=== PATIENT | male | born 1960 | race Caucasian/White ===

== ENCOUNTER → 2018-05-26 11:47 | Outpatient (CLI) | payer OTHER, SELFPAY ==
[2018-05-26 13:05] LABS: Alanine Aminotransferase 58 IU/L (21-72); Albumin 4.2 g/dL (3.5-5.0); Albumin Globulin Ratio 1.6 (1.0-2.8); Alkaline Phosphatase 69 U/L (38-126); Aspartate Aminotransferase 31 IU/L (17-59); BUN Creatinine Ratio 22.5 (6-22); Bilirubin Total 1.1 mg/dL (0.2-1.3); Blood Urea Nitrogen 18 mg/dL (9-20); Calcium 9.1 mg/dL (8.4-10.2); Carbon Dioxide 34 mmol/L (22-32); Chloride 99 mmol/L (98-107); Cholesterol 203 mg/dL (140-199); Estimated Glomerular Filt Rate > 60.0 mL/min (>60); Globulin 2.6 g/dL (1.7-4.1); Glucose 111 mg/dL (70-100); HDL Cholesterol 36 mg/dL (40-60); HEMOLYSIS < 15 (0-50); LDL Cholesterol Calculated 117 mg/dL (<100); Potassium 4.2 mmol/L (3.4-5.1); Sodium 143 mmol/L (137-145); Total Protein 6.8 g/dL (6.3-8.2); Triglycerides 249 mg/dL (35-150)
[2018-05-26 13:32] LABS: Prostate Specific Antigen Scrn 1.04 ng/mL (0.1-4.0)
== END ==
PROVIDERS: Visit Provider Internal Medicine
DX: M15.0 Primary generalized (osteo)arthritis (principal); I10 Essential (primary) hypertension; G47.33 Obstructive sleep apnea (adult) (pediatric)
CPT/HCPCS: 36415; 80053; 80061; G0103

== ENCOUNTER → 2018-08-09 11:30 | Outpatient (CLI) | payer OTHER, SELFPAY ==
--- NOTE | 2018-08-09 11:36 | DI.RAD.S_ITS ---
PROCEDURE: XR CERVICAL SPINE 2V OR 3V INDICATIONS: R shoulder pain radiating into arm s/p fall down stairs TECHNIQUE: 4 views of the cervical spine were acquired. COMPARISON: None. FINDINGS: Bones: No fractures or dislocations to the C6-C7 level. There is straightening of the cervical lordosis. Minimal rightward curvature is noted at the cervicothoracic junction. The lateral masses of C1 appear intact on the odontoid view. There is multilevel disc space narrowing including mild/moderate narrowing at C5-C6 with endplate sclerosis and osteophytosis. No suspicious bony lesions. Soft tissues: No prevertebral soft tissue swelling. IMPRESSION: 1. No definite fracture or subluxation to the C6-C7 level. 2. Straightening of the cervical lordosis and minimal rightward curvature of the cervicothoracic spine. 3. Multilevel degenerative changes include [id number] degenerative disc disease at C5-C6. Dictated by: Emir Saez M.D. on 08/09/2018 at 13:45 Approved by: Emir Saez M.D. on 08/09/2018 at 13:46
--- NOTE | 2018-08-09 11:36 | DI.RAD.S_ITS ---
PROCEDURE: XR SHOULDER RT MIN 2V INDICATIONS: R shoulder pain radiating into arm s/p fall down stairs TECHNIQUE: 3 views of the shoulder were acquired. COMPARISON: [facility], , SHOULDER MINIMUM 2 VIEW LEFT, 10/03/2015, 20:01. FINDINGS: Bones: No fractures or dislocations. There is mild acromioclavicular joint degeneration. No suspicious bony lesions. Visualized ribs appear intact. Soft tissues: No suspicious soft tissue calcifications. IMPRESSION: 1. No fracture or dislocation. Dictated by: Emir Saez M.D. on 08/09/2018 at 13:46 Approved by: Emir Saez M.D. on 08/09/2018 at 13:47
== END ==
PROVIDERS: Visit Provider Physician Assistant
DX: M25.511 Pain in right shoulder (principal); M19.011 Primary osteoarthritis, right shoulder; M50.322 Other cervical disc degeneration at C5-C6 level; M47.812 Spondylosis without myelopathy or radiculopathy, cervical region; M48.02 Spinal stenosis, cervical region
CPT/HCPCS: 72040; 73030

== ENCOUNTER 2018-10-05 15:15 | Outpatient (RCR) | payer OTHER, SELFPAY ==
--- NOTE | 2018-09-15 17:25 | PT.OIE ---
Current Diagnoses Pain in right shoulder (09/17/18) Cervicalgia (09/17/18) Provider Visit Care Team Role Provider Type Mohsen Blanco MD Attending Provider Physician Primary Care Provider Specialty: Internal Medicine Address: [address] [place] [address], [id number] Email: Physical Therapy Initial Evaluation PT-OP-A Visit Information Start: 09/15/18 17:25 Freq: Status: Active Protocol: Document 09/16/18 17:17 EA (Rec: 09/16/18 17:41 EA [id number]) Out-Patient Physical Therapy Visit Information Visit Information Visit Type Initial Evaluation Visit Start Time 14:30 Visit Stop Time 15:15 Total Visit Minutes 40 Visit Number 1 Evaluation Information Evaluation Date 09/16/18 PT-OP-B Current Condition Start: 09/15/18 17:25 Freq: Status: Active Protocol: Document 09/16/18 17:17 EA (Rec: 09/16/18 17:41 EA [id number]) Current Condition History of Current Condition Onset Date July 2018 Current Complaints L lower base of neck radiating to shoulder and FRA History of Current Condition Present condition re- aggravated 1 1/2 month ago after a slipped on the stairs; reports did not hit the head but only the right shoulder and hip; denies major injury. History of both hands CTS with surgeries in 1994. Prior Treatments and Tests R shoulder and cervical X-rays 08/09/2018: No significant findings to right shoulder. Cervicothoracic rightward curvature, and cervical moderate DDD. Future Testing and Treatments Planned None identified Treatment Goals Patient/Caregiver Goals I just want to get back to my regular sleep. Pt states pain makes him difficult to sleep. 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 Functional Limitations- Mobility/Gait Limited due low back , knee and hip pain Functional Limitations- Work/School Unable to work at this time due to multiple joints pain. Functional Limitations- Recreation/ Low ebengry demanding Hobbies activities PT-OP-C Subjective Start: 09/15/18 17:25 Freq: Status: Active Protocol: Document 09/16/18 17:17 EA (Rec: 09/16/18 17:41 EA [id number]) OP-PT Subjective Patient Comments Patient Comments Pt reports recliner chair made him sleep; states unable to sleep on his back or in SL position. Patient Reported Progress Worse Patient Questionnaires Quick Dash- Upper Extremity Quick Dash UE Score 52 Quick Dash UE Impairment 40 to 59% Impaired (Score 40- 59) OP-PT Pain Assessment Pain Assessment Grid Paper Pain Assessment Grid Completed Yes Location Right Posterior Neck Pain Location Details Right low neck base, ant traps , over radial tuberosity Scale Used Numeric (1 - 10) Description Radiating Frequency Intermittent Pain Aggravating Factors Position Changing Position Other Pain Alleviating Factors Laying down to recliner chair Home Pain Medication Use Pain Medications Used Yes Pain Behaviors Pain Behaviors Wincing PT-OP-E Functional Tests Start: 09/15/18 17:25 Freq: Status: Active Protocol: Document 09/15/18 17:24 EA (Rec: 09/17/18 07:26 EA [id number]) Functional Tests Apley's Scratch Test Action 1: The subject is instructed to touch the opposite shoulder with his/her hand. This motion checks Glenohumeral adduction, internal rotation , horizontal adduction and scapular protraction Action 2: The subject is instructed to place his/her arm overhead and reach behind the neck to touch his/her upper back. This motion checks Glenohumeral abduction, external rotation and scapular upward rotation and elevation. Action 3: The subject puts his/her hand on the lower back and reaches upward as far as possible. This motion checks glenohumeral adduction, internal rotation and scapular retraction with downward rotation Action 1- Left able Action 1- Right able Action 2- Left C7 Action 2- Right C7 Action 3- Left T10 Action 3- Right T10 PT-OP-F Manual Assessment Start: 09/15/18 17:25 Freq: Status: Active Protocol: Document 09/15/18 17:24 EA (Rec: 09/17/18 07:26 EA [id number]) Manual Assessments Soft Tissue Assessment Soft Tissue Mobility Assessment Tight both Traps, Lev scap, Scalenes, neck flexors Other Manual Assessments Other Manual Assessments increased tension to both traps and psot neck muscles upon palpation PT-OP-H Neuro Start: 09/15/18 17:25 Freq: Status: Active Protocol: Document 09/16/18 17:17 EA (Rec: 09/16/18 17:41 EA [id number]) Sensation Evaluation Gross Sensation Gross Sensation Right UE Impaired Sensation Description Tingling Dermatome Impairments C6 C7 T1 Deep Tendon Reflex & Clonus Assessment Deep Tendon Reflex Tricep Deep Tendon Reflex 1+ Diminished PT-OP-J Posture/Palpation/Skin Start: 09/15/18 17:25 Freq: Status: Active Protocol: Document 09/16/18 17:17 EA (Rec: 09/16/18 17:41 EA [id number]) Posture Evaluation Position Standing Evaluation View post/lat Head/C-Spine Posture Side Bent Right Forward Head Shoulder Posture (L) Elevated Scapula Posture (L) Protracted (R) Protracted Arm Posture (L) Internally Rotated (R) Internally Rotated Pelvis Posture Anteriorly Tilted PT-OP-K Range of Motion Start: 09/15/18 17:25 Freq: Status: Active Protocol: Document 09/15/18 17:25 EA (Rec: 09/17/18 07:34 EA [id number]) Cervical Spine Range of Motion Cervical Spine Active Percentage Testing Position Sitting Flexion 95 Extension 50 Rotation Left 75 Rotation Right 75 Lateral Flexion Left 75 Lateral Flexion Right 75 ROM Limitations Soft Tissue Tightness Pain Shoulder Goniometric Range of Motion Shoulder Measured in Degrees Right Active Shoulder ROM WFL Yes Testing Position Standing Flexion 180 Extension 60 External Rotation at 90 degrees 90 Abduction Internal Rotation 50 Shoulder ROM Limitations Comments both shoulders are WFL PT-OP-L Special Tests Start: 09/15/18 17:25 Freq: Status: Active Protocol: Document 09/15/18 17:25 EA (Rec: 09/17/18 07:34 EA [id number]) Special Tests Cervical Spine Special Tests Other- 1 Test Results TOS to be determine Spurling's Test Test Results sensitive Vertebral Artery Test Results - Foraminal Compression Test Results + Comments C6 -C7 Shoulder Special Tests Lift-Off Rotator Cuff Test Results - Empty Can Test Results sensitive Speed's Biceps Test Results - Belly Press Test Results - Elevation Impingement Test Results - Mandel Nile Impingement Test Results - PT-OP-M Strength Start: 09/15/18 17:25 Freq: Status: Active Protocol: Document 09/15/18 17:25 EA (Rec: 09/17/18 07:34 EA [id number]) Cervical Spine Strength Cervical Spine Manual Muscle Testing Testing Position Sitting Flexion (C1-2) 4+ Good+ Extension 4+ Good+ Rotation Left 4+ Good+ Rotation Right 4+ Good+ Lateral Flexion Left (C3) 4- Good- Lateral Flexion Right (C3) 4- Good- PT-OP-Q Treatments Start: 09/15/18 17:25 Freq: Status: Active Protocol: Document 09/15/18 17:25 EA (Rec: 09/17/18 07:34 EA [id number]) Self-Care/Home Management Treatment Education Patient Education Home Exercise Program Joint Protection Pain Management Posture PT-OP-T Assessment and Plan Start: 09/15/18 17:25 Freq: Status: Active Protocol: Document 09/15/18 17:26 EA (Rec: 09/15/18 17:28 EA [id number]) Physical Therapy Assessment Rehab Potential Rehabilitation Potential Good Evaluation Complexity Number of Personal Factors/Comorbidities 3 or More Number of Body Systems Impaired 3 Clinical Presentation at Evaluation Evolving Impairments Impairments Activity Tolerance Functional Activities Pain Posture ROM Soft Tissue Mobility Goals Four Impairment Impaired posture Golf Cart Attendant Goal (LTG) Patient will exhibit near normal posture LTG Duration 4 wks Three Impairment QuickDash score of 54 Golf Cart Attendant Goal (LTG) Patient will have quickDash score of < 25 LTG Duration 4 wks Two Impairment Impaired positional tolerance Golf Cart Attendant Goal (LTG) Patient will sleep on his back or side without increase of symptoms > 6 hours LTG Duration 4 wks One Impairment Impaired neck ROM Golf Cart Attendant Goal (LTG) Patient will have normal neck ROM decrease muscular imbalance LTG Duration 4 wks Assessment Summary Assessment Pleasant 58 y/o M patient with referring diagnosis of shoulder and neck pain secondary to recent fall. Today patient presented with limited neck mobility and muscular tension to both neck and upper shoulder. Tests and assessments reveals positive with foraminal compression and distraction. R Shoulder RTC integrity tested and reveals negative to all tests except with R supraspinatus which slightly sensitive. MMT to both shoulders, elbows, and wrists shows WFL in all planes , however neck side flexors shows slight weakness but not significant to nerve injury. Posture assessments reveals slight left shoulder elev. Nerve tensions and TOS assessment is to be followed next visit. In my professional opinion further enhance diagnostic imaging is required to correlate with clinical signs. 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 Patient would greatly benefit with skilled PT to enhance function. Physical Therapy Plan Frequency and Duration Frequency of Treatment 2x/Week Duration of Treatment 8 Plan of Care Start Date 09/15/18 Plan of Care End Date 11/10/18 Therapeutic Interventions Therapeutic Interventions Home Exercise Program Joint Mobilizations Patient/Caregiver Education Self-Care/Home Management Soft Tissue Mobilization Taping Therapeutic Exercises Modalities Cold Pack/Ice Massage Electric Stimulation Hot Packs Ultrasound Next Visit Focus/Plan Next Note Type Treatment Note Next Visit Plan HEP images, neck flexibility, posture, modalities
--- NOTE | 2018-09-15 17:25 | PT.OPPOC ---
Current Diagnoses Pain in right shoulder (09/17/18) Cervicalgia (09/17/18) Provider Visit Care Team Role Provider Type Mohsen Blanco MD Attending Provider Physician Primary Care Provider Specialty: Internal Medicine Address: [address] [place] [address], [facility] Email: Plan Of Care PT-OP-T Assessment and Plan Start: 09/15/18 17:25 Freq: Status: Active Protocol: Document 09/15/18 17:26 ANDI (Rec: 09/15/18 17:28 EA [id number]) Physical Therapy Assessment Rehab Potential Rehabilitation Potential Good Evaluation Complexity Number of Personal Factors/Comorbidities 3 or More Number of Body Systems Impaired 3 Clinical Presentation at Evaluation Evolving Impairments Impairments Activity Tolerance Functional Activities Pain Posture ROM Soft Tissue Mobility Goals Four Impairment Impaired posture Alf Goal (LTG) Patient will exhibit near normal posture LTG Duration 4 wks Three Impairment QuickDash score of 54 Catering Service Manager Goal (LTG) Patient will have quickDash score of < 25 LTG Duration 4 wks Two Impairment Impaired positional tolerance Alf Goal (LTG) Patient will sleep on his back or side without increase of symptoms > 6 hours LTG Duration 4 wks One Impairment Impaired neck ROM Alf Goal (LTG) Patient will have normal neck ROM decrease muscular imbalance LTG Duration 4 wks Assessment Summary Assessment Pleasant 58 y/o M patient with referring diagnosis of shoulder and neck pain secondary to recent fall. Today patient presented with limited neck mobility and muscular tension to both neck and upper shoulder. Tests and assessments reveals positive with foraminal compression and distraction. R Shoulder RTC integrity tested and reveals negative to all tests except with R supraspinatus which slightly sensitive. MMT to both shoulders, elbows, and wrists shows WFL in all planes , however neck side flexors shows slight weakness but not significant to nerve injury. Posture assessments reveals slight left shoulder elev. Nerve tensions and TOS assessment is to be followed next visit. In my professional opinion further enhance diagnostic imaging is required to correlate with clinical signs. 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 Patient would greatly benefit with skilled PT to enhance function. Physical Therapy Plan Frequency and Duration Frequency of Treatment 2x/Week Duration of Treatment 8 Plan of Care Start Date 09/15/18 Plan of Care End Date 11/10/18 Therapeutic Interventions Therapeutic Interventions Home Exercise Program Joint Mobilizations Patient/Caregiver Education Self-Care/Home Management Soft Tissue Mobilization Taping Therapeutic Exercises Modalities Cold Pack/Ice Massage Electric Stimulation Hot Packs Ultrasound Next Visit Focus/Plan Next Note Type Treatment Note Next Visit Plan HEP images, neck flexibility, posture, modalities Plan of Care Dates Plan of Care Start Date 09/15/18 Plan of Care End Date 11/10/18 Please Sign and Return: I have reviewed this Plan of Care and certify that the skilled therapy services above are required to meet the patient?s needs. Physician Signature Date Printed Name and Credentials Clinical Instructor Signature Printed Name and Credentials
--- NOTE | 2018-09-17 12:24 | PT.OTN ---
Current Diagnoses Pain in right shoulder (09/17/18) Cervicalgia (09/17/18) Physical Therapy Treatment Note PT-OP-A Visit Information Start: 09/15/18 17:25 Freq: Status: Active Protocol: Document 09/17/18 12:16 EA (Rec: 09/17/18 12:22 EA [id number]) Out-Patient Physical Therapy Visit Information Visit Information Visit Type Treatment Note Visit Start Time 08:15 Visit Stop Time 09:03 Total Visit Minutes 48 Visit Number 2 PT-OP-B Current Condition Start: 09/15/18 17:25 Freq: Status: Active Protocol: Document 09/16/18 17:17 EA (Rec: 09/16/18 17:41 EA [id number]) Current Condition History of Current Condition Onset Date July 2018 Current Complaints L lower base of neck radiating to shoulder and FRA History of Current Condition Present condition re- aggravated 1 1/2 month ago after a slipped on the stairs; reports did not hit the head but only the right shoulder and hip; denies major injury. History of both hands CTS with surgeries in 1994. Left knee arthroscopic surgery last December 2017 with no formal PT due to complicated medical benefits and L& I claims. Prior Treatments and Tests R shoulder and cervical X-rays 08/09/2018: No significant findings to right shoulder. Cervicothoracic rightward curvature, and cervical moderate DDD. Future Testing and Treatments Planned None identified Treatment Goals Patient/Caregiver Goals I just want to get back to my regular sleep. Pt states pain makes him difficult to sleep. 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 Functional Limitations- Mobility/Gait Limited due low back , knee and hip pain Functional Limitations- Work/School Unable to work at this time due to multiple joints pain. Functional Limitations- Recreation/ Low ebengry demanding Hobbies activities PT-OP-C Subjective Start: 09/15/18 17:25 Freq: Status: Active Protocol: Document 09/17/18 12:22 EA (Rec: 09/17/18 12:23 EA [id number]) OP-PT Subjective Patient Comments Patient Comments Pt reports compliant with HEP and feels it is helping him. Patient Reported Progress Improving PT-OP-E Functional Tests Start: 09/15/18 17:25 Freq: Status: Active Protocol: Document 09/15/18 17:24 EA (Rec: 09/17/18 07:26 EA [id number]) Functional Tests Apley's Scratch Test Action 1: The subject is instructed to touch the opposite shoulder with his/her hand. This motion checks Glenohumeral adduction, internal rotation , horizontal adduction and scapular protraction Action 2: The subject is instructed to place his/her arm overhead and reach behind the neck to touch his/her upper back. This motion checks Glenohumeral abduction, external rotation and scapular upward rotation and elevation. Action 3: The subject puts his/her hand on the lower back and reaches upward as far as possible. This motion checks glenohumeral adduction, internal rotation and scapular retraction with downward rotation Action 1- Left able Action 1- Right able Action 2- Left C7 Action 2- Right C7 Action 3- Left T10 Action 3- Right T10 PT-OP-F Manual Assessment Start: 09/15/18 17:25 Freq: Status: Active Protocol: Document 09/15/18 17:24 EA (Rec: 09/17/18 07:26 EA [id number]) Manual Assessments Soft Tissue Assessment Soft Tissue Mobility Assessment Tight both Traps, Lev scap, Scalenes, neck flexors Other Manual Assessments Other Manual Assessments increased tension to both traps and psot neck muscles upon palpation PT-OP-H Neuro Start: 09/15/18 17:25 Freq: Status: Active Protocol: Document 09/16/18 17:17 EA (Rec: 09/16/18 17:41 EA [id number]) Sensation Evaluation Gross Sensation Gross Sensation Right UE Impaired Sensation Description Tingling Dermatome Impairments C6 C7 T1 Deep Tendon Reflex & Clonus Assessment Deep Tendon Reflex Tricep Deep Tendon Reflex 1+ Diminished PT-OP-J Posture/Palpation/Skin Start: 09/15/18 17:25 Freq: Status: Active Protocol: Document 09/16/18 17:17 EA (Rec: 09/16/18 17:41 EA [id number]) Posture Evaluation Position Standing Evaluation View post/lat Head/C-Spine Posture Side Bent Right Forward Head Shoulder Posture (L) Elevated Scapula Posture (L) Protracted (R) Protracted Arm Posture (L) Internally Rotated (R) Internally Rotated Pelvis Posture Anteriorly Tilted PT-OP-K Range of Motion Start: 09/15/18 17:25 Freq: Status: Active Protocol: Document 09/15/18 17:25 EA (Rec: 09/17/18 07:34 EA [id number]) Cervical Spine Range of Motion Cervical Spine Active Percentage Testing Position Sitting Flexion 95 Extension 50 Rotation Left 75 Rotation Right 75 Lateral Flexion Left 75 Lateral Flexion Right 75 ROM Limitations Soft Tissue Tightness Pain Shoulder Goniometric Range of Motion Shoulder Measured in Degrees Right Active Shoulder ROM WFL Yes Testing Position Standing Flexion 180 Extension 60 External Rotation at 90 degrees 90 Abduction Internal Rotation 50 Shoulder ROM Limitations Comments both shoulders are WFL PT-OP-L Special Tests Start: 09/15/18 17:25 Freq: Status: Active Protocol: Document 09/15/18 17:25 EA (Rec: 09/17/18 07:34 EA [id number]) Special Tests Cervical Spine Special Tests Other- 1 Test Results TOS to be determine Spurling's Test Test Results sensitive Vertebral Artery Test Results - Foraminal Compression Test Results + Comments C6 -C7 Shoulder Special Tests Lift-Off Rotator Cuff Test Results - Empty Can Test Results sensitive Speed's Biceps Test Results - Belly Press Test Results - Elevation Impingement Test Results - Mandel Nile Impingement Test Results - PT-OP-M Strength Start: 09/15/18 17:25 Freq: Status: Active Protocol: Document 09/15/18 17:25 EA (Rec: 09/17/18 07:34 EA [id number]) Cervical Spine Strength Cervical Spine Manual Muscle Testing Testing Position Sitting Flexion (C1-2) 4+ Good+ Extension 4+ Good+ Rotation Left 4+ Good+ Rotation Right 4+ Good+ Lateral Flexion Left (C3) 4- Good- Lateral Flexion Right (C3) 4- Good- PT-OP-Q Treatments Start: 09/15/18 17:25 Freq: Status: Active Protocol: Document 09/17/18 12:16 EA (Rec: 09/17/18 12:22 EA [id number]) Therapeutic Exercises Supine Exercises 3 Supine Exercise Name Passive stretch: Traps, scalenes, SCM, pectorals Reps/Minutes x15SH x 2 reps each 2 Supine Exercise Name Gentle isometrics all planes Side bilateral Reps/Minutes x 5SH x 5 reps each 1 Supine Exercise Name Flxion/SF/rotation AROM Side bilateral Reps/Minutes x15 reps Standing Exercises 1 Standing Exercise Name wall posture Reps/Minutes x 5 mins Manual Therapy Treatment Soft Tissue Mobilization 1 Mobilization Type Myofascial Release Rolling Sustained Pressure Trigger Point Release Body Position Hooklying Manual Traction Cervical Body Position Supine Reps/Duration x5SH x 10reps PT-OP-R Modalities Start: 09/15/18 17:25 Freq: Status: Active Protocol: Document 09/17/18 12:16 EA (Rec: 09/17/18 12:22 EA [id number]) Hot Pack/Cold Pack Treatment Hot Pack Location cervical Patient Position Supine Treatment Duration (minutes) 10 Patient Tolerance Good PT-OP-T Assessment and Plan Start: 09/15/18 17:25 Freq: Status: Active Protocol: Document 09/17/18 12:16 EA (Rec: 09/17/18 12:22 EA [id number]) Physical Therapy Assessment Assessment Summary Assessment Pt tolerated treatment well. Noted decreased muscle tension after manual. Physical Therapy Plan Next Visit Focus/Plan Next Note Type Treatment Note
--- NOTE | 2018-09-22 16:35 | PT.OTN ---
Current Diagnoses Pain in right shoulder (09/22/18) Cervicalgia (09/22/18) Physical Therapy Treatment Note PT-OP-A Visit Information Start: 09/15/18 17:25 Freq: Status: Active Protocol: Document 09/22/18 15:45 EA (Rec: 09/22/18 15:53 EA [id number]) Out-Patient Physical Therapy Visit Information Visit Information Visit Type Treatment Note Visit Start Time 15:15 Visit Stop Time 16:00 Visit Number 3 PT-OP-B Current Condition Start: 09/15/18 17:25 Freq: Status: Active Protocol: Document 09/16/18 17:17 EA (Rec: 09/16/18 17:41 EA [id number]) Current Condition History of Current Condition Onset Date July 2018 Current Complaints L lower base of neck radiating to shoulder and FRA History of Current Condition Present condition re- aggravated 1 1/2 month ago after a slipped on the stairs; reports did not hit the head but only the right shoulder and hip; denies major injury. History of both hands CTS with surgeries in 1994. Left knee arthroscopic surgery last December 2017 with no formal PT due to complicated medical benefits and L& I claims. Prior Treatments and Tests R shoulder and cervical X-rays 08/09/2018: No significant findings to right shoulder. Cervicothoracic rightward curvature, and cervical moderate DDD. Future Testing and Treatments Planned None identified Treatment Goals Patient/Caregiver Goals I just want to get back to my regular sleep. Pt states pain makes him difficult to sleep. 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 Functional Limitations- Mobility/Gait Limited due low back , knee and hip pain Functional Limitations- Work/School Unable to work at this time due to multiple joints pain. Functional Limitations- Recreation/ Low ebengry demanding Hobbies activities PT-OP-C Subjective Start: 09/15/18 17:25 Freq: Status: Active Protocol: Document 09/22/18 15:45 EA (Rec: 09/22/18 15:53 EA [id number]) OP-PT Subjective Patient Comments Patient Comments Pt reports last session helps. Patient Reported Progress Improving PT-OP-E Functional Tests Start: 09/15/18 17:25 Freq: Status: Active Protocol: Document 09/15/18 17:24 EA (Rec: 09/17/18 07:26 EA [id number]) Functional Tests Apley's Scratch Test Action 1: The subject is instructed to touch the opposite shoulder with his/her hand. This motion checks Glenohumeral adduction, internal rotation , horizontal adduction and scapular protraction Action 2: The subject is instructed to place his/her arm overhead and reach behind the neck to touch his/her upper back. This motion checks Glenohumeral abduction, external rotation and scapular upward rotation and elevation. Action 3: The subject puts his/her hand on the lower back and reaches upward as far as possible. This motion checks glenohumeral adduction, internal rotation and scapular retraction with downward rotation Action 1- Left able Action 1- Right able Action 2- Left C7 Action 2- Right C7 Action 3- Left T10 Action 3- Right T10 PT-OP-F Manual Assessment Start: 09/15/18 17:25 Freq: Status: Active Protocol: Document 09/15/18 17:24 EA (Rec: 09/17/18 07:26 EA [id number]) Manual Assessments Soft Tissue Assessment Soft Tissue Mobility Assessment Tight both Traps, Lev scap, Scalenes, neck flexors Other Manual Assessments Other Manual Assessments increased tension to both traps and psot neck muscles upon palpation PT-OP-H Neuro Start: 09/15/18 17:25 Freq: Status: Active Protocol: Document 09/16/18 17:17 EA (Rec: 09/16/18 17:41 EA [id number]) Sensation Evaluation Gross Sensation Gross Sensation Right UE Impaired Sensation Description Tingling Dermatome Impairments C6 C7 T1 Deep Tendon Reflex & Clonus Assessment Deep Tendon Reflex Tricep Deep Tendon Reflex 1+ Diminished PT-OP-J Posture/Palpation/Skin Start: 09/15/18 17:25 Freq: Status: Active Protocol: Document 09/16/18 17:17 EA (Rec: 09/16/18 17:41 EA [id number]) Posture Evaluation Position Standing Evaluation View post/lat Head/C-Spine Posture Side Bent Right Forward Head Shoulder Posture (L) Elevated Scapula Posture (L) Protracted (R) Protracted Arm Posture (L) Internally Rotated (R) Internally Rotated Pelvis Posture Anteriorly Tilted PT-OP-K Range of Motion Start: 09/15/18 17:25 Freq: Status: Active Protocol: Document 09/15/18 17:25 EA (Rec: 09/17/18 07:34 EA [id number]) Cervical Spine Range of Motion Cervical Spine Active Percentage Testing Position Sitting Flexion 95 Extension 50 Rotation Left 75 Rotation Right 75 Lateral Flexion Left 75 Lateral Flexion Right 75 ROM Limitations Soft Tissue Tightness Pain Shoulder Goniometric Range of Motion Shoulder Measured in Degrees Right Active Shoulder ROM WFL Yes Testing Position Standing Flexion 180 Extension 60 External Rotation at 90 degrees 90 Abduction Internal Rotation 50 Shoulder ROM Limitations Comments both shoulders are WFL PT-OP-L Special Tests Start: 09/15/18 17:25 Freq: Status: Active Protocol: Document 09/15/18 17:25 EA (Rec: 09/17/18 07:34 EA [id number]) Special Tests Cervical Spine Special Tests Other- 1 Test Results TOS to be determine Spurling's Test Test Results sensitive Vertebral Artery Test Results - Foraminal Compression Test Results + Comments C6 -C7 Shoulder Special Tests Lift-Off Rotator Cuff Test Results - Empty Can Test Results sensitive Speed's Biceps Test Results - Belly Press Test Results - Elevation Impingement Test Results - Mandel Nile Impingement Test Results - PT-OP-M Strength Start: 09/15/18 17:25 Freq: Status: Active Protocol: Document 09/15/18 17:25 EA (Rec: 09/17/18 07:34 EA [id number]) Cervical Spine Strength Cervical Spine Manual Muscle Testing Testing Position Sitting Flexion (C1-2) 4+ Good+ Extension 4+ Good+ Rotation Left 4+ Good+ Rotation Right 4+ Good+ Lateral Flexion Left (C3) 4- Good- Lateral Flexion Right (C3) 4- Good- PT-OP-Q Treatments Start: 09/15/18 17:25 Freq: Status: Active Protocol: Document 09/22/18 15:45 EA (Rec: 09/22/18 15:53 EA [id number]) Therapeutic Exercises Supine Exercises 3 Supine Exercise Name Passive stretch: Traps, scalenes, SCM, pectorals Reps/Minutes x15SH x 2 reps each 2 Supine Exercise Name Gentle isometrics all planes Side bilateral Reps/Minutes x 5SH x 5 reps each 1 Supine Exercise Name Flxion/SF/rotation AROM Side bilateral Reps/Minutes x15 reps Standing Exercises 1 Standing Exercise Name wall posture Reps/Minutes x 5 mins Manual Therapy Treatment Soft Tissue Mobilization 1 Mobilization Type Myofascial Release Rolling Sustained Pressure Trigger Point Release Body Position Hooklying PT-OP-R Modalities Start: 09/15/18 17:25 Freq: Status: Active Protocol: Document 09/22/18 15:45 EA (Rec: 09/22/18 15:53 EA [id number]) Hot Pack/Cold Pack Treatment Hot Pack Location cervical Patient Position Supine Treatment Duration (minutes) 10 Patient Tolerance Good PT-OP-T Assessment and Plan Start: 09/15/18 17:25 Freq: Status: Active Protocol: Document 09/22/18 15:45 EA (Rec: 09/22/18 15:53 EA [id number]) Physical Therapy Assessment Assessment Summary Assessment Improved neck mobility with no discomfort noted. Patient continued to progress. Physical Therapy Plan Next Visit Focus/Plan Next Note Type Treatment Note
--- NOTE | 2018-09-24 16:48 | PT.OTN ---
Current Diagnoses Pain in right shoulder (09/24/18) Cervicalgia (09/24/18) Physical Therapy Treatment Note PT-OP-A Visit Information Start: 09/15/18 17:25 Freq: Status: Active Protocol: Document 09/24/18 15:54 EA (Rec: 09/24/18 16:47 EA [id number]) Out-Patient Physical Therapy Visit Information Visit Information Visit Type Treatment Note Visit Start Time 15:15 Visit Stop Time 16:00 Visit Number 4 PT-OP-B Current Condition Start: 09/15/18 17:25 Freq: Status: Active Protocol: Document 09/16/18 17:17 EA (Rec: 09/16/18 17:41 EA [id number]) Current Condition History of Current Condition Onset Date July 2018 Current Complaints L lower base of neck radiating to shoulder and FRA History of Current Condition Present condition re- aggravated 1 1/2 month ago after a slipped on the stairs; reports did not hit the head but only the right shoulder and hip; denies major injury. History of both hands CTS with surgeries in 1994. Left knee arthroscopic surgery last December 2017 with no formal PT due to complicated medical benefits and L& I claims. Prior Treatments and Tests R shoulder and cervical X-rays 08/09/2018: No significant findings to right shoulder. Cervicothoracic rightward curvature, and cervical moderate DDD. Future Testing and Treatments Planned None identified Treatment Goals Patient/Caregiver Goals I just want to get back to my regular sleep. Pt states pain makes him difficult to sleep. 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 Functional Limitations- Mobility/Gait Limited due low back , knee and hip pain Functional Limitations- Work/School Unable to work at this time due to multiple joints pain. Functional Limitations- Recreation/ Low ebengry demanding Hobbies activities PT-OP-C Subjective Start: 09/15/18 17:25 Freq: Status: Active Protocol: Document 09/24/18 15:54 EA (Rec: 09/24/18 16:47 EA [id number]) OP-PT Subjective Patient Comments Patient Comments Pt reports he is improving well and would like to stick with same technique. Patient Reported Progress Improving PT-OP-E Functional Tests Start: 09/15/18 17:25 Freq: Status: Active Protocol: Document 09/15/18 17:24 EA (Rec: 09/17/18 07:26 EA [id number]) Functional Tests Apley's Scratch Test Action 1: The subject is instructed to touch the opposite shoulder with his/her hand. This motion checks Glenohumeral adduction, internal rotation , horizontal adduction and scapular protraction Action 2: The subject is instructed to place his/her arm overhead and reach behind the neck to touch his/her upper back. This motion checks Glenohumeral abduction, external rotation and scapular upward rotation and elevation. Action 3: The subject puts his/her hand on the lower back and reaches upward as far as possible. This motion checks glenohumeral adduction, internal rotation and scapular retraction with downward rotation Action 1- Left able Action 1- Right able Action 2- Left C7 Action 2- Right C7 Action 3- Left T10 Action 3- Right T10 PT-OP-F Manual Assessment Start: 09/15/18 17:25 Freq: Status: Active Protocol: Document 09/15/18 17:24 EA (Rec: 09/17/18 07:26 EA [id number]) Manual Assessments Soft Tissue Assessment Soft Tissue Mobility Assessment Tight both Traps, Lev scap, Scalenes, neck flexors Other Manual Assessments Other Manual Assessments increased tension to both traps and psot neck muscles upon palpation PT-OP-H Neuro Start: 09/15/18 17:25 Freq: Status: Active Protocol: Document 09/16/18 17:17 EA (Rec: 09/16/18 17:41 EA [id number]) Sensation Evaluation Gross Sensation Gross Sensation Right UE Impaired Sensation Description Tingling Dermatome Impairments C6 C7 T1 Deep Tendon Reflex & Clonus Assessment Deep Tendon Reflex Tricep Deep Tendon Reflex 1+ Diminished PT-OP-J Posture/Palpation/Skin Start: 09/15/18 17:25 Freq: Status: Active Protocol: Document 09/16/18 17:17 EA (Rec: 09/16/18 17:41 EA [id number]) Posture Evaluation Position Standing Evaluation View post/lat Head/C-Spine Posture Side Bent Right Forward Head Shoulder Posture (L) Elevated Scapula Posture (L) Protracted (R) Protracted Arm Posture (L) Internally Rotated (R) Internally Rotated Pelvis Posture Anteriorly Tilted PT-OP-K Range of Motion Start: 09/15/18 17:25 Freq: Status: Active Protocol: Document 09/15/18 17:25 EA (Rec: 09/17/18 07:34 EA [id number]) Cervical Spine Range of Motion Cervical Spine Active Percentage Testing Position Sitting Flexion 95 Extension 50 Rotation Left 75 Rotation Right 75 Lateral Flexion Left 75 Lateral Flexion Right 75 ROM Limitations Soft Tissue Tightness Pain Shoulder Goniometric Range of Motion Shoulder Measured in Degrees Right Active Shoulder ROM WFL Yes Testing Position Standing Flexion 180 Extension 60 External Rotation at 90 degrees 90 Abduction Internal Rotation 50 Shoulder ROM Limitations Comments both shoulders are WFL PT-OP-L Special Tests Start: 09/15/18 17:25 Freq: Status: Active Protocol: Document 09/15/18 17:25 EA (Rec: 09/17/18 07:34 EA [id number]) Special Tests Cervical Spine Special Tests Other- 1 Test Results TOS to be determine Spurling's Test Test Results sensitive Vertebral Artery Test Results - Foraminal Compression Test Results + Comments C6 -C7 Shoulder Special Tests Lift-Off Rotator Cuff Test Results - Empty Can Test Results sensitive Speed's Biceps Test Results - Belly Press Test Results - Elevation Impingement Test Results - Mandel Nile Impingement Test Results - PT-OP-M Strength Start: 09/15/18 17:25 Freq: Status: Active Protocol: Document 09/15/18 17:25 EA (Rec: 09/17/18 07:34 EA [id number]) Cervical Spine Strength Cervical Spine Manual Muscle Testing Testing Position Sitting Flexion (C1-2) 4+ Good+ Extension 4+ Good+ Rotation Left 4+ Good+ Rotation Right 4+ Good+ Lateral Flexion Left (C3) 4- Good- Lateral Flexion Right (C3) 4- Good- PT-OP-Q Treatments Start: 09/15/18 17:25 Freq: Status: Active Protocol: Document 09/24/18 15:54 EA (Rec: 09/24/18 16:47 EA [id number]) Therapeutic Exercises Supine Exercises 3 Supine Exercise Name Passive stretch: Traps, scalenes, SCM, pectorals Reps/Minutes x15SH x 2 reps each 2 Supine Exercise Name Gentle isometrics all planes Side bilateral Reps/Minutes x 5SH x 5 reps each 1 Supine Exercise Name Flxion/SF/rotation AROM Side bilateral Reps/Minutes x15 reps Standing Exercises 1 Standing Exercise Name wall posture Reps/Minutes x 5 mins Manual Therapy Treatment Soft Tissue Mobilization 1 Mobilization Type Myofascial Release Rolling Sustained Pressure Trigger Point Release Body Position Hooklying Manual Traction Cervical Body Position Supine Reps/Duration x5SH x 10reps PT-OP-R Modalities Start: 09/15/18 17:25 Freq: Status: Active Protocol: Document 09/24/18 15:54 EA (Rec: 09/24/18 16:47 EA [id number]) Hot Pack/Cold Pack Treatment Hot Pack Location cervical Patient Position Supine Treatment Duration (minutes) 10 Patient Tolerance Good PT-OP-T Assessment and Plan Start: 09/15/18 17:25 Freq: Status: Active Protocol: Document 09/24/18 15:54 EA (Rec: 09/24/18 16:47 EA [id number]) Physical Therapy Assessment Assessment Summary Assessment Pt cont to show neck improvement ROM with no discomfort. Physical Therapy Plan Next Visit Focus/Plan Next Note Type Treatment Note Next Visit Plan Advance as tolerated
--- NOTE | 2018-09-29 15:54 | PT.OTN ---
Current Diagnoses Pain in right shoulder (09/29/18) Cervicalgia (09/29/18) Physical Therapy Treatment Note PT-OP-A Visit Information Start: 09/15/18 17:25 Freq: Status: Active Protocol: Document 09/29/18 15:43 EA (Rec: 09/29/18 15:52 EA [id number]) Out-Patient Physical Therapy Visit Information Visit Information Visit Type Treatment Note Visit Start Time 15:15 Visit Stop Time 16:00 Visit Number 5 PT-OP-B Current Condition Start: 09/15/18 17:25 Freq: Status: Active Protocol: Document 09/16/18 17:17 EA (Rec: 09/16/18 17:41 EA [id number]) Current Condition History of Current Condition Onset Date July 2018 Current Complaints L lower base of neck radiating to shoulder and FRA History of Current Condition Present condition re- aggravated 1 1/2 month ago after a slipped on the stairs; reports did not hit the head but only the right shoulder and hip; denies major injury. History of both hands CTS with surgeries in 1994. Left knee arthroscopic surgery last December 2017 with no formal PT due to complicated medical benefits and L& I claims. Prior Treatments and Tests R shoulder and cervical X-rays 08/09/2018: No significant findings to right shoulder. Cervicothoracic rightward curvature, and cervical moderate DDD. Future Testing and Treatments Planned None identified Treatment Goals Patient/Caregiver Goals I just want to get back to my regular sleep. Pt states pain makes him difficult to sleep. 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 Functional Limitations- Mobility/Gait Limited due low back , knee and hip pain Functional Limitations- Work/School Unable to work at this time due to multiple joints pain. Functional Limitations- Recreation/ Low ebengry demanding Hobbies activities PT-OP-C Subjective Start: 09/15/18 17:25 Freq: Status: Active Protocol: Document 09/29/18 15:43 EA (Rec: 09/29/18 15:52 EA [id number]) OP-PT Subjective Patient Comments Patient Comments Pt reports neck is feeling much better; states only with tunring to left side. Patient Reported Progress Improving PT-OP-E Functional Tests Start: 09/15/18 17:25 Freq: Status: Active Protocol: Document 09/15/18 17:24 EA (Rec: 09/17/18 07:26 EA [id number]) Functional Tests Apley's Scratch Test Action 1: The subject is instructed to touch the opposite shoulder with his/her hand. This motion checks Glenohumeral adduction, internal rotation , horizontal adduction and scapular protraction Action 2: The subject is instructed to place his/her arm overhead and reach behind the neck to touch his/her upper back. This motion checks Glenohumeral abduction, external rotation and scapular upward rotation and elevation. Action 3: The subject puts his/her hand on the lower back and reaches upward as far as possible. This motion checks glenohumeral adduction, internal rotation and scapular retraction with downward rotation Action 1- Left able Action 1- Right able Action 2- Left C7 Action 2- Right C7 Action 3- Left T10 Action 3- Right T10 PT-OP-F Manual Assessment Start: 09/15/18 17:25 Freq: Status: Active Protocol: Document 09/15/18 17:24 EA (Rec: 09/17/18 07:26 EA [id number]) Manual Assessments Soft Tissue Assessment Soft Tissue Mobility Assessment Tight both Traps, Lev scap, Scalenes, neck flexors Other Manual Assessments Other Manual Assessments increased tension to both traps and psot neck muscles upon palpation PT-OP-H Neuro Start: 09/15/18 17:25 Freq: Status: Active Protocol: Document 09/16/18 17:17 EA (Rec: 09/16/18 17:41 EA [id number]) Sensation Evaluation Gross Sensation Gross Sensation Right UE Impaired Sensation Description Tingling Dermatome Impairments C6 C7 T1 Deep Tendon Reflex & Clonus Assessment Deep Tendon Reflex Tricep Deep Tendon Reflex 1+ Diminished PT-OP-J Posture/Palpation/Skin Start: 09/15/18 17:25 Freq: Status: Active Protocol: Document 09/16/18 17:17 EA (Rec: 09/16/18 17:41 EA [id number]) Posture Evaluation Position Standing Evaluation View post/lat Head/C-Spine Posture Side Bent Right Forward Head Shoulder Posture (L) Elevated Scapula Posture (L) Protracted (R) Protracted Arm Posture (L) Internally Rotated (R) Internally Rotated Pelvis Posture Anteriorly Tilted PT-OP-K Range of Motion Start: 09/15/18 17:25 Freq: Status: Active Protocol: Document 09/15/18 17:25 EA (Rec: 09/17/18 07:34 EA [id number]) Cervical Spine Range of Motion Cervical Spine Active Percentage Testing Position Sitting Flexion 95 Extension 50 Rotation Left 75 Rotation Right 75 Lateral Flexion Left 75 Lateral Flexion Right 75 ROM Limitations Soft Tissue Tightness Pain Shoulder Goniometric Range of Motion Shoulder Measured in Degrees Right Active Shoulder ROM WFL Yes Testing Position Standing Flexion 180 Extension 60 External Rotation at 90 degrees 90 Abduction Internal Rotation 50 Shoulder ROM Limitations Comments both shoulders are WFL PT-OP-L Special Tests Start: 09/15/18 17:25 Freq: Status: Active Protocol: Document 09/15/18 17:25 EA (Rec: 09/17/18 07:34 EA [id number]) Special Tests Cervical Spine Special Tests Other- 1 Test Results TOS to be determine Spurling's Test Test Results sensitive Vertebral Artery Test Results - Foraminal Compression Test Results + Comments C6 -C7 Shoulder Special Tests Lift-Off Rotator Cuff Test Results - Empty Can Test Results sensitive Speed's Biceps Test Results - Belly Press Test Results - Elevation Impingement Test Results - Mandel Nile Impingement Test Results - PT-OP-M Strength Start: 09/15/18 17:25 Freq: Status: Active Protocol: Document 09/15/18 17:25 EA (Rec: 09/17/18 07:34 EA [id number]) Cervical Spine Strength Cervical Spine Manual Muscle Testing Testing Position Sitting Flexion (C1-2) 4+ Good+ Extension 4+ Good+ Rotation Left 4+ Good+ Rotation Right 4+ Good+ Lateral Flexion Left (C3) 4- Good- Lateral Flexion Right (C3) 4- Good- PT-OP-Q Treatments Start: 09/15/18 17:25 Freq: Status: Active Protocol: Document 09/29/18 15:43 EA (Rec: 09/29/18 15:52 EA [id number]) Therapeutic Exercises Supine Exercises 3 Supine Exercise Name Passive stretch: Traps, scalenes, SCM, pectorals Reps/Minutes x15SH x 2 reps each 2 Supine Exercise Name Gentle isometrics all planes Side bilateral Reps/Minutes x 5SH x 5 reps each 1 Supine Exercise Name Flxion/SF/rotation AROM Side bilateral Reps/Minutes x15 reps Sidelying Exercises 1 Sidelying Exercise Name SF and rotation Side bilateral Comments x 15 reps x 2 sets Sitting Exercises 1 Sitting Exercise Name Cervical AP AROM Reps/Minutes [id number] Standing Exercises 1 Standing Exercise Name wall posture Reps/Minutes x 5 mins Comments HEP comp PT-OP-R Modalities Start: 09/15/18 17:25 Freq: Status: Active Protocol: Document 09/24/18 15:54 EA (Rec: 09/24/18 16:47 EA [id number]) Hot Pack/Cold Pack Treatment Hot Pack Location cervical Patient Position Supine Treatment Duration (minutes) 10 Patient Tolerance Good PT-OP-T Assessment and Plan Start: 09/15/18 17:25 Freq: Status: Active Protocol: Document 09/29/18 15:43 EA (Rec: 09/29/18 15:52 EA [id number]) Physical Therapy Assessment Assessment Summary Assessment Patient has improved neck mobility with no discomfort. Pt is good to see once a week. Physical Therapy Plan Next Visit Focus/Plan Next Note Type Treatment Note Next Visit Plan Advance as tolerated
--- NOTE | 2018-10-05 15:51 | PT.OTN ---
Current Diagnoses Pain in right shoulder (10/05/18) Cervicalgia (10/05/18) Physical Therapy Treatment Note PT-OP-A Visit Information Start: 09/15/18 17:25 Freq: Status: Active Protocol: Document 10/05/18 15:44 EA (Rec: 10/05/18 15:51 EA [id number]) Out-Patient Physical Therapy Visit Information Visit Information Visit Type Treatment Note Visit Start Time 15:15 Visit Stop Time 15:40 Visit Number 6 PT-OP-B Current Condition Start: 09/15/18 17:25 Freq: Status: Active Protocol: Document 09/16/18 17:17 EA (Rec: 09/16/18 17:41 EA [id number]) Current Condition History of Current Condition Onset Date July 2018 Current Complaints L lower base of neck radiating to shoulder and FRA History of Current Condition Present condition re- aggravated 1 1/2 month ago after a slipped on the stairs; reports did not hit the head but only the right shoulder and hip; denies major injury. History of both hands CTS with surgeries in 1994. Left knee arthroscopic surgery last December 2017 with no formal PT due to complicated medical benefits and L& I claims. Prior Treatments and Tests R shoulder and cervical X-rays 08/09/2018: No significant findings to right shoulder. Cervicothoracic rightward curvature, and cervical moderate DDD. Future Testing and Treatments Planned None identified Treatment Goals Patient/Caregiver Goals I just want to get back to my regular sleep. Pt states pain makes him difficult to sleep. Prior Functional Status Baseline Function- ADL's Independent Baseline Function- Mobility Independent Baseline Function- Gait < 1 a mile due to hip and low back issue; Baseline Function- Work/School Work as [employer] and out of work > 1 year now Baseline Function- Recreation/Hobbies Low energy demanding recreational actitivites Current Functional Impairments (Reported) Functional Limitations- ADL's Independent but with difficulty in all activities that requires walking, standing, and bending. Functional Limitations- Mobility/Gait Limited due low back , knee and hip pain Functional Limitations- Work/School Unable to work at this time due to multiple joints pain. Functional Limitations- Recreation/ Low ebengry demanding Hobbies activities PT-OP-C Subjective Start: 09/15/18 17:25 Freq: Status: Active Protocol: Document 10/05/18 15:44 EA (Rec: 10/05/18 15:51 EA [id number]) OP-PT Subjective Patient Comments Patient Comments Pt reports neck hurts 2 days ago due to wrong sleeping position; states it much improved and no pain at this time after doing HEP. PT-OP-E Functional Tests Start: 09/15/18 17:25 Freq: Status: Active Protocol: Document 09/15/18 17:24 EA (Rec: 09/17/18 07:26 EA [id number]) Functional Tests Apley's Scratch Test Action 1: The subject is instructed to touch the opposite shoulder with his/her hand. This motion checks Glenohumeral adduction, internal rotation , horizontal adduction and scapular protraction Action 2: The subject is instructed to place his/her arm overhead and reach behind the neck to touch his/her upper back. This motion checks Glenohumeral abduction, external rotation and scapular upward rotation and elevation. Action 3: The subject puts his/her hand on the lower back and reaches upward as far as possible. This motion checks glenohumeral adduction, internal rotation and scapular retraction with downward rotation Action 1- Left able Action 1- Right able Action 2- Left C7 Action 2- Right C7 Action 3- Left T10 Action 3- Right T10 PT-OP-F Manual Assessment Start: 09/15/18 17:25 Freq: Status: Active Protocol: Document 09/15/18 17:24 EA (Rec: 09/17/18 07:26 EA [id number]) Manual Assessments Soft Tissue Assessment Soft Tissue Mobility Assessment Tight both Traps, Lev scap, Scalenes, neck flexors Other Manual Assessments Other Manual Assessments increased tension to both traps and psot neck muscles upon palpation PT-OP-H Neuro Start: 09/15/18 17:25 Freq: Status: Active Protocol: Document 09/16/18 17:17 EA (Rec: 09/16/18 17:41 EA [id number]) Sensation Evaluation Gross Sensation Gross Sensation Right UE Impaired Sensation Description Tingling Dermatome Impairments C6 C7 T1 Deep Tendon Reflex & Clonus Assessment Deep Tendon Reflex Tricep Deep Tendon Reflex 1+ Diminished PT-OP-J Posture/Palpation/Skin Start: 09/15/18 17:25 Freq: Status: Active Protocol: Document 09/16/18 17:17 EA (Rec: 09/16/18 17:41 EA [id number]) Posture Evaluation Position Standing Evaluation View post/lat Head/C-Spine Posture Side Bent Right Forward Head Shoulder Posture (L) Elevated Scapula Posture (L) Protracted (R) Protracted Arm Posture (L) Internally Rotated (R) Internally Rotated Pelvis Posture Anteriorly Tilted PT-OP-K Range of Motion Start: 09/15/18 17:25 Freq: Status: Active Protocol: Document 09/15/18 17:25 EA (Rec: 09/17/18 07:34 EA [id number]) Cervical Spine Range of Motion Cervical Spine Active Percentage Testing Position Sitting Flexion 95 Extension 50 Rotation Left 75 Rotation Right 75 Lateral Flexion Left 75 Lateral Flexion Right 75 ROM Limitations Soft Tissue Tightness Pain Shoulder Goniometric Range of Motion Shoulder Measured in Degrees Right Active Shoulder ROM WFL Yes Testing Position Standing Flexion 180 Extension 60 External Rotation at 90 degrees 90 Abduction Internal Rotation 50 Shoulder ROM Limitations Comments both shoulders are WFL PT-OP-L Special Tests Start: 09/15/18 17:25 Freq: Status: Active Protocol: Document 09/15/18 17:25 EA (Rec: 09/17/18 07:34 EA [id number]) Special Tests Cervical Spine Special Tests Other- 1 Test Results TOS to be determine Spurling's Test Test Results sensitive Vertebral Artery Test Results - Foraminal Compression Test Results + Comments C6 -C7 Shoulder Special Tests Lift-Off Rotator Cuff Test Results - Empty Can Test Results sensitive Speed's Biceps Test Results - Belly Press Test Results - Elevation Impingement Test Results - Mandel Nile Impingement Test Results - PT-OP-M Strength Start: 09/15/18 17:25 Freq: Status: Active Protocol: Document 09/15/18 17:25 EA (Rec: 09/17/18 07:34 EA [id number]) Cervical Spine Strength Cervical Spine Manual Muscle Testing Testing Position Sitting Flexion (C1-2) 4+ Good+ Extension 4+ Good+ Rotation Left 4+ Good+ Rotation Right 4+ Good+ Lateral Flexion Left (C3) 4- Good- Lateral Flexion Right (C3) 4- Good- PT-OP-Q Treatments Start: 09/15/18 17:25 Freq: Status: Active Protocol: Document 10/05/18 15:44 EA (Rec: 10/05/18 15:51 EA [id number]) Therapeutic Exercises Supine Exercises 3 Supine Exercise Name Passive stretch: Traps, scalenes, SCM, pectorals Reps/Minutes x15SH x 2 reps each 2 Supine Exercise Name Gentle isometrics all planes Side bilateral Reps/Minutes x 5SH x 5 reps each 1 Supine Exercise Name Flexion AROM Side bilateral Reps/Minutes x15 reps Comments HEP comp Prone Exercises 1 Prone Exercise Name cervical retraction Reps/Minutes x 10 reps Comments AROM Sidelying Exercises 1 Sidelying Exercise Name SF and rotation Side bilateral Reps/Minutes x15 reps x 2 Comments HEP comp Sitting Exercises 1 Sitting Exercise Name Cervical AP AROM Reps/Minutes [id number] Comments HEP comp Standing Exercises 1 Standing Exercise Name wall posture Reps/Minutes x 5 mins Comments HEP comp PT-OP-R Modalities Start: 09/15/18 17:25 Freq: Status: Active Protocol: Document 09/24/18 15:54 EA (Rec: 09/24/18 16:47 EA [id number]) Hot Pack/Cold Pack Treatment Hot Pack Location cervical Patient Position Supine Treatment Duration (minutes) 10 Patient Tolerance Good PT-OP-T Assessment and Plan Start: 09/15/18 17:25 Freq: Status: Active Protocol: Document 10/05/18 15:44 EA (Rec: 10/05/18 15:51 EA [id number]) Physical Therapy Assessment Assessment Summary Assessment Pt is discharge to [facility] and agreeable to comply with it. Explained that require new referral if wishes to come back. Physical Therapy Plan Discharge Physical Therapy Discharge Reasons Patient Request Discharge Comments No more complaint
== END 2018-10-19 11:08 | disposition home or self-care (01) ==
LOC: PHYS 15:15
PROVIDERS: PCP Internal Medicine; Visit Provider Internal Medicine
DX: M25.511 Pain in right shoulder (principal); M54.2 Cervicalgia
CPT/HCPCS: 97110; 97140; 97162; 97535

== ENCOUNTER → 2019-02-15 12:59 | Outpatient (CLI) | payer OTHER, SELFPAY ==
[2019-02-15 13:48] LABS: Hemoglobin A1C% w Est Avg Glu 5.5 % (4.0-6.0)
[2019-02-15 13:54] LABS: BUN Creatinine Ratio 22.9 (6-22); Blood Urea Nitrogen 16 mg/dL (9-20); Calcium 8.7 mg/dL (8.4-10.2); Carbon Dioxide 32 mmol/L (22-32); Chloride 98 mmol/L (98-107); Estimated Glomerular Filt Rate > 60.0 mL/min (>60); Glucose 99 mg/dL (70-100); HEMOLYSIS < 15 (0-50); Potassium 3.7 mmol/L (3.4-5.1); Sodium 139 mmol/L (137-145)
[2019-02-15 14:42] LABS: Vitamin B12 657 pg/mL (239-931)
[2019-02-15 15:29] LABS: TSH w/ Reflex to FT4 3.04 uIU/mL (0.47-4.68)
== END ==
PROVIDERS: Visit Provider Internal Medicine
DX: R73.01 Impaired fasting glucose (principal); G62.9 Polyneuropathy, unspecified
CPT/HCPCS: 36415; 80048; 82607; 83036; 84443

== ENCOUNTER → 2019-04-01 16:03 | Outpatient (CLI) | payer OTHER, SELFPAY ==
[2019-04-01 16:44] LABS: Add Manual Diff / Slide Review NO; Basophils Absolute Auto 0 /uL (0-100); Basophils Percent Auto 0.5 % (0-2); Eosinophils Absolute Auto 300 /uL (0-450); Eosinophils Percent Auto 3.4 % (2-4); Hematocrit 49.7 % (41-53); Hemoglobin 16.7 g/dL (13.5-17.5); Lymphocytes Absolute Auto 2300 /uL (1100-4500); Mean Corpuscular HGB Conc 33.6 % (30-36); Mean Corpuscular Hemoglobin 30.5 PG (26-34); Mean Corpuscular Volume 90.7 fL (80-100); Monocytes Absolute Auto 1000 /uL (0-900); Monocytes Percent Auto 11.7 % (3-14); Neutrophils Absolute Auto 5000 /uL (1500-7000); Neutrophils Percent Auto 57.4 % (50-75); Platelet Count 239 X10^3/uL (150-400); Red Blood Cell Count 5.48 X10^6/uL (4.5-5.9); White Blood Cell Count 8.6 X10^3/uL (4.5-11.0)
[2019-04-01 17:06] LABS: BUN Creatinine Ratio 23.8 (6-22); Blood Urea Nitrogen 19 mg/dL (9-20); Calcium 9.5 mg/dL (8.4-10.2); Carbon Dioxide 36 mmol/L (22-32); Chloride 99 mmol/L (98-107); Estimated Glomerular Filt Rate > 60.0 mL/min (>60); Glucose 96 mg/dL (70-100); HEMOLYSIS 16 (0-50); Sodium 140 mmol/L (137-145)
== END ==
PROVIDERS: PCP Internal Medicine; Visit Provider Internal Medicine
DX: M54.12 Radiculopathy, cervical region (principal); M15.0 Primary generalized (osteo)arthritis; M75.101 Unspecified rotator cuff tear or rupture of right shoulder, not specified as traumatic; I10 Essential (primary) hypertension; M77.12 Lateral epicondylitis, left elbow; G47.33 Obstructive sleep apnea (adult) (pediatric); M75.110 Incomplete rotator cuff tear or rupture of unspecified shoulder, not specified as traumatic; G89.4 Chronic pain syndrome
CPT/HCPCS: 36415; 80048; 85025

== ENCOUNTER → 2019-04-07 20:36 | Outpatient (CLI) | payer OTHER, SELFPAY ==
--- NOTE | 2019-04-07 | DI.MRI.S_ITS ---
PROCEDURE: MR LOWER LEG RT WO CON INDICATIONS: PAIN IN RIGHT CALF TECHNIQUE: Noncontrast coronal and sagittal T1 spin echo and STIR; axial T1 spin echo and T2 fast spin echo with fat saturation through the right tibia/fibula. COMPARISON: None. FINDINGS: Image quality: Excellent. Bones: The visualized bone marrow demonstrates normal signal on all sequences. The overlying cortex appears intact. No fractures lines or intra-osseous lesions. Soft tissues: Diffuse fatty infiltration and mild atrophy of the visualized muscles. Circumferential subcutaneous edema is present. There is also mild superficial fascial fluid along the posterior aspect of the lateral gastrocnemius muscle on image 9 series 9. Edema and T2 hyperintensity involving the soleus muscle with amorphous appearance seen image 23 series 8 at the proximal tibial diaphysis level. This suggests low-grade strain. There are similar changes seen in the medial gastrocnemius muscle image 23 series 8. IMPRESSION: Mild muscle edema/T2 hyperintensity involving the soleus and medial gastrocnemius in keeping with low-grade strain. Circumferential subcutaneous edema, and mild posterior superficial fascial fluid. Dictated by: Jluis Gong M.D. on 04/08/2019 at 9:59 Approved by: Jluis Gong M.D. on 04/08/2019 at 10:07
== END ==
PROVIDERS: Family Provider Internal Medicine; PCP Internal Medicine; Visit Provider Physician Assistant
DX: M79.661 Pain in right lower leg (principal); R60.0 Localized edema
CPT/HCPCS: 73718

== ENCOUNTER 2019-05-14 07:46 | Inpatient (IN) | payer OTHER, SELFPAY ==
[2019-05-06 08:32] VITALS: BMI 36.1
[2019-05-14] VITALS (19 sets, daily range): BP systolic 83–147; BP diastolic 47–79; PULSE 63–671; RESP 10–95; TEMP 36.3–37.5; O2SAT 88–98; BMI 33.6
--- NOTE | 2019-05-14 06:00 | DI.RAD.S_ITS ---
PROCEDURE: XR KNEE LT 1TO2V INDICATIONS: post op TECHNIQUE: 2 view(s) of the knee acquired. COMPARISON: [facility], , KNEE 3V LEFT, 08/01/2014, 8:50. FINDINGS: Bones: Patient is status post knee joint arthroplasty. Hardware components are in expected positions. Visualized bony structures are intact. Soft tissues: Overlying postoperative changes are noted. IMPRESSION: Expected postoperative appearance Dictated by: Jluis Gong M.D. on 05/14/2019 at 12:45 Approved by: Jluis Gong M.D. on 05/14/2019 at 12:46
[2019-05-14] MEDS: PREGABALIN 75 MG CAPSULE PO (08:49)
[2019-05-14] MEDS: CELECOXIB 200 MG CAPSULE PO (08:49)
[2019-05-14] MEDS: ACETAMINOPHEN 325 MG TABLET 975 MG PO ×3 (08:49→20:38)
[2019-05-14] MEDS: LACTATED RINGERS 1,000 ML 42 ML IV ×2 (08:50→11:28)
--- NOTE | 2019-05-14 09:53 | PM.PREOP ---
Pre-operative Note Interval Note History & Physical reviewed/Exam performed by Physician: Yes Changes to H&P: No
--- NOTE | 2019-05-14 09:53 | PM.OP.1 ---
Operative Date/Time/Diagnoses Date of procedure: 05/14/19 Time of procedure: 11:56 Pre-op diagnosis: Left knee osteoarthritis Post-op diagnosis: same Procedure & Clinicians Procedure: Left total knee arthroplasty Same procedure as scheduled: Yes Indications: The patient presents today for total knee arthroplasty after failure of conservative treatment. The nature of the procedure including the risks and benefits, alternatives, postoperative course and expected outcome were discussed and all questions answered. Consent was obtained. Operative site confirmed and marked. Surgeon: Emir Ventura Clay Plant Treater: Kevan Dowd Anesthesia Type: General, Spinal and Local Operative Notes Closure Type: primary Specimen(s): none sent Prosthetic devices, grafts, tissues, transplants, or devices: Trevizo and Neph[employer]ero[employer]yn[employer] Phoebe BCS: 7 femoral component, 6 tibial component, 9 mm BCS polyethylene tray and 32 x 9 mm round patella Applied: implant(s) Estimated Blood Loss (mL): 10 Blood products transfused: none Tourniquet time (min): 53 Procedure in detail: The patient was taken to the operative suite and placed under general and spinal anesthesia. The patient was given prophylactic antibiotics prior to surgery. The patient was also given tranexamic acid, 1 g, just prior to surgery for postoperative hemostasis. The lateral knee was prepped and the joint injected with 20 mL of 1% Lidocaine with epinephrine. The knee was then prepped and draped in usual sterile fashion. The leg was exsanguinated with an Esmarch dressing and the tourniquet raised to 250 torr. A 15 cm anterior incision was made. Next a medial trivector arthrotomy was made. The extensor mechanism was marked to ensure accurate repair. Initial exposing dissection was carried out medially and laterally. The knee was then extended and the patellar thickness was measured and a cut made removing approximately 9 mm of bone with a goal of restoring normal patellar thickness. The knee was then flexed and the Trevizo [employer] femoral guide was placed. The anterior pins were placed and the distal rotation holes drilled. The distal cutting guide was placed and the templated distal femoral cut was made. The templating cutting block was then placed and the anterior, posterior and chamfer cuts made. The Trevizo [employer] tibial guide was placed and the alignment checked along the axis of the proximal tibial with a stacy. The proximal tibial cut was then made with an oscillating saw. All meniscus and bony debris was then removed. Flexion extension gaps were checked. No specific balancing was required other than routine exposure and removal of osteophytes. The soft tissues were then injected with a combination of 20 mL of half percent Marcaine with epinephrine and 20 mL of Exparel. The trial components were then placed. The patella was then sized and drilled. Some excess lateral bone was excised and the patellofemoral ligament released. The knee went into full extension and flexion beyond 120?. There was excellent medial- lateral balance throughout motion. Patellar tracking was excellent. The trial components were removed and size is confirmed for the final implants. The knee was then exsanguinated with an Esmarch dressing and the tourniquet reapplied for cementing. The knee was cleansed with Pulsavac irrigation and dried. The final components were cemented in with high viscosity vacuum mixed bone cement with antibiotics. The knee was held in extension and the patellar clamp until the cement had adequately cured. The knee was then irrigated with dilute Betadine solution. The extensor mechanism was closed with 5 interrupted #1 Vicryl sutures in 90 degrees of flexion. The joint was then injected with a combination of 1 g of tranexamic acid and 20 mL of quarter percent Marcaine with epinephrine. The subcutaneous tissue was closed with 2-0 Vicryl. The skin was closed with gaurav and surgical adhesive. An Aquacel dressing and Fidencio wrap were then applied. Complications: none Post-operative Condition: stable Disposition: PACU Plan for aftercare: Counts include 234 beds at the [facility] protocol for total knee arthroplasty.
[2019-05-14] MEDS: CLINDAMYCIN 600 MG/50 ML PIGGYBACK 50 MG IV (10:05)
[2019-05-14] MEDS: LIDOCAINE 1% W/EPI 20 ML INJ (10:15)
[2019-05-14] MEDS: TRANEXAMIC ACID 1,000 MG VIAL 1000 MG IV (10:23)
--- NOTE | 2019-05-14 10:37 | SUR.OPER ---
Supine on padded OR bed. Pillow under head, arms secured on padded armboards <90 degree abduction. Safety belt across torso. Non-operative leg secured with tape over blanket over lower leg. Operative leg secured in DeMayo/Imtiaz positioner. Foam padded brace at thigh of operative leg.
[2019-05-14] MEDS: CLINDAMYCIN 300 MG in DEXTROSE 5 % IN WATER 50 ML 104 ML IV (10:42)
[2019-05-14] MEDS: BUPIVACAINE 0.25% W/ EPI (PF) 40 ML, BUPIVACAINE LIPOSOME 266 MG, SODIUM CHLORIDE 0.9% ... INJ (10:45)
[2019-05-14] MEDS: BUPIVACAINE 0.25% W/ EPI (PF) 20 ML, TRANEXAMIC ACID 1,000 MG, SODIUM CHLORIDE 0.9% 10 ML INJ (10:46)
--- NOTE | 2019-05-14 12:10 | SUR.PHASEI ---
[id number] Dr. Werner here, saw pt on simple mask, requested RT to eval and treat pt; RT notified. Resp even and regular, skin warm and dry
--- NOTE | 2019-05-14 12:24 | SUR.PHASEI ---
RT here, eval pt, shallow resp. adjusted pillow. she suggested weaning O2 to maintain sat of 94% when he is able to maintain around 96%. Report called to Verona Dalal RN, Pt responsive to voice - opens eyes, does not acknowledge staff. Resp even and regular, skin warm and dry.
--- NOTE | 2019-05-14 12:30 | SUR.PHASEI ---
Maintaining sat at 94% on 15Lsimple mask
--- NOTE | 2019-05-14 12:44 | SUR.PHASEI ---
Sat 98% on 10 L simple mask, changed to 5LNP. Resp even and regular, no audible stridor, no apnea; skin warm and dry. Aroused occasionally, but no recognition of orientation/staff.
--- NOTE | 2019-05-14 12:53 | SUR.PHASEI ---
Awake, still has a small amount of the 'dazed' look, but it able to answer questions appropriately, knows date, location; denies pain
--- NOTE | 2019-05-14 13:00 | SUR.PHASEI ---
Titrated O2/MECHANICAL SERVICE REPRESENTATIVE, maintained 89-90% up to 5LNP, returned to simple mask at 8LNP, 93-95% sat
--- NOTE | 2019-05-14 13:28 | SUR.PHASEI ---
Report called to floor, pt responsive to voice, denies discomfort, denies need to void. Very drowsy, mostly sleeping. no apnea noted.
--- NOTE | 2019-05-14 13:49 | SUR.PHASEI ---
1334 to room 224, bed down and locked, call light within reach, VSS, O2 at 8LNP (Transported on O2 as well). SCDs on, family in the room, arouses to voice - startles and then returns to sleep. Resp even and regular, skin warm and dry. Pulse strong LLE/warm. Stable.
[2019-05-14] MEDS: LACTATED RINGERS 1,000 ML 125 ML IV (14:46)
--- NOTE | 2019-05-14 14:52 | PC.NURSE ---
Patient currently sitting up in bed, O2 titrated to 6 L on simple mask, patient at 94%, changed to 4L on nasal cannula. Left knee dsg is CDI, with ice pack. IV in left forearm, LR infusing at 125ml/hr, site is CDI. Patient is A/O x3, and daughter are at bedside. Patient denies pain at this time. Able to wiggle toes and pump ankles. Instructed on SCD's patient is responsive. Pedal pulses equal, patient confirms sensation in feet bilaterally, patient describes numbness and tingling in bilateral extremities as normal. Patient denies shortness of breath, chest pain or nausea at this time. Call light in reach, ice chips provided. Bed alarm on.
--- NOTE | 2019-05-14 14:56 | RT ---
Called to Recovery Room to evaluate patient. SPO2 running 94-96% on 15 l simple mask. RN stating patient has a hx of MALLY but does not use his CPAP due to it being broken. She stated she had not observed any apnea at this time. Patient had been given ketamine. Non responsive to verbal stimulation, no apnea noted respiratory rate running 12-14. No obstruction noted on auscultation,just a slight upper airway expiratory wheeze, not audible. Continue to monitor patient till more alert. Follow patient with MALLY protocol.
[2019-05-14] MEDS: IBUPROFEN 400 MG TABLET PO ×3 (15:07→20:39)
[2019-05-14] MEDS: OXYCODONE IR 10 MG TABLET PO ×2 (17:47→20:37)
[2019-05-14] MEDS: CLINDAMYCIN 900 MG/50 ML PIGGYBACK 50 MG IV (17:47)
--- NOTE | 2019-05-14 17:53 | PT.IIE ---
Current Diagnoses Unilateral primary osteoarthritis, left knee (05/14/19) Other tear of medial meniscus, current injury, left knee, initial encounter (05/14/19) Sprain of unspecified site of left knee, initial encounter (05/14/19) Surgery Performed Operation Date: 05/14/19 09:45 Actual Procedures p Total Knee Arthroplasty(Left) - Emir Ventura MD Surgical History (Last Updated 05/06/19 @ 09:21 by Tatum Castillo RN) History of ankle surgery (Acute ~1978) History of arthroscopy of both knees (Acute) History of total right hip arthroplasty (Acute ~2008) Hx of elbow surgery (Acute) Hx of hand surgery (Acute) Medical History (Last Updated 05/06/19 @ 09:21 by Tatum Castillo RN) HTN (hypertension) (Acute) Neuropathy (Acute) Osteoarthritis (Acute) Pneumonia (Acute) RLS (restless legs syndrome) (Acute) Sleep apnea (Acute) Tinnitus (Acute) Physical Therapy Inpatient Evaluation/Re-Eval M1 PT/OT-IP Prior Functional Status Start: 05/14/19 16:48 Freq: NEEDED Status: Active Protocol: Document 05/14/19 17:00 (Rec: 05/14/19 17:53 [email or web address]) Medical Review Prior Functional Status Medical History Reviewed Yes Diet/Fluid Consistency Regular Communication no deficits noted. able to make needs known Mobility and Gait Pt was independent for home and community mobility without AD. He states he needed time for long walks, and transfer from low chair. Activities of Daily Living and IADL's independent for ADLs and IADLs . He was able to drive prior to sx. Social History Household Members spouse,children Living Arrangements RV Number of Floors (Floors) One Floor Number of Stairs To Enter/Railing? 6 GABE with L rail Home Environment Standard Height Toilet,Walk in Shower Home Equipment Straight Cane,Raised Toilet Seat w/Armrests,Shower Seat with Backrest Employment Status Unemployed Additional Social History Comment Pt lives with his in a RV at [facility] [address]. His works time checker but she will take days off to assist as needed. Pt has a dtr lives closeby and will visit pt and assist as well. Pt states she has multiple ortho surgeries at ankle, R knee, hip and shd. M2 PT-IP Current Condition Start: 05/14/19 16:48 Freq: NEEDED Status: Active Protocol: Document 05/14/19 17:00 HH (Rec: 05/14/19 17:53 [email or web address]) Physical Therapy Current Condition Current Condition Evaluation Date 05/14/19 Treatment Diagnosis L TKA, difficulty in walking, decreased activity tolerance Onset Date 05/14/19 Weight Bearing Status Weight Bearing Status Weight Bear as Tolerated M3 PT-IP Subjective Start: 05/14/19 16:48 Freq: NEEDED Status: Active Protocol: Document 05/14/19 17:00 HH (Rec: 05/14/19 17:53 [email or web address]) Subjective Physical Therapy Visit Type Type Initial Evaluation Visit Start Time 17:00 Visit Stop Time 17:30 Total Visit Minutes 30 Notes Per RN, pt's SpO2 has ranged from 88-94% with 3L O2 NC. Pt is still groggy but recovering . Number of DOPER Visits 0 Physical Therapy Visit Comments Patient Comments My O2 tends to go low every time i had a surgery, but it will come back up. Patient Goals To return home with . Therapy Pain Assessment Pain When Pain Assessed During Mobility Pain Present Pain Present Pain Reported Location right knee Intensity 4 Scale Used Numeric (1 - 10) Description Acute Pain Management Techniques Apply Cold,Distraction, Modification of Treatment, Timing of Activity with Medications M4 PT-IP Mobility and Gait Start: 05/14/19 16:48 Freq: NEEDED Status: Active Protocol: Document 05/14/19 17:00 HH (Rec: 05/14/19 17:53 [email or web address]) PT-Bed Mobility Assessment Supine to Sit Supine to Sit Standby Assistance Scooting Scooting to Edge of Bed Standby Assistance PT-Transfer Assessment Sit to and From Stand Sit to and from Stand Contact Guard Assistance,Use of Upper Extremities Equipment Transfer Assistive Device Gait Belt,Front Wheeled Walker Orthotic/Prosthetic Devices or Brace: No Transfers Transfer Destination Bed,Chair Transfer Technique amb with FWW Transfer Ability Level of Assist Contact Guard Assistance,Use of Upper Extremities Comments Mobility Comments Pt was in bed upon assessment. BP at 107/62 SpO2 at 92% with 3L NC. Pt completed supine to long sit with SBA. He was able to pivot his L LE and sat EOB. Pt c/o slight dizziness and SpO2 remains at 92%. Proceeded to remove NC and stood up at bedside. Pt then did multiple weight shift with FWW. He amb from bedside to hallway with step to gait pattern. He primarily Wb through B UEs and R LE. He denies increased pain and appeared to be steady and safe . He returned to bedside chair after with safe stand step pivot transfer and proper hand placements. SpO2 went down to 89% but able to recover to 92 % in 20 seconds. Proceeded to use 3L NC and went back to 94 %. Placed call light within reach and educated pt with seated heel slide. Gait Assessment Gait Gait Assistance Required: Contact Guard Assist Distance (Feet) 50 Able to Maintain Weight Bearing Status Yes During Gait Assistive Devices Assistive Device Gait Belt,Front Wheeled Walker Orthotic/Prosthetic Devices or Brace: No Gait Deviations General Gait Pattern Antalgic,Decreased Stride Length,Decreased Feet Clearance,Step-to Gait Factors Limiting Gait Function Factors Limiting Gait Function Decreased Activity Tolerance, Decreased Strength,Limited Range of Motion,Pain Comments Gait Comments Pt used step to gait pattern with FWW. Appeared very steady and safe at this point w/o c/ o increase in knee pain. PT-Balance Assessment Sitting Balance and Reactions Static Sitting Balance Ability Normal Dynamic Sitting Balance Ability Normal Standing Balance and Reactions Static Standing Balance Ability Good Dynamic Standing Balance Ability Good Device Used FWW M5 PT-IP Objective Assessments Start: 05/14/19 16:48 Freq: NEEDED Status: Active Protocol: Document 05/14/19 17:00 (Rec: 05/14/19 17:53 [email or web address]) Orientation Orientation/Cognition Level of Alertness Alert Orientation Name,Age,Birthday,Month,Date, Year,Day of Week,Place, Situation Language Function Ability No Deficits Noted Safety Awareness Understands Safety Issues Memory Description No Deficits Noted Gross Range of Motion Upper Extremity ROM Assessment Within Functional Limits Lower Extremity ROM Assessment Left Impaired Impairments L knee AROM = ~5 -75 degrees Strength Upper Extremity Strength Assessment Within Functional Limits Lower Extremity Strength Assessment Left Impaired Hip 4+/5 Knee 3+/5 Coordination Assessment Gross Coordination Gross Coordination WNL Sensation Assessment Sensation Gross Sensation WNL Muscle Tone Muscle Tone WNL Yes M6 PT-IP Treatment Start: 05/14/19 16:48 Freq: NEEDED Status: Active Protocol: Document 05/14/19 17:00 (Rec: 05/14/19 17:53 [email or web address]) Physical Therapy Treatment Exercises Exercises Ankle Pumps,Quad Sets,Heel Slides Education Education Provided Precautions,Weight Bearing Status,Post-Op Packet,Safety M7 PT-IP Assessment and Plan Start: 05/14/19 16:48 Freq: NEEDED Status: Active Protocol: Document 05/14/19 17:00 (Rec: 05/14/19 17:53 HH [email or web address]) PT Summary Assessment and Plan Potential Rehabilitation Potential Excellent Status of Condition at Evaluation Stable Summary Impairments Pain,ROM,Strength,Balance,Bed Mobility,Transfers,Gait, Activity Tolerance Assessment Summary Pt is a low complexity s/p POD0 L TKA. Upon assessment, pt performed fairly with mobility. CGA for transfers and ambulation with FWW. Pt did feel lightheaded and SpO2 maintained at 88%-92% without NC during mobility. His BP was normalized after ambulation and he felt less groggy at the end of session. Anticipate pt to be d/c home with family assistance but he has to clear 6 steps with L rail prior to discharge. Goals Bed Mobility Goal Independent Transfer Goal Independent,Front Wheeled Walker Gait Goal Independent,Front Wheel Walker Gait Distance 100 Other Goals 6 steps with L rail with SBA Days to Meet Goals 5 Frequency of Treatment Frequency Of Treatment Twice a Day Treatment Plan Physical Therapy Treatment Plan Bed Mobility Training,Transfer Training,Gait Training, Therapeutic Exercise,Balance Retraining,Post Op Education, Discharge Planning,Hot or Cold Pack,Neuromuscular Re-ed Other Recommendations and Next Treatment mobility as jamel Focus stair climbing (6STE) with L rail Recommendations To Nursing Amount of Assist Needed 1 Person Assist Discharge Recommendations PT Discharge Recommendations Home with Assistance, Outpatient PT Equipment Needed for Home Before Pt stated his will Discharge acquire a FWW for him.
[2019-05-14] MEDS: NICOTINE 14 PATCH 14 MG TOP (18:39)
[2019-05-14] MEDS: ASPIRIN EC 81 MG TABLET PO (20:39)
--- NOTE | 2019-05-14 23:28 | PC.NURSE ---
Evening Shift Note Patient unable to void in bathroom and in urinal, bladder scanned with volume of 566. Explained patient indication of straight catheter per protocal and possible complications if delayed. Patient refusing straight catheter, expressing that he feels fine and would like to keep trying. He is open to the idea if unable to further void and if uncomfortable. Patient up to bathroom for second attempt and unable to void. ground crewman mission support RN aware and will follow-up.
[2019-05-15] VITALS (8 sets, daily range): BP systolic 104–151; BP diastolic 53–82; PULSE 64–78; RESP 14–20; TEMP 36.3–37.6; O2SAT 89–96
[2019-05-15] MEDS: IBUPROFEN 400 MG TABLET PO ×6 (01:00→21:39)
[2019-05-15] MEDS: CLINDAMYCIN 900 MG/50 ML PIGGYBACK 50 MG IV (02:34)
[2019-05-15] MEDS: LACTATED RINGERS 1,000 ML 125 ML IV (02:35)
[2019-05-15] MEDS: OXYCODONE IR 10 MG TABLET PO ×3 (02:37→10:22)
[2019-05-15 05:56] LABS: Hematocrit 41.1 % (41-53); Hemoglobin 13.6 g/dL (13.5-17.5)
[2019-05-15] MEDS: ASPIRIN EC 81 MG TABLET PO ×2 (09:02→21:39)
[2019-05-15] MEDS: ACETAMINOPHEN 325 MG TABLET 975 MG PO ×3 (09:02→21:40)
[2019-05-15] MEDS: hydrOXYzine pamoate 25 MG CAPSULE PO ×3 (09:03→21:39)
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
--- NOTE | 2019-05-15 12:16 | PT.IPTN ---
Current Diagnoses Unilateral primary osteoarthritis, left knee (05/14/19) Other tear of medial meniscus, current injury, left knee, initial encounter (05/14/19) Sprain of unspecified site of left knee, initial encounter (05/14/19) Surgery Performed Operation Date: 05/14/19 09:45 Actual Procedures p Total Knee Arthroplasty(Left) - Emir Ventura MD Physical Therapy Treatment Note M2 PT-IP Current Condition Start: 05/14/19 16:48 Freq: NEEDED Status: Active Protocol: Document 05/14/19 17:00 HH (Rec: 05/14/19 17:53 HH [email or web address]) Physical Therapy Current Condition Current Condition Evaluation Date 05/14/19 Treatment Diagnosis L TKA, difficulty in walking, decreased activity tolerance Onset Date 05/14/19 Weight Bearing Status Weight Bearing Status Weight Bear as Tolerated M3 PT-IP Subjective Start: 05/14/19 16:48 Freq: NEEDED Status: Active Protocol: Document 05/15/19 12:10 [facility] (Rec: 05/15/19 12:16 [facility] [id number]) Subjective Physical Therapy Visit Type Type Treatment Note Visit Start Time 11:45 Visit Stop Time 12:08 Total Visit Minutes 23 Number of ROPE MAKER Visits 0 Physical Therapy Visit Comments Patient Comments Pt reports he is hoping to go home tomorrow AM. Notes he is more sore today. Therapy Pain Assessment Pain When Pain Assessed During Mobility Pain Present Pain Present Pain Reported Location right knee Pain Management Techniques Apply Cold M4 PT-IP Mobility and Gait Start: 05/14/19 16:48 Freq: NEEDED Status: Active Protocol: Document 05/15/19 12:10 [facility] (Rec: 05/15/19 12:16 [facility] [id number]) PT-Bed Mobility Assessment Supine to Sit Supine to Sit Independent Scooting Scooting to Edge of Bed Independent PT-Transfer Assessment Sit to and From Stand Sit to and from Stand Standby Assistance,Use of Upper Extremities Equipment Transfer Assistive Device Front Wheeled Walker Orthotic/Prosthetic Devices or Brace: No Comments Mobility Comments Pt stood from bed SBA and was able to amb prior to sitting down in chair SBA with min cueing. Pt was able to stand at toilet and void SBA. Gait Assessment Gait Gait Assistance Required: Contact Guard Assist Distance (Feet) 100 Able to Maintain Weight Bearing Status Yes During Gait Assistive Devices Assistive Device Gait Belt,Front Wheeled Walker Orthotic/Prosthetic Devices or Brace: No Gait Deviations General Gait Pattern Antalgic,Decreased Stride Length,Flexed Trunk,Step-to Gait Factors Limiting Gait Function Factors Limiting Gait Function Decreased Strength,Limited Range of Motion,Pain Comments Gait Comments Pt amb down hallway and back to room and was able to stand at toilet and void w/SBA then stood at sink to wash hands SBA. Pt had pain with WB onto LLE but was able to offload with walker for gait. M5 PT-IP Objective Assessments Start: 05/14/19 16:48 Freq: NEEDED Status: Active Protocol: Document 05/14/19 17:00 (Rec: 05/14/19 17:53 [email or web address]) Orientation Orientation/Cognition Level of Alertness Alert Orientation Name,Age,Birthday,Month,Date, Year,Day of Week,Place, Situation Language Function Ability No Deficits Noted Safety Awareness Understands Safety Issues Memory Description No Deficits Noted Gross Range of Motion Upper Extremity ROM Assessment Within Functional Limits Lower Extremity ROM Assessment Left Impaired Impairments L knee AROM = ~5 -75 degrees Strength Upper Extremity Strength Assessment Within Functional Limits Lower Extremity Strength Assessment Left Impaired Hip 4+/5 Knee 3+/5 Coordination Assessment Gross Coordination Gross Coordination WNL Sensation Assessment Sensation Gross Sensation WNL Muscle Tone Muscle Tone WNL Yes M6 PT-IP Treatment Start: 05/14/19 16:48 Freq: NEEDED Status: Active Protocol: Document 05/15/19 12:10 [facility] (Rec: 05/15/19 12:16 [facility] [id number]) Physical Therapy Treatment Exercises Exercises Ankle Pumps,Quad Sets,Heel Slides,Straight Leg Raises, Short Arc Quads,Passive Knee Extension Hang M7 PT-IP Assessment and Plan Start: 05/14/19 16:48 Freq: NEEDED Status: Active Protocol: Document 05/15/19 12:10 [facility] (Rec: 05/15/19 12:16 [facility] [id number]) PT Summary Assessment and Plan Summary Impairments Pain,ROM,Strength,Balance,Bed Mobility,Transfers,Gait, Activity Tolerance Progress Towards Goals Progressing Toward Goals Assessment Summary Pt is progressing well with therapy and was able to amb a more functional distance today and did well with all bed mobility and sit<>stand. He is motivated to get home in AM and did well with min cueing with exercises. Goals Bed Mobility Goal Independent Transfer Goal Independent,Front Wheeled Walker Gait Goal Independent,Front Wheel Walker Gait Distance 100 Other Goals 6 steps with L rail with SBA Days to Meet Goals 5 Frequency of Treatment Frequency Of Treatment Twice a Day Treatment Plan Physical Therapy Treatment Plan Bed Mobility Training,Transfer Training,Gait Training, Therapeutic Exercise,Balance Retraining,Post Op Education, Discharge Planning,Hot or Cold Pack,Neuromuscular Re-ed Other Recommendations and Next Treatment mobility as jamel Focus stair climbing (6STE) with L rail Recommendations To Nursing Amount of Assist Needed 1 Person Assist Discharge Recommendations PT Discharge Recommendations Home with Assistance, Outpatient PT Equipment Needed for Home Before FWW Discharge
--- NOTE | 2019-05-15 12:28 | PC.NURSE ---
Influenza vaccine rescheduled for tomorrow morning prior to anticipated discharge. Held this morning due to slightly elevated temperature. Continue to monitor.
[2019-05-15] MEDS: POLYETHYLENE GLYCOL 3350 17 GM POWD.PACK PO (12:44)
[2019-05-15] MEDS: NICOTINE 14 PATCH 14 MG TOP (12:44)
--- NOTE | 2019-05-15 13:39 | CM.DANOTE ---
DCP Assessment: EMR reviewed: Patient is a 59 yr old male who was admitted for Lt TKA preformed by Dr. Ventura. patient is a [facility]. PCP is Dr. Blanco. CM/RN met with patient and his at the bedside and explained CM role. Patient lives with his in a single level trailer with 6 steps into the front door. Patient was alert and oriented during CM visit and states he is I with all ADL's and drives I at baseline. Patient was struggling with pain in his upper thigh during CM visit. Patient had PT evaluation that state d/c suggestion of home with assistance. I: [employer] 2nd: self pay. Plan: D/C home with family when medically stable. No identified d/c planning needs noted at this time. CM department will follow to determine if any D/c planning needs arise. Zahra Trevizo RN. Discharge Planning/Care Management CM Discharge Assessment Start: 05/15/19 13:36 Freq: Status: Active Protocol: Document 05/15/19 13:37 HS (Rec: 05/15/19 13:39 HS [id number]) Discharge Planning Assessment Assigned Cam Milling Machine Operator Zahra Trevizo RN DPOA/Assigned Designee Name Anali Camara () Contact Information [phone] Advance Directives? No History Provided By Patient,Family Member Has Patient been admitted in last 30 No days? Prior Living Arrangements RV Household Members spouse,children Type of transporation used prior to Drives own vehicle admit Independent with ADL's Yes Is patient alert and oriented? Yes Caregiver for Another No DME Already Rented / Owned Bath Bench,Cane Patient/Family Preference OP PT Therapy Discharge Plan Home Whiteboard Updated in Patient Room with Yes name and ext. # of Cam Milling Machine Operator Review Status In Process Next Review Type Continued Stay Review Pre-Anesthesia Assessment Start: 05/06/19 08:32 Freq: Status: Complete Protocol: Document 05/06/19 08:32 CAB (Rec: 05/06/19 09:34 CAB [id number]) Pre-Anesthesia Assessment Patient Information Reviewed Via Phone Assessment Assessment Completed With Patient Diagnostic Results BMP/CMP,CBC Comment Labs @ [facility] 04/01/19, EKG w/PCP Primary Care Provider Mohsen Blanco Seen Specialist in Last 12 Months Yes Specialist Seen Orthopedist Primary Language Croatian Coater Carbon Paper Required No Height 182.88 cm Weight 120.656 kg Body Mass Index (BMI) 36.1 Hearing Ability Normal Visual Impairment No Limitations Visual Assist Magnifying Glass Dentition Type Teeth, Natural Present,Teeth, Missing Barriers to Learning None Other Aids No Hx Anesthesia Reactions Yes: Hard time waking me up s/p RT SYLVIE 2009 Hx Family Anesthesia Reaction No Hx Malignant Hyperthermia No Hx Blood Transfusions No Anesthesia Review Requested No alcohol intake current Alcohol Intake Frequency Other: Occasional Smoking Status Current every day smoker Tobacco type cigarettes Smoking packs per day 1 Substance Use Type does not use Pain Present Pain Reported Musculoskeletal Symptoms Abnormal Gait,Difficulty Walking,Joint Pain,Joint Stiffness History of Falling (Recent or History of No ) Patient is completely paralyzed or No completely immobile Mental Status Oriented to own ability Is patient on oxygen? No Does patient have BERNAL/SOB No Hx Sleep Apnea Yes: It made me sick CPAP/BIPAP use prescribed not used Currently Taking a Beta Davina No Can You Climb a Flight of Stairs Without Yes SOB Hx Chest Pain No Hx SOB No Hx Syncope or Dizziness No Anti-Coagulant Therapy No Has a Short Filler Bunch Machine Operator No Cardiac Testing No Hx Pacemaker/ICD No Pacemaker Rep Required? No Cardiac Clearance Received Not Applicable Diet Type At Home Regular dysphagia No Bladder Pattern Nocturia Urinary Catheter Present No Hx Urinary Self Catheterization No Diabetes No Hx Drug Resistant Organism No Presence of External or Internal Medical Yes: Right hip prosthesis Devices Have you traveled outside the [facility] in the last 30 days? Marital Status Lives With spouse,children Prior Living Arrangements RV Support System Child/Children,Spouse Does the Patient Have Assistance After Yes Surgery Patient Discharge Plan Description Return Home Comment Pt not advised on length of stay per surgeon Feels Safe in Current Environment Yes Been Physically Hurt or Threatened By a No Person in Current Environment Do you have thoughts of harming yourself None or others? Are you currently considering suicide? No Do you have a plan to hurt yourself or No Plan others? Do You Have Any Spiritual Beliefs That No May Affect Your HC Choices? Do You Have Any Cultural Practices That No May Affect Your HC Choices? Comment Catholic Who Can We Speak to About Patient's Care Family, friends Identifying Code for Release of Patient Declines to issue Information Health Care Proxy/Next of Kin Anali () Health Care Proxy Emergency Contact Name Anali () Emergency Contact Advance Directives? No Power of Mortgage Loan Computation Clerk No PAC Instructions Durable medical equipment, Medications to take/avoid, Nasal antibiotic,No ETOH/ petroleum product on skin DOS, NPO,Post-op transportation,Pre -surgical wash,Sturdy shoes/ comfortable clothes,Do not bring valuables and remove jewelry
[2019-05-15] MEDS: HYDROMORPHONE 0.5 MG INJ IV ×3 (13:41→18:32)
--- NOTE | 2019-05-15 13:48 | PC.NURSE ---
Addendum entered by Karan Vidal R.N. 05/15/19 14:36: Patient states he is not receiving any relief from the IV dilaudid. Medicated with oral dilaudid 2mg as ordered for severe pain along with the visatril as ordered. patient assisted to reposition knee and ice packs applied. Patient's at bedside. Call light within reach. Original Note: Patient states pain has been increasing since P.T. exercises, and now at a severe pain level. Medicated with dilaudid IV as ordered for severe pain, will continue to monitor. Encouraged deep breathing and IS use, patient 90% initially on RA and then upto 96% with deep breathing. Patient and state understanding and have no further questions at this time. Call light within reach.
[2019-05-15] MEDS: HYDROMORPHONE 2 MG TABLET PO ×3 (14:28→21:39)
--- NOTE | 2019-05-15 15:44 | PC.NURSE ---
Addendum entered by Elisabet Swain R.N. 05/15/19 22:23: Pt's blood pressure elevated after return to bed following toileting. States pain 9/10 with ambulation. Medicated as per emar. As this patient has history this hospital stay of marginally low bp's and pt is receiving many medications to treat pain will monitor and hold evening dose of amlodipine. Addendum entered by Elisabet Swain R.N. 05/15/19 19:16: Using I.S. independently with excellent effort. Up to bathroom with assistance and reports pain to left knee beginning to escalate once again. Pt becomes diaphoretic. Rates pain 9/10. Administered iv dilaudid and ice applied to left knee. Will continue to monitor. Addendum entered by Elisabet Swain R.N. 05/15/19 16:05: Pt reports improvement in pain to left knee now 7/10. Plan to continue with oral regimen this evening as ordered and will use iv dilaudid for breakthrough not controlled by oral analgesia. Pt remains awake, alert, conversant. Original Note: Pt reports left knee pain 10/10 @ beginning of shift. Is diaphoretic. States pain has increased since therapy and reports burning top of kneecap. Aquacel dressing is dry and intact. Repositioned LLE removing from pillow and placing flat on bed. Ice replaced to site. Pt was given iv dilaudid after discussion. Pt does admit to narcotic use prior to this surgery. Explained challenge to control pain when this is the case. Pt and pt's spouse verbalize understanding. Pt encouraged to breath in through nose and out through mouth to enhance relaxation as pt does do this independently. 02 sats on room air 88%. Placed on 02 to manage oxygen saturation level in light of use of narcotic pain medications. BL LE's are equally warm to touch and pink in color. Palpable pedal pulses BL. Slight edema LLE. Continuous pulse oximeter placed and staff to monitor LOC and respiratory rate. Family remains present @ bedside.
--- NOTE | 2019-05-15 15:57 | PT.IPTN ---
Current Diagnoses Unilateral primary osteoarthritis, left knee (05/14/19) Other tear of medial meniscus, current injury, left knee, initial encounter (05/14/19) Sprain of unspecified site of left knee, initial encounter (05/14/19) Surgery Performed Operation Date: 05/14/19 09:45 Actual Procedures p Total Knee Arthroplasty(Left) - Emir Ventura MD Physical Therapy Treatment Note M2 PT-IP Current Condition Start: 05/14/19 16:48 Freq: NEEDED Status: Active Protocol: Document 05/14/19 17:00 HH (Rec: 05/14/19 17:53 HH [email or web address]) Physical Therapy Current Condition Current Condition Evaluation Date 05/14/19 Treatment Diagnosis L TKA, difficulty in walking, decreased activity tolerance Onset Date 05/14/19 Weight Bearing Status Weight Bearing Status Weight Bear as Tolerated M3 PT-IP Subjective Start: 05/14/19 16:48 Freq: NEEDED Status: Active Protocol: Document 05/15/19 15:56 LJ (Rec: 05/15/19 15:57 LJ [id number]) Subjective Physical Therapy Visit Type Type Patient Refusal Notes checked with pt x3 in afternoon after pain meds given and he stated pain is still too high to do any therapy. M4 PT-IP Mobility and Gait Start: 05/14/19 16:48 Freq: NEEDED Status: Active Protocol: Document 05/15/19 12:10 LR (Rec: 05/15/19 12:16 [facility] [id number]) PT-Bed Mobility Assessment Supine to Sit Supine to Sit Independent Scooting Scooting to Edge of Bed Independent PT-Transfer Assessment Sit to and From Stand Sit to and from Stand Standby Assistance,Use of Upper Extremities Equipment Transfer Assistive Device Front Wheeled Walker Orthotic/Prosthetic Devices or Brace: No Comments Mobility Comments Pt stood from bed SBA and was able to amb prior to sitting down in chair SBA with min cueing. Pt was able to stand at toilet and void SBA. Gait Assessment Gait Gait Assistance Required: Contact Guard Assist Distance (Feet) 100 Able to Maintain Weight Bearing Status Yes During Gait Assistive Devices Assistive Device Gait Belt,Front Wheeled Walker Orthotic/Prosthetic Devices or Brace: No Gait Deviations General Gait Pattern Antalgic,Decreased Stride Length,Flexed Trunk,Step-to Gait Factors Limiting Gait Function Factors Limiting Gait Function Decreased Strength,Limited Range of Motion,Pain Comments Gait Comments Pt amb down hallway and back to room and was able to stand at toilet and void w/SBA then stood at sink to wash hands SBA. Pt had pain with WB onto LLE but was able to offload with walker for gait. M5 PT-IP Objective Assessments Start: 05/14/19 16:48 Freq: NEEDED Status: Active Protocol: Document 05/14/19 17:00 (Rec: 05/14/19 17:53 [email or web address]) Orientation Orientation/Cognition Level of Alertness Alert Orientation Name,Age,Birthday,Month,Date, Year,Day of Week,Place, Situation Language Function Ability No Deficits Noted Safety Awareness Understands Safety Issues Memory Description No Deficits Noted Gross Range of Motion Upper Extremity ROM Assessment Within Functional Limits Lower Extremity ROM Assessment Left Impaired Impairments L knee AROM = ~5 -75 degrees Strength Upper Extremity Strength Assessment Within Functional Limits Lower Extremity Strength Assessment Left Impaired Hip 4+/5 Knee 3+/5 Coordination Assessment Gross Coordination Gross Coordination WNL Sensation Assessment Sensation Gross Sensation WNL Muscle Tone Muscle Tone WNL Yes M6 PT-IP Treatment Start: 05/14/19 16:48 Freq: NEEDED Status: Active Protocol: Document 05/15/19 12:10 [facility] (Rec: 05/15/19 12:16 [facility] [id number]) Physical Therapy Treatment Exercises Exercises Ankle Pumps,Quad Sets,Heel Slides,Straight Leg Raises, Short Arc Quads,Passive Knee Extension Hang M7 PT-IP Assessment and Plan Start: 05/14/19 16:48 Freq: NEEDED Status: Active Protocol: Document 05/15/19 12:10 [facility] (Rec: 05/15/19 12:16 [facility] [id number]) PT Summary Assessment and Plan Summary Impairments Pain,ROM,Strength,Balance,Bed Mobility,Transfers,Gait, Activity Tolerance Progress Towards Goals Progressing Toward Goals Assessment Summary Pt is progressing well with therapy and was able to amb a more functional distance today and did well with all bed mobility and sit<>stand. He is motivated to get home in AM and did well with min cueing with exercises. Goals Bed Mobility Goal Independent Transfer Goal Independent,Front Wheeled Walker Gait Goal Independent,Front Wheel Walker Gait Distance 100 Other Goals 6 steps with L rail with SBA Days to Meet Goals 5 Frequency of Treatment Frequency Of Treatment Twice a Day Treatment Plan Physical Therapy Treatment Plan Bed Mobility Training,Transfer Training,Gait Training, Therapeutic Exercise,Balance Retraining,Post Op Education, Discharge Planning,Hot or Cold Pack,Neuromuscular Re-ed Other Recommendations and Next Treatment mobility as jamel Focus stair climbing (6STE) with L rail Recommendations To Nursing Amount of Assist Needed 1 Person Assist Discharge Recommendations PT Discharge Recommendations Home with Assistance, Outpatient PT Equipment Needed for Home Before FWW Discharge
[2019-05-15] MEDS: SODIUM CHLORIDE 0.9% FLUSH 10 ML IV ×2 (18:33→21:40)
[2019-05-16] VITALS (7 sets, daily range): BP systolic 134–159; BP diastolic 66–93; PULSE 66–72; RESP 16–18; TEMP 36.2–37.3; O2SAT 92–97
[2019-05-16] MEDS: IBUPROFEN 400 MG TABLET PO ×3 (00:36→08:54)
[2019-05-16] MEDS: HYDROMORPHONE 2 MG TABLET PO ×7 (00:37→21:44)
[2019-05-16] MEDS: hydrOXYzine pamoate 25 MG CAPSULE PO ×3 (06:05→17:54)
--- NOTE | 2019-05-16 06:11 | PC.NURSE ---
Addendum entered by Suellen Shaffer R.N. 05/16/19 06:55: At this time, pt reports no improvement in pain after recent prn meds, PRN IVP dilaudid given at this time. Original Note: NOC Note: Pt has had routine Ibuprofen, PRN dilaudid x2 and PRN vistaril X1 this shift, Pt reports pain in still 7-10/10. Pt has agreed to have ice packs in place and kitty wrap reapplied.
[2019-05-16] MEDS: HYDROMORPHONE 0.5 MG INJ IV ×4 (06:50→19:26)
[2019-05-16] MEDS: NICOTINE 14 PATCH 14 MG TOP (08:54)
[2019-05-16] MEDS: POLYETHYLENE GLYCOL 3350 17 GM POWD.PACK PO (08:54)
[2019-05-16] MEDS: ACETAMINOPHEN 325 MG TABLET 975 MG PO ×3 (08:58→21:45)
[2019-05-16] MEDS: ASPIRIN EC 81 MG TABLET PO ×2 (08:58→21:44)
[2019-05-16] MEDS: hydroCHLOROthiazide 25 MG TABLET PO (08:58)
[2019-05-16] MEDS: LOSARTAN 50 MG TABLET 100 MG PO (08:58)
--- NOTE | 2019-05-16 09:15 | PM.PNPO.1 ---
Subjective Subjective Date Patient Seen: 05/16/19 Time Patient Seen: 09:16 Interval history: Postop day 2 left total knee arthroplasty with Dr. Ventura. Still feeling very sore today. More pain after physical therapy. Was rated home with assist for physical therapy. States pain not controlled. Has been getting oral oxycodone and p.o. Dilaudid, did have IV breakthrough this morning. Also has Tylenol and ibuprofen. Was put on some oxygen overnight for untreated sleep apnea. O2 saturation final while awake. Denies fevers or chills Exam Vital Signs (past 8 hours): - 05/16/19 03:50 05/16/19 08:46 Temperature 97.2 F L 98.6 F Pulse Rate 66 66 Respiratory Rate 18 18 Blood Pressure 156/93 H 159/84 H Pulse Oximetry 97 94 Oxygen Delivery Method Nasal Cannula Oxygen Flow Rate 3 Narrative Exam Narrative: General: Alert and oriented lying in bed no acute distress HEENT exam: Normocephalic atraumatic Respiratory exam: 97% on 2 L nasal cannula, no shortness of breath no accessory muscle use CV: Regular rate and rhythm MS K: No tenderness to palpation swelling normal range of motion right lower extremity, SCD and. Left lower extremity has SCD offer comfort. Calf is soft, thigh is soft. Fidencio wrap an Aquacel in place. Moderate tenderness to palpation and guards with attempted movement of the leg. Demonstrates active dorsiflexion plantar flexion of the ankle. Sensation grossly intact to light touch. Ice packs around knee. Brisk capillary refill Objective Labs Result Diagrams: 05/15/19 05:40 Assessment & Plan Post-op Postoperative Procedures: Procedures Operation Date: 05/14/19 09:45 Actual Procedures Side Surgeon p Total Knee Arthroplasty Left Emir Ventura MD postop day 2 left TKA Weightbear as tolerated Work with physical therapy again Focus on pain control with oral medications. Will stop ibuprofen oral and add scheduled IV Toradol. Preop creatinine normal, will recheck a BMP tomorrow. Discharge home tomorrow if pain controlled Patient is [facility] and has his medications already SCDs and ASA 81 b.i.d. for DVT prophylaxis Quality VTE Deep Vein Thrombosis/Pulmonary Embolism Present on Admission: No
--- NOTE | 2019-05-16 10:20 | PT.IPTN ---
Current Diagnoses Unilateral primary osteoarthritis, left knee (05/14/19) Other tear of medial meniscus, current injury, left knee, initial encounter (05/14/19) Sprain of unspecified site of left knee, initial encounter (05/14/19) Surgery Performed Operation Date: 05/14/19 09:45 Actual Procedures p Total Knee Arthroplasty(Left) - Emir Ventura MD Physical Therapy Treatment Note M2 PT-IP Current Condition Start: 05/14/19 16:48 Freq: NEEDED Status: Active Protocol: Document 05/14/19 17:00 HH (Rec: 05/14/19 17:53 HH [email or web address]) Physical Therapy Current Condition Current Condition Evaluation Date 05/14/19 Treatment Diagnosis L TKA, difficulty in walking, decreased activity tolerance Onset Date 05/14/19 Weight Bearing Status Weight Bearing Status Weight Bear as Tolerated M3 PT-IP Subjective Start: 05/14/19 16:48 Freq: NEEDED Status: Active Protocol: Document 05/16/19 10:20 DLM (Rec: 05/16/19 14:31 DLM [id number]) Subjective Physical Therapy Visit Type Type Treatment Note Visit Start Time 09:50 Visit Stop Time 10:20 Total Visit Minutes 30 Number of GLOBAL MANAGER Visits 0 Physical Therapy Visit Comments Patient Comments He feels his pain is not well controlled today, pain was better yesturday Therapy Pain Assessment Pain When Pain Assessed At Rest Pain Present Pain Present Pain Reported Location Left Knee Intensity 9 Scale Used Numeric (1 - 10) Description Aching,Cramping Pain Behaviors Facial Grimacing,Holding Area, Wincing Pain Management Techniques Apply Cold,Re-positioning, Timing of Activity with Medications M4 PT-IP Mobility and Gait Start: 05/14/19 16:48 Freq: NEEDED Status: Active Protocol: Document 05/16/19 10:20 DLM (Rec: 05/16/19 14:31 DLM [id number]) PT-Bed Mobility Assessment Supine to Sit Supine to Sit Minimal Assistance,Moderate Assistance,Head of Bed Elevated Scooting Scooting to Edge of Bed Standby Assistance PT-Transfer Assessment Sit to and From Stand Sit to and from Stand Contact Guard Assistance, Minimal Assistance,Use of Upper Extremities Equipment Transfer Assistive Device Gait Belt,Front Wheeled Walker Transfers Transfer Destination Chair Transfer Technique Stand Step Pivot Transfer Ability Level of Assist Contact Guard Assistance, Minimal Assistance Comments Mobility Comments pt up to chair with feet elevated and call light close. His is present and does not feel she can manage him at home in his current condition . She is very worried about him being able to do stairs Gait Assessment Gait Gait Assistance Required: Contact Guard Assist Distance (Feet) 6 Assistive Devices Assistive Device Gait Belt,Front Wheeled Walker Gait Deviations General Gait Pattern Antalgic,Decreased Stride Length,Step-to Gait Factors Limiting Gait Function Factors Limiting Gait Function Decreased Activity Tolerance, Decreased Strength,Limited Range of Motion,Pain Comments Gait Comments he reports difficulty with putting weight on his left LE due to pain PT-Balance Assessment Sitting Balance and Reactions Static Sitting Balance Ability Good Dynamic Sitting Balance Ability Good Standing Balance and Reactions Static Standing Balance Ability Fair Dynamic Standing Balance Ability Fair Device Used FWW M5 PT-IP Objective Assessments Start: 05/14/19 16:48 Freq: NEEDED Status: Active Protocol: Document 05/14/19 17:00 HH (Rec: 05/14/19 17:53 HH [email or web address]) Orientation Orientation/Cognition Level of Alertness Alert Orientation Name,Age,Birthday,Month,Date, Year,Day of Week,Place, Situation Language Function Ability No Deficits Noted Safety Awareness Understands Safety Issues Memory Description No Deficits Noted Gross Range of Motion Upper Extremity ROM Assessment Within Functional Limits Lower Extremity ROM Assessment Left Impaired Impairments L knee AROM = ~5 -75 degrees Strength Upper Extremity Strength Assessment Within Functional Limits Lower Extremity Strength Assessment Left Impaired Hip 4+/5 Knee 3+/5 Coordination Assessment Gross Coordination Gross Coordination WNL Sensation Assessment Sensation Gross Sensation WNL Muscle Tone Muscle Tone WNL Yes M6 PT-IP Treatment Start: 05/14/19 16:48 Freq: NEEDED Status: Active Protocol: Document 05/16/19 10:20 DLM (Rec: 05/16/19 14:31 [facility] [id number]) Physical Therapy Treatment Exercises Exercises Ankle Pumps,Quad Sets,Straight Leg Raises Knee ROM Measurement poor tolerance for any movement of left knee Education Education Provided Weight Bearing Status,Safety M7 PT-IP Assessment and Plan Start: 05/14/19 16:48 Freq: NEEDED Status: Active Protocol: Document 05/16/19 10:20 DLM (Rec: 05/16/19 14:31 [facility] [id number]) PT Summary Assessment and Plan Summary Impairments Pain,ROM,Strength,Balance,Bed Mobility,Transfers,Gait, Activity Tolerance Progress Towards Goals Slow Progress due to Pain Assessment Summary Mohsen is alert and reports high level of knee pain today with the worse pain in lower thigh area. He was able to ambulate a short distance to recliner but could not progress further due to pain with attempts to weight bear on his left LE. He is not safe to discharge home at his current level. He may need SNF rehab before returning home if he continues to have slow progress and difficulty managing his pain. His is present this visit. Goals Bed Mobility Goal Independent Transfer Goal Independent,Front Wheeled Walker Gait Goal Independent,Front Wheel Walker Gait Distance 100 Other Goals 6 steps with L rail with SBA Days to Meet Goals 5 Frequency of Treatment Frequency Of Treatment Twice a Day Treatment Plan Physical Therapy Treatment Plan Bed Mobility Training,Transfer Training,Gait Training, Therapeutic Exercise,Balance Retraining,Post Op Education, Discharge Planning,Hot or Cold Pack,Neuromuscular Re-ed Recommendations To Nursing Amount of Assist Needed 1 Person Assist Discharge Recommendations PT Discharge Recommendations Home with Assistance,SNF Rehab ,Outpatient PT Other Discharge Recommendations needs to progress to discharge home Equipment Needed for Home Before FWW Discharge
[2019-05-16] MEDS: KETOROLAC 30 MG/ML VIAL IV ×3 (10:24→21:45)
[2019-05-16] MEDS: SODIUM CHLORIDE 0.9% FLUSH 10 ML IV ×4 (10:25→21:45)
--- NOTE | 2019-05-16 13:00 | PT.IPTN ---
Current Diagnoses Unilateral primary osteoarthritis, left knee (05/14/19) Other tear of medial meniscus, current injury, left knee, initial encounter (05/14/19) Sprain of unspecified site of left knee, initial encounter (05/14/19) Surgery Performed Operation Date: 05/14/19 09:45 Actual Procedures p Total Knee Arthroplasty(Left) - Emir Ventura MD Physical Therapy Treatment Note M2 PT-IP Current Condition Start: 05/14/19 16:48 Freq: NEEDED Status: Active Protocol: Document 05/14/19 17:00 HH (Rec: 05/14/19 17:53 HH [email or web address]) Physical Therapy Current Condition Current Condition Evaluation Date 05/14/19 Treatment Diagnosis L TKA, difficulty in walking, decreased activity tolerance Onset Date 05/14/19 Weight Bearing Status Weight Bearing Status Weight Bear as Tolerated M3 PT-IP Subjective Start: 05/14/19 16:48 Freq: NEEDED Status: Active Protocol: Document 05/16/19 13:00 DLM (Rec: 05/16/19 17:23 DLM [id number]) Subjective Physical Therapy Visit Type Type Treatment Note Visit Start Time 12:45 Visit Stop Time 13:00 Total Visit Minutes 15 Number of LEASE PICKER Visits 0 Physical Therapy Visit Comments Patient Comments He is having a lot of pain and wants to go back to bed Therapy Pain Assessment Pain When Pain Assessed At Rest Pain Present Pain Present Pain Reported Location Left Knee Intensity 9 Scale Used Numeric (1 - 10) Description Aching,Cramping Pain Behaviors Facial Grimacing,Guarding, Wincing Pain Management Techniques Apply Cold,Re-positioning M4 PT-IP Mobility and Gait Start: 05/14/19 16:48 Freq: NEEDED Status: Active Protocol: Document 05/16/19 13:00 DLM (Rec: 05/16/19 17:23 DLM [id number]) PT-Bed Mobility Assessment Sit to Supine Sit to Supine Minimal Assistance Scooting Scooting to Edge of Bed Independent PT-Transfer Assessment Sit to and From Stand Sit to and from Stand Contact Guard Assistance, Minimal Assistance,Use of Upper Extremities Equipment Transfer Assistive Device Gait Belt,Front Wheeled Walker Transfers Transfer Destination Bed Transfer Technique Stand Step Pivot Transfer Ability Level of Assist Contact Guard Assistance,Use of Upper Extremities Comments Mobility Comments pt has been sitting up in recliner since AM visit Gait Assessment Gait Gait Assistance Required: Contact Guard Assist Distance (Feet) 3 Assistive Devices Assistive Device Gait Belt,Front Wheeled Walker Gait Deviations General Gait Pattern Antalgic,Decreased Stride Length Factors Limiting Gait Function Factors Limiting Gait Function Decreased Activity Tolerance, Decreased Strength,Limited Range of Motion,Pain Comments Gait Comments he has difficulty putting weight on left LE due to knee pain Stair Climbing Assessment Comments Stair Climbing Comments unable this visit M5 PT-IP Objective Assessments Start: 05/14/19 16:48 Freq: NEEDED Status: Active Protocol: Document 05/14/19 17:00 HH (Rec: 05/14/19 17:53 [email or web address]) Orientation Orientation/Cognition Level of Alertness Alert Orientation Name,Age,Birthday,Month,Date, Year,Day of Week,Place, Situation Language Function Ability No Deficits Noted Safety Awareness Understands Safety Issues Memory Description No Deficits Noted Gross Range of Motion Upper Extremity ROM Assessment Within Functional Limits Lower Extremity ROM Assessment Left Impaired Impairments L knee AROM = ~5 -75 degrees Strength Upper Extremity Strength Assessment Within Functional Limits Lower Extremity Strength Assessment Left Impaired Hip 4+/5 Knee 3+/5 Coordination Assessment Gross Coordination Gross Coordination WNL Sensation Assessment Sensation Gross Sensation WNL Muscle Tone Muscle Tone WNL Yes M6 PT-IP Treatment Start: 05/14/19 16:48 Freq: NEEDED Status: Active Protocol: Document 05/16/19 13:00 DLM (Rec: 05/16/19 17:23 [facility] [id number]) Physical Therapy Treatment Exercises Exercises Ankle Pumps Knee ROM Measurement poor tolerance for all knee ROM Education Education Provided Safety Other Treatments Other Treatment Performed pt unable to tolerate his TKA exercises due to his high level of pain M7 PT-IP Assessment and Plan Start: 05/14/19 16:48 Freq: NEEDED Status: Active Protocol: Document 05/16/19 13:00 DLM (Rec: 05/16/19 17:23 [facility] [id number]) PT Summary Assessment and Plan Summary Impairments Pain,ROM,Strength,Balance,Bed Mobility,Transfers,Gait, Activity Tolerance Progress Towards Goals Slow Progress due to Pain Assessment Summary Mohsen has been up in recliner and requesting back to bed. His pain level continues to be very high which limits his gait and ability to perform his ROM exercises. Pt returned to bed and positioned for comfort. He is not safe to discharge home if he is unable to ambulate. He needs to be able to get up 6 steps to get into his RV. Pt may need SNF rehab if his progress continues to be slow and pain management continues to be challening. Goals Bed Mobility Goal Independent Transfer Goal Independent,Front Wheeled Walker Gait Goal Independent,Front Wheel Walker Gait Distance 100 Other Goals 6 steps with L rail with SBA Days to Meet Goals 5 Frequency of Treatment Frequency Of Treatment Twice a Day Treatment Plan Physical Therapy Treatment Plan Bed Mobility Training,Transfer Training,Gait Training, Therapeutic Exercise,Balance Retraining,Post Op Education, Discharge Planning,Hot or Cold Pack,Neuromuscular Re-ed Recommendations To Nursing Amount of Assist Needed 1 Person Assist Discharge Recommendations PT Discharge Recommendations Home with Assistance,SNF Rehab ,Outpatient PT Other Discharge Recommendations needs to progress to discharge home Equipment Needed for Home Before FWW Discharge
--- NOTE | 2019-05-16 16:13 | PC.NURSE ---
Addendum entered by Elisabet Swain R.N. 05/16/19 22:42: 02 2L nc for sleep as pt has sleep apnea without cpap. Continuous pulse oximeter in place 93%. Pt reports pain is well managed with iv dilaudid every 3-4 hours with po dilaudid every 3 hours and other meds as scheduled. States can manage pain 7/10, but beyond that level is unmanagable. Ice to left knee with BL calf scd's in place. Pt uses call light appropriately. Spouse and pt plan to consult P.T., provider, and CM 05/16 to discuss pain management at home prior to discharge. Addendum entered by Elisabet Swain R.N. 05/16/19 17:02: Pt up in recliner for evening meal. Has attempted bowel movement in bathroom without success. States pain is tolerable. BL LE's elevated while up in recliner. Original Note: Pt's spouse summons this technical proposal writer to room at beginning of shift. Explains to this technical proposal writer pt is in terrible pain and spouse states feels unprepared to take pt home and manage his pain once discharged. Pt is in bed crying. States pain left knee is unbearable 9-10/10. Palpable pedal pulses BL with equally warm and pink extremities. Administered 0.5 mg iv dilaudid and iv toradol as ordered. Lengthy discussion with pt and pt's spouse re use of iv pain meds in hospital and goal is to move patients to all oral meds prior to discharge. Spouse and pt both explain pt has been on oral narcotics for chronic arthritis pain for 2 years and pt has high tolerance. Encouraged pt and pt's spouse to discuss this in detail with provider during rounds in a.m. in preparation for discharge. Agreement with pt and and pt's spouse to continue with oral agents as ordered on schedule and iv meds only as needed for breakthrough pain with goal this evening of getting up to recliner for dinner and utilizing bathroom versus in bed urinal to promote mobility and activity. All are in agreement with this plan. Ice to pt's left knee and BL calf scd's in place. Fidencio wrap intact to left knee is dry. Pt reports improvement in pain now 7/10 which pt states is managable. Pt no longer tearful. Verbalizes desire to participate in plan of care.
[2019-05-16] MEDS: AMLODIPINE 5 MG TABLET PO (21:45)
[2019-05-17] MEDS: HYDROMORPHONE 2 MG TABLET PO ×4 (00:46→14:01)
[2019-05-17] MEDS: hydrOXYzine pamoate 25 MG CAPSULE PO ×2 (00:46→07:32)
[2019-05-17] MEDS: HYDROMORPHONE 0.5 MG INJ IV ×2 (01:36→08:30)
[2019-05-17] MEDS: KETOROLAC 30 MG/ML VIAL IV ×2 (03:47→11:00)
[2019-05-17 05:37] LABS: BUN Creatinine Ratio 21.3 (6-22); Blood Urea Nitrogen 17 mg/dL (9-20); Calcium 8.5 mg/dL (8.4-10.2); Carbon Dioxide 37 mmol/L (22-32); Chloride 99 mmol/L (98-107); Estimated Glomerular Filt Rate > 60.0 mL/min (>60); Glucose 106 mg/dL (70-100); HEMOLYSIS < 15 (0-50); Potassium 3.9 mmol/L (3.4-5.1); Sodium 138 mmol/L (137-145)
[2019-05-17 05:44] VITALS: BP 142/86; PULSE 74; RESP 18; TEMP 37.1; O2SAT 92
--- NOTE | 2019-05-17 06:00 | PC.NURSE ---
Patients pain was well managed overnight. He did request IV dilaudid once during the night several minutes after returning from walking to the bathroom. B/L SCDs on throughout night. 2L NC HS for MALLY.
[2019-05-17 07:15] VITALS: BP 162/77; PULSE 71; RESP 18; TEMP 36.7; O2SAT 95
[2019-05-17] MEDS: ACETAMINOPHEN 325 MG TABLET 975 MG PO ×2 (08:37→14:00)
[2019-05-17] MEDS: LOSARTAN 50 MG TABLET 100 MG PO (08:38)
[2019-05-17] MEDS: hydroCHLOROthiazide 25 MG TABLET PO (08:38)
[2019-05-17] MEDS: ASPIRIN EC 81 MG TABLET PO (08:38)
[2019-05-17] MEDS: POLYETHYLENE GLYCOL 3350 17 GM POWD.PACK PO (08:38)
[2019-05-17] MEDS: NICOTINE 14 PATCH 14 MG TOP (08:39)
[2019-05-17] MEDS: SODIUM CHLORIDE 0.9% FLUSH 10 ML IV (09:22)
[2019-05-17 11:38] VITALS: BP 149/87; PULSE 75; RESP 16; TEMP 36.8; O2SAT 90
--- NOTE | 2019-05-17 11:42 | PC.NURSE ---
Addendum entered by Cristina Chanel R.N. 05/17/19 14:13: pt reporting improvement with pain and currently a 6/10. Administered PO dilaudid in PT anticipation. pt considering discharge later today. MACKENZIE Kennedy entered in the DC order pending afternoon PT and pain regimen. Addendum entered by Cristina Chanel R.N. 05/17/19 12:07: pt reporting 6/10 pain post-PT session. Back in bed, with ice packs to left knee. PT unwrapped JOHN wrap, mild shadowing to Aquacel dressing, and PT re-wrapped JOHN. Original Note: AM Shift pt A&O. Receptive to most care, but expressing frustrations regarding pain management. pt takes 1tab [place] at home and is complaining that the pain medication here is not enough compared to what he is used to. Pain administered 2mg PO Dilaudid with Vistaril at 0730 for 7/10 pain. Pain increased over the hour to a 9/10 so I administered 0.5IV Dilaudid. Pain decreased to a 7/10 and pt communicated that 7 is a tolerable level for him. He states that he is accepting of PT and ready to work with them. Significant other, Anali, is also communicating frustrations (with many curse words) around pain management. She feels like she is not ready nor able to care for him in their RV due to the stairs to get in and out. Patient found sleeping after IV Dilaudid. Care management saw patient and at which time the patient and Anali communicated that the nursing staff wasn't caring for the patient's pain enough. At which time, I went in and asked the patient about his pain. Patient said that he was tolerating a 7/10, but if PT was coming to work with him that he would need more pain medication. I administered Toradol IV. Patient currently working with PT and OT is ordered.
--- NOTE | 2019-05-17 12:05 | PT.IPTN ---
Current Diagnoses Unilateral primary osteoarthritis, left knee (05/14/19) Other tear of medial meniscus, current injury, left knee, initial encounter (05/14/19) Sprain of unspecified site of left knee, initial encounter (05/14/19) Surgery Performed Operation Date: 05/14/19 09:45 Actual Procedures p Total Knee Arthroplasty(Left) - Emir Ventura MD Physical Therapy Treatment Note M2 PT-IP Current Condition Start: 05/14/19 16:48 Freq: NEEDED Status: Active Protocol: Document 05/14/19 17:00 HH (Rec: 05/14/19 17:53 HH [email or web address]) Physical Therapy Current Condition Current Condition Evaluation Date 05/14/19 Treatment Diagnosis L TKA, difficulty in walking, decreased activity tolerance Onset Date 05/14/19 Weight Bearing Status Weight Bearing Status Weight Bear as Tolerated M3 PT-IP Subjective Start: 05/14/19 16:48 Freq: NEEDED Status: Active Protocol: Document 05/17/19 12:05 DLM (Rec: 05/17/19 12:46 DLM [id number]) Subjective Physical Therapy Visit Type Type Treatment Note Visit Start Time 11:30 Visit Stop Time 12:05 Total Visit Minutes 35 Number of PROGRAMS MANAGER Visits 0 Physical Therapy Visit Comments Patient Comments He does not think his knee will bend enough to get in the car but he can just get in the back seat. His is working on getting him a fWW now. He reports his pain and swelling are better today. Therapy Pain Assessment Pain When Pain Assessed After Treatment Pain Present Pain Present Pain Reported Location Left Knee Intensity 6 Scale Used Numeric (1 - 10) Description Aching,Cramping Pain Behaviors Facial Grimacing Pain Management Techniques Apply Cold,Modification of Treatment,Timing of Activity with Medications M4 PT-IP Mobility and Gait Start: 05/14/19 16:48 Freq: NEEDED Status: Active Protocol: Document 05/17/19 12:05 DLM (Rec: 05/17/19 12:46 DLM [id number]) PT-Bed Mobility Assessment Supine to Sit Supine to Sit Standby Assistance Sit to Supine Sit to Supine Standby Assistance Scooting Scooting to Edge of Bed Independent Scooting Up and Down in Bed Independent PT-Transfer Assessment Sit to and From Stand Sit to and from Stand Standby Assistance,Use of Upper Extremities Equipment Transfer Assistive Device Gait Belt,Front Wheeled Walker Transfers Transfer Destination Bed Transfer Technique Stand Step Pivot Transfer Ability Level of Assist Standby Assistance Gait Assessment Gait Gait Assistance Required: Standby Assistance Distance (Feet) 150 Able to Maintain Weight Bearing Status Yes During Gait Assistive Devices Assistive Device Gait Belt,Front Wheeled Walker Gait Deviations General Gait Pattern Antalgic Factors Limiting Gait Function Factors Limiting Gait Function Decreased Activity Tolerance, Decreased Strength,Limited Range of Motion,Pain Comments Gait Comments Improved ability to weight bear on left LE during gait with assist from UE's on FWW Stair Climbing Assessment Comments Stair Climbing Comments verbally reviewed stairs, pt reports he was going up step- to before surgery and coming down backwards using one rail M5 PT-IP Objective Assessments Start: 05/14/19 16:48 Freq: NEEDED Status: Active Protocol: Document 05/14/19 17:00 HH (Rec: 05/14/19 17:53 HH [email or web address]) Orientation Orientation/Cognition Level of Alertness Alert Orientation Name,Age,Birthday,Month,Date, Year,Day of Week,Place, Situation Language Function Ability No Deficits Noted Safety Awareness Understands Safety Issues Memory Description No Deficits Noted Gross Range of Motion Upper Extremity ROM Assessment Within Functional Limits Lower Extremity ROM Assessment Left Impaired Impairments L knee AROM = ~5 -75 degrees Strength Upper Extremity Strength Assessment Within Functional Limits Lower Extremity Strength Assessment Left Impaired Hip 4+/5 Knee 3+/5 Coordination Assessment Gross Coordination Gross Coordination WNL Sensation Assessment Sensation Gross Sensation WNL Muscle Tone Muscle Tone WNL Yes M6 PT-IP Treatment Start: 05/14/19 16:48 Freq: NEEDED Status: Active Protocol: Document 05/17/19 12:05 DLM (Rec: 05/17/19 12:46 [facility] [id number][facility] Physical Therapy Treatment Exercises Exercises Ankle Pumps,Quad Sets,Heel Slides,Straight Leg Raises, Seated Knee Flexion/Extension Knee ROM Measurement tolerates about 30 degrees of motion during exercises Education Education Provided Safety M7 PT-IP Assessment and Plan Start: 05/14/19 16:48 Freq: NEEDED Status: Active Protocol: Document 05/17/19 12:05 DLM (Rec: 05/17/19 12:46 [facility] [id number]) PT Summary Assessment and Plan Summary Impairments Pain,ROM,Strength,Balance,Bed Mobility,Transfers,Gait, Activity Tolerance Progress Towards Goals Progressing Toward Goals Assessment Summary Patient shows good progress today with his mobility and gait. He reports improved pain control over-all today. He tolerated gait in the oneil and knee ROM exercises. Will plan for discharge home if he continues to progress well. Pt reports his is working on getting him a fWW for home use. Goals Bed Mobility Goal Independent Transfer Goal Independent,Front Wheeled Walker Gait Goal Independent,Front Wheel Walker Gait Distance 100 Other Goals 6 steps with L rail with SBA Days to Meet Goals 5 Frequency of Treatment Frequency Of Treatment Twice a Day Treatment Plan Physical Therapy Treatment Plan Bed Mobility Training,Transfer Training,Gait Training, Therapeutic Exercise,Balance Retraining,Post Op Education, Discharge Planning,Hot or Cold Pack,Neuromuscular Re-ed Other Recommendations and Next Treatment stair training in preparation Focus for discharge home Recommendations To Nursing Amount of Assist Needed 1 Person Assist Discharge Recommendations PT Discharge Recommendations Home with Assistance, Outpatient PT Equipment Needed for Home Before FWW Discharge
--- NOTE | 2019-05-17 13:09 | OT.IP.EVAL ---
Current Diagnoses Unilateral primary osteoarthritis, left knee (05/14/19) Other tear of medial meniscus, current injury, left knee, initial encounter (05/14/19) Sprain of unspecified site of left knee, initial encounter (05/14/19) Surgery Performed Operation Date: 05/14/19 09:45 Actual Procedures p Total Knee Arthroplasty(Left) - Emir Ventura MD Past Medical History (Last Updated 05/06/19 @ 09:21 by Tatum Castillo RN) HTN (hypertension) (Acute) Neuropathy (Acute) Osteoarthritis (Acute) Pneumonia (Acute) RLS (restless legs syndrome) (Acute) Sleep apnea (Acute) Tinnitus (Acute) Surgical History (Last Updated 05/06/19 @ 09:21 by Tatum Castillo RN) History of ankle surgery (Acute ~1978) History of arthroscopy of both knees (Acute) History of total right hip arthroplasty (Acute ~2008) Hx of elbow surgery (Acute) Hx of hand surgery (Acute) Occupational Therapy Inpatient Evaluation/Re-Eval M1 PT/OT-IP Prior Functional Status Start: 05/14/19 16:48 Freq: NEEDED Status: Active Protocol: Document 05/17/19 13:09 PJM (Rec: 05/17/19 16:04 PJ [id number]) Medical Review Prior Functional Status Medical History Reviewed Yes Diet/Fluid Consistency Regular Communication WNL Mobility and Gait Pt was independent for home and community mobility without AD. He states he needed extra time for long walks, and transfer from low chair. Pt has cane but was not using. Activities of Daily Living and IADL's independent for ADLs and IADLs . He was able to drive prior to sx. Prior Functional Level (Other details) Pt has L&I claim for L knee injury. Social History Household Members spouse,children Living Arrangements RV Number of Floors (Floors) One Floor Number of Stairs To Enter/Railing? 6 stairs with railing and then grab bar by door, no stairs inside Home Environment Standard Height Toilet,Walk in Shower Home Equipment Straight Cane,Raised Toilet Seat Without Armrests,Hand Held Shower Employment Status Unemployed M2 OT-IP Current Condition Start: 05/17/19 15:48 Freq: Status: Active Protocol: Document 05/17/19 13:09 PJM (Rec: 05/17/19 16:04 PJM [email or web address]) Occupational Therapy Current Condition Current Condition Evaluation Date 05/17/19 Treatment Diagnosis decr'd self care, mobility s/p L TKA Diagnosis Onset Date 05/14/19 Weight Bearing Status Weight Bearing Status Weight Bear as Tolerated M3 OT- IP Subjective and Pain Start: 05/17/19 15:48 Freq: Status: Active Protocol: Document 05/17/19 13:09 PJM (Rec: 05/17/19 16:04 PJM [id number]) OT- Subjective Occupational Therapy Visit Type Type Initial Evaluation Visit Start Time 12:20 Visit Stop Time 13:09 Total Visit Minutes 49 Notes Pt's here for education this session. She wears C collar. Pt's works so pt will be home alone during day. Occupational Therapy Visit Comments Patient Comments I am feeling a lot better today. The pain is finally better. Patient/Caregiver Goals to be able to walk without pain OT Pain Assessment Pain When Pain Assessed After Treatment Pain Present Pain Present Pain Reported Location Left Knee Intensity 6 Scale Used Numeric (1 - 10) Description Aching,Acute Pain Behaviors Facial Grimacing,Guarding M4 OT- IP ADL's Start: 05/17/19 15:48 Freq: Status: Active Protocol: Document 05/17/19 13:09 PJM (Rec: 05/17/19 16:04 PJM [email or web address]) OT IDI-Mkjg-Tiizygt General Evaluation Self-Feeding Ability Independent OT ADL-Grooming General Evaluation Grooming Ability Independent Comments OT Grooming Comments standing at sink to wash hands after using bathroom OT ADL-Oral Care General Eval Oral Care Ability Independent Comments Oral Care Comments independent at sink OT ADL-Dressing General Eval Upper Body Dressing Ability Independent Lower Body Dressing Ability Standby Assistance Areas Needing Assistance Underpants/Brief,Socks Assistive Devices Dressing Assistive Devices Elevator Worker Comments OT Dressing Comments Provided power tool repairer and sock aid and educated pt re: their use. Pt then SBA to independent donning brief and socks. Pt's L foot too swollen to fit in slipper, provided long shoe horn. Elevator Worker, sock aid and long shoe horn provided. OT ADL-Toileting General Evaluation Toileting Ability Independent Areas Needing Assistance Manage Clothing,Perform Perineal Hygiene Devices Toileting Assistive Devices Raised Toilet Seat OT ADL-Bathing Comments OT Bathing Comments Pt's shower stall is very small with no room for shower seat. Provided education re: fall reduction and adapted techniques. Long bath sponge provided. can provide SBA PRN. M5 OT- IP IADL's Start: 05/17/19 15:48 Freq: Status: Active Protocol: Document 05/17/19 13:09 PJM (Rec: 05/17/19 16:04 PJ [email or web address]) OT-Instrumental Activities of Daily Living Deficits IADL Deficits Identified Deficits Home Safety Awareness Awareness of Need for Assistance at Home Good Awareness Ability to Problem Solve Emergency Able to Problem Solve Situations Home Safety Comments can assist before and after work PRN Medication Management Medication Management No Deficits Identified Money Management Money Management No Deficits Identified Meal Preparation Meal Preparation Caregiver Provides Assist Stenotype Operator Stenotype Operator Caregiver Provides Assist Driving Driving Caregiver Provides Assist Driving Comments until pt able M6 OT- IP Functional Cognition Start: 05/17/19 15:48 Freq: Status: Active Protocol: Document 05/17/19 13:09 PJM (Rec: 05/17/19 16:04 PJ [id number]) Cognitive Factors Limiting Selfcare Function Cognitive Ability Level of Alertness Alert Patient Orientation Name,Age,Birthday,Month,Date, Year,Day of Week,Place, Situation Attention Span Ability Capable of Focused Attention, Capable of Sustained Attention Ability to Follow Commands Able to Follow One Step Commands,Able to Follow Multi- Step Commands Memory Description No Deficits Noted Safety Awareness No Deficits Noted Problem Solving Ability No deficits Noted Cognitive Comments Cognitive Assessment Comments Pt verbalizes and demonstrates good safety awareness. OT- Vision and Hearing OT- Hearing Assessment OT- Hearing Assessment WFL M7 OT- IP Mobility and Balance Start: 05/17/19 15:48 Freq: Status: Active Protocol: Document 05/17/19 13:09 PJM (Rec: 05/17/19 16:04 [facility] [id number]) OT-Transfer Assessment Sit to and From Stand Sit to and from Stand Standby Assistance Transfers Transfer Ability Independent Technique Transfer Destination Chair,Toilet Transfer Technique Stand Step Pivot Devices Transfer Assistive Devices Front Wheeled Walker Comments Mobility Comments Pt SBA to independent with functional mobility and toielt transfers in room. Pt has not yet cleared P.T. OT- Gait Assessment Gait Gait Assistance Required: Standby Assistance Distance (Feet) 20 Assistive Devices Assistive Device Front Wheeled Walker Comments Gait Ability Comments no LOB noted OT- Balance Assessment Sitting Balance and Reactions Static Sitting Balance Ability Good Dynamic Sitting Balance Ability Good Standing Balance and Reactions Static Standing Balance Ability Good Dynamic Standing Balance Ability Good Comments Other Balance Tests/Deviations/Treatment during lower body dressing : M8 OT- IP Objective Assessments Start: 05/17/19 15:48 Freq: Status: Active Protocol: Document 05/17/19 13:09 PJM (Rec: 05/17/19 16:04 PJ [id number]) OT Gross Range of Motion Upper Extremity Range of Motion Assessment Within Functional Limits OT Strength Upper Extremity Strength Assessment Within Functional Limits Hand Kiln Burner Helper Strength Hand Dominance Right OT- Coordination Assessment Comments Coordination Comments BUE WNL OT-Muscle Tone Assessment Muscle Tone WNL Yes OT Sensation Assessment Comments Summary Comments BUE WNL per pt Edema Edema Present Edema Comments mod edema LLE and foot; kitty wrap in palce on L knee M9 OT- IP Assessment and Plan Start: 05/17/19 15:48 Freq: Status: Active Protocol: Document 05/17/19 13:09 PJM (Rec: 05/17/19 16:04 PJ [id number]) OT Summary Assessment and Plan Potential Rehabilitation Potential Good Analytic Complexity at Evaluation Low Summary OT Impairments Pain Progress Towards Goals Safe For Discharge Assessment Summary Low complexity OT assessment on this 59 yr old male admitted for elective L TKA in 05/14/19. All OT education completed in one visit re: adapted techniques for lower body dressing with adaptive equipment, standing shower. Pt already independent with toileting. Also provided education re: home safety, meal prep and carrying items with FWW, and car transfers. Pt/ verbalize and demonstrate understanding of all education. Pt hopes to d/c home later today if he clears P.T. No further OT services needed. Frequency of Treatment Frequency Of Treatment Discharge Discharge Recommendations OT Discharge Recommendations Home with Assistance Home Equipment Needs power tool repairer, sock aid, long shoe horn and long bath sponge provided
--- NOTE | 2019-05-17 13:38 | CM.DPC ---
DCP/continued: Received chart. Patient underwent left TKA on 05-14-[address] Ventura. Per notes, patient has been having a lot of pain management issues. Met with patient and spouse/Anali at bedside explained role. Spouse reports that patient has had some difficulty over the w/e with pain management and therapy. Initially, patient planned to d/c home. However, today because of the lack of mobility and pain issues over the w/e he is considering SNF. Current recommendation from 05-16 is SNF. First SNF choice is [facility]. Patient aware that SNF authorization would need to obtained by L&I to go? Patient hopes to have better day today and maybe will not need SNF? Encouraged patient to work with RN, therapy, and Orthopedic team to improve both pain management and mobility. OT evaluation ordered. Patient seen by therapy this AM and per Lisa did much better than yesterday. Patient now considering home. [facility] provided with referral if SNF needed. Order for FWW for home use obtained and therapy notified. Ortho team reports that patient can d/c home today if comfortable with plan. P: Pending. Anticipate home today/tomorrow vs. SNF if approved by insurance. PARAMJIT Hardwick
[2019-05-17] MEDS: DOCUSATE 100 MG CAPSULE PO (14:00)
--- NOTE | 2019-05-17 14:50 | PT.IPTN ---
Current Diagnoses Unilateral primary osteoarthritis, left knee (05/14/19) Other tear of medial meniscus, current injury, left knee, initial encounter (05/14/19) Sprain of unspecified site of left knee, initial encounter (05/14/19) Surgery Performed Operation Date: 05/14/19 09:45 Actual Procedures p Total Knee Arthroplasty(Left) - Emir Ventura MD Physical Therapy Treatment Note M2 PT-IP Current Condition Start: 05/14/19 16:48 Freq: NEEDED Status: Active Protocol: Document 05/14/19 17:00 HH (Rec: 05/14/19 17:53 HH [email or web address]) Physical Therapy Current Condition Current Condition Evaluation Date 05/14/19 Treatment Diagnosis L TKA, difficulty in walking, decreased activity tolerance Onset Date 05/14/19 Weight Bearing Status Weight Bearing Status Weight Bear as Tolerated M3 PT-IP Subjective Start: 05/14/19 16:48 Freq: NEEDED Status: Active Protocol: Document 05/17/19 14:50 DLM (Rec: 05/17/19 17:04 DLM [id number]) Subjective Physical Therapy Visit Type Type Treatment Note Visit Start Time 14:10 Visit Stop Time 14:50 Total Visit Minutes 40 Number of GRATED CHEESE MAKER Visits 0 Physical Therapy Visit Comments Patient Comments He reports his pain is better managed today, he feels he will be ok going home Therapy Pain Assessment Pain When Pain Assessed During Mobility Pain Present Pain Present Pain Reported Location Left Knee Intensity 5 Scale Used Numeric (1 - 10) Description Aching,Cramping Pain Management Techniques Apply Cold,Re-positioning, Timing of Activity with Medications M4 PT-IP Mobility and Gait Start: 05/14/19 16:48 Freq: NEEDED Status: Active Protocol: Document 05/17/19 14:50 DLM (Rec: 05/17/19 17:04 DLM [id number]) PT-Bed Mobility Assessment Rolling Type of Rolling Roll to Right Level of Assist Independent Supine to Sit Supine to Sit Independent Sit to Supine Sit to Supine Independent Scooting Scooting to Edge of Bed Independent Scooting Up and Down in Bed Independent PT-Transfer Assessment Sit to and From Stand Sit to and from Stand Independent,Use of Upper Extremities Equipment Transfer Assistive Device Gait Belt,Front Wheeled Walker Transfers Transfer Destination Chair Transfer Technique Stand Step Pivot Transfer Ability Level of Assist Independent,Use of Upper Extremities Comments Mobility Comments pt has a tall bed at home so simulated his bed height, pt able to use a step stool to get up onto the bed safely with fWW Gait Assessment Gait Gait Assistance Required: Standby Assistance Distance (Feet) 60 Able to Maintain Weight Bearing Status Yes During Gait Assistive Devices Assistive Device Gait Belt,Front Wheeled Walker Gait Deviations General Gait Pattern Antalgic Factors Limiting Gait Function Factors Limiting Gait Function Decreased Activity Tolerance, Decreased Strength,Limited Range of Motion,Pain Stair Climbing Assessment Evaluation Level of Assist On Stairs Contact Guard Assistance Devices Stair Climbing Assistive Devices Straight Cane,Left Railing Technique/Endurance Stair Climbing Direction Ascend and Descend Stair Climbing Technique Step to Step Number of Steps Climbed 3 Stair Climbing Set # Repetitions (reps) 2 Comments Stair Climbing Comments he prefers to come down the steps backwards, forwards and backwards were both trialed today M5 PT-IP Objective Assessments Start: 05/14/19 16:48 Freq: NEEDED Status: Active Protocol: Document 05/14/19 17:00 (Rec: 05/14/19 17:53 HH [email or web address]) Orientation Orientation/Cognition Level of Alertness Alert Orientation Name,Age,Birthday,Month,Date, Year,Day of Week,Place, Situation Language Function Ability No Deficits Noted Safety Awareness Understands Safety Issues Memory Description No Deficits Noted Gross Range of Motion Upper Extremity ROM Assessment Within Functional Limits Lower Extremity ROM Assessment Left Impaired Impairments L knee AROM = ~5 -75 degrees Strength Upper Extremity Strength Assessment Within Functional Limits Lower Extremity Strength Assessment Left Impaired Hip 4+/5 Knee 3+/5 Coordination Assessment Gross Coordination Gross Coordination WNL Sensation Assessment Sensation Gross Sensation WNL Muscle Tone Muscle Tone WNL Yes M6 PT-IP Treatment Start: 05/14/19 16:48 Freq: NEEDED Status: Active Protocol: Document 05/17/19 14:50 DLM (Rec: 05/17/19 17:04 DLM [id number]) Physical Therapy Treatment Exercises Exercises Ankle Pumps,Quad Sets,Heel Slides,Straight Leg Raises, Short Arc Quads,Passive Knee Extension Hang,Seated Knee Flexion/Extension Knee ROM Measurement 5-60 Education Education Provided Post-Op Packet,Safety Equipment Issued Equipment Type and Company issued a fWW for home use from [employer], applied the plastic glide caps and adjusted the height, educated pt in how to lock/fold the fWW , his was present during this training Other Treatments Other Treatment Performed reviewed written HEP in post- op packet M7 PT-IP Assessment and Plan Start: 05/14/19 16:48 Freq: NEEDED Status: Active Protocol: Document 05/17/19 14:50 DLM (Rec: 05/17/19 17:04 DLM [id number]) PT Summary Assessment and Plan Summary Impairments Pain,ROM,Strength,Balance,Bed Mobility,Transfers,Gait, Activity Tolerance Progress Towards Goals Safe For Discharge Assessment Summary Mohsen showed good progress this afternoon. He demonstrates a safe gait pattern with his fWW. He is able to go up/down 6 steps as needed to get into his home. His was present for this visit and all questions were answered. He appears safe to discharge home with his when medically cleared. Goals Bed Mobility Goal Independent Transfer Goal Independent,Front Wheeled Walker Gait Goal Independent,Front Wheel Walker Gait Distance 100 Other Goals 6 steps with L rail with SBA Days to Meet Goals 5 Frequency of Treatment Frequency Of Treatment Twice a Day Treatment Plan Physical Therapy Treatment Plan Bed Mobility Training,Transfer Training,Gait Training, Therapeutic Exercise,Balance Retraining,Post Op Education, Discharge Planning,Hot or Cold Pack,Neuromuscular Re-ed Recommendations To Nursing Amount of Assist Needed 1 Person Assist Discharge Recommendations PT Discharge Recommendations Home with Assistance, Outpatient PT Equipment Needed for Home Before FWW Discharge
[2019-05-17 15:40] VITALS: BP 156/91; PULSE 70; RESP 18; TEMP 36.7; O2SAT 91
[2019-05-17] MEDS: OXYCODONE IR 10 MG TABLET PO (16:27)
--- NOTE | 2019-05-17 17:31 | PC.NURSE ---
Pt states he understands his post op instructions and medications. He has left with all of his belongings and in the company of his via wheelchair. He is rating his pain 5/10.
--- NOTE | 2019-05-17 17:33 | DS_ITS ---
History of Present Illness History of Present Illness Date Patient Seen: 05/17/19 Chief complaint: Unilateral primary osteoarthritis, L knee M17.12 Narrative: see progress note Discharge Providers Provider Discharge Date: 05/17/19 Primary care physician: Mohsen Blanco MD Discharge provider: Davie Carmen PA-C Summary Hospital Course Discharge Diagnosis: Pre-op diagnosis: Left knee osteoarthritis Post-op diagnosis: same Hospital Course: Procedure: Left total knee arthroplasty Same procedure as scheduled: Yes Indications: The patient presents today for total knee arthroplasty after failure of conservative treatment. The nature of the procedure including the risks and benefits, alternatives, postoperative course and expected outcome were discussed and all questions answered. Consent was obtained. Operative site confirmed and marked. Surgeon: Emir Ventura Billboard Poster Helper: Kevan Dowd Anesthesia Type: General, Spinal and Local Operative Notes Closure Type: primary Specimen(s): none sent Prosthetic devices, grafts, tissues, transplants, or devices: Trevizo and NephIntenseDebate Phoebe BCS: 7 femoral component, 6 tibial component, 9 mm BCS polyethylene tray and 32 x 9 mm round patella Applied: implant(s) Estimated Blood Loss (mL): 10 Blood products transfused: none Tourniquet time (min): 53 Exam Narrative Exam Narrative: see progress note Discharge Plan Discharge Med Rec/Prescriptions Prescriptions: No Action amlodipine 5 mg Tablet 5 mg PO BEDTIME RF: 0 diclofenac sodium 75 mg Tablet,Delayed Release (Dr/Ec) 75 mg PO BID RF: 0 losartan-hydrochlorothiazide 100-25 mg Tablet 1 tab PO DAILY RF: 0 acetaminophen 325 mg Tablet 975 mg PO TID Qty: 40 RF: 0 aspirin 81 mg Tablet,Delayed Release (Dr/Ec) 81 mg PO BID Qty: 40 RF: 0 hydromorphone 2 mg Tablet 2 mg PO Q4H PRN (Reason: Pain, Severe (7-10)) Qty: 60 RF: 0 docusate sodium [DOK] 100 mg Capsule 100 mg PO BID Qty: 40 RF: 0 hydroxyzine pamoate 25 mg Capsule 25 mg PO Q6HR PRN (Reason: Nausea) Qty: 40 RF: 0 Discharge Data Primary Care Provider: Mohsen Blanco Attending Provider: Emir Ventura Signed By:<Electronically signed by Davie Carmen>05/24/19 [id number]
== END 2019-05-17 17:33 | disposition home or self-care (01) | DRG 302 ==
PROVIDERS: Orthopaedic Surgery Foot and Ankle Surgery; Admitting Provider Orthopaedic Surgery; PCP Internal Medicine; Visit Provider Orthopaedic Surgery
PROC: 0SRD0JZ Replacement of Left Knee Joint with Synthetic Substitute, Open Approach (ICD-10-PCS; CPT 27447; principal; 2019-05-14 09:45)
DX: M17.12 Unilateral primary osteoarthritis, left knee (principal); I10 Essential (primary) hypertension; G47.33 Obstructive sleep apnea (adult) (pediatric); J44.9 Chronic obstructive pulmonary disease, unspecified; F17.210 Nicotine dependence, cigarettes, uncomplicated; S83.242D Other tear of medial meniscus, current injury, left knee, subsequent encounter; Y99.0 Civilian activity done for income or pay; W20.8XXD Other cause of strike by thrown, projected or falling object, subsequent encounter
CPT/HCPCS: 36415; 73560; 80048; 85014; 85018; 94762; 97110; 97116; 97161; 97165; 97530; 97535; C1776; C9290; J1100; J1170; J1885; J2250; J2274; J2405; J2704; J3010; S0077

== ENCOUNTER → 2019-06-28 10:08 | Outpatient (CLI) | payer OTHER, SELFPAY ==
[2019-05-14 13:52] VITALS: BMI 33.6
--- NOTE | 2019-06-28 | DI.US.S_ITS ---
PROCEDURE: US PERIPH VENOUS LOW EXTREM LT INDICATIONS: LEFT LEG SWELLING PAIN, R/O DVT TECHNIQUE: Real-time imaging, as well as color and pulse Doppler interrogation, were performed of the lower extremity deep veins from the inguinal ligament to the popliteal fossa. COMPARISON: None. FINDINGS: The common femoral, femoral and popliteal veins are normally compressible, and free of intraluminal thrombus. Color and pulse Doppler demonstrate normal phasic intraluminal flow. There is normal augmentation response to distal compression maneuver. IMPRESSION: No DVT found left leg. Dictated by: Jose Felipe M.D. on 06/28/2019 at 12:45 Approved by: Jose Felipe M.D. on 06/28/2019 at 12:45
== END ==
PROVIDERS: PCP Internal Medicine; Visit Provider Orthopaedic Surgery
DX: M79.89 Other specified soft tissue disorders (principal); M79.605 Pain in left leg
CPT/HCPCS: 93971

== ENCOUNTER 2019-08-24 07:30 | Outpatient (RCR) | payer OTHER, SELFPAY ==
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
--- NOTE | 2019-05-11 15:15 | PT.OPPOC ---
Current Diagnoses Unilateral primary osteoarthritis, left knee (05/11/19) Other tear of medial meniscus, current injury, left knee, initial encounter (05/11/19) Visit Care Team Role Provider Type Mohsen Blanco MD Primary Care Provider Physician Specialty: Internal Medicine Address: [address] [place] [address], [id number] Email: [email or web address] Emir Ventura MD Attending Provider Physician Specialty: Orthopedic Surgery Address: [address] [place] [address], [id number] Email: [email or web address] Plan Of Care PT-OP-T Assessment and Plan Start: 05/11/19 09:33 Freq: Status: Active Protocol: Document 05/11/19 12:16 MB (Rec: 05/11/19 15:15 MB [id number]) Physical Therapy Assessment Rehab Potential Rehabilitation Potential Good Evaluation Complexity Number of Personal Factors/Comorbidities 1-2 Number of Body Systems Impaired 1-2 Goals 5 Ice Bag Assembler Goal (LTG) Pt will perform reciprocal gait on stairs for 6 steps with 1 rail by 07/11/19. LTG Duration 8 weeks Four Correction Goal (LTG) Pt will present with an improved LE functional index score to reflect no more than 20% impairment by 07/11/19. LTG Duration 8 weeks Three Ice Bag Assembler Goal (LTG) Pt will present with improved left knee AROM to 0-120 deg by 07/11/19. LTG Duration 8 weeks Two Ice Bag Assembler Goal (LTG) Pt will present with improved B hip flexion and abduction and left knee flexion and extension strength to 5/5 by . LTG Duration 8 weeks One Correction Goal (LTG) Pt will perform HEP with I including LE flexibility, strengthening, and balance exercises by 07/11/19. LTG Duration 8 weeks Assessment Summary Assessment Pt is a 59 y/o male presenting with 2 year old left knee injury that is now being treated with TKR on 05/14/19. He presents with left knee pain, decreased ROM, weakness, poor gait. He will benefit from PT for strengthening, gait and stair training, flexibility and balance training. He and live in a camper and he has 6 steps to enter with 1 rail and their bed is very high (greater than 3 feet) and these will be barriers to mobility at home. His thinks that his bedroom is too small for walker. Con't OPPT post-op. Stair training deferred to acute PT post-op d/t triaging pt needs today. This date, ed pt on height and use of walker , bed mobility supporting left leg, car transfers, pre-op TKR exercises, benefits of LLE elevation, APs and icing. Physical Therapy Plan Frequency and Duration Frequency of Treatment 2x/Week Duration of Treatment 8 weeks Plan of Care Start Date 05/11/19 Plan of Care End Date 07/12/19 Therapeutic Interventions Therapeutic Interventions Aquatic Therapy,Balance Training,Gait Training,Home Exercise Program,Manual Therapy,Neuromuscular Re- education,Patient/Caregiver Education,Self-Care/Home Management,Soft Tissue Mobilization,Taping, Therapeutic Activities, Therapeutic Exercises Modalities Cold Pack/Ice Massage,Electric Stimulation,Hot Packs, Ultrasound Next Visit Focus/Plan Next Note Type Re-Evaluation Plan of Care Dates Plan of Care Start Date 05/11/19 Plan of Care End Date 07/12/19
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
--- NOTE | 2019-05-24 10:05 | P.DS_ITS ---
History of Present Illness History of Present Illness Date Patient Seen: 05/17/19 Chief complaint: Unilateral primary osteoarthritis, L knee M17.12 Narrative: see progress note Discharge Providers Provider Discharge Date: 05/17/19 Primary care physician: Mohsen Blanco MD Discharge provider: Davie Carmen PA-C Summary Hospital Course Discharge Diagnosis: Pre-op diagnosis: Left knee osteoarthritis Post-op diagnosis: same Hospital Course: Procedure: Left total knee arthroplasty Same procedure as scheduled: Yes Indications: The patient presents today for total knee arthroplasty after failure of conservative treatment. The nature of the procedure including the risks and benefits, alternatives, postoperative course and expected outcome were discussed and all questions answered. Consent was obtained. Operative site confirmed and marked. Surgeon: Emir Ventura [employer] Offbearer: Kevan Dowd Anesthesia Type: General, Spinal and Local Operative Notes Closure Type: primary Specimen(s): none sent Prosthetic devices, grafts, tissues, transplants, or devices: Trevizo and [employer] BCS: 7 femoral component, 6 tibial component, 9 mm BCS polyethylene tray and 32 x 9 mm round patella Applied: implant(s) Estimated Blood Loss (mL): 10 Blood products transfused: none Tourniquet time (min): 53 Exam Narrative Exam Narrative: see progress note Discharge Plan Discharge Med Rec/Prescriptions Prescriptions: No Action amlodipine 5 mg Tablet 5 mg PO BEDTIME RF: 0 diclofenac sodium 75 mg Tablet,Delayed Release (Dr/Ec) 75 mg PO BID RF: 0 losartan-hydrochlorothiazide 100-25 mg Tablet 1 tab PO DAILY RF: 0 acetaminophen 325 mg Tablet 975 mg PO TID Qty: 40 RF: 0 aspirin 81 mg Tablet,Delayed Release (Dr/Ec) 81 mg PO BID Qty: 40 RF: 0 hydromorphone 2 mg Tablet 2 mg PO Q4H PRN (Reason: Pain, Severe (7-10)) Qty: 60 RF: 0 docusate sodium [DOK] 100 mg Capsule 100 mg PO BID Qty: 40 RF: 0 hydroxyzine pamoate 25 mg Capsule 25 mg PO Q6HR PRN (Reason: Nausea) Qty: 40 RF: 0 Discharge Data Primary Care Provider: Mohsen Blanco Attending Provider: Emir Ventura
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
--- NOTE | 2019-05-31 15:09 | P.DS_ITS ---
History of Present Illness History of Present Illness Date Patient Seen: 05/17/19 Chief complaint: Unilateral primary osteoarthritis, L knee M17.12 Narrative: Please see HPI previously recorded in chart. Discharge Providers Provider Discharge Date: 05/17/19 Primary care physician: Mohsen Blanco MD Discharge provider: Marcia Warren PA-C Summary Hospital Course Discharge Diagnosis: s/p Left total knee arthroplasty Hospital Course: The patient presented for total knee arthroplasty after failure of conservative treatment. The nature of the procedure including the risks and benefits, alternatives, postoperative course and expected outcome were discussed and all questions answered. Consent was obtained. Operative site was confirmed and marked. He was taken to the operating room where he underwent a left total knee arthroplasty with Dr. Ventura which he tolerated well, without complications. His post operative course was uneventful except for initial pr oblems with pain control POD#1 and 2. POD#3 an acceptable regimen of Dilaudid, Vistaril, Ibuprofe, and Tylenol was achieved and he was able to successfully mobilize with PT and complete stair training. He was voiding appropriately and tolerating a diet. He had no chest pain, shortness of breath, fevers or chills. will be primary caregiver. He was medically stable for discharge on POD#3. Status at Discharge Cognitive/behavioral status at discharge: oriented Functional status at discharge: uses cane/walker Overall status at discharge: patient is progressing back to baseline Exam Narrative Exam Narrative: 59 year old male resting comfortably in bed. Alert and oriented in no acute distress. Aquacel dressing in place over left knee is CDI. Patient able to fire knee and ankle flexors and extensors. Calves are soft and compressible bilaterally. Palpable pedal pulse. Discharge Plan Discharge Med Rec/Prescriptions Prescriptions: No Action amlodipine 5 mg Tablet 5 mg PO BEDTIME RF: 0 diclofenac sodium 75 mg Tablet,Delayed Release (Dr/Ec) 75 mg PO BID RF: 0 losartan-hydrochlorothiazide 100-25 mg Tablet 1 tab PO DAILY RF: 0 acetaminophen 325 mg Tablet 975 mg PO TID Qty: 40 RF: 0 aspirin 81 mg Tablet,Delayed Release (Dr/Ec) 81 mg PO BID Qty: 40 RF: 0 hydromorphone 2 mg Tablet 2 mg PO Q4H PRN (Reason: Pain, Severe (7-10)) Qty: 60 RF: 0 docusate sodium [DOK] 100 mg Capsule 100 mg PO BID Qty: 40 RF: 0 hydroxyzine pamoate 25 mg Capsule 25 mg PO Q6HR PRN (Reason: Nausea) Qty: 40 RF: 0 Discharge Data Primary Care Provider: Mohsen Blanco Attending Provider: Emir Ventura
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
--- NOTE | 2019-06-29 07:42 | PT-OP ANOTE ---
PT spoke with Dr. Ventura office. Per tax clerk reading doctor note yesterday, pt to have doppler to r/o DVT. Will cancel his appointment today and await doppler findings.
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
--- NOTE | 2019-07-07 10:24 | PT-OP ANOTE ---
Appointment cancelled in setting of inclement weather
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
--- NOTE | 2019-07-13 13:55 | PT-OP ANOTE ---
PT calls Dr. Ventura's office regarding pt's ongoing complaints that he thinks the component is loose in his left TKR, reports of ongoing lateral knee pain, swelling and pain that is awakening him at night. PT is also concerned that he is not progressing further. PT speaks with Yohana, Supervisor [employer], and communicates concerns. PT communicates popping when knee is in loose packed position. Yohana makes appointment for pt with Dr. Ventura on , 07/15/2019 at 0850.
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
--- NOTE | 2019-07-23 07:27 | PT.OPPOC ---
Physical, Occupational & Speech Therapy At [facility] Current Diagnoses Unilateral primary osteoarthritis, left knee (07/21/19) Other tear of medial meniscus, current injury, left knee, initial encounter (07/21/19) Visit Care Team Role Provider Type Mohsen Blanco MD Primary Care Provider Physician Specialty: Internal Medicine Address: [address] [place] [address], [id number] Email: [email or web address] Emir Ventura MD Attending Provider Physician Specialty: Orthopedic Surgery Address: [address] [place] [address], [id number] Email: [email or web address] Plan Of Care PT-OP-T Assessment and Plan Start: 05/11/19 09:33 Freq: Status: Active Protocol: Document 07/21/19 15:18 MB (Rec: 07/21/19 16:01 MB [id number]) Physical Therapy Assessment Goals Six Snf Goal (LTG) Pt will gait train 1200 feet in 6 minutes without AD to increase community ambulation by 09/14/2019. 5 Snf Goal (LTG) Pt will perform reciprocal gait on stairs for 6 steps with 1 rail by 09/14/2019. 07/16/2019: Pt gait trains with step-to pattern and 2 rails. Antalgic gait. LTG Duration 8 weeks Four Sheet Metal Pattern Cutter Goal (LTG) Pt will present with an improved LE functional index score to reflect no more than 30% impairment by 09/14/2019. 07/16/2019: LE functional index score reflex 50% impairment LTG Duration 8 weeks Three Sheet Metal Pattern Cutter Goal (LTG) Pt will present with improved left knee AROM to 0-120 deg by 09/14/2019. 07/16/2019: Pt presents with AROM left knee 6-107 deg. LTG Duration 8 weeks Two Snf Goal (LTG) Pt will present with improved B hip flexion and abduction and left knee flexion and extension strength to 5/5 by . 07/16/2019: Pt's strength is 5/ 5 in above muscles in limited ROM. LTG Duration 8 weeks One Sheet Metal Pattern Cutter Goal (LTG) Pt will perform HEP with I including LE flexibility, strengthening, and balance exercises by 09/14/2019. 07/16/2019: Pt is performing progressive HEP as tolerated d /t pain LTG Duration 8 weeks Assessment Summary Assessment Pt presents with ongoing similar pain and PT is able to localize closer to medial fibular head left leg. PT con' t to be concerned about mechanical and/or anatomical problem and encourages pt to follow-up with provider about this. He will start aquatic therapy next week and this is something different to see how he responds to improve range and gait. Ongoing education to pt to make sure he practices good walking with walker. Physical Therapy Plan Frequency and Duration Frequency of Treatment 2x/Week Duration of Treatment 8 weeks Plan of Care Start Date 07/16/19 Plan of Care End Date 09/14/19 Therapeutic Interventions Therapeutic Interventions Aquatic Therapy,Balance Training,Gait Training,Home Exercise Program,Manual Therapy,Neuromuscular Re- education,Patient/Caregiver Education,Self-Care/Home Management,Soft Tissue Mobilization,Taping, Therapeutic Activities, Therapeutic Exercises Modalities Cold Pack/Ice Massage,Electric Stimulation,Hot Packs, Ultrasound Next Visit Focus/Plan Next Note Type Treatment Note Next Visit Plan Progress exercises as appropriate--consider progressing hip strengthening to help decrease knee discomfort and improve weight acceptance with walking Plan of Care Dates Plan of Care Start Date 07/16/19 Plan of Care End Date 09/14/19 Electronically Signed by: Diana Diallo PT 07/23/19 [id number] Please Sign and Return: I have reviewed this Plan of Care and certify that the skilled therapy services above are required to meet the patient?s needs. Physician Signature Date Printed Name and Credentials Clinical Instructor Signature Printed Name and Credentials
--- NOTE | 2019-07-26 09:38 | PT-OP ANOTE ---
Pt no showed last appointment and PT left message. This date, pt called in and has the flu. He will miss today's pool appointment.
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
--- NOTE | 2019-08-03 12:36 | PT-IP ANOTE ---
Addendum entered and electronically signed by Diana Diallo, PT 08/05/19 12:20: Dr. Lawrence's name was misspelled below Original Note: Pt arrives to treatment. He reports that he returned to Dr. 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 The plan is for him to follow-up with another orthopedic surgeon, Dr. Zambrano, at [facility] on 08/13/2019 with plans for likely surgical intervention. Pt states that Dr. Ventura is aware that PT has not been helping pt and PT and pt agree that holding PT until further orthopedic work-up is most appropriate given his worsening pain. Will hold PT.
--- NOTE | 2019-08-20 12:42 | PT-OP ANOTE ---
Pt states that he saw Dr. Lawrence and that there is soft tissue pinching and that he should con't with PT. There is a concern that he is at increased risk of infection if he another surgery at this time. He was told they would only consider surgery as early as 9 months from now. He is agreeable to try aquatic therapy as schedule has appointments open.
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
--- NOTE | 2019-08-24 08:16 | PT.OPPOC ---
Physical, Occupational & Speech Therapy At [facility] Current Diagnoses Unilateral primary osteoarthritis, left knee (08/24/19) Other tear of medial meniscus, current injury, left knee, initial encounter (08/24/19) Visit Care Team Role Provider Type Mohsen Blanco MD Primary Care Provider Physician Specialty: Internal Medicine Address: [address] [place] [address], [id number] Email: [email or web address] Emir Ventura MD Attending Provider Physician Specialty: Orthopedic Surgery Address: [address] [place] [address], [id number] Email: [email or web address] Of [email or web address] PT-OP-T Assessment and Plan Start: 05/11/19 09:33 Freq: Status: Active Protocol: Document 08/24/19 07:28 MB (Rec: 08/24/19 08:16 MB [id number]) Physical Therapy Assessment Goals Six Penitentiary Goal (LTG) Pt will deny falls in 2 months by 10/26/2019. LTG Duration 8 weeks 5 Hardwood Floor Installation Helper Goal (LTG) Pt will perform reciprocal gait on stairs for 6 steps with 1 rail by 10/26/2019. 08/24/2019: Ascend and descend steps with left rail ascend and cane right hand and step- to gait and left knee stays straight. 4 steps today LTG Duration 8 weeks Four Hardwood Floor Installation Helper Goal (LTG) Pt will present with an improved LE functional index score to reflect no more than 40% impairment by 10/26/2019. 08/24/2019: LE functional index score reflex 61% impairment LTG Duration 8 weeks Three Hardwood Floor Installation Helper Goal (LTG) Pt will present with improved left knee AROM to 0-120 deg by 10/26/2019. 08/24/2019: Pt presents with AROM left knee 7-110 deg. LTG Duration 8 weeks Two Penitentiary Goal (LTG) Pt will present with improved B hip flexion and abduction and left knee flexion and extension strength to 5/5 by . 08/24/2019: Pt's strength is 5/5 in above muscles in limited ROM except for left knee flexion 4/5 LTG Duration 8 weeks One Penitentiary Goal (LTG) Pt will perform HEP with I including LE flexibility, strengthening, and balance exercises by 10/26/2019. 08/24/2019: Pt is performing progressive HEP as tolerated d /t pain LTG Duration 8 weeks Assessment Summary Assessment Progress note today. Not much changes and pain is still bad in setting of no anatomical improvement with pinching in posterior left knee. D/c 6MWT d/t pt with increased pain with gait, antalgic pattern with cane in right hand--step- to gait and decreased foot clearance and step-length, decreased knee extension with weight acceptance. Encouraged pt to use walker at home. Will initiate aquatic therapy and see if pt improves in pain and range and gait. Functional prognosis is guarded to poor in setting of mechanical problem. Other than above exercises, reviewed other exercises he is doing at home today. Physical Therapy Plan Frequency and Duration Frequency of Treatment 2x/Week Duration of Treatment 8 weeks Plan of Care Start Date 08/24/19 Plan of Care End Date 10/26/19 Therapeutic Interventions Therapeutic Interventions Aquatic Therapy,Balance Training,Gait Training,Home Exercise Program,Manual Therapy,Neuromuscular Re- education,Patient/Caregiver Education,Self-Care/Home Management,Soft Tissue Mobilization,Taping, Therapeutic Activities, Therapeutic Exercises Modalities Cold Pack/Ice Massage,Electric Stimulation,Hot Packs, Ultrasound Next Visit Focus/Plan Next Note Type Treatment Note Next Visit Plan Initiate aquatic treatment Plan of Care Dates Plan of Care Start Date 08/24/19 Plan of Care End Date 10/26/19 Electronically Signed by: Diana Diallo PT 08/24/19 [id number] Please Sign and Return: I have reviewed this Plan of Care and certify that the skilled therapy services above are required to meet the patient?s needs. Physician Signature Date Printed Name and Credentials Clinical Instructor Signature Printed Name and Credentials
--- NOTE | 2019-09-08 12:56 | PT-OP ANOTE ---
PT calls pt. Aquatic PT appointments cancelled in August d/t pool closed d/t COVID-19. Pt not available. PT leaves message for pt.
--- NOTE | 2019-10-02 14:09 | PT-OP ANOTE ---
PT calls pt. He is unavailable and PT leaves message with PT's work email address for pt to write if he has any questions or concerns.
--- NOTE | 2019-10-16 15:12 | PT-OP ANOTE ---
PT calls pt. He is unavailable and PT leaves message. PT communicates that we do not know yet when clinic will reopen, that clinic hours will be limited to begin with, that therapists and patients will wear masks and that the gym situation will allow for 6 feet between patients. PT communicates that pt can decide if he wants to con't with PT when the clinic opens pending his current functional status and I with HEP. 

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
== END 2020-01-06 12:27 ==
LOC: PHYS 07:30
PROVIDERS: PCP Internal Medicine; Visit Provider Orthopaedic Surgery
DX: M17.12 Unilateral primary osteoarthritis, left knee (principal); S83.242A Other tear of medial meniscus, current injury, left knee, initial encounter
CPT/HCPCS: 97110; 97116; 97140; 97161; 97164; 97535

== ENCOUNTER → 2020-05-04 15:06 | Outpatient (ROUT) | payer OTHER, SELFPAY ==
[2019-05-14 13:52] VITALS: BMI 33.6
[2020-05-04 15:37] LABS: Add Manual Diff / Slide Review NO; Basophils Absolute Auto 100 /uL (0-100); Basophils Percent Auto 0.9 % (0-2); Eosinophils Absolute Auto 200 /uL (0-450); Eosinophils Percent Auto 2.9 % (2-4); Hematocrit 52.5 % (41-53); Hemoglobin 17.6 g/dL (13.5-17.5); Lymphocytes Absolute Auto 2200 /uL (1100-4500); Lymphocytes Percent Auto 25.1 % (25-40); Mean Corpuscular HGB Conc 33.5 % (30-36); Mean Corpuscular Hemoglobin 30.5 PG (26-34); Monocytes Absolute Auto 800 /uL (0-900); Neutrophils Absolute Auto 5400 /uL (1500-7000); Neutrophils Percent Auto 62.1 % (50-75); Platelet Count 208 X10^3/uL (150-400); Red Blood Cell Count 5.77 X10^6/uL (4.5-5.9); Red Cell Distribution Width 13.4 % (11.6-14.8); White Blood Cell Count 8.7 X10^3/uL (4.5-11.0)
[2020-05-04 16:06] LABS: Alanine Aminotransferase 30 IU/L (<50); Albumin 4.2 g/dL (3.5-5.0); Albumin Globulin Ratio 1.6 (1.0-2.8); Alkaline Phosphatase 73 U/L (38-126); Aspartate Aminotransferase 28 IU/L (17-59); BUN Creatinine Ratio 18.2 (6-22); Bilirubin Total 0.9 mg/dL (0.2-1.3); Blood Urea Nitrogen 14 mg/dL (9-20); Calcium 9.1 mg/dL (8.4-10.2); Carbon Dioxide 36 mmol/L (22-32); Chloride 100 mmol/L (98-107); Estimated Glomerular Filt Rate > 60.0 mL/min (>60); Globulin 2.7 g/dL (1.7-4.1); Glucose 97 mg/dL (70-100); HEMOLYSIS 25 (0-50); Potassium 4.3 mmol/L (3.4-5.1); Sodium 137 mmol/L (137-145); Total Protein 6.9 g/dL (6.3-8.2)
== END ==
PROVIDERS: PCP Internal Medicine; Visit Provider Internal Medicine
DX: M15.0 Primary generalized (osteo)arthritis (principal); I10 Essential (primary) hypertension; G47.33 Obstructive sleep apnea (adult) (pediatric); G89.4 Chronic pain syndrome
CPT/HCPCS: 80053; 85025

== ENCOUNTER → 2020-06-10 09:31 | Outpatient (CLI) | payer OTHER, SELFPAY ==
[2019-05-14 13:52] VITALS: BMI 33.6
[2020-06-10 11:50] LABS: COVID19 -Nasal RAPID Negative (Negative)
== END ==
PROVIDERS: Family Provider Internal Medicine; PCP Internal Medicine; Referring Provider Physician Assistant; Visit Provider Physician Assistant
DX: Z20.828 Contact with and (suspected) exposure to other viral communicable diseases (principal)
CPT/HCPCS: 87635

== ENCOUNTER → 2020-07-03 11:19 | Outpatient (CLI) | payer OTHER, SELFPAY ==
[2019-05-14 13:52] VITALS: BMI 33.6
[2020-07-03 13:08] LABS: COVID19 -Nasal RAPID Negative (Negative)
[2020-07-03 13:13] LABS: Add Manual Diff / Slide Review NO; Basophils Absolute Auto 100 /uL (0-100); Eosinophils Absolute Auto 200 /uL (0-450); Eosinophils Percent Auto 2.5 % (2-4); Hematocrit 50.6 % (41-53); Hemoglobin 16.6 g/dL (13.5-17.5); Lymphocytes Absolute Auto 2400 /uL (1100-4500); Lymphocytes Percent Auto 28.3 % (25-40); Mean Corpuscular HGB Conc 32.8 % (30-36); Mean Corpuscular Volume 91.5 fL (80-100); Monocytes Absolute Auto 800 /uL (0-900); Monocytes Percent Auto 9.8 % (3-14); Neutrophils Absolute Auto 4900 /uL (1500-7000); Neutrophils Percent Auto 58.4 % (50-75); Platelet Count 239 X10^3/uL (150-400); Red Blood Cell Count 5.53 X10^6/uL (4.5-5.9); Red Cell Distribution Width 13.9 % (11.6-14.8); White Blood Cell Count 8.4 X10^3/uL (4.5-11.0)
== END ==
PROVIDERS: Physician Assistant; Family Provider Internal Medicine; PCP Internal Medicine; Referring Provider Orthopaedic Surgery Adult Reconstructive Orthopaedic Surgery; Visit Provider Orthopaedic Surgery Adult Reconstructive Orthopaedic Surgery
DX: Z01.812 Encounter for preprocedural laboratory examination (principal); R73.9 Hyperglycemia, unspecified; Z20.822 Contact with and (suspected) exposure to COVID-19
CPT/HCPCS: 36415; 83036; 85025; 87635

== ENCOUNTER 2020-07-05 06:23 | Inpatient (IN) | payer OTHER, SELFPAY ==
[2019-05-14 13:52] VITALS: BMI 33.6
[2020-07-05] VITALS (18 sets, daily range): BP systolic 94–185; BP diastolic 53–90; PULSE 66–96; RESP 10–20; TEMP 36.3–37.1; O2SAT 89–94; BMI 36.4
--- NOTE | 2020-07-05 06:00 | DI.RAD.S_ITS ---
PROCEDURE: XR KNEE LT 1TO2V INDICATIONS: post op revision TKA, LEFT KNEE TECHNIQUE: 2 views of the knee were acquired. COMPARISON: [facility], [facility], XR KNEE LT 1TO2V, 05/14/2019, 11:53. FINDINGS: Bones: Expected alignment of left total knee arthroplasty. Soft tissues: Skin gaurav and associated postsurgical soft tissue changes. IMPRESSION: Expected postoperative appearance. Dictated by: Jluis Gong M.D. on 07/05/2020 at 11:10 Approved by: Jluis Gong M.D. on 07/05/2020 at 11:11
[2020-07-05] MEDS: ACETAMINOPHEN 325 MG TABLET 975 MG PO (07:02)
[2020-07-05] MEDS: CELECOXIB 200 MG CAPSULE PO (07:03)
[2020-07-05] MEDS: PREGABALIN 75 MG CAPSULE PO (07:03)
[2020-07-05] MEDS: LACTATED RINGERS 1,000 ML 42 ML IV ×2 (07:04→08:50)
--- NOTE | 2020-07-05 07:24 | PM.PREOP ---
Pre-operative Note COVID-19 COVID-19 status: Negative Result date/Date tested (Pos, Neg/Pending): 07/03/20 Interval Note History & Physical reviewed/Exam performed by Physician: Yes Changes to H&P: No H&P completed within 30 days and has changed as indicated here:: Plan for polyethylene exchange left TKA vs femoral component revision
--- NOTE | 2020-07-05 07:29 | PM.HP.1 ---
History of Present Illness History of Present Illness Date Patient Seen: 07/05/20 Time Patient Seen: 07:29 Chief complaint: IP Narrative: Patient is a 60-year-old male who is now over 1 year out from a left total knee arthroplasty. He has never been satisfied with this knee. He has a sense of instability and pain. He has failed conservative measures including prolonged physical therapy as well as waiting 1 year until after the date of surgery. He continues to have symptoms is interested in pursuing revision of the left total knee arthroplasty Patient History Medical History HTN (hypertension) Neuropathy Osteoarthritis Pneumonia RLS (restless legs syndrome) Sleep apnea Tinnitus Surgical History History of ankle surgery (~1978) History of arthroplasty of left knee (05/14/19) History of arthroscopy of both knees History of total right hip arthroplasty (~2008) Hx of elbow surgery Hx of hand surgery Family & Social History Social History: household members spouse,children Tobacco & Substance use: Tobacco type cigarettes Smoking Status Current every day smoker Smoking packs per day 1 alcohol intake current alcohol intake frequency a few times a month Substance Use Type does not use Meds Home Medications and Allergies Home Medications Medication Instructions Recorded Confirmed Type amlodipine 10 mg PO BEDTIME 05/06/19 07/05/20 History diclofenac sodium 75 mg PO BID 05/06/19 07/05/20 History hydrocodone-acetaminophen 1 tab PO TID 06/05/20 07/05/20 History losartan 100 mg PO DAILY 06/05/20 07/05/20 History pramipexole 0.125 mg PO BEDTIME 06/05/20 07/05/20 History Allergies Allergy/AdvReac Type Severity Reaction Status Date / Time Penicillins [PENICILLINS] Allergy Severe Childhood-reaction Verified 07/05/20 06:51 unknown varenicline [From Chantix] Allergy Severe Hives Verified 07/05/20 06:51 metal Allergy Severe Rash Uncoded 06/12/20 06:43 Review of Systems Review of Systems ROS: Yes All systems reviewed with the patient and are negative except as otherwise documented Exam Vital Signs (past 8 hours): - 07/05/20 06:53 Temperature 98.2 F Pulse Rate 69 Respiratory Rate 18 Blood Pressure 185/90 H Pulse Oximetry 93 Oxygen Delivery Method Room Air Oxygen Flow Rate 0 Narrative Exam Narrative: Neurovascular intact in left lower extremity. Well-healed midline incision. Knee open varus valgus stress at full extension. Range of motion from 5? of hyperextension to 120? of flexion. Mid flexion and flexion instability noted as well. Tenderness to palpation along the medial lateral joint lines. Extensor mechanism intact Resp Effort & Inspection: normal respiratory effort and able to speak in complete sentences Cardio Rate: regular rate Rhythm: regular rhythm Assessment & Plan Assessment & Plan narrative: Patient is a 60-year-old male who is now just over a year out from a left total knee arthroplasty. He continues to have pain in the sense of instability in the knee. When I saw him in clinic I aspirated his knee was not suggestive of infection based off lab results. We had multiple discussions regarding possible treatment options versus surgical intervention. At this point patient wished to proceed with surgical intervention of the left knee. I discussed the risks and benefits of surgery with him including the risk of infection, incomplete relief of symptoms, need for future surgeries, fracture, extensor mechanism disruption, DVT, PE, etc.. Patient demonstrates understanding of the risks and benefits proceeding with a revision left total knee arthroplasty versus polyethylene exchange and wishes to proceed. COVID-19 COVID-19 status: Negative Result date/Date tested (Pos, Neg/Pending): 07/03/20
[2020-07-05] MEDS: CLINDAMYCIN 900 MG/50 ML PIGGYBACK 50 MG IV (08:10)
[2020-07-05] MEDS: TRANEXAMIC ACID 1,000 MG VIAL 2000 MG INJ ×2 (08:16→09:12)
--- NOTE | 2020-07-05 08:34 | SUR.OPER ---
Supine on padded OR bed. Pillow under head, arms secured on padded armboards <90 degree abduction. Safety belt across torso. Non-operative leg secured with tape over blanket over lower leg. Operative leg with Melinda's foam padded knee positioner, under control of surgeon. Foam padded brace at thigh of operative leg.
[2020-07-05] MEDS: MORPHINE 4 MG/ML INJ INJ (08:54)
[2020-07-05] MEDS: ROPIVACAINE 0.5% PF 5 MG/ML 20ML VIAL 60 ML INJ (08:54)
[2020-07-05] MEDS: KETOROLAC 30 MG/ML VIAL IV (08:54)
[2020-07-05] MEDS: VANCOMYCIN 1,000 MG VIAL 1000 MG TOP (09:00)
[2020-07-05] MEDS: SODIUM CHLORIDE IRRIG SOLUTION 250 ML, POVIDONE-IODINE SPONGE STICKS 1 APPLIC IRR (09:01)
--- NOTE | 2020-07-05 09:38 | PM.OP.1 ---
Operative Date/Time/Diagnoses Date of procedure: 07/05/20 Time of procedure: 09:39 Pre-op diagnosis: failed left TKA Post-op diagnosis: same Procedure & Clinicians Procedure: Polyethylene exchange left total knee arthroplasty Same procedure as scheduled: Yes Indications: Patient is a 60-year-old male who is now 1 year status post left total knee arthroplasty. He has continued to have pain and a sense of instability in the knee and on exam has laxity in extension through mid flexion and flexion instability. Surgeon: Asif Lawrence Conductor And Engineer: Dvaie Carmen Anesthesia Type: General and Spinal Operative Notes Findings: Hyperextension of the knee to approximately 5? under general anesthesia. Varus and valgus laxity throughout range of motion. Equal laxity to varus and valgus stress Closure Type: primary Specimen(s): none sent Prosthetic devices, grafts, tissues, transplants, or devices: Trevizo and Nephew left size 5-6 13 mm BCS polyethylene Estimated Blood Loss (mL): 100 Tourniquet time (min): 45 Procedure in detail: Patient was met in the preoperative holding area where the site and side of surgery were marked by . He had previously been delayed for approximately 2 weeks prior due to recent tooth extraction. His tooth extraction site is well-healed no signs of continued infection. Informed consent had been signed in clinic was also reviewed the preoperative holding area. All last minute questions were answered. Patient was then brought back in the operating room where he received a spinal anesthetic and was induced under general anesthesia. A nonsterile tourniquet was then +on the left thigh and the left lower extremity then prepped and draped normal sterile fashion. A surgical time-out was performed verifying the site and side of surgery as well as the name of the patient. His old surgical incision was opened using 10. Blade and a new 10. Blade was used to elevate medial lateral flaps. A medial parapatellar arthrotomy was then performed and clearing of scar tissue from the medial and lateral gutters then commenced. A medial peel of the MCL was also performed and adhesions holding down the quad tendon and patella from being inverted were also removed. This point as able slight patella laterally I was not able to phillip the patella. Was able to remove the polyethylene I focused on removing continue scar tissue at the level of the joint line both medial and laterally. I then thoroughly irrigated the wound with copious normal saline followed by Betadine solution which was allowed to sit for several minutes followed by copious normal saline again. We then began trialing polyethylene inserts he had a size 9 in originally and we started with trialed with a size 11 followed by size 12 and ultimately size 13. A size 12 in 13 insert have good stability in full extension however I do think it size 13 he is still early to full extension without hyperextension. A size 13 mm thick left size 5-6 BCS polyethylene was selected. This was then snapped into place and taken through final range of motion. Excellent stability in varus valgus stress at full extension through mid flexion flexion range of motion. The medial parapatellar arthrotomy was then closed using 1. Vicryl in interrupted fashion 1 g of vancomycin was placed into the wound both superficial and deep to the medial parapatellar arthrotomy. The arthrotomy repair was then completed using a Quill suture followed by a running 1. Vicryl in the fat layer followed by interrupted 2 Vicryl in the subcutaneous layer followed by gaurav on skin a elliott dressing. Complications: none Post-operative Condition: stable Disposition: PACU Plan for aftercare: 24 hours post-op abx, WBAT LLE, ASA 81mg BID for 6 weeks for DVT prophylaxis
[2020-07-05] MEDS: LACTATED RINGERS 1,000 ML 100 ML IV ×2 (11:13→21:56)
[2020-07-05] MEDS: ONDANSETRON 4 MG/2 ML INJ IV (12:19)
[2020-07-05 12:43] LABS: Add Manual Diff / Slide Review NO; Basophils Absolute Auto 100 /uL (0-100); Basophils Percent Auto 0.7 % (0-2); Eosinophils Absolute Auto 100 /uL (0-450); Eosinophils Percent Auto 1.3 % (2-4); Hemoglobin 15.2 g/dL (13.5-17.5); Lymphocytes Absolute Auto 1900 /uL (1100-4500); Lymphocytes Percent Auto 20.9 % (25-40); Mean Corpuscular Volume 90.9 fL (80-100); Monocytes Absolute Auto 800 /uL (0-900); Monocytes Percent Auto 8.4 % (3-14); Neutrophils Absolute Auto 6200 /uL (1500-7000); Neutrophils Percent Auto 68.7 % (50-75); Platelet Count 231 X10^3/uL (150-400); Red Blood Cell Count 5.06 X10^6/uL (4.5-5.9); Red Cell Distribution Width 13.7 % (11.6-14.8)
--- NOTE | 2020-07-05 14:08 | PT-IP ANOTE ---
Attempted to see pt at 1350. Pt was very groggy BP at 150/81 SpO2 at 88-92 with 5L O2/min via NC. RT was performing tx and recommended defer tx until pt is stabilized. Left post op booklet.
--- NOTE | 2020-07-05 14:31 | PC.NURSE ---
Patient feeling very nauseous and groggy. Given 4 mg IV zofran at 12:15 but his nausea continues. Faxed Dr. Lawrence at 14:30 to see if another antiemetic could be prescribed. Consult with RT given patients O2 was falling to the mid 80's on 5 L of O2. Currently on 10 L facemask, RT continues to assess.
[2020-07-05] MEDS: ACETAMINOPHEN 325 MG TABLET 650 MG PO ×2 (15:04→21:58)
[2020-07-05] MEDS: CEFAZOLIN 2 GM/100 ML FROZ.PIGGY IV (16:03)
[2020-07-05] MEDS: hydrOXYzine pamoate 25 MG CAPSULE PO ×2 (16:03→21:58)
[2020-07-05] MEDS: METOCLOPRAMIDE 10 MG/2 ML INJ IV (17:10)
[2020-07-05] MEDS: ASPIRIN EC 81 MG TABLET PO (21:58)
[2020-07-05] MEDS: DOCUSATE 100 MG CAPSULE PO (21:58)
[2020-07-05] MEDS: AMLODIPINE 5 MG TABLET 10 MG PO (21:58)
[2020-07-05] MEDS: OXYCODONE IR 5 MG TABLET PO (21:59)
[2020-07-05] MEDS: PRAMIPEXOLE 0.125 MG TABLET PO (22:00)
--- NOTE | 2020-07-05 22:54 | PC.NURSE ---
A&Ox3. assumed care. pt had some nausea earlier, administered reglan. pt is was on cpap 10L sating 92%. pt is now on 6L 94%. cont pulse ox. pt unable to void since this morning. pt got up on the side of the bed and attempted to void. bladder scan was 48cc at 1500, then 409cc at 2100. In and out cath at 2230 and got 700cc of urine out.
[2020-07-06] VITALS (13 sets, daily range): BP systolic 133–172; BP diastolic 72–91; PULSE 64–78; RESP 12–20; TEMP 36.4–37; O2SAT 91–95
[2020-07-06] MEDS: CEFAZOLIN 2 GM/100 ML FROZ.PIGGY IV (00:27)
[2020-07-06] MEDS: hydrOXYzine pamoate 25 MG CAPSULE PO ×2 (00:27→07:22)
[2020-07-06] MEDS: HYDROMORPHONE 0.5 MG INJ 0.2 MG IV ×3 (00:40→14:51)
--- NOTE | 2020-07-06 00:55 | PC.NURSE ---
Addendum entered by Aneta Diaz R.N. 07/06/20 05:04: Patient now awake with CPAP off so oxygen decreased and currently on 5L/min with sat of 92%. Able to urinate 50cc with subsequent bladder scan of 423cc but then able to void an additional 275cc. States left knee pain is increasing and now at 6/10 so medicated with Oxycodone but declined the scheduled Vistaril. Addendum entered by Aneta Diaz R.N. 07/06/20 03:10: Found to be dropping sats down to 87% so O2 increased to get > 90% as per order so is now on 10L oxygen bled into CPAP. Original Note: Patient is alert and oriented. Breath sounds with late expiratory wheezing throughout. Currently on oxygen per NC at 6L/min with sat of 94%; RT called to assist patient in putting CPAP on and bleeding in oxygen. HRR. Denies nausea. BT hypoactive and has not yet passed flatus. In/out cath performed just prior to shift change as patient had not been able to urinate; will continue to monitor. Moving self in bed. Gait not assessed at this time. Chronic bilateral LE neuropathy to knees unchanged; other CMS is intact. SITA dressing to left knee intact and functioning; SITA is covered with kitty wrap. Wearing bilateral calf SCD's. Reports having fallen in past 3 months so fall risk score is high and bed alarm is activated. States pain is currently 7/10 so medicated with IV Dilaudid and scheduled Vistaril and ice pack applied.
[2020-07-06] MEDS: OXYCODONE IR 5 MG TABLET PO ×2 (05:01→07:22)
[2020-07-06 06:19] LABS: Hematocrit 42.4 % (41-53)
[2020-07-06] MEDS: LOSARTAN 50 MG TABLET 100 MG PO (08:04)
[2020-07-06] MEDS: DOCUSATE 100 MG CAPSULE PO ×2 (08:04→21:23)
[2020-07-06] MEDS: ASPIRIN EC 81 MG TABLET PO ×2 (08:04→21:23)
[2020-07-06] MEDS: ACETAMINOPHEN 325 MG TABLET 650 MG PO ×3 (08:04→21:23)
--- NOTE | 2020-07-06 08:47 | PM.PN.1 ---
Subjective Subjective Date Patient Seen: 07/06/20 Time Patient Seen: 08:48 Interval history: Patient is POD #1 s/p polyethylene exchange left total knee arthroplasty with Dr. Lawrence. Pain has been moderate to severe on Oxycodone 5mg. Has not mobilize out of bed. Voiding appropriately. Some nausea and vomiting overnight but has tolerated breakfast and coffee this AM. No chest pain or shortness of breath. No complaints other than pain. Exam Vital Signs (past 8 hours): - 07/06/20 00:52 07/06/20 04:45 07/06/20 07:26 Temperature 98.0 F 98.6 F Pulse Rate 78 72 Respiratory Rate 18 18 Blood Pressure 137/76 133/72 Pulse Oximetry 93 92 91 07/06/20 08:45 Temperature Pulse Rate 77 Respiratory Rate 18 Blood Pressure Pulse Oximetry 91 Oxygen Delivery Method Nasal Cannula Oxygen Flow Rate 5 Narrative Exam Narrative: 60 year old male resting in bed, alert and oriented in no acute distress. SITA dressing in place over left knee is CDI and functioning. Small area of strikethrough at distal end of incision. Patient able to dorsiflex and plantar flex the ankle. Calves are soft, nontender. Palpable pedal pulse. Objective Labs Result Diagrams: 07/06/20 06:07 Labs: Laboratory Results - last 24 hr 07/05/20 07/06/20 11:30 06:07 WBC 9.0 RBC 5.06 Hgb 15.2 14.0 Hct 46.0 42.4 MCV 90.9 MCH 30.0 MCHC 33.0 RDW 13.7 Plt Count 231 Neut % (Auto) 68.7 Lymph % (Auto) 20.9 L [place] % (Auto) 8.4 Eos % (Auto) 1.3 L Baso % (Auto) 0.7 Neut # (Auto) 6200 Lymph # (Auto) 1900 [place] # (Auto) 800 Eos # (Auto) 100 Baso # (Auto) 100 PFSH Medical History HTN (hypertension) Neuropathy Osteoarthritis Pneumonia RLS (restless legs syndrome) Sleep apnea Tinnitus Surgical History History of ankle surgery (~1978) History of arthroplasty of left knee (05/14/19) History of arthroscopy of both knees History of total right hip arthroplasty (~2008) Hx of elbow surgery Hx of hand surgery Social History household members: spouse and children Smoking Status: Current every day smoker alcohol intake: current Assessment & Plan Assessment & Plan narrative: -Patient is POD #1 s/p Polyethylene exchange left total knee arthroplasty. -Pain poorly controlled overnight. Reviewed previous admission for TKA and patient required Dilaudid/Vistaril combination for adequate relief. Oxycodone discontinued and Dilaudid 2mg for moderate and 4mg for severe pain added. -Will work with PT today. He may WBAT. -Currently on 2L oxygen. Encouraged IS and will continue to monitor this. No chest pain or shortness of breath. -Patient is obese and had difficulty with pain control and mobilization at last admission. Expect similar course for this admission as this is a revision surgery. Likely discharge to home in the next 1-2 days. Quality VTE Deep Vein Thrombosis/Pulmonary Embolism Present on Admission: No
[2020-07-06] MEDS: HYDROMORPHONE 2 MG TABLET PO ×2 (09:07→21:22)
[2020-07-06] MEDS: HYDROMORPHONE 4 MG TABLET PO (11:15)
[2020-07-06] MEDS: polyethylene glycoL 3350 17 GM POWD.PACK PO (11:18)
--- NOTE | 2020-07-06 11:29 | PT.IIE ---
Current Diagnoses Broken internal joint prosthesis, other site, subsequent encounter (07/05/20) Surgery Performed Operation Date: 07/05/20 07:45 Actual Procedures p Total Knee Arthroplasty Revision-poly exchange(Left) - Asif Lawrence MD Surgical History (Last Reviewed 07/06/20 @ 08:51 by Marcia Warren PA-C) History of ankle surgery (~1978) History of arthroplasty of left knee (05/14/19) History of arthroscopy of both knees History of total right hip arthroplasty (~2008) Hx of elbow surgery Hx of hand surgery Medical History (Last Reviewed 07/06/20 @ 08:51 by Marcia Warren PA-C) HTN (hypertension) Neuropathy Osteoarthritis Pneumonia RLS (restless legs syndrome) Sleep apnea Tinnitus Physical Therapy Inpatient Evaluation/Re-Eval M1 PT/OT-IP Prior Functional Status Start: 07/05/20 10:48 Freq: NEEDED Status: Active Protocol: Document 07/06/20 11:03 AW (Rec: 07/06/20 11:29 AW [id number]) Medical Review Prior Functional Status Medical History Reviewed Yes Diet/Fluid Consistency Regular Communication Pt is mildly INAJA but does not use hearing aids. No other deficits noted. Mobility and Gait Pt had limited mobility since his last surgery. He could only jamel up to 200 ft walking without AD. Pt walks with an antalgic gait by keeping his L knee extended since he felt unstable with WB on a flexed knee. STS with staggered stance d/t pain. Instability during WB on flexed knee. Difficulty climbing stairs. Pt has fallen a few times within the past year w/ significant injury. Activities of Daily Living and IADL's Independent for ADLs without AD. assisted in cooking, grocery shop and house cleaning Prior Functional Level (Other details) Pt had the first LTKA Apr, 2019 but surgeon found out pt has an undersized plastic cartilage which gives him instability Social History Household Members spouse,children Living Arrangements RV Number of Floors (Floors) One Floor Number of Stairs To Enter/Railing? 6 GABE with L rail Home Environment Standard Height Toilet,Walk in Shower Home Equipment Front Wheel Walker,Straight Cane,Hand Held Shower Employment Status Unemployed Additional Social History Comment Pt's bed is tall and he has to use a step stool to climb up. He lives with his in a RV [facility] at [facility]. 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 Dtr lives in [place]. Pt had surgeries on shoulder, ankle and hip. M2 PT-IP Current Condition Start: 07/05/20 10:48 Freq: NEEDED Status: Active Protocol: Document 07/06/20 11:03 AW (Rec: 07/06/20 11:29 AW [id number]) Physical Therapy Current Condition Current Condition Evaluation Date 07/06/20 Treatment Diagnosis L TKA revision; difficulty in walking Onset Date 07/05/20 Weight Bearing Status Weight Bearing Status Weight Bear as Tolerated M3 PT-IP Subjective Start: 07/05/20 10:48 Freq: NEEDED Status: Active Protocol: Document 07/06/20 11:03 AW (Rec: 07/06/20 11:29 AW [id number]) Subjective Physical Therapy Visit Type Type Initial Evaluation Visit Start Time 10:25 Visit Stop Time 11:03 Total Visit Minutes 38 Notes Pt's present throughout evaluation. Number of DAIRY FEED WORKER Visits 0 Physical Therapy Visit Comments Patient Comments Pt is willing to participate with PT Patient Goals Return home with family support. Improve independent mobility. Therapy Pain Assessment Pain When Pain Assessed During Mobility Pain Present Pain Present Pain Reported Location Left Knee Scale Used 5/10 at rest; 8/10 during mobility Pain Management Techniques Apply Cold,Timing of Activity with Medications M4 PT-IP Mobility and Gait Start: 07/05/20 10:48 Freq: NEEDED Status: Active Protocol: Document 07/06/20 11:03 AW (Rec: 07/06/20 11:29 AW [id number]) PT-Bed Mobility Assessment Supine to Sit Supine to Sit Minimal Assistance,1 Person Assistance,Bedrails Sit to Supine Sit to Supine Minimal Assistance Scooting Scooting to Edge of Bed Contact Guard Assistance PT-Transfer Assessment Sit to and From Stand Sit to and from Stand Minimal Assistance,1 Person Assistance,Use of Upper Extremities Equipment Transfer Assistive Device Gait Belt,Front Wheeled Walker Orthotic/Prosthetic Devices or Brace: No Transfers Transfer Destination Bed Transfer Technique Stand Step Pivot Transfer Ability Level of Assist Minimal Assistance,1 Person Assistance Comments Mobility Comments Pt was sitting up in bed as PT arrived. BP was 155/82 HR 70 SpO2 90% on 5L hydrated O2 via NC. Pt completed supine to sit from flat bed to exit to the left side. He used the left bed rail to pull and min 1PA to assist with movement of the operative leg. Pt sat EOB and complained of mild wooziness; BP was stable. He then stood from EOB and was able to weight shift laterally using FWW. He ambulated around the foot of the bed and sat on the right EOB CGA with FWW. Stand to sit required min 1PA to control descent and cues for sequencing. With gait belt used as a leg vest presser , pt was able to lift his LLE into the bed and to return to supine CGA. Pt was positioned on the bed with call light and all needs in reach, fresh ice packs applied, bed alarm on for safety. BP was 151/81 HR 84 and SpO2 85% on room air. Re-applied O2 via NC and sats jyothi to 92% within 30 seconds. Gait Assessment Gait Gait Assistance Required: Contact Guard Assist Distance (Feet) 12 Able to Maintain Weight Bearing Status Yes During Gait Assistive Devices Assistive Device Gait Belt,Front Wheeled Walker Orthotic/Prosthetic Devices or Brace: No Gait Deviations General Gait Pattern Antalgic,Decreased Stride Length,Decreased Feet Clearance,Flexed Trunk,Step-to Gait Factors Limiting Gait Function Factors Limiting Gait Function Decreased Activity Tolerance, Decreased Strength,Limited Range of Motion,Pain,Poor Balance Comments Gait Comments Pt ambulated around the bed with FWW CGA. Gait was notable for lack of left knee flexion in swing phase. Stair Climbing Assessment Comments Stair Climbing Comments Not assessed. PT-Balance Assessment Sitting Balance and Reactions Static Sitting Balance Ability Good Dynamic Sitting Balance Ability Good Standing Balance and Reactions Static Standing Balance Ability Fair Dynamic Standing Balance Ability Fair Device Used FWW M5 PT-IP Objective Assessments Start: 07/05/20 10:48 Freq: NEEDED Status: Active Protocol: Document 07/06/20 11:03 AW (Rec: 07/06/20 11:29 AW [id number]) Orientation Orientation/Cognition Level of Alertness Alert Orientation Name,Day of Week,Place, Situation Language Function Ability Hard of Hearing Safety Awareness Understands Safety Issues, Decreased Safety Awareness Memory Description No Deficits Noted Gross Range of Motion Lower Extremity ROM Assessment Left Impaired Impairments L knee AROM 10-80 Strength Lower Extremity Strength Assessment Left Impaired Hip 3+/5 Knee 3-/5 Ankle 4+/5 Comments Strength Comments RLE grossly 4+/5 Sensation Assessment Sensation Gross Sensation WNL M6 PT-IP Treatment Start: 07/05/20 10:48 Freq: NEEDED Status: Active Protocol: Document 07/06/20 11:03 AW (Rec: 07/06/20 11:29 AW [id number]) Physical Therapy Treatment Exercises Exercises Ankle Pumps,Quad Sets,Heel Slides,Passive Knee Extension Hang Education Education Provided Precautions,Weight Bearing Status,Post-Op Packet,Safety Other Treatments Other Treatment Performed Provided education on role of PT, plan of care, weightbearing status, and safe use of FWW. M7 PT-IP Assessment and Plan Start: 07/05/20 10:48 Freq: NEEDED Status: Active Protocol: Document 07/06/20 11:03 AW (Rec: 07/06/20 11:29 AW [id number]) PT Summary Assessment and Plan Potential Rehabilitation Potential Good Status of Condition at Evaluation Evolving Summary Impairments Pain,ROM,Strength,Balance,Bed Mobility,Transfers,Gait, Activity Tolerance Assessment Summary Mohsen is a 60 to man seen for PT evaluation on POD1 following revision L TKA. PLOF : Limited mobility with history of L TKA in April 2019. Pt could tolerate only ~ 200 feet ambulation without AD and had difficulty with stairs. CLOF: Pt has limited tolerance for activity due to increased pain. He requires CGA to min assist with bed mobility, transfers and short bout ambulation with FWW. Continued acute PT is needed to improve safe mobility and work on ROM and strength. PT anticipates pt will be safe to discharge home once medically cleared. He will need to complete stair training and bed mobility with a step up to a high bed before going home. Goals Bed Mobility Goal Independent Transfer Goal Independent,Front Wheeled Walker Gait Goal Standby Assistance,Front Wheel Walker Gait Distance 150 Other Goals - up/down 6 steps with L rail SBA - in and out of tall bed with platform step to enter SBA Days to Meet Goals 5 Frequency of Treatment Frequency Of Treatment Twice a Day Treatment Plan Physical Therapy Treatment Plan Bed Mobility Training,Transfer Training,Gait Training, Therapeutic Exercise,Balance Retraining,Post Op Education, Discharge Planning,Hot or Cold Pack,Neuromuscular Re-ed, Manual Therapy Other Recommendations and Next Treatment mobility as tolerated; begin Focus caregiver training or plan for training tomorrow Recommendations To Nursing Amount of Assist Needed 1 Person Assist Discharge Recommendations PT Discharge Recommendations Home with Assistance, Outpatient PT Transportation Needs at Discharge Private Vehicle
[2020-07-06] MEDS: hydrOXYzine pamoate 25 MG CAPSULE 50 MG PO ×3 (11:49→23:25)
[2020-07-06] MEDS: ALBUTEROL/IPRATROPIUM 3 ML AMPUL INH ×2 (12:46→19:54)
[2020-07-06] MEDS: HYDROMORPHONE 2 MG TABLET 4 MG PO ×2 (14:07→18:15)
--- NOTE | 2020-07-06 14:51 | PT-IP ANOTE ---
Attempted to work with pt twice for PM treat but pt reports pain is too great. Pt declined mobility but agreed for PT to check back in the AM.
[2020-07-06] MEDS: PRAMIPEXOLE 0.25 MG TABLET 0.125 MG PO (21:23)
[2020-07-06] MEDS: AMLODIPINE 5 MG TABLET 10 MG PO (21:23)
[2020-07-07] VITALS (8 sets, daily range): BP systolic 139–189; BP diastolic 77–100; PULSE 67–76; RESP 16–20; TEMP 36.4–36.9; O2SAT 90–94
[2020-07-07] MEDS: HYDROMORPHONE 2 MG TABLET 4 MG PO ×8 (00:28→21:57)
--- NOTE | 2020-07-07 01:32 | PC.NURSE ---
Addendum entered by Aneta Diaz R.N. 07/07/20 06:33: Able to sleep past hour without CPAP on and sats maintaining > 90% so decreased O2 to 5L/min again. States pain is back to 7/10 so medicated with po Dilaudid. Addendum entered by Aneta Diaz R.N. 07/07/20 04:33: Pain continues at 9/10 severity so medicated with IV Dilaudid and now agreeable to ice pack again. Addendum entered by Aneta Diaz R.N. 07/07/20 03:33: Complaining of 9/10 left knee pain so medicated with Dilaudid + Vistaril Original Note: Patient complaining of 7/10 left knee pain at shift change and was medicated with Vistaril as too early to give additional po Dilaudid and then pain continued to escalate to 9/10 so was then medicated with 4mg po Dilaudid and ice applied and now patient is asleep. Is alert and oriented. Breath sounds diminished with expiratory wheezes in right upper/lower lobes. Initially on oxygen at 6L/min but sat still down at 88% with CPAP on and now asleep and continuing to sat below 90% so titrating oxygen up to get sat > 90%. HRR. BP elevated at 172/83 but will continue to monitor as pain severity may be increasing BP. Denies nausea. BT present and is passing flatus. Denies dysuria, frequency or urgency with urination; using urinal. SITA dressing intact and functioning; dime size dark red drainage noted on dressing. Chronic bilateral LE neuropathy otherwise CMS intact although patient having difficulty even lifting leg off bed. Wearing bilateral calf SCD's. Fall risk score is high and bed alarm is activated.
[2020-07-07] MEDS: hydrOXYzine pamoate 25 MG CAPSULE 50 MG PO ×5 (03:29→21:57)
[2020-07-07] MEDS: HYDROMORPHONE 0.5 MG INJ 0.2 MG IV ×2 (04:29→09:46)
[2020-07-07] MEDS: SODIUM CHLORIDE 0.9% FLUSH 10 ML IV ×3 (04:30→22:00)
--- NOTE | 2020-07-07 07:17 | P.PN_ITS ---
Subjective Subjective Date Patient Seen: 07/07/20 Time Patient Seen: 07:17 Interval history: Patient's pain is 7/10. Denies fever chills. No nausea / vomiting. States he was not able to do physical therapy yesterday because of pain control issues. He has only been out of bed 2-3 times to move to bedside chair. Exam Vital Signs (past 8 hours): - 07/06/20 23:18 07/07/20 03:53 07/07/20 05:22 Temperature 98.1 F 98.4 F Pulse Rate 74 76 Respiratory Rate 16 16 Blood Pressure 172/83 H 189/100 H 157/78 H Pulse Oximetry 93 94 Oxygen Delivery Method Nasal Cannula,CPAP Oxygen Flow Rate 6 Narrative Exam Narrative: 60-year-old male resting comfortably in bed in no apparent distress. Charan dressing is clean, dry and intact. Knee is without erythema. Sensation grossly intact to light touch distal left lower extremity. Motor functions intact distal left lower extremity. Objective Labs Result Diagrams: 07/06/20 06:07 [facility] Medical History HTN (hypertension) Neuropathy Osteoarthritis Pneumonia RLS (restless legs syndrome) Sleep apnea Tinnitus Surgical History History of ankle surgery (~1978) History of arthroplasty of left knee (05/14/19) History of arthroscopy of both knees History of total right hip arthroplasty (~2008) Hx of elbow surgery Hx of hand surgery Social History household members: spouse and children Smoking Status: Current every day smoker alcohol intake: current Assessment & Plan Post-op Postoperative Procedures: Procedures Operation Date: 07/05/20 07:45 Actual Procedures Side Surgeon p Total Knee Arthroplasty Revision-poly exchange Left Asif Lawrence MD Postop day 2. Patient is slow to mobilize secondary to pain. Encourage patient to work with physical therapy. Likely discharge home tomorrow. Quality VTE Deep Vein Thrombosis/Pulmonary Embolism Present on Admission: No
[2020-07-07] MEDS: ALBUTEROL/IPRATROPIUM 3 ML AMPUL INH ×3 (08:26→20:16)
[2020-07-07] MEDS: polyethylene glycoL 3350 17 GM POWD.PACK PO (08:58)
[2020-07-07] MEDS: ACETAMINOPHEN 325 MG TABLET 650 MG PO ×3 (08:58→21:57)
[2020-07-07] MEDS: DOCUSATE 100 MG CAPSULE PO ×2 (08:58→21:58)
[2020-07-07] MEDS: LOSARTAN 50 MG TABLET 100 MG PO (08:58)
[2020-07-07] MEDS: KETOROLAC 30 MG/ML VIAL 15 MG IV ×2 (08:59→15:35)
[2020-07-07] MEDS: ASPIRIN EC 81 MG TABLET PO ×2 (08:59→21:57)
--- NOTE | 2020-07-07 09:37 | DI.RAD.S_ITS ---
PROCEDURE: XR CHEST 2V INDICATIONS: Requiring O2 TECHNIQUE: 2 views of the chest were acquired. COMPARISON: None. FINDINGS: Surgical changes and devices: None. Lungs and pleura: Patchy opacities in lung bases bilaterally paddle atelectasis versus pneumonia. No pleural effusions or pneumothorax. Mediastinum: Mediastinal contours are normal. Heart size is normal. Bones and chest wall: No suspicious bony abnormalities. Soft tissues appear unremarkable. IMPRESSION: Bibasilar atelectasis versus pneumonia. Dictated by: Leticia Marquez MD, PhD on 07/07/2020 at 10:30 Approved by: Leticia Marquez MD, PhD on 07/07/2020 at 10:31
[2020-07-07] MEDS: HYDROMORPHONE 0.5 MG INJ IV (10:55)
[2020-07-07 12:39] LABS: Add Manual Diff / Slide Review NO; Basophils Absolute Auto 100 /uL (0-100); Basophils Percent Auto 0.6 % (0-2); Eosinophils Absolute Auto 200 /uL (0-450); Eosinophils Percent Auto 1.6 % (2-4); Hematocrit 44.6 % (41-53); Hemoglobin 14.6 g/dL (13.5-17.5); Lymphocytes Absolute Auto 1300 /uL (1100-4500); Lymphocytes Percent Auto 13.3 % (25-40); Mean Corpuscular HGB Conc 32.8 % (30-36); Mean Corpuscular Hemoglobin 29.9 PG (26-34); Mean Corpuscular Volume 91.1 fL (80-100); Monocytes Absolute Auto 800 /uL (0-900); Monocytes Percent Auto 8.2 % (3-14); Neutrophils Absolute Auto 7700 /uL (1500-7000); Neutrophils Percent Auto 76.3 % (50-75); Platelet Count 208 X10^3/uL (150-400); Red Blood Cell Count 4.89 X10^6/uL (4.5-5.9); Red Cell Distribution Width 13.5 % (11.6-14.8); White Blood Cell Count 10.1 X10^3/uL (4.5-11.0)
[2020-07-07 12:47] LABS: BUN Creatinine Ratio 19.8 (6-22); Blood Urea Nitrogen 16 mg/dL (9-20); Calcium 8.9 mg/dL (8.4-10.2); Carbon Dioxide 37 mmol/L (22-32); Chloride 100 mmol/L (98-107); Estimated Glomerular Filt Rate > 60.0 mL/min (>60); Glucose 152 mg/dL (70-100); HEMOLYSIS < 15 (0-50); Potassium 3.9 mmol/L (3.4-5.1); Sodium 139 mmol/L (137-145)
--- NOTE | 2020-07-07 12:57 | PT.IPTN ---
Current Diagnoses Broken internal joint prosthesis, other site, subsequent encounter (07/05/20) Surgery Performed Operation Date: 07/05/20 07:45 Actual Procedures p Total Knee Arthroplasty Revision-poly exchange(Left) - Asif Lawrence MD Physical Therapy Treatment Note M2 PT-IP Current Condition Start: 07/05/20 10:48 Freq: NEEDED Status: Active Protocol: Document 07/06/20 11:03 AW (Rec: 07/06/20 11:29 AW [id number]) Physical Therapy Current Condition Current Condition Evaluation Date 07/06/20 Treatment Diagnosis L TKA revision; difficulty in walking Onset Date 07/05/20 Weight Bearing Status Weight Bearing Status Weight Bear as Tolerated M3 PT-IP Subjective Start: 07/05/20 10:48 Freq: NEEDED Status: Active Protocol: Document 07/07/20 11:26 HH (Rec: 07/07/20 12:57 HH [email or web address]) Subjective Physical Therapy Visit Type Type Treatment Note Visit Start Time 11:26 Visit Stop Time 12:00 Total Visit Minutes 34 Notes Pt's present for the entire tx session. Pt had chest X-ray earlier and was dx with Bibasilar atelectasis versus pneumonia. Number of TURN OPERATOR Visits 0 Physical Therapy Visit Comments Patient Comments Pt is willing to participate with PT Patient Goals Return home with family support. Improve independent mobility. Therapy Pain Assessment Pain When Pain Assessed During Mobility Pain Present Pain Present Pain Reported Location Left Knee Scale Used 6/10 at rest; 6/10 during mobility Pain Management Techniques Apply Cold,Timing of Activity with Medications M4 PT-IP Mobility and Gait Start: 07/05/20 10:48 Freq: NEEDED Status: Active Protocol: Document 07/07/20 11:26 HH (Rec: 07/07/20 12:57 HH [email or web address]) PT-Bed Mobility Assessment Supine to Sit Supine to Sit Contact Guard Assistance,1 Person Assistance,Head of Bed Elevated,Bedrails Scooting Scooting to Edge of Bed Contact Guard Assistance PT-Transfer Assessment Sit to and From Stand Sit to and from Stand Contact Guard Assistance,1 Person Assistance,Use of Upper Extremities Equipment Transfer Assistive Device Gait Belt,Front Wheeled Walker Orthotic/Prosthetic Devices or Brace: No Transfers Transfer Destination Bed,Chair,Toilet Transfer Technique Stand Step Pivot Transfer Ability Level of Assist Contact Guard Assistance,1 Person Assistance,Use of Upper Extremities Comments Mobility Comments Pt was in bed who just returned from chest X-ray. BP at 150/81 SpO2 91 % with 3LO2/ min NC. He completed pivoting himself from supine in elevated head of bed ( 60degrees) to R EOB by using gait belt to pivot LLE. Pt then stood up by pulling top right bed rail and L UE on FWW with staggered stance CGA. He then walked towards bathroom with FWW CGA. He voided in standing position and cont walking towards hallway afterwards. He completed 70 ft x 2 in total with a step to gait pattern. Pt kept his L knee locked in extension during swing phase as well. His SpO2 maintained at 89-91% with O2 3 L/min. No increased discomfort ntoed and he was able to walk back to his chair and descend with use of armrests and staggered stance. Pt rested comfrotably there BP at 153/84 SpO2 91% with 2L/ min. Call light placed within reach. Gait Assessment Gait Gait Assistance Required: Contact Guard Assist Distance (Feet) 140 Able to Maintain Weight Bearing Status Yes During Gait Assistive Devices Assistive Device Gait Belt,Front Wheeled Walker Orthotic/Prosthetic Devices or Brace: No Gait Deviations General Gait Pattern Antalgic,Decreased Stride Length,Decreased Feet Clearance,Flexed Trunk,Step-to Gait Factors Limiting Gait Function Factors Limiting Gait Function Decreased Activity Tolerance, Decreased Strength,Limited Range of Motion,Pain,Poor Balance Comments Gait Comments see mobility comments. Stair Climbing Assessment Comments Stair Climbing Comments Not assessed. PT-Balance Assessment Sitting Balance and Reactions Static Sitting Balance Ability Good Dynamic Sitting Balance Ability Good Standing Balance and Reactions Static Standing Balance Ability Good Dynamic Standing Balance Ability Good Device Used FWW M5 PT-IP Objective Assessments Start: 07/05/20 10:48 Freq: NEEDED Status: Active Protocol: Document 07/06/20 11:03 AW (Rec: 07/06/20 11:29 AW [id number]) Orientation Orientation/Cognition Level of Alertness Alert Orientation Name,Day of Week,Place, Situation Language Function Ability Hard of Hearing Safety Awareness Understands Safety Issues, Decreased Safety Awareness Memory Description No Deficits Noted Gross Range of Motion Lower Extremity ROM Assessment Left Impaired Impairments L knee AROM 10-80 Strength Lower Extremity Strength Assessment Left Impaired Hip 3+/5 Knee 3-/5 Ankle 4+/5 Comments Strength Comments RLE grossly 4+/5 Sensation Assessment Sensation Gross Sensation WNL M6 PT-IP Treatment Start: 07/05/20 10:48 Freq: NEEDED Status: Active Protocol: Document 07/06/20 11:03 AW (Rec: 07/06/20 11:29 AW [id number]) Physical Therapy Treatment Exercises Exercises Ankle Pumps,Quad Sets,Heel Slides,Passive Knee Extension Hang Education Education Provided Precautions,Weight Bearing Status,Post-Op Packet,Safety Other Treatments Other Treatment Performed Provided education on role of PT, plan of care, weightbearing status, and safe use of FWW. M7 PT-IP Assessment and Plan Start: 07/05/20 10:48 Freq: NEEDED Status: Active Protocol: Document 07/07/20 11:26 HH (Rec: 07/07/20 12:57 HH [email or web address]) PT Summary Assessment and Plan Potential Rehabilitation Potential Good Status of Condition at Evaluation Stable Summary Impairments Pain,ROM,Strength,Balance,Bed Mobility,Transfers,Gait, Activity Tolerance Progress Towards Goals Slow Progress due to Pain,Slow Progress due to Medical Issues,Slow Progress due to Activity Tolerance,Slow Progress - Other Assessment Summary Pt had chest x-ray this morning and dx with Bibasilar atelectasis versus pneumonia. However, pt shows improved activity tolerance and mobility. He completed transfer, amb with FWW CGA 140 ft with 3L O2 via NC. SpO2 maintained at 88-91%, BP 150s/ 80s pain 6/10. L knee ROM = 5 -60 degrees. If pt cont to progress, he should be able to dc home with assistance and outpatient PT Goals Bed Mobility Goal Independent Transfer Goal Independent,Front Wheeled Walker Gait Goal Standby Assistance,Front Wheel Walker Gait Distance 150 Other Goals - up/down 6 steps with L rail SBA - in and out of tall bed with platform step to enter SBA Days to Meet Goals 5 Frequency of Treatment Frequency Of Treatment Twice a Day Treatment Plan Physical Therapy Treatment Plan Bed Mobility Training,Transfer Training,Gait Training, Therapeutic Exercise,Balance Retraining,Post Op Education, Discharge Planning,Hot or Cold Pack,Neuromuscular Re-ed, Manual Therapy Other Recommendations and Next Treatment mobility as tolerated; begin Focus caregiver training or plan for training tomorrow Recommendations To Nursing Amount of Assist Needed 1 Person Assist Discharge Recommendations PT Discharge Recommendations Home with Assistance, Outpatient PT Transportation Needs at Discharge Private Vehicle
--- NOTE | 2020-07-07 13:16 | CM.IDA ---
Initial DCP Assessment Note Pt is a 60 yo male, staying in an RV w/spouse at [facility], now POD#2 from Left p Total Knee Arthroplasty Revision-poly exchange w/ Dr Lawrence PCP: Mohsen Blanco Payer: L+I claim Reviewed chart, pt discussed in multidisciplinary rounds yesterday and this morning. Patient is having a difficult time w/pain management, Therapy has cleared pt for return home w/family to assist and pt has planned for home. Patient has a new dx of Bibasilar atelectasis versus pneumonia confirmed by chest xray this morning. Patient and spouse denying needs at this time, patient plans to DC home once pain better controlled and cleared by ortho team. Will remain available in case this changes beofre DC. PARAMJIT Ortiz Discharge Planning/Care Management CM Discharge Assessment Start: 07/07/20 13:12 Freq: Status: Active Protocol: Document 07/07/20 13:12 KAYLA (Rec: 07/07/20 13:16 KAYLA [id number]) Discharge Planning Assessment Assigned Striper PARAMJIT Wu DPOA/Assigned Designee Name Anali Gusman, spouse Contact Information [phone] Advance Directives? No History Provided By Patient,Family Member Prior Living Arrangements RV Household Members spouse,children Type of transporation used prior to Relies on Others admit Independent with ADL's Yes Is patient alert and oriented? Yes Needs Assistance With Meal Prep,Home Chores / Shopping Caregiver for Another No Patient/Family Preference OP PT Therapy Barriers to Discharge No Discharge Plan Home Transportation Arrangement Spouse Referrals Initiated None needed Additional Comment At this time
--- NOTE | 2020-07-07 13:55 | PT.IPTN ---
Current Diagnoses Broken internal joint prosthesis, other site, subsequent encounter (07/05/20) Surgery Performed Operation Date: 07/05/20 07:45 Actual Procedures p Total Knee Arthroplasty Revision-poly exchange(Left) - Asif Lawrence MD Physical Therapy Treatment Note M2 PT-IP Current Condition Start: 07/05/20 10:48 Freq: NEEDED Status: Active Protocol: Document 07/07/20 13:30 MA (Rec: 07/07/20 14:34 MA [email or web address]) Physical Therapy Current Condition Current Condition Evaluation Date 07/06/20 Treatment Diagnosis L TKA revision; difficulty in walking Onset Date 07/05/20 Weight Bearing Status Weight Bearing Status Weight Bear as Tolerated M3 PT-IP Subjective Start: 07/05/20 10:48 Freq: NEEDED Status: Active Protocol: Document 07/07/20 13:30 MA (Rec: 07/07/20 14:34 MA [email or web address]) Subjective Physical Therapy Visit Type Type Treatment Note Visit Start Time 13:30 Visit Stop Time 13:55 Total Visit Minutes 25 Number of PIANO PLAYER Visits 1 Physical Therapy Visit Comments Patient Comments Pt is willing to particpate with PT and try stairs. Patient Goals Return home with family support. Improve independent mobility. Therapy Pain Assessment Pain When Pain Assessed During Mobility Pain Present Pain Present Pain Reported Location Left Knee Intensity 5 Scale Used Numeric (0 - 10) Pain Management Techniques Apply Cold,Timing of Activity with Medications M4 PT-IP Mobility and Gait Start: 07/05/20 10:48 Freq: NEEDED Status: Active Protocol: Document 07/07/20 13:30 MA (Rec: 07/07/20 14:34 MA [email or web address]) PT-Bed Mobility Assessment Supine to Sit Supine to Sit Standby Assistance,1 Person Assistance,Head of Bed Elevated,Bedrails Sit to Supine Sit to Supine Standby Assistance,1 Person Assistance,Head of Bed Elevated Scooting Scooting to Edge of Bed Contact Guard Assistance PT-Transfer Assessment Sit to and From Stand Sit to and from Stand Contact Guard Assistance,1 Person Assistance,Use of Upper Extremities Equipment Transfer Assistive Device Gait Belt,Front Wheeled Walker Orthotic/Prosthetic Devices or Brace: No Transfers Transfer Destination Bed,Chair Transfer Technique Stand Step Pivot Transfer Ability Level of Assist Contact Guard Assistance,1 Person Assistance,Use of Upper Extremities Comments Mobility Comments Pt was found supine in bed, SpO2 92% with 3L O2 via NC. Pt was able to perform supine<> sit SBA with HOB elevated. He used gait belt to assist LLE to EOB. Pt was CGA for sit<> stand with LLE extended as he stood. Gait Assessment Gait Gait Assistance Required: Contact Guard Assist Distance (Feet) 150 Able to Maintain Weight Bearing Status Yes During Gait Assistive Devices Assistive Device Gait Belt,Front Wheeled Walker Orthotic/Prosthetic Devices or Brace: No Gait Deviations General Gait Pattern Antalgic,Decreased Stride Length,Decreased Feet Clearance,Flexed Trunk,Step-to Gait Factors Limiting Gait Function Factors Limiting Gait Function Decreased Activity Tolerance, Decreased Strength,Limited Range of Motion,Pain,Poor Balance Comments Gait Comments Pt ambulated with FWW 75ft to stairs CGA, gait belt, FWW. He ambulates with decreased knee flexion on LLE. Pt was able to complete 2x3 steps, stepping laterally using L hand rail. He then ambulated 75ft back to room chair where he sat using bilateral UEs on armrests with LLE in extension . SpO2 89%-returned to 92% after one minute rest break. Stair Climbing Assessment Evaluation Level of Assist On Stairs Contact Guard Assistance,1 Person Assistance Devices Stair Climbing Assistive Devices Left Railing Technique/Endurance Stair Climbing Direction Ascend and Descend Stair Climbing Technique Step to Step Number of Steps Climbed 3 Stair Climbing Set # Repetitions (reps) 2 Comments Stair Climbing Comments Pt was able to complete stair training. He prefers to step up laterally holding onto L rail with both hands due to decreased flexion of L knee. He states he has been using this method at home and it is what he feels safest performing today. PT-Balance Assessment Sitting Balance and Reactions Static Sitting Balance Ability Good Dynamic Sitting Balance Ability Good Standing Balance and Reactions Static Standing Balance Ability Good Dynamic Standing Balance Ability Good Device Used FWW M5 PT-IP Objective Assessments Start: 07/05/20 10:48 Freq: NEEDED Status: Active Protocol: Document 07/06/20 11:03 AW (Rec: 07/06/20 11:29 AW [id number]) Orientation Orientation/Cognition Level of Alertness Alert Orientation Name,Day of Week,Place, Situation Language Function Ability Hard of Hearing Safety Awareness Understands Safety Issues, Decreased Safety Awareness Memory Description No Deficits Noted Gross Range of Motion Lower Extremity ROM Assessment Left Impaired Impairments L knee AROM 10-80 Strength Lower Extremity Strength Assessment Left Impaired Hip 3+/5 Knee 3-/5 Ankle 4+/5 Comments Strength Comments RLE grossly 4+/5 Sensation Assessment Sensation Gross Sensation WNL M6 PT-IP Treatment Start: 07/05/20 10:48 Freq: NEEDED Status: Active Protocol: Document 07/07/20 13:30 MA (Rec: 07/07/20 14:34 MA [email or web address]) Physical Therapy Treatment Exercises Exercises Ankle Pumps,Seated Knee Flexion/Extension Other Treatments Other Treatment Performed Pt was able to sit in room chair and actively bend knee to 80 degrees. Performed 8x knee flexion/extension seated in room chair. On last flex, pt was able to get to 90 degrees with assitance and hold it for 60 seconds before needing to extend due to pain 11/30. M7 PT-IP Assessment and Plan Start: 07/05/20 10:48 Freq: NEEDED Status: Active Protocol: Document 07/07/20 13:30 MA (Rec: 07/07/20 14:34 MA [email or web address]) PT Summary Assessment and Plan Potential Rehabilitation Potential Good Status of Condition at Evaluation Stable Summary Impairments Pain,ROM,Strength,Balance,Bed Mobility,Transfers,Gait, Activity Tolerance Progress Towards Goals Slow Progress due to Pain,Slow Progress due to Medical Issues,Slow Progress due to Activity Tolerance,Slow Progress - Other Assessment Summary Pt was able to complete stair training this afternoon CGA, stepping laterally for ascending/descending using L hand rail. This is the way the pt prefers to walk up the stairs at home due to decreased knee flexion and instability since last surgery . He ambulated 75ftx2 to therapy stairs and back with SpO2 dropping to 89%. After seated rest break O2 returned to 92%. In room chair, pt was able to perform active knee flexion/extension to ~80-85 degrees actively. Passively, pt was able to get to 90 degrees and hold for 60 seconds before extending due to pain/discomfort. This is further than pt was able to get it this morning per pt report. Pt transferred back to bed via stand step pivot with FWW/gait belt CGA. He used gait belt to assist LLE sit<> supine with respiratory therapist in room. Pt transferred back to room O2 and left with respiratory therapist for next treatment. Goals Bed Mobility Goal Independent Transfer Goal Independent,Front Wheeled Walker Gait Goal Standby Assistance,Front Wheel Walker Gait Distance 150 Other Goals - up/down 6 steps with L rail SBA - in and out of tall bed with platform step to enter SBA Days to Meet Goals 5 Frequency of Treatment Frequency Of Treatment Twice a Day Treatment Plan Physical Therapy Treatment Plan Bed Mobility Training,Transfer Training,Gait Training, Therapeutic Exercise,Balance Retraining,Post Op Education, Discharge Planning,Hot or Cold Pack,Neuromuscular Re-ed, Manual Therapy Other Recommendations and Next Treatment mobility as tolerated; begin Focus caregiver training or plan for training tomorrow Recommendations To Nursing Amount of Assist Needed 1 Person Assist Discharge Recommendations PT Discharge Recommendations Home with Assistance, Outpatient PT
[2020-07-07] MEDS: AMLODIPINE 5 MG TABLET 10 MG PO (21:57)
[2020-07-07] MEDS: PRAMIPEXOLE 0.25 MG TABLET 0.125 MG PO (21:58)
[2020-07-08] VITALS (12 sets, daily range): BP systolic 123–180; BP diastolic 75–87; PULSE 65–74; RESP 16–24; TEMP 36.3–37.1; O2SAT 92–99
[2020-07-08] MEDS: KETOROLAC 30 MG/ML VIAL 15 MG IV ×2 (00:12→11:27)
[2020-07-08] MEDS: SODIUM CHLORIDE 0.9% FLUSH 10 ML IV ×3 (00:12→20:31)
[2020-07-08] MEDS: HYDROMORPHONE 2 MG TABLET 4 MG PO ×5 (02:01→22:49)
[2020-07-08] MEDS: hydrOXYzine pamoate 25 MG CAPSULE 50 MG PO ×3 (02:02→20:31)
--- NOTE | 2020-07-08 07:31 | PC.NURSE ---
Pain an issue but patient doing well with po dilaudid and vistaril this shift.
[2020-07-08] MEDS: HYDROMORPHONE 2 MG TABLET PO (08:18)
[2020-07-08] MEDS: DOCUSATE 100 MG CAPSULE PO ×2 (08:18→20:31)
[2020-07-08] MEDS: ASPIRIN EC 81 MG TABLET PO ×2 (08:18→20:30)
[2020-07-08] MEDS: ACETAMINOPHEN 325 MG TABLET 650 MG PO ×3 (08:18→20:31)
[2020-07-08] MEDS: LOSARTAN 50 MG TABLET 100 MG PO (08:19)
--- NOTE | 2020-07-08 08:32 | DI.CT.S_ITS ---
PROCEDURE: CT ANGIO CHEST INDICATIONS: Cough, short of breath, O2 desaturation, clinical concern for PE TECHNIQUE: After the administration of intravenous contrast, 2 mm thick sections acquired from the pulmonary apices to the posterior costophrenic angles. 3-dimensional maximum intensity projection (MIP) coronal and sagittal reformats were then acquired through the thorax. For radiation dose reduction, the following was used: automated exposure control, adjustment of mA and/or kV according to patient size. COMPARISON: None. FINDINGS: Image quality: Excellent. Pulmonary arteries: Pulmonary arteries are normal in size, and demonstrate no intraluminal filling defects to suggest central pulmonary embolism. Lungs and pleura: Enhancing atelectasis can be seen involving both lower lobes. A small amount of atelectasis can be also seen within the inferolateral lingula. Within the subpleural right lower lobe, there is a 5 mm pulmonary nodule, as on series 5, image 196. No pleural effusions or pneumothorax. Central and peripheral airways are patent. Mediastinum: Heart size is normal, without pericardial effusion. No mediastinal or hilar adenopathy. Thoracic aorta is normal in caliber and enhancement. Esophagus is normal in caliber, without hiatal hernia. Bones and chest wall: No suspicious bony lesions. Ribs and thoracic spine appear intact throughout. Thyroid gland demonstrates prior left hemithyroidectomy. No axillary or supraclavicular adenopathy. Abdomen: Visualized upper abdominal solid organs appear normal in the early arterial phase of enhancement. IMPRESSION: Negative for pulmonary embolism. There is dependent atelectasis. A 5 mm pulmonary nodule is seen within the right lower lobe. Given the location and appearance, this is attributed to a subpleural lymph node. By published criteria, no specific imaging follow-up is recommended, although attention should be paid to this focus on any future follow-up studies. Incidental note is made of: Prior left hemithyroidectomy Dictated by: Juaquin Mitchell M.D. on 07/08/2020 at 8:14 Approved by: Juaquin Mitchell M.D. on 07/08/2020 at 8:18
--- NOTE | 2020-07-08 08:34 | PM.PNPO.1 ---
Subjective Subjective Date Patient Seen: 07/08/20 Time Patient Seen: 08:35 Interval history: POD #3 s/p Left knee poly exchange with Dr. Lawrence. Patient has required O2 throughout his stay, on POD #1 O2 requirements reached 10 L during the day. Overnight, he has been at 4.5L with 92% saturation. He is not normally on O2 at home. He is a smoker, has CPAP machine. After his first surgery he had significant pain requiring a 4 night hospital stay. No history of DVT or PE. He does have a history of pneumonia. Yesterday chest x-ray obtained demonstrating bibasilar atelectasis vs pneumonia. Patient has been afebrile throughout his stay. Exam Vital Signs (past 8 hours): - 07/08/20 02:14 07/08/20 06:00 07/08/20 08:19 Temperature 97.4 F L Pulse Rate 65 72 Respiratory Rate 18 Blood Pressure 156/77 H 150/83 H Pulse Oximetry 93 99 Oxygen Delivery Method CPAP Oxygen Flow Rate 4.5 Narrative Exam Narrative: Patient sitting up in bed in NAD. He is alert and oriented X3. Calves are soft, compressible, and nontender bilaterally. SILT throughout BLEs. SITA dressing on left leg is CDI and functioning. He is able to actively dorsiflex and plantarflex. Nursing listening to lungs reports expiratory wheeze throughout right. Nasal canula in place. Objective Labs Result Diagrams: 07/07/20 12:25 07/07/20 12:25 Labs: Laboratory Results - last 24 hr 07/07/20 07/07/20 12:25 12:25 WBC 10.1 RBC 4.89 Hgb 14.6 Hct 44.6 MCV 91.1 MCH 29.9 MCHC 32.8 RDW 13.5 Plt Count 208 Neut % (Auto) 76.3 H Lymph % (Auto) 13.3 L Harrison % (Auto) 8.2 Eos % (Auto) 1.6 L Baso % (Auto) 0.6 Neut # (Auto) 7700 H Lymph # (Auto) 1300 Harrison # (Auto) 800 Eos # (Auto) 200 Baso # (Auto) 100 Sodium 139 Potassium 3.9 Chloride 100 Carbon Dioxide 37 H BUN 16 Creatinine 0.81 Estimated GFR > 60.0 BUN/Creatinine Ratio 19.8 Glucose 152 H Calcium 8.9 PFSH Medical History HTN (hypertension) Neuropathy Osteoarthritis Pneumonia RLS (restless legs syndrome) Sleep apnea Tinnitus Surgical History History of ankle surgery (~1978) History of arthroplasty of left knee (05/14/19) History of arthroscopy of both knees History of total right hip arthroplasty (~2008) Hx of elbow surgery Hx of hand surgery Social History household members: spouse and children Smoking Status: Current every day smoker alcohol intake: current Assessment & Plan Post-op Postoperative Procedures: Procedures Operation Date: 07/05/20 07:45 Actual Procedures Side Surgeon p Total Knee Arthroplasty Revision-poly exchange Left Asif Lawrence MD POD #3 s/p poly exchange with Dr. Lawrence. Will get COVID test stat this AM. He will continue to mobilize with PT today after COVID test. Will get CT angio today to r/o PE. Continue RT treatment. Consult today with Dr. Herrera, appreciate help with management of patient. Continue current pain medication. No plans for discharge until medically stable. Quality VTE Deep Vein Thrombosis/Pulmonary Embolism Present on Admission: No
--- NOTE | 2020-07-08 09:15 | PT.IPTN ---
Current Diagnoses Broken internal joint prosthesis, other site, subsequent encounter (07/05/20) Surgery Performed Operation Date: 07/05/20 07:45 Actual Procedures p Total Knee Arthroplasty Revision-poly exchange(Left) - Asif Lawrence MD Physical Therapy Treatment Note M2 PT-IP Current Condition Start: 07/05/20 10:48 Freq: NEEDED Status: Active Protocol: Document 07/07/20 13:30 MA (Rec: 07/07/20 14:34 MA [id number]) Physical Therapy Current Condition Current Condition Evaluation Date 07/06/20 Treatment Diagnosis L TKA revision; difficulty in walking Onset Date 07/05/20 Weight Bearing Status Weight Bearing Status Weight Bear as Tolerated M3 PT-IP Subjective Start: 07/05/20 10:48 Freq: NEEDED Status: Active Protocol: Document 07/08/20 09:00 KS (Rec: 07/08/20 11:36 KS [id number]) Subjective Physical Therapy Visit Type Type Treatment Note Visit Start Time 09:00 Visit Stop Time 09:15 Total Visit Minutes 15 Number of CREDIT COLLECTIONS CLERK Visits 2 Physical Therapy Visit Comments Patient Comments Pt agreeable to work with therapy. Patient Goals Return home with family support. Improve independent mobility. M4 PT-IP Mobility and Gait Start: 07/05/20 10:48 Freq: NEEDED Status: Active Protocol: Document 07/08/20 09:00 KS (Rec: 07/08/20 11:36 KS [id number]) PT-Bed Mobility Assessment Scooting Scooting to Edge of Bed Standby Assistance PT-Transfer Assessment Sit to and From Stand Sit to and from Stand Contact Guard Assistance,1 Person Assistance,Use of Upper Extremities Equipment Transfer Assistive Device Gait Belt,Front Wheeled Walker Orthotic/Prosthetic Devices or Brace: No Transfers Transfer Destination Chair Transfer Technique pt ambulated w/ FWW Transfer Ability Level of Assist Contact Guard Assistance,1 Person Assistance,Use of Upper Extremities Comments Mobility Comments Pt in chair on 4.5 L O2 upon arrival from therapy. Pt SBA for scooting, CGA for sit<> stand w/ FWW. Pt then ambulated ~60 ft around room w / FWW SBA to CGA. Pt denied SOB during ambulation, but did c/o increased pain in knee and requested to sit back down . Pt stand<>sit in chair CGA. After sitting, pt reviewed LE strengthening exercises including ankle pumps, quad sets, and glute sets. Pt left in chair w/ all needs in reach . Gait Assessment Gait Gait Assistance Required: Contact Guard Assist Distance (Feet) 60 Able to Maintain Weight Bearing Status Yes During Gait Assistive Devices Assistive Device Gait Belt,Front Wheeled Walker Orthotic/Prosthetic Devices or Brace: No Gait Deviations General Gait Pattern Antalgic,Decreased Stride Length,Decreased Feet Clearance,Flexed Trunk,Step-to Gait Factors Limiting Gait Function Factors Limiting Gait Function Decreased Activity Tolerance, Decreased Strength,Limited Range of Motion,Pain,Poor Balance Comments Gait Comments Pt ambulated ~60 ft around room w/ FWW on 4.5L O2 w/ CGA no reported SOB. Stair Climbing Assessment Comments Stair Climbing Comments not assessed PT-Balance Assessment Sitting Balance and Reactions Static Sitting Balance Ability Good Dynamic Sitting Balance Ability Good Standing Balance and Reactions Static Standing Balance Ability Good Dynamic Standing Balance Ability Good Device Used FWW M5 PT-IP Objective Assessments Start: 07/05/20 10:48 Freq: NEEDED Status: Active Protocol: Document 07/06/20 11:03 AW (Rec: 07/06/20 11:29 AW [id number]) Orientation Orientation/Cognition Level of Alertness Alert Orientation Name,Day of Week,Place, Situation Language Function Ability Hard of Hearing Safety Awareness Understands Safety Issues, Decreased Safety Awareness Memory Description No Deficits Noted Gross Range of Motion Lower Extremity ROM Assessment Left Impaired Impairments L knee AROM 10-80 Strength Lower Extremity Strength Assessment Left Impaired Hip 3+/5 Knee 3-/5 Ankle 4+/5 Comments Strength Comments RLE grossly 4+/5 Sensation Assessment Sensation Gross Sensation WNL M6 PT-IP Treatment Start: 07/05/20 10:48 Freq: NEEDED Status: Active Protocol: Document 07/08/20 09:00 KS (Rec: 07/08/20 11:36 KS [id number]) Physical Therapy Treatment Exercises Exercises Ankle Pumps,Gluteal Sets,Quad Sets,Seated Knee Flexion/ Extension M7 PT-IP Assessment and Plan Start: 07/05/20 10:48 Freq: NEEDED Status: Active Protocol: Document 07/08/20 09:00 KS (Rec: 07/08/20 11:36 KS [id number]) PT Summary Assessment and Plan Potential Rehabilitation Potential Good Status of Condition at Evaluation Stable Summary Impairments Pain,ROM,Strength,Balance,Bed Mobility,Transfers,Gait, Activity Tolerance Progress Towards Goals Slow Progress due to Pain,Slow Progress due to Medical Issues,Slow Progress due to Activity Tolerance,Slow Progress - Other Assessment Summary Pt ambulated ~60 ft around room w/ FWW on 4.5L O2 w/ CGA no reported SOB. CGA for transfers and SBA to CGA for ambulation w/ FWW. Pt demonstrated good balance and safety awareness throughout treatment. Able to tolerate ankle pumps, quad sets, and glute sets. Pt will be safe to d/c home w/ family when medically stable. Goals Bed Mobility Goal Independent Transfer Goal Independent,Front Wheeled Walker Gait Goal Standby Assistance,Front Wheel Walker Gait Distance 150 Other Goals - up/down 6 steps with L rail SBA - in and out of tall bed with platform step to enter SBA Days to Meet Goals 5 Frequency of Treatment Frequency Of Treatment Twice a Day Treatment Plan Physical Therapy Treatment Plan Bed Mobility Training,Transfer Training,Gait Training, Therapeutic Exercise,Balance Retraining,Post Op Education, Discharge Planning,Hot or Cold Pack,Neuromuscular Re-ed, Manual Therapy Other Recommendations and Next Treatment mobility as tolerated; begin Focus caregiver training or plan for training tomorrow Recommendations To Nursing Amount of Assist Needed 1 Person Assist Discharge Recommendations PT Discharge Recommendations Home with Assistance, Outpatient PT
[2020-07-08 09:43] LABS: COVID19 -Nasal RAPID Negative (Negative)
--- NOTE | 2020-07-08 12:20 | P.CONS_ITS ---
History of Present Illness Consult details Date Patient Seen: 07/08/20 Time Patient Seen: 13:13 Chief complaint: IP Reason for consult: Post op Hypoxia Requesting provider: Asif Lawrence Narrative: This is a 60 year old male on POD # 3 left knee replacement revision. Orthopedics has requested hospitalist consultation for persisting significant postoperative hypoxia. He has a body type suspicious for sleep apnea and Pickwickian syndrome/obesity hypoventilation. He has a long history of smoking 1 pack per day but no history of emphysema/COPD/asthma. He has no cardiac history. His initial chest x-ray postoperatively showed bibasilar atelectasis. He has not had an elevated white blood count and no antibiotics have been needed. There has been no fever. His COVID testing has been negative on 07/03 and again today 07/08. He has had no known COVID exposures. A CTA chest today shows no pulmonary embolus, pneumonia or significant lung lesion. There is a 5 mm right lower lobe nodule which does not require any specific follow-up based on size criteria. He informs me that he has had prolonged post anesthesia recovery periods in the past, which he believes included hypoxia. He references me to the initial left knee replacement a year ago. Reviewing that discharge summary there is no mention of persisting hypoxia, instead he seems to have experienced slow mobilization and persisting pain. He went home on the 3rd to 4th day after that initial surgery. This knee replacement was prompted by incomplete success on resolving his symptoms and apparently using a larger knee replacement component this time has been expected to be effective at assisting him in regaining his mobility and decreasing his pains. 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 part-time with his Anali. He is wearing a nicotine patch and plans to stop smoking again for the 2nd time after the surgery. He has had no chest pain, palpitations, coughing or dyspnea on exertion but his exertion prior to this has been quite limited due to the knee pain. Meds Home Medications and Allergies Home Medications Medication Instructions Recorded Confirmed Type amlodipine 10 mg PO BEDTIME 05/06/19 07/05/20 History diclofenac sodium 75 mg PO BID 05/06/19 07/05/20 History hydrocodone-acetaminophen 1 tab PO TID 06/05/20 07/05/20 History losartan 100 mg PO DAILY 06/05/20 07/05/20 History pramipexole 0.125 mg PO BEDTIME 06/05/20 07/05/20 History Allergies Allergy/AdvReac Type Severity Reaction Status Date / Time Penicillins [PENICILLINS] Allergy Severe Childhood-reaction Verified 07/05/20 06:51 unknown varenicline [From Chantix] Allergy Severe Hives Verified 07/05/20 06:51 metal Allergy Severe Rash Uncoded 06/12/20 06:43 Review of Systems Review of Systems Narrative: Positive for shortness of breath, weakness, left knee pain. Negative for fevers, chills, sweats, palpitations, nausea, vomiting, chest pain, bleeding, dysuria, abdominal pain, rashes, seizures, headaches, trouble talking, new allergies. ROS: Yes All systems reviewed with the patient and are negative except as otherwise documented Exam Vital Signs (past 8 hours): - 07/08/20 06:00 07/08/20 08:00 07/08/20 08:19 Temperature 97.4 F L 97.4 F L Pulse Rate 65 74 72 Respiratory Rate 18 24 Blood Pressure 156/77 H 150/83 H 150/83 H Pulse Oximetry 99 92 Oxygen Delivery Method CPAP Oxygen Flow Rate 4.5 Narrative Exam Narrative: He is alert and oriented x3. He is attentive and not distracted. Pupils are equally round reactive to light and accommodation. Extraocular muscles are intact. Sclerae are pink and nonicteric. Throat looks normal. No lymph nodes are felt head, neck, supraclavicular area. There is no thyromegaly. No carotid bruits are heard JVD is less than 6 cm Heart is regular rate and rhythm without murmur. Lungs are clear to auscultation bilaterally. Abdomen is very obese, nontender, no organomegaly, soft. Extremities there is no right ankle edema. Bilateral upper extremity exam is normal. The left lower extremity is notable for a swollen knee with a VAC type dressing in place over the anterior knee and for 1+ pitting edema of the entire left lower leg. There is no tenderness or palpable venous cord. Skin has no rash or jaundice Neurological exam. Deep tendon reflexes are symmetric bilaterally. Cranial nerves 2-12 test normal. There is no tremor. Motor function is 5/5 throughout. Objective Labs Result Diagrams: 07/07/20 12:25 07/07/20 12:25 Labs: Laboratory Results - last 24 hr 07/07/20 07/07/20 07/08/20 12:25 12:25 09:20 WBC 10.1 RBC 4.89 Hgb 14.6 Hct 44.6 MCV 91.1 MCH 29.9 MCHC 32.8 RDW 13.5 Plt Count 208 Neut % (Auto) 76.3 H Lymph % (Auto) 13.3 L [place] % (Auto) 8.2 Eos % (Auto) 1.6 L Baso % (Auto) 0.6 Neut # (Auto) 7700 H Lymph # (Auto) 1300 [place] # (Auto) 800 Eos # (Auto) 200 Baso # (Auto) 100 Sodium 139 Potassium 3.9 Chloride 100 Carbon Dioxide 37 H BUN 16 Creatinine 0.81 Estimated GFR > 60.0 BUN/Creatinine Ratio 19.8 Glucose 152 H Calcium 8.9 SARS-CoV-2 (PCR) Negative Assessment & Plan Assessment & Plan narrative: Postop Knee Replacement Persistent Hypoxia, not present on admission. Active -Secondary to combination of post-op Atelectasis, Sleep Apnea along with Probable Obesity Hypoventilation Syndrome -Imaging including CXR and CTA negative for PE and Pneumonia/Pleural Effusion/Lung Mass -Repeat CBC and precautionary Echocardiogram are ordered today -Continue 2 Liters NC oxygen and wean to room air as tolerated -Minimize opiate use POD #3 Left Knee Replacement Revision, not present on admission. Active -Per ortho stable for discharge home when medically stable -Vacuum type wound dressing on the left knee without signs of infection or bleeding Hypertension, present on admission. Chronic -Continue Losartan Neuropathy, present on admission. Chronic -Continue Gabapentin Osteoarthritis, present on admission. Chronic -Continue Ibuprofen and Hydromorphone -use Opiates sparingly RLS (restless legs syndrome), present on admission. Chronic -Continue Mirapex Sleep apnea, present on admission. Chronic -Previously intolerant of CPAP (it made me sick) -Likely contributing to the nocturnal worsening of this post op hypoxia Hyperglycemia, not present on admission. Active -BS 152 -Order A1C and Q shift Glucose checks. Nicotine Addiction, present on admission. Active -Nicotine patch -He says that he is committed to quitting COVID-19 COVID-19 status: Negative Result date/Date tested (Pos, Neg/Pending): 07/08/20
--- NOTE | 2020-07-08 12:48 | PT.IPTN ---
Current Diagnoses Broken internal joint prosthesis, other site, subsequent encounter (07/05/20) Surgery Performed Operation Date: 07/05/20 07:45 Actual Procedures p Total Knee Arthroplasty Revision-poly exchange(Left) - Asif Lawrence MD Physical Therapy Treatment Note M2 PT-IP Current Condition Start: 07/05/20 10:48 Freq: NEEDED Status: Active Protocol: Document 07/07/20 13:30 MA (Rec: 07/07/20 14:34 MA [id number]) Physical Therapy Current Condition Current Condition Evaluation Date 07/06/20 Treatment Diagnosis L TKA revision; difficulty in walking Onset Date 07/05/20 Weight Bearing Status Weight Bearing Status Weight Bear as Tolerated M3 PT-IP Subjective Start: 07/05/20 10:48 Freq: NEEDED Status: Active Protocol: Document 07/08/20 12:28 KS (Rec: 07/08/20 13:02 KS [id number]) Subjective Physical Therapy Visit Type Type Treatment Note Visit Start Time 12:28 Visit Stop Time 12:48 Total Visit Minutes 20 Number of WHEEL LACER AND TRUER Visits 3 Physical Therapy Visit Comments Patient Comments Pt agreeable to work with therapy. M4 PT-IP Mobility and Gait Start: 07/05/20 10:48 Freq: NEEDED Status: Active Protocol: Document 07/08/20 12:28 KS (Rec: 07/08/20 13:02 KS [id number]) PT-Bed Mobility Assessment Scooting Scooting to Edge of Bed Standby Assistance PT-Transfer Assessment Sit to and From Stand Sit to and from Stand Standby Assistance,1 Person Assistance,Use of Upper Extremities Equipment Transfer Assistive Device Gait Belt,Front Wheeled Walker Orthotic/Prosthetic Devices or Brace: No Transfers Transfer Destination Chair Transfer Technique pt ambulated w/ FWW Transfer Ability Level of Assist Standby Assistance,1 Person Assistance,Use of Upper Extremities Comments Mobility Comments Pt in chair on 4.5L O2 upon arrival. Pt SBA for scooting to EOC and sit<>stand w/ FWW and states he has been up several times since AM treatment. Pt ambulated ~30 ft w/ FWW, decreased O2 to 4L and then 3.5L following another 30 ft and pts O2 remained 92-95%. Pt then performed [address] on 3L O2, O2 remained over 93%, decreased O2 to 2.5 L and pt performed additional 1 min of marching in place and O2 stable. Pt then stand<>sit in chair SBA, decreased O2 to 2L and pt 94-95% on 2L sitting comfortably in chair w / all needs in reach. Gait Assessment Gait Gait Assistance Required: Standby Assistance Distance (Feet) 60 Able to Maintain Weight Bearing Status Yes During Gait Assistive Devices Assistive Device Gait Belt,Front Wheeled Walker Orthotic/Prosthetic Devices or Brace: No Gait Deviations General Gait Pattern Antalgic,Decreased Stride Length,Decreased Feet Clearance,Flexed Trunk,Step-to Gait Factors Limiting Gait Function Factors Limiting Gait Function Decreased Activity Tolerance, Decreased Strength,Limited Range of Motion,Pain,Poor Balance Comments Gait Comments Pt ambulated ~60 ft around room w/ FWW SBA on 4.5L O2 then gradually decreased to 2. 5L w/ O2 92-95% w/ no reported SOB. Performed additional [address] w/ stable O2 92-95% Stair Climbing Assessment Comments Stair Climbing Comments not assessed PT-Balance Assessment Sitting Balance and Reactions Static Sitting Balance Ability Good Dynamic Sitting Balance Ability Good Standing Balance and Reactions Static Standing Balance Ability Good Dynamic Standing Balance Ability Good Device Used FWW M5 PT-IP Objective Assessments Start: 07/05/20 10:48 Freq: NEEDED Status: Active Protocol: Document 07/06/20 11:03 AW (Rec: 07/06/20 11:29 AW [id number]) Orientation Orientation/Cognition Level of Alertness Alert Orientation Name,Day of Week,Place, Situation Language Function Ability Hard of Hearing Safety Awareness Understands Safety Issues, Decreased Safety Awareness Memory Description No Deficits Noted Gross Range of Motion Lower Extremity ROM Assessment Left Impaired Impairments L knee AROM 10-80 Strength Lower Extremity Strength Assessment Left Impaired Hip 3+/5 Knee 3-/5 Ankle 4+/5 Comments Strength Comments RLE grossly 4+/5 Sensation Assessment Sensation Gross Sensation WNL M6 PT-IP Treatment Start: 07/05/20 10:48 Freq: NEEDED Status: Active Protocol: Document 07/08/20 12:28 KS (Rec: 07/08/20 13:02 KS [id number]) Physical Therapy Treatment Exercises Exercises Ankle Pumps,Gluteal Sets,Quad Sets,Seated Knee Flexion/ Extension Education Education Provided Safety M7 PT-IP Assessment and Plan Start: 07/05/20 10:48 Freq: NEEDED Status: Active Protocol: Document 07/08/20 12:28 KS (Rec: 07/08/20 13:02 KS [id number]) PT Summary Assessment and Plan Potential Rehabilitation Potential Good Status of Condition at Evaluation Stable Summary Impairments Pain,ROM,Strength,Balance,Bed Mobility,Transfers,Gait, Activity Tolerance Progress Towards Goals Slow Progress due to Pain,Slow Progress due to Medical Issues,Slow Progress due to Activity Tolerance,Slow Progress - Other Assessment Summary Pt was able to tolerate 60ft ambulation and [address] SBA w/ FWW and gradual decrease of O2 from 4. 5L to 2.5L during mobilization . Pts O2 ranged from 92-95% throughout treatment. SBA for transfers and ambulation. Pt left resting on 2L O2 at 95%. Pt will be safe to d/c home w/ family when medically stable. Goals Bed Mobility Goal Independent Transfer Goal Independent,Front Wheeled Walker Gait Goal Standby Assistance,Front Wheel Walker Gait Distance 150 Other Goals - up/down 6 steps with L rail SBA - in and out of tall bed with platform step to enter SBA Days to Meet Goals 5 Frequency of Treatment Frequency Of Treatment Twice a Day Treatment Plan Physical Therapy Treatment Plan Bed Mobility Training,Transfer Training,Gait Training, Therapeutic Exercise,Balance Retraining,Post Op Education, Discharge Planning,Hot or Cold Pack,Neuromuscular Re-ed, Manual Therapy Other Recommendations and Next Treatment mobility as tolerated; begin Focus caregiver training or plan for training tomorrow Recommendations To Nursing Amount of Assist Needed 1 Person Assist Discharge Recommendations PT Discharge Recommendations Home with Assistance, Outpatient PT
--- NOTE | 2020-07-08 13:02 | DI.ECHO.S_ITS ---
[facility]---------+ [facility] +---------+ : : [address] : : [place], [place] : : : : [id number] : : : : Phone: [phone]+ Echocardiogram Report + + :Name: JASWANT LEE Study Date: 07/09/2020 Height: 72 in : :[facility] ReadingLocation: Weight: 268 lb: : Gender: Male BSA: 2.4 m2 : :: 1960 Age: 60 yrs : :Reason For Study: Hypoxia : :Ordering Physician: Kassie : :Hospitalist Performed By: Regina Page : :Referring: Ishmael ESTES E : + + Interpretation Summary 1) Mildly enlarged left ventricle with normal systolic function (EF 65-70%). 2) Normal right ventricular size and function. 3) No significant valvular abnormalities. 4) The ascending aorta is moderately enlarged at 4.3cm. The aortic root is mildly dilated at 4.2cm. 5) The right ventricular systolic pressure is estimated to be at least 45 mmHg based on an estimated right atrial pressure of 8 mm Hg. 6) No prior Echo available for comparison. Procedure: A two-dimensional transthoracic echocardiogram with color flow and Doppler was performed. The study quality was technically adequate. There is no prior echocardiogram noted for this patient. The patient was in normal sinus rhythm during the exam. Left Ventricle: The left ventricle measures at 6.2 cm and 169 ml volume, based on the patient's BSA of 2.4 , LV is normal in size. There is normal left ventricular wall thickness. The ejection fraction is estimated to be 65-70%. Left ventricular systolic function is normal. There are no focal wall motion abnormalities. Right Ventricle: The right ventricle is normal in size and function. Atria: The left atrium is moderately dilated. Right atrial size is normal. There is no Doppler evidence for an interatrial shunt. Mitral Valve: The mitral valve is normal in structure and function. There is no mitral regurgitation noted. Aortic Valve: The aortic valve is trileaflet. The aortic valve opens well. There is no aortic valve stenosis. No aortic regurgitation is present. Tricuspid Valve: The tricuspid valve is normal in structure and function. There is a trace or physiologic amount of tricuspid regurgitation. The right ventricular systolic pressure is estimated to be at least 45 mmHg based on an estimated right atrial pressure of 8 mm Hg. Pulmonic Valve: The pulmonic valve is not well visualized. Great Vessels: The aortic root is mildly dilated. The ascending aorta is moderately enlarged. The pulmonary artery is not well visualized, but is probably normal size. The IVC is dilated (diameter is greater than 2.1 cm) yet it collapses greater than 50% with a sniff. This suggests a right atrial pressure of 8 mm Hg. Pericardium/ Pleura There is no pericardial effusion. There is no pleural effusion. MMode/2D Measurements & Calculations LVIDd: 6.2 cm LVOT diam: 2.3 cm LVIDs: 3.3 cm Ao root diam: 4.2 cm FS: 46.1 % asc Aorta Diam: 4.3 cm IVSd: 0.91 cm LVPWd: 0.91 cm LV lin. diameter/BSA (cm/m^2): 2.6 LV sys. diameter/BSA (cm/m^2): 1.4 LA A2 area: 29.4 cm2 RA long axis: 5.9 cm LA A4 area: 25.9 cm2 RA area: 19.6 cm2 LA length (vol): 6.7 cm RA vol: 55.5 ml LA vol: 96.0 ml RA : 23.0 ml/m2 LA vol index: 39.8 ml/m2 IVC diam: 2.7 cm RVD1 (basal): 4.1 cm Doppler Measurements & Calculations Ao V2 max: 200.5 cm/sec LVOT Max Ladarius: 101.7 cm/sec Ao V2 mean: 130.5 cm/sec LV V1 max P.1 mmHg Ao max P.1 mmHg LV V1 VTI: 20.9 cm Ao mean P.7 mmHg MICHELLE(I,D): 2.4 cm2 Ao V2 VTI: 35.2 cm MICHELLE(V,D): 2.1 cm2 sev ratio: 0.59 MICHELLE indexed to BSA (cm^2/m^2): 1.0 MV E max ladarius: 86.7 cm/sec TR max ladarius: 304.8 cm/sec MV A max ladarius: 93.9 cm/sec TR max P.2 mmHg MV E/A: 0.92 PA V2 max: 141.7 cm/sec Med Peak E' Ladarius: 6.6 cm/sec PA V2 mean: 77.1 cm/sec E/E' med: 13.1 PA mean P.0 mmHg Lat Peak E' Ladarius: 13.0 cm/sec PA Accel Time: 0.07 sec E/E' lat: 6.7 E/e' average: 9.9 MV dec time: 0.18 sec SV(LVOT): 85.4 ml Reading Physician:02:58 PM
[2020-07-08] MEDS: ALBUTEROL/IPRATROPIUM 3 ML AMPUL INH ×2 (13:19→18:03)
[2020-07-08 13:27] LABS: Add Manual Diff / Slide Review NO; Basophils Absolute Auto 100 /uL (0-100); Basophils Percent Auto 0.7 % (0-2); Eosinophils Absolute Auto 400 /uL (0-450); Eosinophils Percent Auto 4.5 % (2-4); Hematocrit 43.1 % (41-53); Hemoglobin 14.2 g/dL (13.5-17.5); Lymphocytes Absolute Auto 1800 /uL (1100-4500); Lymphocytes Percent Auto 20.9 % (25-40); Mean Corpuscular HGB Conc 32.9 % (30-36); Mean Corpuscular Hemoglobin 30.1 PG (26-34); Mean Corpuscular Volume 91.5 fL (80-100); Monocytes Absolute Auto 800 /uL (0-900); Neutrophils Absolute Auto 5400 /uL (1500-7000); Neutrophils Percent Auto 63.9 % (50-75); Platelet Count 205 X10^3/uL (150-400); Red Blood Cell Count 4.71 X10^6/uL (4.5-5.9); Red Cell Distribution Width 13.7 % (11.6-14.8); White Blood Cell Count 8.4 X10^3/uL (4.5-11.0)
[2020-07-08 14:26] LABS: Hemoglobin A1C% w Est Avg Glu 5.9 % (4.0-6.0)
--- NOTE | 2020-07-08 14:48 | CM.DPNOTE ---
DCP Cont Met w/patient and spouse in room, Dr Aleman in the room completing his medical eval. introduced role and left contact information. Patient continues to plan for return home w/spouse and family to assist as needed, patient plans on outpatient PT at this time. Following in case any DC needs or concerns arise. KAYLA
[2020-07-08] MEDS: polyethylene glycoL 3350 17 GM POWD.PACK PO (15:58)
[2020-07-08] MEDS: AMLODIPINE 5 MG TABLET 10 MG PO (20:30)
[2020-07-08] MEDS: PRAMIPEXOLE 0.25 MG TABLET 0.125 MG PO (20:30)
[2020-07-09] MEDS: HYDROMORPHONE 2 MG TABLET 4 MG PO ×5 (02:44→16:36)
[2020-07-09] MEDS: hydrOXYzine pamoate 25 MG CAPSULE 50 MG PO ×4 (02:44→16:38)
[2020-07-09 03:16] VITALS: BP 157/82; PULSE 72; RESP 18; TEMP 36.2; O2SAT 91
[2020-07-09] MEDS: ALBUTEROL/IPRATROPIUM 3 ML AMPUL INH (08:24)
[2020-07-09 08:25] VITALS: PULSE 71; RESP 16; O2SAT 92
[2020-07-09] MEDS: ASPIRIN EC 81 MG TABLET PO (09:47)
[2020-07-09] MEDS: LOSARTAN 50 MG TABLET 100 MG PO (09:47)
[2020-07-09] MEDS: ACETAMINOPHEN 325 MG TABLET 650 MG PO ×2 (09:48→13:28)
[2020-07-09] MEDS: DOCUSATE 100 MG CAPSULE PO (09:48)
[2020-07-09] MEDS: SODIUM CHLORIDE 0.9% FLUSH 10 ML IV (09:49)
--- NOTE | 2020-07-09 10:36 | PM.PNPO.1 ---
Subjective Subjective Date Patient Seen: 07/09/20 Time Patient Seen: 10:00 Interval history: Interval history: POD #4 s/p Left knee poly exchange with Dr. Lawrence. Patient has required O2 throughout his stay, on POD #1 O2 requirements reached 10 L during the day. This morning patient has been able to be without O2 requirements. His O2 sats have been in the upper 80s low 90s on room air. Patient without complaints and is ready to go home. Exam Vital Signs (past 8 hours): - 07/09/20 03:16 07/09/20 08:25 Temperature 97.1 F L Pulse Rate 72 71 Respiratory Rate 18 16 Blood Pressure 157/82 H Pulse Oximetry 91 92 Oxygen Delivery Method Room Air Oxygen Flow Rate 1 Narrative Exam Narrative: Patient has positive dorsiflexion and plantar flexion of the toes and ankles. Nontender to palpation to the posterior calf. Palpable pedal pulses. Brisk cap refill. Patient's dressing is clean, dry and intact. Objective Labs Result Diagrams: 07/08/20 13:20 07/07/20 12:25 Labs: Laboratory Results - last 24 hr 07/08/20 07/08/20 13:20 13:20 WBC 8.4 RBC 4.71 Hgb 14.2 Hct 43.1 MCV 91.5 MCH 30.1 MCHC 32.9 RDW 13.7 Plt Count 205 Neut % (Auto) 63.9 Lymph % (Auto) 20.9 L [place] % (Auto) 10.0 Eos % (Auto) 4.5 H Baso % (Auto) 0.7 Neut # (Auto) 5400 Lymph # (Auto) 1800 [place] # (Auto) 800 Eos # (Auto) 400 Baso # (Auto) 100 Hemoglobin A1c 5.9 [facility] Medical History HTN (hypertension) Neuropathy Osteoarthritis Pneumonia RLS (restless legs syndrome) Sleep apnea Tinnitus Surgical History History of ankle surgery (~1978) History of arthroplasty of left knee (05/14/19) History of arthroscopy of both knees History of total right hip arthroplasty (~2008) Hx of elbow surgery Hx of hand surgery Family History Other Diabetes mellitus Myocardial infarct Social History marital status: details: His Anali is his backup decision maker household members: spouse and children Smoking Status: Current every day smoker alcohol intake: current Assessment & Plan Post-op Postoperative Procedures: Procedures Operation Date: 07/05/20 07:45 Actual Procedures Side Surgeon p Total Knee Arthroplasty Revision-poly exchange Left Asif Lawrence MD Postoperative day: 4 Postoperative status: doing well Postoperative status narrative: Patient postoperative day 4. Of a total knee arthroplasty revision Postoperative plan: discharge Postoperative plan narrative: Patient will be discharged home today. Time Spent With Patient Time with patient: less than 15 minutes Quality VTE Deep Vein Thrombosis/Pulmonary Embolism Present on Admission: No
--- NOTE | 2020-07-09 11:36 | PT.IPTN ---
Current Diagnoses Broken internal joint prosthesis, other site, subsequent encounter (07/05/20) Surgery Performed Operation Date: 07/05/20 07:45 Actual Procedures p Total Knee Arthroplasty Revision-poly exchange(Left) - Asif Lawrence MD Physical Therapy Treatment Note M2 PT-IP Current Condition Start: 07/05/20 10:48 Freq: NEEDED Status: Active Protocol: Document 07/07/20 13:30 MA (Rec: 07/07/20 14:34 MA [id number]) Physical Therapy Current Condition Current Condition Evaluation Date 07/06/20 Treatment Diagnosis L TKA revision; difficulty in walking Onset Date 07/05/20 Weight Bearing Status Weight Bearing Status Weight Bear as Tolerated M3 PT-IP Subjective Start: 07/05/20 10:48 Freq: NEEDED Status: Active Protocol: Document 07/09/20 11:24 CLB (Rec: 07/09/20 12:46 CLB [id number]) Subjective Physical Therapy Visit Type Type Treatment Note Visit Start Time 11:24 Visit Stop Time 11:36 Total Visit Minutes 12 Notes Anali present during tx. Number of WIRE PREPARATION MACHINE TENDER Visits 4 Physical Therapy Visit Comments Patient Comments Pt agreeable to work with therapy. Patient Goals Return home with family support. Improve independent mobility. Therapy Pain Assessment Pain When Pain Assessed During Mobility Pain Present Pain Present Pain Reported Location Left Knee Intensity 3 Scale Used Numeric (0 - 10) M4 PT-IP Mobility and Gait Start: 07/05/20 10:48 Freq: NEEDED Status: Active Protocol: Document 07/09/20 11:24 CLB (Rec: 07/09/20 12:46 CLB [id number]) PT-Transfer Assessment Sit to and From Stand Sit to and from Stand Standby Assistance,1 Person Assistance,Use of Upper Extremities Equipment Transfer Assistive Device Gait Belt,Front Wheeled Walker Orthotic/Prosthetic Devices or Brace: No Transfers Transfer Destination Chair Transfer Technique pt ambulated w/ FWW Transfer Ability Level of Assist Standby Assistance,1 Person Assistance,Use of Upper Extremities Comments Mobility Comments Pt in chair on RA O2 90%. Pt stood SBA and ambulated ~50ft w/FWW/SBA. Pt climbed stairs SBA and ambulated back to room . Pt O2 on RA after activity 88% and increased to 90% after taking off mask and taking a few PLB. Pt performed HS able to flx to ~80 degrees. Pt seems able to d/c home with assist when medically stable. Gait Assessment Gait Gait Assistance Required: Standby Assistance Distance (Feet) 100 Able to Maintain Weight Bearing Status Yes During Gait Assistive Devices Assistive Device Gait Belt,Front Wheeled Walker Orthotic/Prosthetic Devices or Brace: No Gait Deviations General Gait Pattern Antalgic,Decreased Stride Length,Decreased Feet Clearance,Flexed Trunk,Step-to Gait Factors Limiting Gait Function Factors Limiting Gait Function Decreased Activity Tolerance, Decreased Strength,Limited Range of Motion,Pain,Poor Balance Comments Gait Comments see moblity comments Stair Climbing Assessment Evaluation Level of Assist On Stairs Standby Assistance Devices Stair Climbing Assistive Devices Left Railing Technique/Endurance Stair Climbing Direction Ascend and Descend Stair Climbing Technique Step to Step Number of Steps Climbed 3 Stair Climbing Set # Repetitions (reps) 4 Comments Stair Climbing Comments Pt safe on stairs requiring SBA using left rail and step to step pattern w/o increase in pain. M5 PT-IP Objective Assessments Start: 07/05/20 10:48 Freq: NEEDED Status: Active Protocol: Document 07/06/20 11:03 AW (Rec: 07/06/20 11:29 AW [id number]) Orientation Orientation/Cognition Level of Alertness Alert Orientation Name,Day of Week,Place, Situation Language Function Ability Hard of Hearing Safety Awareness Understands Safety Issues, Decreased Safety Awareness Memory Description No Deficits Noted Gross Range of Motion Lower Extremity ROM Assessment Left Impaired Impairments L knee AROM 10-80 Strength Lower Extremity Strength Assessment Left Impaired Hip 3+/5 Knee 3-/5 Ankle 4+/5 Comments Strength Comments RLE grossly 4+/5 Sensation Assessment Sensation Gross Sensation WNL M6 PT-IP Treatment Start: 07/05/20 10:48 Freq: NEEDED Status: Active Protocol: Document 07/09/20 11:24 CLB (Rec: 07/09/20 12:46 CLB [id number]) Physical Therapy Treatment Exercises Exercises Ankle Pumps,Seated Knee Flexion/Extension Education Education Provided Safety M7 PT-IP Assessment and Plan Start: 07/05/20 10:48 Freq: NEEDED Status: Active Protocol: Document 07/09/20 11:24 CLB (Rec: 07/09/20 12:46 CLB [id number]) PT Summary Assessment and Plan Potential Rehabilitation Potential Good Status of Condition at Evaluation Stable Summary Impairments Pain,ROM,Strength,Balance,Bed Mobility,Transfers,Gait, Activity Tolerance Progress Towards Goals Progressing Toward Goals Assessment Summary Pt with good pain control was able to perform all mobility and stair climbing with SBA. Pt O2 remained 88-91% on RA throughout tx. Goals Bed Mobility Goal Independent Transfer Goal Independent,Front Wheeled Walker Gait Goal Standby Assistance,Front Wheel Walker Gait Distance 150 Other Goals - up/down 6 steps with L rail SBA - in and out of tall bed with platform step to enter SBA Days to Meet Goals 5 Frequency of Treatment Frequency Of Treatment Twice a Day Treatment Plan Physical Therapy Treatment Plan Bed Mobility Training,Transfer Training,Gait Training, Therapeutic Exercise,Balance Retraining,Post Op Education, Discharge Planning,Hot or Cold Pack,Neuromuscular Re-ed, Manual Therapy Recommendations To Nursing Amount of Assist Needed 1 Person Assist Discharge Recommendations PT Discharge Recommendations Home with Assistance, Outpatient PT
[2020-07-09 13:00] VITALS: BP 137/82; PULSE 70; RESP 20; TEMP 36.6; O2SAT 91
--- NOTE | 2020-07-09 17:04 | PC.NURSE ---
1700 pt eating dinner. at bedside, [facility] was having difficult time filling pain RXs. Pt was medicated with vistril and dilaudid. THis RN called pt's pharmacy for update. pharm [facility] likely will be done this evening but won't know until 1730.
== END 2020-07-09 18:18 | disposition home or self-care (01) | DRG 302 ==
PROVIDERS: Family Medicine; Physician Assistant Surgical; Admitting Provider Orthopaedic Surgery Adult Reconstructive Orthopaedic Surgery; Family Provider Internal Medicine; PCP Internal Medicine; Referring Provider Orthopaedic Surgery; Visit Provider Orthopaedic Surgery Adult Reconstructive Orthopaedic Surgery
PROC: 0SPD09Z Removal of Liner from Left Knee Joint, Open Approach (ICD-10-PCS; principal; 2020-07-05 07:45)
DX: T84.023A Instability of internal left knee prosthesis, initial encounter (principal); J98.11 Atelectasis; G47.33 Obstructive sleep apnea (adult) (pediatric); E66.9 Obesity, unspecified; Z68.36 Body mass index [BMI] 36.0-36.9, adult; I10 Essential (primary) hypertension; F17.210 Nicotine dependence, cigarettes, uncomplicated; G89.18 Other acute postprocedural pain; Z20.822 Contact with and (suspected) exposure to COVID-19; G62.9 Polyneuropathy, unspecified; G25.81 Restless legs syndrome; R73.9 Hyperglycemia, unspecified; Y99.0 Civilian activity done for income or pay; X58.XXXA Exposure to other specified factors, initial encounter
CPT/HCPCS: 36415; 71046; 71275; 73560; 80048; 82962; 83036; 85014; 85018; 85025; 87635; 93306; 94640; 94660; 94760; 94762; 97110; 97116; 97161; 97530; C1776; C9803; J0690; J1170; J1885; J2250; J2270; J2274; J2405; J2704; J2765; Q9967

== ENCOUNTER 2020-10-02 09:45 | Outpatient (RCR) | payer OTHER, SELFPAY ==
[2019-05-14 13:52] VITALS: BMI 33.6
--- NOTE | 2020-06-01 15:33 | PT.OIE ---
Current Diagnoses Unilateral primary osteoarthritis, left knee (06/01/20) Other tear of medial meniscus, current injury, left knee, initial encounter (06/01/20) Presence of left artificial knee joint (06/01/20) Past Medical History (Last Updated 05/06/19 @ 09:21 by Tatum Castillo RN) HTN (hypertension) Neuropathy Osteoarthritis Pneumonia RLS (restless legs syndrome) Sleep apnea Tinnitus Past Surgical History (Last Updated 05/06/19 @ 09:21 by Tatum Castillo RN) History of ankle surgery (~1978) History of arthroscopy of both knees History of total right hip arthroplasty (~2008) Hx of elbow surgery Hx of hand surgery Visit Care Team Role Provider Type Mohsen Blanco MD Family Provider Physician Primary Care Provider Specialty: Internal Medicine Address: [address] [place] [address], [address] Email: [email or web address] Attending Provider Physician Referring Provider Specialty: Orthopedic Surgery Address: [address] [place] [address], [id number] Email: [email or web address] Physical Therapy Initial Evaluation PT-OP-A Visit Information Start: 06/01/20 07:21 Freq: Status: Active Protocol: Document 06/01/20 08:57 MB (Rec: 06/01/20 09:32 MB [id number]) Out-Patient Physical Therapy Visit Information Visit Information Visit Type Initial Evaluation Visit Note Workers Compensation/L and I Visit Start Time 08:57 Visit Stop Time 09:39 Total Visit Minutes 42 Visit Number 1 Evaluation Information Evaluation Date 06/01/20 PT-OP-B Current Condition Start: 06/01/20 07:21 Freq: Status: Active Protocol: Document 06/01/20 08:57 MB (Rec: 06/01/20 09:32 MB [id number]) Current Condition History of Current Condition Onset Date August 2018 Current Complaints Left knee pain and right hip pain History of Current Condition In March 2018, a crate fell over him at work and pinned him up against a motor home. His trunk went forward and his left leg hyperextended. He underwent a meniscal surgery in early 2018. He con't to have pain. He received PT and did not get better. He finally underwent left TKR 05/14/2019 and had immediate pain post- op. He participated with PT and did not make significant improvements in pain, gait and range. PT sent pt back to surgeon and it was determined that there was a mechanical problem with prosthesis, on the lateral side. Pt's pain and clicking had consistently been at the lateral posterior left knee. The plan was for pt to transition to aquatic therapy while waiting for possible surgery the end of 2019 when the pool closed d/t COVID. He is currently scheduled for a revision on 06/12/2020. Pt con't with antalgic gait, favoring the left knee and he has new onset of right hip pain for 6 months after altered gait. He has a history of right THR. Left knee pain gets up to 5-6/10. He has not been walking with walker. He has not been icing or wearing thigh high compression. He has been performing heel slides. He has not been able to work on [employer] d/t his condition. Pt lives in a RV and has 5 steps to enter with left rail. He is currently driving. PMH: smoking, arthritis, HTN. Pt has had some falls and he fell down steps this summer. He is okay. Prior Treatments and Tests L TKR 05/14/2019, post-op PT, reconsult with orthopedic surgeon and deemed appropriate for another TKR end of 2019 Treatment Goals Patient/Caregiver Goals To decrease pain, improve range of motion and gait and get back to work. PT-OP-C Subjective Start: 06/01/20 07:21 Freq: Status: Active Protocol: Document 06/01/20 08:57 MB (Rec: 06/01/20 09:32 MB [id number]) OP-PT Subjective Patient Comments Patient Comments See history of current condition. PT-OP-G Mobility & Gait Start: 06/01/20 07:21 Freq: Status: Active Protocol: Document 06/01/20 08:57 MB (Rec: 06/01/20 15:10 MB [id number]) OP Gait Assessment Comments Gait Comments Wide MAYNOR, decreased step- length and foot clearance, limited step-length, greater on the left with decreased left knee flexion and extension, right hip hike and decreased right hip flexion and extension. Stiff walking posture and increased lateral sway with gait. Pt states that he has not wanted to use cane or walker and so he does not bring in AD for assessment. PT-OP-K Range of Motion Start: 06/01/20 07:21 Freq: Status: Active Protocol: Document 06/01/20 08:57 MB (Rec: 06/01/20 15:33 MB [id number]) Knee Goniometric Range of Motion Knee Left Knee ROM WFL No Patient Position Supine Comments L knee AROM in hook lying is 6 -123 deg Right Knee ROM WFL Yes Patient Position Supine Comments R knee AROM in hook lying is 0 -125 deg Ankle and Foot Goniometric Range of Motion Ankle and Foot ROM Limitations Comments Left ankle inversion is reduced compared to the right PT-OP-M Strength Start: 06/01/20 07:21 Freq: Status: Active Protocol: Document 06/01/20 08:57 MB (Rec: 06/01/20 15:33 MB [id number]) Hip Strength Hip Manual Muscle Testing Left Flexion (L2) 4 Good Abduction 5 Normal Adduction 4 Good Right Flexion (L2) 5 Normal Abduction 4 Good Adduction 5 Normal Knee Strength Knee Manual Muscle Testing Left Flexion (S2) 3- Fair- Extension (L3) 4 Good Comments Pt reports 8/10 pain left posterior knee with left knee flexion MMT Right Flexion (S2) 5 Normal Extension (L3) 5 Normal Ankle/Foot Strength Ankle and Foot Manual Muscle Testing Left Dorsiflexion (L4) 5 Normal Inversion 3 Fair Eversion (S1) 4 Good Comments Pt reports increased left knee pain with inversion and eversion MMT Right Dorsiflexion (L4) 5 Normal Inversion 5 Normal Eversion (S1) 5 Normal PT-OP-Q Treatments Start: 06/01/20 07:21 Freq: Status: Active Protocol: Document 06/01/20 08:57 MB (Rec: 06/01/20 09:54 MB [id number]) Therapeutic Exercises Supine Exercises Pre-op HS, GS, QS, hip abduction Side bilateral Reps/Minutes 5 reps Comments Pt performs many exercises including HS, QS and APs. VCs other, gave HEP Gait Training Gait Activity Stair training Comments Left rail: pt faces left rail and holds with both hands and ascends with right foot first and then follows with left foot, step-to gait. Step-to to descend with left foot and then right foot 6MWT Comments Pt has increased left knee pain and right hip pain with increasing gait distance and stopped at gait after 2 min 32 sec. Pt is able to gait train 437 feet in this time frame. Pain gets up to 5-6/10 left knee and 7/10 right hip. Self-Care/Home Management Treatment Education Other Education Get walker out of storage and start using, also start using thigh high compression again before surgery since edema was a problem after last surgery, icing and pre-/post-op TKR exercises PT-OP-T Assessment and Plan Start: 06/01/20 07:21 Freq: Status: Active Protocol: Document 06/01/20 08:57 MB (Rec: 06/01/20 15:33 MB [id number]) Physical Therapy Assessment Rehab Potential Rehabilitation Potential Good Evaluation Complexity Number of Personal Factors/Comorbidities 1-2 Number of Body Systems Impaired 1-2 Clinical Presentation at Evaluation Evolving Impairments Impairments Activity Tolerance,Balance, Edema,Functional Activities, Functional Mobility,Gait, Integument,Pain,Posture,ROM, Sensation,Soft Tissue Mobility ,Strength,Transfers Other Impairments Pt reports B LE to feet decreased sensation that he feels is d/t neuropathy. He reports numbness around healed left TKR scar. His LLE edema is trace this date. Goals 8 [employer] Goal (LTG) Pt will perform at least 12 reps sit to stand without UE support in 30 sec to improve functional transfers by 2020. LTG Duration 12 weeks 7 [employer] Goal (LTG) Pt will gait train at least 1200 feet in 6 minutes without AD to improve community ambulation by 08/30/2020. LTG Duration 12 weeks Six [employer] Goal (LTG) Pt will deny falls for three months to decrease risk of injury by 08/30/2020 LTG Duration 12 weeks 5 Intermediate Goal (LTG) Pt will perform reciprocal gait on stairs for 5 steps with 1 rail to allow normal home entry by 08/30/2020. LTG Duration 12 weeks Four Impairment LEF score is 24/80, reflecting 70% impairment [facility] [employer] Goal (LTG) Pt will present with an improved LE functional index score to reflect no more than 30% impairment to improve functional mobility by 2020. LTG Duration 12 weeks Three [employer] Goal (LTG) Pt will present with improved left knee AROM to 0-125 deg to improve functional transfers by 08/30/2020. LTG Duration 12 weeks Two Intermediate Goal (LTG) Pt will present with improved B hip flexion, abduction, adduction, and left knee flexion, extension and ankle inversion and eversion to 5/5 to improve functional mobility by 08/30/2020. LTG Duration 12 weeks One Intermediate Goal (LTG) Pt will perform HEP with I including LE flexibility, strengthening, gait and balance exercises to improve function by 08/30/2020. LTG Duration 12 weeks Assessment Summary Assessment Pt is a 60 y/o male presenting with antalgic gait, ongoing left knee pain and newer onset right hip pain d/t one year of antalgic gait pattern, decreased left knee ROM and LLE strength in setting of L TKR a year ago with prosthesis failure. Pt will benefit from PT to improve pain, range, flexiblity, balance, gait and strength. This therapist worked with pt over his last PT course post-op left TKR and he was a very hard worker and participated well with clinic and home exercise. Anticipate progress note on first visit after his second left TKR . Physical Therapy Plan Frequency and Duration Frequency of Treatment 2x/Week Duration of Treatment 12 weeks Plan of Care Start Date 06/01/20 Plan of Care End Date 08/30/20 Therapeutic Interventions Therapeutic Interventions Balance Training,Canalithic Repositioning,Gait Training, Home Exercise Program,Joint Mobilizations,Manual Therapy, Neuromuscular Re-education, Patient/Caregiver Education, Self-Care/Home Management, Sensory Integration,Soft Tissue Mobilization,Taping, Therapeutic Activities, Therapeutic Exercises Modalities Cold Pack/Ice Massage,Electric Stimulation,Hot Packs, Ultrasound Next Visit Focus/Plan Next Note Type Treatment Note Next Visit Plan Progress note post-op and initiate manual work and exercise, recumbent stepper
--- NOTE | 2020-06-01 15:33 | PT.OPPOC ---
Physical, Occupational & Speech Therapy At [facility] Current Diagnoses Unilateral primary osteoarthritis, left knee (06/01/20) Other tear of medial meniscus, current injury, left knee, initial encounter (06/01/20) Presence of left artificial knee joint (06/01/20) Visit Care Team Role Provider Type Mohsen Blanco MD Family Provider Physician Primary Care Provider Specialty: Internal Medicine Address: [address] [place] [address], [address] Email: [email or web address] Davin Gonsalez MD Attending Provider Physician Referring Provider Specialty: Orthopedic Surgery Address: [address] [place] [address], [address] Email: [email or web address] Plan Of Care PT-OP-T Assessment and Plan Start: 06/01/20 07:21 Freq: Status: Active Protocol: Document 06/01/20 08:57 MB (Rec: 06/01/20 15:33 MB [id number]) Physical Therapy Assessment Rehab Potential Rehabilitation Potential Good Evaluation Complexity Number of Personal Factors/Comorbidities 1-2 Number of Body Systems Impaired 1-2 Clinical Presentation at Evaluation Evolving Impairments Impairments Activity Tolerance,Balance, Edema,Functional Activities, Functional Mobility,Gait, Integument,Pain,Posture,ROM, Sensation,Soft Tissue Mobility ,Strength,Transfers Other Impairments Pt reports B LE to feet decreased sensation that he feels is d/t neuropathy. He reports numbness around healed left TKR scar. His LLE edema is trace this date. Goals 8 [facility] Goal (LTG) Pt will perform at least 12 reps sit to stand without UE support in 30 sec to improve functional transfers by 2020. LTG Duration 12 weeks 7 [employer] Goal (LTG) Pt will gait train at least 1200 feet in 6 minutes without AD to improve community ambulation by 08/30/2020. LTG Duration 12 weeks Six [employer] Goal (LTG) Pt will deny falls for three months to decrease risk of injury by 08/30/2020 LTG Duration 12 weeks 5 [employer] Goal (LTG) Pt will perform reciprocal gait on stairs for 5 steps with 1 rail to allow normal home entry by 08/30/2020. LTG Duration 12 weeks Four Impairment LEF score is 24/80, reflecting 70% impairment [facility] [employer] Goal (LTG) Pt will present with an improved LE functional index score to reflect no more than 30% impairment to improve functional mobility by 2020. LTG Duration 12 weeks Three [facility] Goal (LTG) Pt will present with improved left knee AROM to 0-125 deg to improve functional transfers by 08/30/2020. LTG Duration 12 weeks Two [facility] Goal (LTG) Pt will present with improved B hip flexion, abduction, adduction, and left knee flexion, extension and ankle inversion and eversion to 5/5 to improve functional mobility by 08/30/2020. LTG Duration 12 weeks One [facility] Goal (LTG) Pt will perform HEP with I including LE flexibility, strengthening, gait and balance exercises to improve function by 08/30/2020. LTG Duration 12 weeks Assessment Summary Assessment Pt is a 60 y/o male presenting with antalgic gait, ongoing left knee pain and newer onset right hip pain d/t one year of antalgic gait pattern, decreased left knee ROM and LLE strength in setting of L TKR a year ago with prosthesis failure. Pt will benefit from PT to improve pain, range, flexiblity, balance, gait and strength. This therapist worked with pt over his last PT course post-op left TKR and he was a very hard worker and participated well with clinic and home exercise. Anticipate progress note on first visit after his second left TKR . Physical Therapy Plan Frequency and Duration Frequency of Treatment 2x/Week Duration of Treatment 12 weeks Plan of Care Start Date 06/01/20 Plan of Care End Date 08/30/20 Therapeutic Interventions Therapeutic Interventions Balance Training,Canalithic Repositioning,Gait Training, Home Exercise Program,Joint Mobilizations,Manual Therapy, Neuromuscular Re-education, Patient/Caregiver Education, Self-Care/Home Management, Sensory Integration,Soft Tissue Mobilization,Taping, Therapeutic Activities, Therapeutic Exercises Modalities Cold Pack/Ice Massage,Electric Stimulation,Hot Packs, Ultrasound Next Visit Focus/Plan Next Note Type Treatment Note Next Visit Plan Progress note post-op and initiate manual work and exercise, recumbent stepper Plan of Care Dates Plan of Care Start Date 06/01/20 Plan of Care End Date 08/30/20 Electronically Signed by: Diana Diallo, PT 06/01/20 1533 Please Sign and Return: I have reviewed this Plan of Care and certify that the skilled therapy services above are required to meet the patient?s needs. Physician Signature Date Printed Name and Credentials Clinical Instructor Signature Printed Name and Credentials
--- NOTE | 2020-06-29 13:07 | PT-OP ANOTE ---
Pt calls pt who states that he had a tooth pulled 3 weeks ago d/t infection and despite asking for antibiotics since he was pre-op total knee revision, the dentist did not give him antibiotics. His surgery is rescheduled for next week, 07/05/20. His first follow-up with OPPT is scheduled for 07/10/20.
--- NOTE | 2020-07-10 11:16 | PT.OTN ---
Current Diagnoses Unilateral primary osteoarthritis, left knee (07/10/20) Other tear of medial meniscus, current injury, left knee, initial encounter (07/10/20) Presence of left artificial knee joint (07/10/20) Physical Therapy Treatment Note PT-OP-A Visit Information Start: 06/01/20 07:21 Freq: Status: Active Protocol: Document 07/10/20 09:49 MB (Rec: 07/10/20 10:28 MB [id number]) Out-Patient Physical Therapy Visit Information Visit Information Visit Type Progress Note Visit Note Workers Comp/L&I Visit Start Time 09:49 Visit Stop Time 10:30 Total Visit Minutes 41 Visit Number 2 PT-OP-B Current Condition Start: 06/01/20 07:21 Freq: Status: Active Protocol: Document 06/01/20 08:57 MB (Rec: 06/01/20 09:32 MB [id number]) Current Condition History of Current Condition Onset Date August 2018 Current Complaints Left knee pain and right hip pain History of Current Condition In March 2018, a crate fell over him at work and pinned him up against a motor home. His trunk went forward and his left leg hyperextended. He underwent a meniscal surgery in early 2018. He con't to have pain. He received PT and did not get better. He finally underwent left TKR 05/14/2019 and had immediate pain post- op. He participated with PT and did not make significant improvements in pain, gait and range. PT sent pt back to surgeon and it was determined that there was a mechanical problem with prosthesis, on the lateral side. Pt's pain and clicking had consistently been at the lateral posterior left knee. The plan was for pt to transition to aquatic therapy while waiting for possible surgery the end of 2019 when the pool closed d/t COVID. He is currently scheduled for a revision on 06/12/2020. Pt con't with antalgic gait, favoring the left knee and he has new onset of right hip pain for 6 months after altered gait. He has a history of right THR. Left knee pain gets up to 5-6/10. He has not been walking with walker. He has not been icing or wearing thigh high compression. He has been performing heel slides. 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 Pt lives in a RV and has 5 steps to enter with left rail. He is currently driving. PMH: smoking, arthritis, HTN. Pt has had some falls and he fell down steps this summer. He is okay. Prior Treatments and Tests L TKR 05/14/2019, post-op PT, reconsult with orthopedic surgeon and deemed appropriate for another TKR end of 2019 Treatment Goals Patient/Caregiver Goals To decrease pain, improve range of motion and gait and get back to work. PT-OP-C Subjective Start: 06/01/20 07:21 Freq: Status: Active Protocol: Document 07/10/20 09:49 MB (Rec: 07/10/20 10:28 MB [id number]) OP-PT Subjective Patient Comments Patient Comments Pt underwent L TKR poly exchange on 07/05/20. He had hypoxia post-op and reports some ongoing effects of anesthesia. He will have follow-up with flight service specialist. His pain is 3-4/ 10 with gait with rolling walker. Patient Questionnaires Lower Extremity Functional Scale LEFS Score 8 LEFS Impairment 80 to 99% Impaired (Score 1-16 ) OP-PT Pain Assessment Location Left Knee Pain Location Details Posterior left knee Intensity 4 PT-OP-G Mobility & Gait Start: 06/01/20 07:21 Freq: Status: Active Protocol: Document 06/01/20 08:57 MB (Rec: 06/01/20 15:10 MB [id number]) OP Gait Assessment Comments Gait Comments Wide MAYNOR, decreased step- length and foot clearance, limited step-length, greater on the left with decreased left knee flexion and extension, right hip hike and decreased right hip flexion and extension. Stiff walking posture and increased lateral sway with gait. Pt states that he has not wanted to use cane or walker and so he does not bring in AD for assessment. PT-OP-K Range of Motion Start: 06/01/20 07:21 Freq: Status: Active Protocol: Document 06/01/20 08:57 MB (Rec: 06/01/20 15:33 MB [id number]) Knee Goniometric Range of Motion Knee Left Knee ROM WFL No Patient Position Supine Comments L knee AROM in hook lying is 6 -123 deg Right Knee ROM WFL Yes Patient Position Supine Comments R knee AROM in hook lying is 0 -125 deg Ankle and Foot Goniometric Range of Motion Ankle and Foot ROM Limitations Comments Left ankle inversion is reduced compared to the right PT-OP-M Strength Start: 06/01/20 07:21 Freq: Status: Active Protocol: Document 06/01/20 08:57 MB (Rec: 06/01/20 15:33 MB [id number]) Hip Strength Hip Manual Muscle Testing Left Flexion (L2) 4 Good Abduction 5 Normal Adduction 4 Good Right Flexion (L2) 5 Normal Abduction 4 Good Adduction 5 Normal Knee Strength Knee Manual Muscle Testing Left Flexion (S2) 3- Fair- Extension (L3) 4 Good Comments Pt reports 8/10 pain left posterior knee with left knee flexion MMT Right Flexion (S2) 5 Normal Extension (L3) 5 Normal Ankle/Foot Strength Ankle and Foot Manual Muscle Testing Left Dorsiflexion (L4) 5 Normal Inversion 3 Fair Eversion (S1) 4 Good Comments Pt reports increased left knee pain with inversion and eversion MMT Right Dorsiflexion (L4) 5 Normal Inversion 5 Normal Eversion (S1) 5 Normal PT-OP-Q Treatments Start: 06/01/20 07:21 Freq: Status: Active Protocol: Document 07/10/20 09:49 MB (Rec: 07/10/20 10:28 MB [id number]) Cardio Equipment Recumbent Stepper (Sci-Fit) Duration (Minutes) 10 Resistance 14 Seat Position 1 Other O2 sats and HR in right index: 89%, 71 BPM Therapeutic Exercises Supine Exercises Pre-op HS, GS, QS, hip abduction Side bilateral Comments 10 reps APs, 5 reps QS, GS and HS. Left knee AROM: 8-86 deg Gait Training Gait Activity Gait with walker Comments 100', 50' with cues to improve left knee flexion, extension and step-through and gait is antalgic Self-Care/Home Management Treatment Education Other Education Ed in use of incentive spirometer, ROM exercises, need to wear shorts or loose pants to PT, use of ice and LLE elevation PT-OP-T Assessment and Plan Start: 06/01/20 07:21 Freq: Status: Active Protocol: Document 07/10/20 09:49 MB (Rec: 07/10/20 10:28 MB [id number]) Physical Therapy Assessment Rehab Potential Rehabilitation Potential Good Evaluation Complexity Number of Personal Factors/Comorbidities 1-2 Number of Body Systems Impaired 1-2 Clinical Presentation at Evaluation Evolving Impairments Impairments Activity Tolerance,Balance, Edema,Functional Activities, Functional Mobility,Gait, Integument,Pain,Posture,ROM, Sensation,Soft Tissue Mobility ,Strength,Transfers Other Impairments Pt reports B LE to feet decreased sensation that he feels is d/t neuropathy. He reports numbness around healed left TKR scar. His LLE edema is trace this date. Goals 8 Scientific Technical Writer Goal (LTG) Pt will perform at least 12 reps sit to stand without UE support in 30 sec to improve functional transfers by 2020. 07/10/20: Deferred today post- op LTG Duration 8 weeks 7 Scientific Technical Writer Goal (LTG) Pt will gait train at least 1200 feet in 6 minutes without AD to improve community ambulation by 09/07/2020. 07/10/20: Pt gait trains 100' with RW and antalgic gait today, decreased left knee flexion and extension LTG Duration 8 weeks Six Detention Goal (LTG) Pt will deny falls for three months to decrease risk of injury by 09/07/2020. 07/10/20: Pt just left hospital yesterday and no falls at home LTG Duration 8 weeks 5 Detention Goal (LTG) Pt will perform reciprocal gait on stairs for 5 steps with 1 rail to allow normal home entry by 09/07/2020. 07/10/20: Deferred today immediately post-op LTG Duration 8 weeks Four Impairment LEF score is 8/80, reflecting 90% impairment Detention Goal (LTG) Pt will present with an improved LE functional index score to reflect no more than 30% impairment to improve functional mobility by 2020. 07/10/20: LEF score reflects 90 % impairment immediately post- op LTG Duration 8 weeks Three Detention Goal (LTG) Pt will present with improved left knee AROM to 0-125 deg to improve functional transfers by 09/07/2020. 07/10/20: Left knee AROM 8-86 deg in supine LTG Duration 8 weeks Two Detention Goal (LTG) Pt will present with improved B hip flexion, abduction, adduction, and left knee flexion, extension and ankle inversion and eversion to 5/5 to improve functional mobility by 08/30/2020. 07/10/20: MMT deferred immediately post-op LTG Duration 8 weeks One Scientific Technical Writer Goal (LTG) Pt will perform HEP with I including LE flexibility, strengthening, gait and balance exercises to improve function by 08/30/2020. 07/10/20: Pt is performing post -op exercises LTG Duration 8 weeks Assessment Summary Assessment Pt is post-op poly exchange for L TKR on 07/05/20. He had hypoxia post-op and is going to have follow-up with flight service specialist. CTPA revealed small nodule right lower lobe and dependent atelectasis. ECHO revealed moderately enlarged ascending aorta. O2 sats on RA right index finger after 100' gait with RW: 87% and increases to 91% after sitting and pursed- lip breathing. HR 87-89 BPM with gait and decreases to 67 BPM with sitting several minutes. Pt does state that his pain and edema do seem a little better post-op this time than 2019 after L TKR. Pt is using incentive spirometer at home. His pants do not come up today and so PT cannot fully examine left knee integumentary presentation. Pt will wear shorts or loose pants next treatment. Pt does have a PICA drain pump. O2 sats 90% in supine and HR 64 BPM in supine. Addressed goals today and they con't to be appropriate post-op. His pain, LEF index score and range are different post-op but pt reports feeling more confident about the surgery this time and PT is in agreement. Pt will benefit from PT to improve gait, range, strength and balance in order to prepare return to prior level of function. Physical Therapy Plan Frequency and Duration Frequency of Treatment 2x/Week Duration of Treatment 8 weeks Plan of Care Start Date 07/10/20 Plan of Care End Date 09/07/20 Therapeutic Interventions Therapeutic Interventions Balance Training,Canalithic Repositioning,Gait Training, Home Exercise Program,Joint Mobilizations,Manual Therapy, Neuromuscular Re-education, Patient/Caregiver Education, Self-Care/Home Management, Sensory Integration,Soft Tissue Mobilization,Taping, Therapeutic Activities, Therapeutic Exercises Modalities Cold Pack/Ice Massage,Electric Stimulation,Hot Packs, Ultrasound Next Visit Focus/Plan Next Note Type Treatment Note Next Visit Plan Manual work and stepper
--- NOTE | 2020-07-13 10:32 | PT.OTN ---
Current Diagnoses Unilateral primary osteoarthritis, left knee (07/13/20) Other tear of medial meniscus, current injury, left knee, initial encounter (07/13/20) Presence of left artificial knee joint (07/13/20) Physical Therapy Treatment Note PT-OP-A Visit Information Start: 06/01/20 07:21 Freq: Status: Active Protocol: Document 07/13/20 09:47 MB (Rec: 07/13/20 10:03 MB [id number]) Out-Patient Physical Therapy Visit Information Visit Information Visit Type Treatment Note Visit Start Time 09:47 Visit Stop Time 10:30 Total Visit Minutes 43 Visit Number 3 PT-OP-B Current Condition Start: 06/01/20 07:21 Freq: Status: Active Protocol: Document 06/01/20 08:57 MB (Rec: 06/01/20 09:32 MB [id number]) Current Condition History of Current Condition Onset Date August 2018 Current Complaints Left knee pain and right hip pain History of Current Condition In March 2018, a crate fell over him at work and pinned him up against a motor home. His trunk went forward and his left leg hyperextended. He underwent a meniscal surgery in early 2018. He con't to have pain. He received PT and did not get better. He finally underwent left TKR 05/14/2019 and had immediate pain post- op. He participated with PT and did not make significant improvements in pain, gait and range. PT sent pt back to surgeon and it was determined that there was a mechanical problem with prosthesis, on the lateral side. Pt's pain and clicking had consistently been at the lateral posterior left knee. The plan was for pt to transition to aquatic therapy while waiting for possible surgery the end of 2019 when the pool closed d/t COVID. He is currently scheduled for a revision on 06/12/2020. Pt con't with antalgic gait, favoring the left knee and he has new onset of right hip pain for 6 months after altered gait. He has a history of right THR. Left knee pain gets up to 5-6/10. He has not been walking with walker. He has not been icing or wearing thigh high compression. He has been performing heel slides. 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 Pt lives in a RV and has 5 steps to enter with left rail. He is currently driving. PMH: smoking, arthritis, HTN. Pt has had some falls and he fell down steps this summer. He is okay. Prior Treatments and Tests L TKR 05/14/2019, post-op PT, reconsult with orthopedic surgeon and deemed appropriate for another TKR end of 2019 Treatment Goals Patient/Caregiver Goals To decrease pain, improve range of motion and gait and get back to work. PT-OP-C Subjective Start: 06/01/20 07:21 Freq: Status: Active Protocol: Document 07/13/20 09:47 MB (Rec: 07/13/20 10:03 MB [id number]) OP-PT Subjective Patient Comments Patient Comments It was a little sore after therapy. PT-OP-G Mobility & Gait Start: 06/01/20 07:21 Freq: Status: Active Protocol: Document 06/01/20 08:57 MB (Rec: 06/01/20 15:10 MB [id number]) OP Gait Assessment Comments Gait Comments Wide MAYNOR, decreased step- length and foot clearance, limited step-length, greater on the left with decreased left knee flexion and extension, right hip hike and decreased right hip flexion and extension. Stiff walking posture and increased lateral sway with gait. Pt states that he has not wanted to use cane or walker and so he does not bring in AD for assessment. PT-OP-K Range of Motion Start: 06/01/20 07:21 Freq: Status: Active Protocol: Document 06/01/20 08:57 MB (Rec: 06/01/20 15:33 MB [id number]) Knee Goniometric Range of Motion Knee Left Knee ROM WFL No Patient Position Supine Comments L knee AROM in hook lying is 6 -123 deg Right Knee ROM WFL Yes Patient Position Supine Comments R knee AROM in hook lying is 0 -125 deg Ankle and Foot Goniometric Range of Motion Ankle and Foot ROM Limitations Comments Left ankle inversion is reduced compared to the right PT-OP-M Strength Start: 06/01/20 07:21 Freq: Status: Active Protocol: Document 06/01/20 08:57 MB (Rec: 06/01/20 15:33 MB [id number]) Hip Strength Hip Manual Muscle Testing Left Flexion (L2) 4 Good Abduction 5 Normal Adduction 4 Good Right Flexion (L2) 5 Normal Abduction 4 Good Adduction 5 Normal Knee Strength Knee Manual Muscle Testing Left Flexion (S2) 3- Fair- Extension (L3) 4 Good Comments Pt reports 8/10 pain left posterior knee with left knee flexion MMT Right Flexion (S2) 5 Normal Extension (L3) 5 Normal Ankle/Foot Strength Ankle and Foot Manual Muscle Testing Left Dorsiflexion (L4) 5 Normal Inversion 3 Fair Eversion (S1) 4 Good Comments Pt reports increased left knee pain with inversion and eversion MMT Right Dorsiflexion (L4) 5 Normal Inversion 5 Normal Eversion (S1) 5 Normal PT-OP-Q Treatments Start: 06/01/20 07:21 Freq: Status: Active Protocol: Document 07/13/20 09:47 MB (Rec: 07/13/20 10:03 MB [id number]) Cardio Equipment Recumbent Stepper (Sci-Fit) Duration (Minutes) 10 Resistance 14 Seat Position 2 Other O2 sats 89-90% and HR 72 BPM left index finger Therapeutic Exercises Supine Exercises SLR with QS and toes up to start Comments Many assisted reps today Pre-op HS, GS, QS, hip abduction Comments Multiple assisted HS today with manual work Manual Therapy Treatment Other Other Manual Treatments LLE: STM plantar flexors, posterior knee, rectus femoris and vastus lateralis, assisted ROM HS (flexion) and mini SLR, resisted isometric adduction and abduction of hip PT-OP-T Assessment and Plan Start: 06/01/20 07:21 Freq: Status: Active Protocol: Document 07/13/20 09:47 MB (Rec: 07/13/20 10:03 MB [id number]) Physical Therapy Assessment Rehab Potential Rehabilitation Potential Good Evaluation Complexity Number of Personal Factors/Comorbidities 1-2 Number of Body Systems Impaired 1-2 Clinical Presentation at Evaluation Evolving Impairments Impairments Activity Tolerance,Balance, Edema,Functional Activities, Functional Mobility,Gait, Integument,Pain,Posture,ROM, Sensation,Soft Tissue Mobility ,Strength,Transfers Other Impairments Pt reports B LE to feet decreased sensation that he feels is d/t neuropathy. He reports numbness around healed left TKR scar. His LLE edema is trace this date. Goals 8 Naturopathic Oncology Provider Goal (LTG) Pt will perform at least 12 reps sit to stand without UE support in 30 sec to improve functional transfers by 2020. 07/10/20: Deferred today post- op LTG Duration 8 weeks 7 Naturopathic Oncology Provider Goal (LTG) Pt will gait train at least 1200 feet in 6 minutes without AD to improve community ambulation by 09/07/2020. 07/10/20: Pt gait trains 100' with RW and antalgic gait today, decreased left knee flexion and extension LTG Duration 8 weeks Six Group Home Goal (LTG) Pt will deny falls for three months to decrease risk of injury by 09/07/2020. 07/10/20: Pt just left hospital yesterday and no falls at home LTG Duration 8 weeks 5 Group Home Goal (LTG) Pt will perform reciprocal gait on stairs for 5 steps with 1 rail to allow normal home entry by 09/07/2020. 07/10/20: Deferred today immediately post-op LTG Duration 8 weeks Four Impairment LEF score is 8/80, reflecting 90% impairment Group Home Goal (LTG) Pt will present with an improved LE functional index score to reflect no more than 30% impairment to improve functional mobility by 2020. 07/10/20: LEF score reflects 90 % impairment immediately post- op LTG Duration 8 weeks Three Naturopathic Oncology Provider Goal (LTG) Pt will present with improved left knee AROM to 0-125 deg to improve functional transfers by 09/07/2020. 07/10/20: Left knee AROM 8-86 deg in supine LTG Duration 8 weeks Two Naturopathic Oncology Provider Goal (LTG) Pt will present with improved B hip flexion, abduction, adduction, and left knee flexion, extension and ankle inversion and eversion to 5/5 to improve functional mobility by 08/30/2020. 07/10/20: MMT deferred immediately post-op LTG Duration 8 weeks One Group Home Goal (LTG) Pt will perform HEP with I including LE flexibility, strengthening, gait and balance exercises to improve function by 08/30/2020. 07/10/20: Pt is performing post -op exercises LTG Duration 8 weeks Assessment Summary Assessment Pt does well on recumbent stepper today. His left knee has some swelling and he responds well to manual work today. O2 sats 89-90% after using stepper today. Con't to encourage pt to use his incentive spirometer at home, work on walking, HS and SLR. Progress range of motion and flexibility exercises. Physical Therapy Plan Frequency and Duration Frequency of Treatment 2x/Week Duration of Treatment 8 weeks Plan of Care Start Date 07/10/20 Plan of Care End Date 09/07/20 Therapeutic Interventions Therapeutic Interventions Balance Training,Canalithic Repositioning,Gait Training, Home Exercise Program,Joint Mobilizations,Manual Therapy, Neuromuscular Re-education, Patient/Caregiver Education, Self-Care/Home Management, Sensory Integration,Soft Tissue Mobilization,Taping, Therapeutic Activities, Therapeutic Exercises Modalities Cold Pack/Ice Massage,Electric Stimulation,Hot Packs, Ultrasound Next Visit Focus/Plan Next Note Type Treatment Note Next Visit Plan Manual work and progress flexibility and ROM exercises
--- NOTE | 2020-07-17 10:31 | PT.OTN ---
Current Diagnoses Unilateral primary osteoarthritis, left knee (07/17/20) Other tear of medial meniscus, current injury, left knee, initial encounter (07/17/20) Presence of left artificial knee joint (07/17/20) Physical Therapy Treatment Note PT-OP-A Visit Information Start: 06/01/20 07:21 Freq: Status: Active Protocol: Document 07/17/20 09:50 MB (Rec: 07/17/20 10:30 MB [id number]) Out-Patient Physical Therapy Visit Information Visit Information Visit Type Treatment Note Visit Start Time 09:50 Visit Stop Time 10:30 Total Visit Minutes 40 Visit Number 4 PT-OP-B Current Condition Start: 06/01/20 07:21 Freq: Status: Active Protocol: Document 06/01/20 08:57 MB (Rec: 06/01/20 09:32 MB [id number]) Current Condition History of Current Condition Onset Date August 2018 Current Complaints Left knee pain and right hip pain History of Current Condition In March 2018, a crate fell over him at work and pinned him up against a motor home. His trunk went forward and his left leg hyperextended. He underwent a meniscal surgery in early 2018. He con't to have pain. He received PT and did not get better. He finally underwent left TKR 05/14/2019 and had immediate pain post- op. He participated with PT and did not make significant improvements in pain, gait and range. PT sent pt back to surgeon and it was determined that there was a mechanical problem with prosthesis, on the lateral side. Pt's pain and clicking had consistently been at the lateral posterior left knee. The plan was for pt to transition to aquatic therapy while waiting for possible surgery the end of 2019 when the pool closed d/t COVID. He is currently scheduled for a revision on 06/12/2020. Pt con't with antalgic gait, favoring the left knee and he has new onset of right hip pain for 6 months after altered gait. He has a history of right THR. Left knee pain gets up to 5-6/10. He has not been walking with walker. He has not been icing or wearing thigh high compression. He has been performing heel slides. 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 Pt lives in a RV and has 5 steps to enter with left rail. He is currently driving. PMH: smoking, arthritis, HTN. Pt has had some falls and he fell down steps this summer. He is okay. Prior Treatments and Tests L TKR 05/14/2019, post-op PT, reconsult with orthopedic surgeon and deemed appropriate for another TKR end of 2019 Treatment Goals Patient/Caregiver Goals To decrease pain, improve range of motion and gait and get back to work. PT-OP-C Subjective Start: 06/01/20 07:21 Freq: Status: Active Protocol: Document 07/17/20 09:50 MB (Rec: 07/17/20 10:30 MB [id number]) OP-PT Subjective Patient Comments Patient Comments I've been sleeping a lot. I think the range is at least to 90. PT-OP-G Mobility & Gait Start: 06/01/20 07:21 Freq: Status: Active Protocol: Document 06/01/20 08:57 MB (Rec: 06/01/20 15:10 MB [id number]) OP Gait Assessment Comments Gait Comments Wide MAYNOR, decreased step- length and foot clearance, limited step-length, greater on the left with decreased left knee flexion and extension, right hip hike and decreased right hip flexion and extension. Stiff walking posture and increased lateral sway with gait. Pt states that he has not wanted to use cane or walker and so he does not bring in AD for assessment. PT-OP-K Range of Motion Start: 06/01/20 07:21 Freq: Status: Active Protocol: Document 06/01/20 08:57 MB (Rec: 06/01/20 15:33 MB [id number]) Knee Goniometric Range of Motion Knee Left Knee ROM WFL No Patient Position Supine Comments L knee AROM in hook lying is 6 -123 deg Right Knee ROM WFL Yes Patient Position Supine Comments R knee AROM in hook lying is 0 -125 deg Ankle and Foot Goniometric Range of Motion Ankle and Foot ROM Limitations Comments Left ankle inversion is reduced compared to the right PT-OP-M Strength Start: 06/01/20 07:21 Freq: Status: Active Protocol: Document 06/01/20 08:57 MB (Rec: 06/01/20 15:33 MB [id number]) Hip Strength Hip Manual Muscle Testing Left Flexion (L2) 4 Good Abduction 5 Normal Adduction 4 Good Right Flexion (L2) 5 Normal Abduction 4 Good Adduction 5 Normal Knee Strength Knee Manual Muscle Testing Left Flexion (S2) 3- Fair- Extension (L3) 4 Good Comments Pt reports 8/10 pain left posterior knee with left knee flexion MMT Right Flexion (S2) 5 Normal Extension (L3) 5 Normal Ankle/Foot Strength Ankle and Foot Manual Muscle Testing Left Dorsiflexion (L4) 5 Normal Inversion 3 Fair Eversion (S1) 4 Good Comments Pt reports increased left knee pain with inversion and eversion MMT Right Dorsiflexion (L4) 5 Normal Inversion 5 Normal Eversion (S1) 5 Normal PT-OP-Q Treatments Start: 06/01/20 07:21 Freq: Status: Active Protocol: Document 07/17/20 09:50 MB (Rec: 07/17/20 10:30 MB [id number]) Cardio Equipment Recumbent Stepper (Sci-Fit) Duration (Minutes) 10 Resistance 14 Seat Position 3-4 Other O2 sats 91% and HR 71 BPM Therapeutic Exercises Sitting Exercises Sitting HS Comments LLE today Sitting hamstring stretch Comments B 30 sec hold Standing Exercises Hamstring curl, bar support Comments 5 reps, alternating Mini squat with bar Comments 5 reps slowly and pt reports posterior left knee discomfort Large august with UE support Comments 10 reps, alternating Manual Therapy Treatment Other Other Manual Treatments LLE: posterior distal and knee lavage and AAROM knee flexion and extension Self-Care/Home Management Treatment Activities Self-Care/Home Management Activities Measured pt for compression hose and he is size large, ed on wear and use PT-OP-T Assessment and Plan Start: 06/01/20 07:21 Freq: Status: Active Protocol: Document 07/17/20 09:50 MB (Rec: 07/17/20 10:30 MB [id number]) Physical Therapy Assessment Rehab Potential Rehabilitation Potential Good Evaluation Complexity Number of Personal Factors/Comorbidities 1-2 Number of Body Systems Impaired 1-2 Clinical Presentation at Evaluation Evolving Impairments Impairments Activity Tolerance,Balance, Edema,Functional Activities, Functional Mobility,Gait, Integument,Pain,Posture,ROM, Sensation,Soft Tissue Mobility ,Strength,Transfers Other Impairments Pt reports B LE to feet decreased sensation that he feels is d/t neuropathy. He reports numbness around healed left TKR scar. His LLE edema is trace this date. Goals 8 [facility] Goal (LTG) Pt will perform at least 12 reps sit to stand without UE support in 30 sec to improve functional transfers by 2020. 07/10/20: Deferred today post- op LTG Duration 8 weeks 7 [facility] Goal (LTG) Pt will gait train at least 1200 feet in 6 minutes without AD to improve community ambulation by 09/07/2020. 07/10/20: Pt gait trains 100' with RW and antalgic gait today, decreased left knee flexion and extension LTG Duration 8 weeks Six Washing And Screening Plant Supervisor Goal (LTG) Pt will deny falls for three months to decrease risk of injury by 09/07/2020. 07/10/20: Pt just left hospital yesterday and no falls at home LTG Duration 8 weeks 5 Washing And Screening Plant Supervisor Goal (LTG) Pt will perform reciprocal gait on stairs for 5 steps with 1 rail to allow normal home entry by 09/07/2020. 07/10/20: Deferred today immediately post-op LTG Duration 8 weeks Four Impairment LEF score is 8/80, reflecting 90% impairment [facility] Goal (LTG) Pt will present with an improved LE functional index score to reflect no more than 30% impairment to improve functional mobility by 2020. 07/10/20: LEF score reflects 90 % impairment immediately post- op LTG Duration 8 weeks Three W[employer] And Screening Plant Supervisor Goal (LTG) Pt will present with improved left knee AROM to 0-125 deg to improve functional transfers by 09/07/2020. 07/10/20: Left knee AROM 8-86 deg in supine LTG Duration 8 weeks Two [facility] Goal (LTG) Pt will present with improved B hip flexion, abduction, adduction, and left knee flexion, extension and ankle inversion and eversion to 5/5 to improve functional mobility by 08/30/2020. 07/10/20: MMT deferred immediately post-op LTG Duration 8 weeks One W[employer] And Screening Plant Supervisor Goal (LTG) Pt will perform HEP with I including LE flexibility, strengthening, gait and balance exercises to improve function by 08/30/20: 07/17/20: Pt is performing the following HEP exercises: mini squat, standing hamstring curl , large march with UE support all standing exercises, HS, sitting HS, hamstring stretch (sitting) LTG Duration 8 weeks Assessment Summary Assessment Pt is not SOB when using recumbent stepper at level 2 today. Increased resistance. Measured pt for compression hose and ed him on benefits of ordering large thigh high hose with 15-20 mmHg. Manual work today to assist with LE edema Physical Therapy Plan Frequency and Duration Frequency of Treatment 2x/Week Duration of Treatment 8 weeks Plan of Care Start Date 07/10/20 Plan of Care End Date 09/07/20 Therapeutic Interventions Therapeutic Interventions Balance Training,Canalithic Repositioning,Gait Training, Home Exercise Program,Joint Mobilizations,Manual Therapy, Neuromuscular Re-education, Patient/Caregiver Education, Self-Care/Home Management, Sensory Integration,Soft Tissue Mobilization,Taping, Therapeutic Activities, Therapeutic Exercises Modalities Cold Pack/Ice Massage,Electric Stimulation,Hot Packs, Ultrasound Next Visit Focus/Plan Next Note Type Treatment Note Next Visit Plan Progress range and strengthening exercises, manual work
--- NOTE | 2020-07-20 10:32 | PT.OTN ---
Current Diagnoses Unilateral primary osteoarthritis, left knee (07/20/20) Other tear of medial meniscus, current injury, left knee, initial encounter (07/20/20) Presence of left artificial knee joint (07/20/20) Physical Therapy Treatment Note PT-OP-A Visit Information Start: 06/01/20 07:21 Freq: Status: Active Protocol: Document 07/20/20 09:47 MB (Rec: 07/20/20 10:03 MB [id number]) Out-Patient Physical Therapy Visit Information Visit Information Visit Type Treatment Note Visit Note Workers Compensation/Self- insured/L&I 10/28 visits Visit Start Time 09:47 Visit Stop Time 10:25 Total Visit Minutes 38 Visit Number 5 PT-OP-B Current Condition Start: 06/01/20 07:21 Freq: Status: Active Protocol: Document 06/01/20 08:57 MB (Rec: 06/01/20 09:32 MB [id number]) Current Condition History of Current Condition Onset Date August 2018 Current Complaints Left knee pain and right hip pain History of Current Condition In March 2018, a crate fell over him at work and pinned him up against a motor home. His trunk went forward and his left leg hyperextended. He underwent a meniscal surgery in early 2018. He con't to have pain. He received PT and did not get better. He finally underwent left TKR 05/14/2019 and had immediate pain post- op. He participated with PT and did not make significant improvements in pain, gait and range. PT sent pt back to surgeon and it was determined that there was a mechanical problem with prosthesis, on the lateral side. Pt's pain and clicking had consistently been at the lateral posterior left knee. The plan was for pt to transition to aquatic therapy while waiting for possible surgery the end of 2019 when the pool closed d/t COVID. He is currently scheduled for a revision on 06/12/2020. Pt con't with antalgic gait, favoring the left knee and he has new onset of right hip pain for 6 months after altered gait. He has a history of right THR. Left knee pain gets up to 5-6/10. He has not been walking with walker. He has not been icing or wearing thigh high compression. He has been performing heel slides. He has not been able to work on [employer] d/t his condition. Pt lives in a RV and has 5 steps to enter with left rail. He is currently driving. PMH: smoking, arthritis, HTN. Pt has had some falls and he fell down steps this summer. He is okay. Prior Treatments and Tests L TKR 05/14/2019, post-op PT, reconsult with orthopedic surgeon and deemed appropriate for another TKR end of 2019 Treatment Goals Patient/Caregiver Goals To decrease pain, improve range of motion and gait and get back to work. PT-OP-C Subjective Start: 06/01/20 07:21 Freq: Status: Active Protocol: Document 07/20/20 09:47 MB (Rec: 07/20/20 10:03 MB [id number]) OP-PT Subjective Patient Comments Patient Comments He was happy with the flexibility. Pt returned to Dr. Lawrence and got his bandage removed. Pt reports a little pinching in lateral left knee and behind the back of the knee. PT-OP-G Mobility & Gait Start: 06/01/20 07:21 Freq: Status: Active Protocol: Document 06/01/20 08:57 MB (Rec: 06/01/20 15:10 MB [id number]) OP Gait Assessment Comments Gait Comments Wide MAYNOR, decreased step- length and foot clearance, limited step-length, greater on the left with decreased left knee flexion and extension, right hip hike and decreased right hip flexion and extension. Stiff walking posture and increased lateral sway with gait. Pt states that he has not wanted to use cane or walker and so he does not bring in AD for assessment. PT-OP-K Range of Motion Start: 06/01/20 07:21 Freq: Status: Active Protocol: Document 06/01/20 08:57 MB (Rec: 06/01/20 15:33 MB [id number]) Knee Goniometric Range of Motion Knee Left Knee ROM WFL No Patient Position Supine Comments L knee AROM in hook lying is 6 -123 deg Right Knee ROM WFL Yes Patient Position Supine Comments R knee AROM in hook lying is 0 -125 deg Ankle and Foot Goniometric Range of Motion Ankle and Foot ROM Limitations Comments Left ankle inversion is reduced compared to the right PT-OP-M Strength Start: 06/01/20 07:21 Freq: Status: Active Protocol: Document 06/01/20 08:57 MB (Rec: 06/01/20 15:33 MB [id number]) Hip Strength Hip Manual Muscle Testing Left Flexion (L2) 4 Good Abduction 5 Normal Adduction 4 Good Right Flexion (L2) 5 Normal Abduction 4 Good Adduction 5 Normal Knee Strength Knee Manual Muscle Testing Left Flexion (S2) 3- Fair- Extension (L3) 4 Good Comments Pt reports 8/10 pain left posterior knee with left knee flexion MMT Right Flexion (S2) 5 Normal Extension (L3) 5 Normal Ankle/Foot Strength Ankle and Foot Manual Muscle Testing Left Dorsiflexion (L4) 5 Normal Inversion 3 Fair Eversion (S1) 4 Good Comments Pt reports increased left knee pain with inversion and eversion MMT Right Dorsiflexion (L4) 5 Normal Inversion 5 Normal Eversion (S1) 5 Normal PT-OP-Q Treatments Start: 06/01/20 07:21 Freq: Status: Active Protocol: Document 07/20/20 09:47 MB (Rec: 07/20/20 10:03 MB [id number]) Cardio Equipment Bicycle (Upright) Duration (Minutes) 10 Resistance 7 Seat Position 10 Manual Therapy Treatment Other Other Manual Treatments LLE: posterior distal and knee lavage and AAROM knee flexion and extension, distal adductor STM. Pt prone when working on hamstrings and he performing active knee flexion and extension and ankle DF when PT working on PFs. Pt supine and performing HS when PT performing STM vastus lateralis and along ITB. He has lumpy area posterior left knee. PT-OP-T Assessment and Plan Start: 06/01/20 07:21 Freq: Status: Active Protocol: Document 07/20/20 09:47 MB (Rec: 07/20/20 10:03 MB [id number]) Physical Therapy Assessment Rehab Potential Rehabilitation Potential Good Evaluation Complexity Number of Personal Factors/Comorbidities 1-2 Number of Body Systems Impaired 1-2 Clinical Presentation at Evaluation Evolving Impairments Impairments Activity Tolerance,Balance, Edema,Functional Activities, Functional Mobility,Gait, Integument,Pain,Posture,ROM, Sensation,Soft Tissue Mobility ,Strength,Transfers Other Impairments Pt reports B LE to feet decreased sensation that he feels is d/t neuropathy. He reports numbness around healed left TKR scar. His LLE edema is trace this date. Goals 8 Residential Goal (LTG) Pt will perform at least 12 reps sit to stand without UE support in 30 sec to improve functional transfers by 2020. 07/10/20: Deferred today post- op LTG Duration 8 weeks 7 Printer Slotter Feeder Goal (LTG) Pt will gait train at least 1200 feet in 6 minutes without AD to improve community ambulation by 09/07/2020. 07/10/20: Pt gait trains 100' with RW and antalgic gait today, decreased left knee flexion and extension LTG Duration 8 weeks Six Printer Slotter Feeder Goal (LTG) Pt will deny falls for three months to decrease risk of injury by 09/07/2020. 07/10/20: Pt just left hospital yesterday and no falls at home LTG Duration 8 weeks 5 Printer Slotter Feeder Goal (LTG) Pt will perform reciprocal gait on stairs for 5 steps with 1 rail to allow normal home entry by 09/07/2020. 07/10/20: Deferred today immediately post-op LTG Duration 8 weeks Four Impairment LEF score is 8/80, reflecting 90% impairment Printer Slotter Feeder Goal (LTG) Pt will present with an improved LE functional index score to reflect no more than 30% impairment to improve functional mobility by 2020. 07/10/20: LEF score reflects 90 % impairment immediately post- op LTG Duration 8 weeks Three Printer Slotter Feeder Goal (LTG) Pt will present with improved left knee AROM to 0-125 deg to improve functional transfers by 09/07/2020. 07/10/20: Left knee AROM 8-86 deg in supine LTG Duration 8 weeks Two Printer Slotter Feeder Goal (LTG) Pt will present with improved B hip flexion, abduction, adduction, and left knee flexion, extension and ankle inversion and eversion to 5/5 to improve functional mobility by 08/30/2020. 07/10/20: MMT deferred immediately post-op LTG Duration 8 weeks One Residential Goal (LTG) Pt will perform HEP with I including LE flexibility, strengthening, gait and balance exercises to improve function by 08/30/20: 07/17/20: Pt is performing the following HEP exercises: mini squat, standing hamstring curl , large march with UE support all standing exercises, HS, sitting HS, hamstring stretch (sitting) LTG Duration 8 weeks Assessment Summary Assessment Progressed to upright bike, which is quite an advancement for left knee flexion and something that he could not tolerate after his last knee surgery. Con't to progress gait and range exercises, consider pre no-AD gait training pattern. Terry are out and pt does not have steri strips. Proximal and distal post-op scar appears to have weak scab and PT is concerned about this as far as scar integrity. He has a lumpy area posterior left knee and reports pain in this area with gait. Con't to monitor. Physical Therapy Plan Frequency and Duration Frequency of Treatment 2x/Week Duration of Treatment 8 weeks Plan of Care Start Date 07/10/20 Plan of Care End Date 09/07/20 Therapeutic Interventions Therapeutic Interventions Balance Training,Canalithic Repositioning,Gait Training, Home Exercise Program,Joint Mobilizations,Manual Therapy, Neuromuscular Re-education, Patient/Caregiver Education, Self-Care/Home Management, Sensory Integration,Soft Tissue Mobilization,Taping, Therapeutic Activities, Therapeutic Exercises Modalities Cold Pack/Ice Massage,Electric Stimulation,Hot Packs, Ultrasound Next Visit Focus/Plan Next Note Type Treatment Note Next Visit Plan Consider Keo stretch and hamstring stretch with AP, weight shifting in standing and calf stretch. Progress range and strengthening exercises, manual work
--- NOTE | 2020-07-24 10:33 | PT.OTN ---
Current Diagnoses Unilateral primary osteoarthritis, left knee (07/24/20) Other tear of medial meniscus, current injury, left knee, initial encounter (07/24/20) Presence of left artificial knee joint (07/24/20) Physical Therapy Treatment Note PT-OP-A Visit Information Start: 06/01/20 07:21 Freq: Status: Active Protocol: Document 07/24/20 09:46 MB (Rec: 07/24/20 10:12 MB [id number]) Out-Patient Physical Therapy Visit Information Visit Information Visit Type Treatment Note Visit Note Workers Compensation/Self- insured/L&I 11/28 visits Visit Start Time 09:46 Visit Stop Time 10:28 Total Visit Minutes 42 Visit Number 6 PT-OP-B Current Condition Start: 06/01/20 07:21 Freq: Status: Active Protocol: Document 06/01/20 08:57 MB (Rec: 06/01/20 09:32 MB [id number]) Current Condition History of Current Condition Onset Date August 2018 Current Complaints Left knee pain and right hip pain History of Current Condition In March 2018, a crate fell over him at work and pinned him up against a motor home. His trunk went forward and his left leg hyperextended. He underwent a meniscal surgery in early 2018. He con't to have pain. He received PT and did not get better. He finally underwent left TKR 05/14/2019 and had immediate pain post- op. He participated with PT and did not make significant improvements in pain, gait and range. PT sent pt back to surgeon and it was determined that there was a mechanical problem with prosthesis, on the lateral side. Pt's pain and clicking had consistently been at the lateral posterior left knee. The plan was for pt to transition to aquatic therapy while waiting for possible surgery the end of 2019 when the pool closed d/t COVID. He is currently scheduled for a revision on 06/12/2020. Pt con't with antalgic gait, favoring the left knee and he has new onset of right hip pain for 6 months after altered gait. He has a history of right THR. Left knee pain gets up to 5-6/10. He has not been walking with walker. He has not been icing or wearing thigh high compression. He has been performing heel slides. He has not been able to work on [employer] d/t his condition. Pt lives in a RV and has 5 steps to enter with left rail. He is currently driving. PMH: smoking, arthritis, HTN. Pt has had some falls and he fell down steps this summer. He is okay. Prior Treatments and Tests L TKR 05/14/2019, post-op PT, reconsult with orthopedic surgeon and deemed appropriate for another TKR end of 2019 Treatment Goals Patient/Caregiver Goals To decrease pain, improve range of motion and gait and get back to work. PT-OP-C Subjective Start: 06/01/20 07:21 Freq: Status: Active Protocol: Document 07/24/20 09:46 MB (Rec: 07/24/20 10:12 MB [id number]) OP-PT Subjective Patient Comments Patient Comments It's improving. Pt reports left knee achiness at night. PT-OP-G Mobility & Gait Start: 06/01/20 07:21 Freq: Status: Active Protocol: Document 06/01/20 08:57 MB (Rec: 06/01/20 15:10 MB [id number]) OP Gait Assessment Comments Gait Comments Wide MAYNOR, decreased step- length and foot clearance, limited step-length, greater on the left with decreased left knee flexion and extension, right hip hike and decreased right hip flexion and extension. Stiff walking posture and increased lateral sway with gait. Pt states that he has not wanted to use cane or walker and so he does not bring in AD for assessment. PT-OP-K Range of Motion Start: 06/01/20 07:21 Freq: Status: Active Protocol: Document 06/01/20 08:57 MB (Rec: 06/01/20 15:33 MB [id number]) Knee Goniometric Range of Motion Knee Left Knee ROM WFL No Patient Position Supine Comments L knee AROM in hook lying is 6 -123 deg Right Knee ROM WFL Yes Patient Position Supine Comments R knee AROM in hook lying is 0 -125 deg Ankle and Foot Goniometric Range of Motion Ankle and Foot ROM Limitations Comments Left ankle inversion is reduced compared to the right PT-OP-M Strength Start: 06/01/20 07:21 Freq: Status: Active Protocol: Document 06/01/20 08:57 MB (Rec: 06/01/20 15:33 MB [id number]) Hip Strength Hip Manual Muscle Testing Left Flexion (L2) 4 Good Abduction 5 Normal Adduction 4 Good Right Flexion (L2) 5 Normal Abduction 4 Good Adduction 5 Normal Knee Strength Knee Manual Muscle Testing Left Flexion (S2) 3- Fair- Extension (L3) 4 Good Comments Pt reports 8/10 pain left posterior knee with left knee flexion MMT Right Flexion (S2) 5 Normal Extension (L3) 5 Normal Ankle/Foot Strength Ankle and Foot Manual Muscle Testing Left Dorsiflexion (L4) 5 Normal Inversion 3 Fair Eversion (S1) 4 Good Comments Pt reports increased left knee pain with inversion and eversion MMT Right Dorsiflexion (L4) 5 Normal Inversion 5 Normal Eversion (S1) 5 Normal PT-OP-Q Treatments Start: 06/01/20 07:21 Freq: Status: Active Protocol: Document 07/24/20 09:46 MB (Rec: 07/24/20 10:12 MB [id number]) Cardio Equipment Bicycle (Upright) Duration (Minutes) 10 Resistance 8 Seat Position 9 Therapeutic Exercises Supine Exercises 3 Supine Exercise Name Hamstring stretch with hands behind knee and APs Side bilateral Comments Cues not to hyperextend, slow down 2 Supine Exercise Name Keo stretch Side bilateral Comments 20 sec hold, leg dangling, core engaged Manual Therapy Treatment Other Other Manual Treatments LLE: posterior distal and knee lavage and AAROM knee flexion and extension, distal adductor STM. Pt prone when working on hamstrings and he performing active knee flexion and extension and ankle DF when PT working on PFs. Pt supine and performing HS when PT performing STM vastus lateralis and along ITB. PT-OP-T Assessment and Plan Start: 06/01/20 07:21 Freq: Status: Active Protocol: Document 07/24/20 09:46 MB (Rec: 07/24/20 10:12 MB [id number]) Physical Therapy Assessment Rehab Potential Rehabilitation Potential Good Evaluation Complexity Number of Personal Factors/Comorbidities 1-2 Number of Body Systems Impaired 1-2 Clinical Presentation at Evaluation Evolving Impairments Impairments Activity Tolerance,Balance, Edema,Functional Activities, Functional Mobility,Gait, Integument,Pain,Posture,ROM, Sensation,Soft Tissue Mobility ,Strength,Transfers Other Impairments Pt reports B LE to feet decreased sensation that he feels is d/t neuropathy. He reports numbness around healed left TKR scar. His LLE edema is trace this date. Goals 8 Nursing Home Goal (LTG) Pt will perform at least 12 reps sit to stand without UE support in 30 sec to improve functional transfers by 2020. 07/10/20: Deferred today post- op LTG Duration 8 weeks 7 Nursing Home Goal (LTG) Pt will gait train at least 1200 feet in 6 minutes without AD to improve community ambulation by 09/07/2020. 07/10/20: Pt gait trains 100' with RW and antalgic gait today, decreased left knee flexion and extension LTG Duration 8 weeks Six Flavorer Goal (LTG) Pt will deny falls for three months to decrease risk of injury by 09/07/2020. 07/10/20: Pt just left hospital yesterday and no falls at home LTG Duration 8 weeks 5 Nursing Home Goal (LTG) Pt will perform reciprocal gait on stairs for 5 steps with 1 rail to allow normal home entry by 09/07/2020. 07/10/20: Deferred today immediately post-op LTG Duration 8 weeks Four Impairment LEF score is 8/80, reflecting 90% impairment Flavorer Goal (LTG) Pt will present with an improved LE functional index score to reflect no more than 30% impairment to improve functional mobility by 2020. 07/10/20: LEF score reflects 90 % impairment immediately post- op LTG Duration 8 weeks Three Flavorer Goal (LTG) Pt will present with improved left knee AROM to 0-125 deg to improve functional transfers by 09/07/2020. 07/10/20: Left knee AROM 8-86 deg in supine LTG Duration 8 weeks Two Nursing Home Goal (LTG) Pt will present with improved B hip flexion, abduction, adduction, and left knee flexion, extension and ankle inversion and eversion to 5/5 to improve functional mobility by 08/30/2020. 07/10/20: MMT deferred immediately post-op LTG Duration 8 weeks One Nursing Home Goal (LTG) Pt will perform HEP with I including LE flexibility, strengthening, gait and balance exercises to improve function by 08/30/20. 07/24/20: Pt is performing the following HEP exercises: mini squat, standing hamstring curl , large march with UE support all standing exercises, HS, sitting HS, hamstring stretch (sitting), Keo stretch and hamstring stretch in hook lying LTG Duration 8 weeks Assessment Summary Assessment LLE edema is much better now that pt is wearing Tubagrip for compression at home. Con't compression. Progressed flexibility exercises today. Pt con't with lateral left knee tension and mild swelling . Physical Therapy Plan Frequency and Duration Frequency of Treatment 2x/Week Duration of Treatment 8 weeks Plan of Care Start Date 07/10/20 Plan of Care End Date 09/07/20 Therapeutic Interventions Therapeutic Interventions Balance Training,Canalithic Repositioning,Gait Training, Home Exercise Program,Joint Mobilizations,Manual Therapy, Neuromuscular Re-education, Patient/Caregiver Education, Self-Care/Home Management, Sensory Integration,Soft Tissue Mobilization,Taping, Therapeutic Activities, Therapeutic Exercises Modalities Cold Pack/Ice Massage,Electric Stimulation,Hot Packs, Ultrasound Next Visit Focus/Plan Next Note Type Treatment Note Next Visit Plan Weight shifting in standing and calf stretch. Progress range and strengthening exercises, manual work
--- NOTE | 2020-07-27 10:30 | PT.OTN ---
Current Diagnoses Unilateral primary osteoarthritis, left knee (07/27/20) Other tear of medial meniscus, current injury, left knee, initial encounter (07/27/20) Presence of left artificial knee joint (07/27/20) Physical Therapy Treatment Note PT-OP-A Visit Information Start: 06/01/20 07:21 Freq: Status: Active Protocol: Document 07/27/20 09:48 MB (Rec: 07/27/20 10:10 MB [id number]) Out-Patient Physical Therapy Visit Information Visit Information Visit Type Treatment Note Visit Note Workers Compensation/Self- insured/L&I 7/8 visits Visit Start Time 09:48 Visit Stop Time 10:30 Total Visit Minutes 42 Visit Number 7 PT-OP-B Current Condition Start: 06/01/20 07:21 Freq: Status: Active Protocol: Document 06/01/20 08:57 MB (Rec: 06/01/20 09:32 MB [id number]) Current Condition History of Current Condition Onset Date August 2018 Current Complaints Left knee pain and right hip pain History of Current Condition In March 2018, a crate fell over him at work and pinned him up against a motor home. His trunk went forward and his left leg hyperextended. He underwent a meniscal surgery in early 2018. He con't to have pain. He received PT and did not get better. He finally underwent left TKR 05/14/2019 and had immediate pain post- op. He participated with PT and did not make significant improvements in pain, gait and range. PT sent pt back to surgeon and it was determined that there was a mechanical problem with prosthesis, on the lateral side. Pt's pain and clicking had consistently been at the lateral posterior left knee. The plan was for pt to transition to aquatic therapy while waiting for possible surgery the end of 2019 when the pool closed d/t COVID. He is currently scheduled for a revision on 06/12/2020. Pt con't with antalgic gait, favoring the left knee and he has new onset of right hip pain for 6 months after altered gait. He has a history of right THR. Left knee pain gets up to 5-6/10. He has not been walking with walker. He has not been icing or wearing thigh high compression. He has been performing heel slides. He has not been able to work on [employer] d/t his condition. Pt lives in a RV and has 5 steps to enter with left rail. He is currently driving. PMH: smoking, arthritis, HTN. Pt has had some falls and he fell down steps this summer. He is okay. Prior Treatments and Tests L TKR 05/14/2019, post-op PT, reconsult with orthopedic surgeon and deemed appropriate for another TKR end of 2019 Treatment Goals Patient/Caregiver Goals To decrease pain, improve range of motion and gait and get back to work. PT-OP-C Subjective Start: 06/01/20 07:21 Freq: Status: Active Protocol: Document 07/27/20 09:48 MB (Rec: 07/27/20 10:10 MB [id number]) OP-PT Subjective Patient Comments Patient Comments It's swollen again. Pt reports pinching discomfort anterolateral left knee. He stopped all medication in the last 3-4 days and pain is correlated with it. PT-OP-G Mobility & Gait Start: 06/01/20 07:21 Freq: Status: Active Protocol: Document 06/01/20 08:57 MB (Rec: 06/01/20 15:10 MB [id number]) OP Gait Assessment Comments Gait Comments Wide MAYNOR, decreased step- length and foot clearance, limited step-length, greater on the left with decreased left knee flexion and extension, right hip hike and decreased right hip flexion and extension. Stiff walking posture and increased lateral sway with gait. Pt states that he has not wanted to use cane or walker and so he does not bring in AD for assessment. PT-OP-K Range of Motion Start: 06/01/20 07:21 Freq: Status: Active Protocol: Document 06/01/20 08:57 MB (Rec: 06/01/20 15:33 MB [id number]) Knee Goniometric Range of Motion Knee Left Knee ROM WFL No Patient Position Supine Comments L knee AROM in hook lying is 6 -123 deg Right Knee ROM WFL Yes Patient Position Supine Comments R knee AROM in hook lying is 0 -125 deg Ankle and Foot Goniometric Range of Motion Ankle and Foot ROM Limitations Comments Left ankle inversion is reduced compared to the right PT-OP-M Strength Start: 06/01/20 07:21 Freq: Status: Active Protocol: Document 06/01/20 08:57 MB (Rec: 12/10/20 15:33 MB [id number]) Hip Strength Hip Manual Muscle Testing Left Flexion (L2) 4 Good Abduction 5 Normal Adduction 4 Good Right Flexion (L2) 5 Normal Abduction 4 Good Adduction 5 Normal Knee Strength Knee Manual Muscle Testing Left Flexion (S2) 3- Fair- Extension (L3) 4 Good Comments Pt reports 8/10 pain left posterior knee with left knee flexion MMT Right Flexion (S2) 5 Normal Extension (L3) 5 Normal Ankle/Foot Strength Ankle and Foot Manual Muscle Testing Left Dorsiflexion (L4) 5 Normal Inversion 3 Fair Eversion (S1) 4 Good Comments Pt reports increased left knee pain with inversion and eversion MMT Right Dorsiflexion (L4) 5 Normal Inversion 5 Normal Eversion (S1) 5 Normal PT-OP-Q Treatments Start: 06/01/20 07:21 Freq: Status: Active Protocol: Document 07/27/20 09:48 MB (Rec: 07/27/20 10:10 MB [id number]) Cardio Equipment Bicycle (Upright) Duration (Minutes) 10 Resistance 8 Seat Position 9 Therapeutic Exercises Supine Exercises SLR with QS and toes up to start Side left Comments Cues to point toes to ceiling, 5 reps 2 Side left Comments Left leg, 20 sec and pt reports pulling and middle pinch anterolateral Sitting Exercises Rolling pin STM Comments Pt to perform in sitting, see saw motion left vastus lateralis Manual Therapy Treatment Other Other Manual Treatments Manual assist for TFL stretch left leg in supine. STM left vastus lateralis and posterior knee, hamstrings and quads. Pt in right side lying for manual work and also used rolling pin for STM left vastus lateralis PT-OP-T Assessment and Plan Start: 06/01/20 07:21 Freq: Status: Active Protocol: Document 07/27/20 09:48 MB (Rec: 07/27/20 10:10 MB [id number]) Physical Therapy Assessment Rehab Potential Rehabilitation Potential Good Evaluation Complexity Number of Personal Factors/Comorbidities 1-2 Number of Body Systems Impaired 1-2 Clinical Presentation at Evaluation Evolving Impairments Impairments Activity Tolerance,Balance, Edema,Functional Activities, Functional Mobility,Gait, Integument,Pain,Posture,ROM, Sensation,Soft Tissue Mobility ,Strength,Transfers Other Impairments Pt reports B LE to feet decreased sensation that he feels is d/t neuropathy. He reports numbness around healed left TKR scar. His LLE edema is trace this date. Goals 8 Program Director/Air Personality Goal (LTG) Pt will perform at least 12 reps sit to stand without UE support in 30 sec to improve functional transfers by 2020. 07/10/20: Deferred today post- op LTG Duration 8 weeks 7 Skilled Nursing Goal (LTG) Pt will gait train at least 1200 feet in 6 minutes without AD to improve community ambulation by 09/07/2020. 07/10/20: Pt gait trains 100' with RW and antalgic gait today, decreased left knee flexion and extension LTG Duration 8 weeks Six Program Director/Air Personality Goal (LTG) Pt will deny falls for three months to decrease risk of injury by 09/07/2020. 07/10/20: Pt just left hospital yesterday and no falls at home LTG Duration 8 weeks 5 Program Director/Air Personality Goal (LTG) Pt will perform reciprocal gait on stairs for 5 steps with 1 rail to allow normal home entry by 09/07/2020. 07/10/20: Deferred today immediately post-op LTG Duration 8 weeks Four Impairment LEF score is 8/80, reflecting 90% impairment Program Director/Air Personality Goal (LTG) Pt will present with an improved LE functional index score to reflect no more than 30% impairment to improve functional mobility by 2020. 07/10/20: LEF score reflects 90 % impairment immediately post- op LTG Duration 8 weeks Three Skilled Nursing Goal (LTG) Pt will present with improved left knee AROM to 0-125 deg to improve functional transfers by 09/07/2020. 07/10/20: Left knee AROM 8-86 deg in supine LTG Duration 8 weeks Two Skilled Nursing Goal (LTG) Pt will present with improved B hip flexion, abduction, adduction, and left knee flexion, extension and ankle inversion and eversion to 5/5 to improve functional mobility by 08/30/2020. 07/10/20: MMT deferred immediately post-op LTG Duration 8 weeks One Program Director/Air Personality Goal (LTG) Pt will perform HEP with I including LE flexibility, strengthening, gait and balance exercises to improve function by 08/30/20. 07/27/20: Pt is performing the following HEP exercises: mini squat, standing hamstring curl , large march with UE support all standing exercises, HS, sitting HS, hamstring stretch (sitting), Keo stretch and hamstring stretch in hook lying, STM with rolling pin vastus lateralis and SLR LTG Duration 8 weeks Assessment Summary Assessment Given pt's pinching complaints lateral left knee and history with left knee surgery (PT worked with pt after last TKR), recommend that pt call Dr. Lawrence's office and have a sooner follow-up with him. PT will send this note via EMR to Dr. Lawrence. Pt reports swelling and PT con't to ed him about importance of compression. He has not gotten compression hose and is using Tubagrip given by PT. His left TFL/ITB is extremely tight with passive stretch across pt's body. Added SLR today with focus on toes to ceiling to help with medial knee strengthening to offset lateral knee pain on th left. Con't progression. Physical Therapy Plan Frequency and Duration Frequency of Treatment 2x/Week Duration of Treatment 8 weeks Plan of Care Start Date 07/10/20 Plan of Care End Date 09/07/20 Therapeutic Interventions Therapeutic Interventions Balance Training,Canalithic Repositioning,Gait Training, Home Exercise Program,Joint Mobilizations,Manual Therapy, Neuromuscular Re-education, Patient/Caregiver Education, Self-Care/Home Management, Sensory Integration,Soft Tissue Mobilization,Taping, Therapeutic Activities, Therapeutic Exercises Modalities Cold Pack/Ice Massage,Electric Stimulation,Hot Packs, Ultrasound Next Visit Focus/Plan Next Note Type Treatment Note Next Visit Plan Consider Counterstrain. Weight shifting in standing and calf stretch. Progress range and strengthening exercises, manual work
--- NOTE | 2020-07-31 12:50 | PT.OTN ---
Current Diagnoses Unilateral primary osteoarthritis, left knee (07/31/20) Other tear of medial meniscus, current injury, left knee, initial encounter (07/31/20) Presence of left artificial knee joint (07/31/20) Physical Therapy Treatment Note PT-OP-A Visit Information Start: 06/01/20 07:21 Freq: Status: Active Protocol: Document 07/31/20 09:44 MB (Rec: 07/31/20 10:29 MB [id number]) Out-Patient Physical Therapy Visit Information Visit Information Visit Type Progress Note Visit Note Workers Comp/L&I 01/28 visits Visit Start Time 09:44 Visit Stop Time 10:29 Total Visit Minutes 45 Visit Number 8 PT-OP-B Current Condition Start: 06/01/20 07:21 Freq: Status: Active Protocol: Document 06/01/20 08:57 MB (Rec: 06/01/20 09:32 MB [id number]) Current Condition History of Current Condition Onset Date August 2018 Current Complaints Left knee pain and right hip pain History of Current Condition In March 2018, a crate fell over him at work and pinned him up against a motor home. His trunk went forward and his left leg hyperextended. He underwent a meniscal surgery in early 2018. He con't to have pain. He received PT and did not get better. He finally underwent left TKR 05/14/2019 and had immediate pain post- op. He participated with PT and did not make significant improvements in pain, gait and range. PT sent pt back to surgeon and it was determined that there was a mechanical problem with prosthesis, on the lateral side. Pt's pain and clicking had consistently been at the lateral posterior left knee. The plan was for pt to transition to aquatic therapy while waiting for possible surgery the end of 2019 when the pool closed d/t COVID. He is currently scheduled for a revision on 06/12/2020. Pt con't with antalgic gait, favoring the left knee and he has new onset of right hip pain for 6 months after altered gait. He has a history of right THR. Left knee pain gets up to 5-6/10. He has not been walking with walker. He has not been icing or wearing thigh high compression. He has been performing heel slides. 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 Pt lives in a RV and has 5 steps to enter with left rail. He is currently driving. PMH: smoking, arthritis, HTN. Pt has had some falls and he fell down steps this summer. He is okay. Prior Treatments and Tests L TKR 05/14/2019, post-op PT, reconsult with orthopedic surgeon and deemed appropriate for another TKR end of 2019 Treatment Goals Patient/Caregiver Goals To decrease pain, improve range of motion and gait and get back to work. PT-OP-C Subjective Start: 06/01/20 07:21 Freq: Status: Active Protocol: Document 07/31/20 09:44 MB (Rec: 07/31/20 10:29 MB [id number]) OP-PT Subjective Patient Comments Patient Comments I'm better. I still have that pinch on the outside of the knee. Pt has an appointment with Dr. Blanco today about his pulmonary issue after surgery. He called Dr. Lawrence's office and was told to keep his appointment 09/15/20 and has started an anti- inflammatory and 5 mg Hydrocodone as needed up to 3x /day. PT-OP-G Mobility & Gait Start: 06/01/20 07:21 Freq: Status: Active Protocol: Document 06/01/20 08:57 MB (Rec: 06/01/20 15:10 MB [id number]) OP Gait Assessment Comments Gait Comments Wide MAYNOR, decreased step- length and foot clearance, limited step-length, greater on the left with decreased left knee flexion and extension, right hip hike and decreased right hip flexion and extension. Stiff walking posture and increased lateral sway with gait. Pt states that he has not wanted to use cane or walker and so he does not bring in AD for assessment. PT-OP-K Range of Motion Start: 06/01/20 07:21 Freq: Status: Active Protocol: Document 06/01/20 08:57 MB (Rec: 06/01/20 15:33 MB [id number]) Knee Goniometric Range of Motion Knee Left Knee ROM WFL No Patient Position Supine Comments L knee AROM in hook lying is 6 -123 deg Right Knee ROM WFL Yes Patient Position Supine Comments R knee AROM in hook lying is 0 -125 deg Ankle and Foot Goniometric Range of Motion Ankle and Foot ROM Limitations Comments Left ankle inversion is reduced compared to the right PT-OP-M Strength Start: 06/01/20 07:21 Freq: Status: Active Protocol: Document 06/01/20 08:57 MB (Rec: 06/01/20 15:33 MB [id number]) Hip Strength Hip Manual Muscle Testing Left Flexion (L2) 4 Good Abduction 5 Normal Adduction 4 Good Right Flexion (L2) 5 Normal Abduction 4 Good Adduction 5 Normal Knee Strength Knee Manual Muscle Testing Left Flexion (S2) 3- Fair- Extension (L3) 4 Good Comments Pt reports 8/10 pain left posterior knee with left knee flexion MMT Right Flexion (S2) 5 Normal Extension (L3) 5 Normal Ankle/Foot Strength Ankle and Foot Manual Muscle Testing Left Dorsiflexion (L4) 5 Normal Inversion 3 Fair Eversion (S1) 4 Good Comments Pt reports increased left knee pain with inversion and eversion MMT Right Dorsiflexion (L4) 5 Normal Inversion 5 Normal Eversion (S1) 5 Normal PT-OP-Q Treatments Start: 06/01/20 07:21 Freq: Status: Active Protocol: Document 07/31/20 09:44 MB (Rec: 07/31/20 10:29 MB [id number]) Cardio Equipment Bicycle (Upright) Duration (Minutes) 10 Resistance 8 Seat Position 9 Therapeutic Exercises Supine Exercises HS Comments Performed AROM HS today, range 8-119 today Sitting Exercises Sit to stand without UE support Comments 5 reps in 30 sec today and pt favors left LE Rolling pin STM Comments Pt performs today during assessment Other Exercises Reassessment today and exercises performed Comments Performed today during progress note and pt to bring in his handouts Gait Training Gait Activity 6MWT Comments Performed today, pt using RW and with reports of 3/10 lateral anterior left knee pain. He con't to favor his left leg with gait. See goal comment for gait distance today. Other gait training throughout the gym during treatment, pt with similar gait pattern with RW PT-OP-T Assessment and Plan Start: 06/01/20 07:21 Freq: Status: Active Protocol: Document 07/31/20 09:44 MB (Rec: 07/31/20 10:29 MB [id number]) Physical Therapy Assessment Rehab Potential Rehabilitation Potential Good Evaluation Complexity Number of Personal Factors/Comorbidities 1-2 Number of Body Systems Impaired 1-2 Clinical Presentation at Evaluation Evolving Impairments Impairments Activity Tolerance,Balance, Edema,Functional Activities, Functional Mobility,Gait, Integument,Pain,Posture,ROM, Sensation,Soft Tissue Mobility ,Strength,Transfers Other Impairments Pt reports B LE to feet decreased sensation that he feels is d/t neuropathy. He reports numbness around healed left TKR scar. His LLE edema is trace this date. Goals 8 Plastering Supervisor Goal (LTG) Pt will perform at least 12 reps sit to stand without UE support in 30 sec to improve functional transfers by 2020. 07/31/20: Pt performs 5 reps without UE support today, he favors the left knee. LTG Duration 8 weeks 7 [facility] Goal (LTG) Pt will gait train at least 1200 feet in 6 minutes without AD to improve community ambulation by 09/28/2020. 07/31/20: Pt gait trains 958 feet in 6 minutes with RW today and he reports 3/10 lateral anterior left knee pain LTG Duration 8 weeks Six Plastering Supervisor Goal (LTG) Pt will deny falls for three months to decrease risk of injury by 09/28/20. 07/31/20: Pt denies falls since starting PT. LTG Duration 8 weeks 5 Plastering Supervisor Goal (LTG) Pt will perform reciprocal gait on stairs for 5 steps with 1 rail to allow normal home entry by 09/28/2020. 07/31/20: Pt progresses towards stairs today, performs 4 steps with two rails x2, step to step and then reciprocal stepping with two rails. LTG Duration 8 weeks Four Impairment Progress note score 31/80, 61. 25% impairment Plastering Supervisor Goal (LTG) Pt will present with an improved LE functional index score to reflect no more than 30% impairment to improve functional mobility by 2020. 07/31/20: LEF score reflects 61. 25% impairment, much better than 90% impairment which is what he had immediately post- op LTG Duration 8 weeks Three [facility] Goal (LTG) Pt will present with improved left knee AROM to 0-125 deg to improve functional transfers by 09/28/2020. 07/31/20: Left knee AROM 8-119 deg in supine, much improved since progress note after surgery LTG Duration 8 weeks Two Plastering Supervisor Goal (LTG) Pt will present with improved B hip flexion, abduction, adduction, and left knee flexion, extension and ankle inversion and eversion to 5/5 to improve functional mobility by 09/28/2020. 07/31/20: Right hip flexion 4/5, Right hip adduction and abduction 5/5, left hip flexion 5/5, left hip adduction 4/5 and left hip abduction 5/5, left knee flexion and extension 4/5, left ankle eversion and inversion 5/5. LTG Duration 8 weeks One Plastering Supervisor Goal (LTG) Pt will perform HEP with I including LE flexibility, strengthening, gait and balance exercises to improve function by 09/28/20. 07/31/20: Pt is performing the following HEP exercises: mini squat, standing hamstring curl , large march with UE support all standing exercises, HS, sitting HS, hamstring stretch (sitting), Keo stretch and hamstring stretch in hook lying, STM with rolling pin vastus lateralis and SLR LTG Duration 8 weeks Progress Towards Goals Progress Towards Goals Progressing Toward Goals Assessment Summary Assessment Pt has progressed towards all PT goals since starting PT. These included ROM, strengthening, sit to stands, 6MWT, stairs and HEP goals. His left total knee revision surgery was complicated by pulmonary issues and he has been mildly SOB with PT. His O2 sats remain in the low 90s with gait test today and that is an improvement since post- op. He has lateral knee pinching that is a small barrier to improving left knee flexion with gait. He con't to use RW at this time. Pt will benefit from ongoing PT to improve strength, range, transfers, balance and gait. He has had a long recovery period, including two surgeries and this has made his PT progress slower. Physical Therapy Plan Frequency and Duration Frequency of Treatment 2x/Week Duration of Treatment 8 weeks Plan of Care Start Date 07/31/20 Plan of Care End Date 09/28/20 Therapeutic Interventions Therapeutic Interventions Balance Training,Canalithic Repositioning,Gait Training, Home Exercise Program,Joint Mobilizations,Manual Therapy, Neuromuscular Re-education, Patient/Caregiver Education, Self-Care/Home Management, Sensory Integration,Soft Tissue Mobilization,Taping, Therapeutic Activities, Therapeutic Exercises Modalities Cold Pack/Ice Massage,Electric Stimulation,Hot Packs, Ultrasound Next Visit Focus/Plan Next Note Type Treatment Note Next Visit Plan Consider Counterstrain. Weight shifting in standing and calf stretch. Progress range and strengthening exercises, manual work
--- NOTE | 2020-08-03 10:31 | PT.OTN ---
Current Diagnoses Unilateral primary osteoarthritis, left knee (08/03/20) Other tear of medial meniscus, current injury, left knee, initial encounter (08/03/20) Presence of left artificial knee joint (08/03/20) Physical Therapy Treatment Note PT-OP-A Visit Information Start: 06/01/20 07:21 Freq: Status: Active Protocol: Document 08/03/20 09:47 MB (Rec: 08/03/20 10:29 MB [id number]) Out-Patient Physical Therapy Visit Information Visit Information Visit Type Treatment Note Visit Note Workers Comp/L&I, cleared to continue by front office Visit Start Time 09:47 Visit Stop Time 10:30 Total Visit Minutes 43 Visit Number 9 PT-OP-B Current Condition Start: 06/01/20 07:21 Freq: Status: Active Protocol: Document 06/01/20 08:57 MB (Rec: 06/01/20 09:32 MB [id number]) Current Condition History of Current Condition Onset Date August 2018 Current Complaints Left knee pain and right hip pain History of Current Condition In March 2018, a crate fell over him at work and pinned him up against a motor home. His trunk went forward and his left leg hyperextended. He underwent a meniscal surgery in early 2018. He con't to have pain. He received PT and did not get better. He finally underwent left TKR 05/14/2019 and had immediate pain post- op. He participated with PT and did not make significant improvements in pain, gait and range. PT sent pt back to surgeon and it was determined that there was a mechanical problem with prosthesis, on the lateral side. Pt's pain and clicking had consistently been at the lateral posterior left knee. The plan was for pt to transition to aquatic therapy while waiting for possible surgery the end of 2019 when the pool closed d/t COVID. He is currently scheduled for a revision on 06/12/2020. Pt con't with antalgic gait, favoring the left knee and he has new onset of right hip pain for 6 months after altered gait. He has a history of right THR. Left knee pain gets up to 5-6/10. He has not been walking with walker. He has not been icing or wearing thigh high compression. He has been performing heel slides. He has not been able to work on [employer] d/t his condition. Pt lives in a RV and has 5 steps to enter with left rail. He is currently driving. PMH: smoking, arthritis, HTN. Pt has had some falls and he fell down steps this summer. He is okay. Prior Treatments and Tests L TKR 05/14/2019, post-op PT, reconsult with orthopedic surgeon and deemed appropriate for another TKR end of 2019 Treatment Goals Patient/Caregiver Goals To decrease pain, improve range of motion and gait and get back to work. PT-OP-C Subjective Start: 06/01/20 07:21 Freq: Status: Active Protocol: Document 08/03/20 09:47 MB (Rec: 08/03/20 10:29 MB [id number]) OP-PT Subjective Patient Comments Patient Comments It's been a little bit more swollen and pinching since working on it last time. PT-OP-G Mobility & Gait Start: 06/01/20 07:21 Freq: Status: Active Protocol: Document 06/01/20 08:57 MB (Rec: 06/01/20 15:10 MB [id number]) OP Gait Assessment Comments Gait Comments Wide MAYNOR, decreased step- length and foot clearance, limited step-length, greater on the left with decreased left knee flexion and extension, right hip hike and decreased right hip flexion and extension. Stiff walking posture and increased lateral sway with gait. Pt states that he has not wanted to use cane or walker and so he does not bring in AD for assessment. PT-OP-K Range of Motion Start: 06/01/20 07:21 Freq: Status: Active Protocol: Document 06/01/20 08:57 MB (Rec: 06/01/20 15:33 MB [id number]) Knee Goniometric Range of Motion Knee Left Knee ROM WFL No Patient Position Supine Comments L knee AROM in hook lying is 6 -123 deg Right Knee ROM WFL Yes Patient Position Supine Comments R knee AROM in hook lying is 0 -125 deg Ankle and Foot Goniometric Range of Motion Ankle and Foot ROM Limitations Comments Left ankle inversion is reduced compared to the right PT-OP-M Strength Start: 06/01/20 07:21 Freq: Status: Active Protocol: Document 06/01/20 08:57 MB (Rec: 06/01/20 15:33 MB [id number]) Hip Strength Hip Manual Muscle Testing Left Flexion (L2) 4 Good Abduction 5 Normal Adduction 4 Good Right Flexion (L2) 5 Normal Abduction 4 Good Adduction 5 Normal Knee Strength Knee Manual Muscle Testing Left Flexion (S2) 3- Fair- Extension (L3) 4 Good Comments Pt reports 8/10 pain left posterior knee with left knee flexion MMT Right Flexion (S2) 5 Normal Extension (L3) 5 Normal Ankle/Foot Strength Ankle and Foot Manual Muscle Testing Left Dorsiflexion (L4) 5 Normal Inversion 3 Fair Eversion (S1) 4 Good Comments Pt reports increased left knee pain with inversion and eversion MMT Right Dorsiflexion (L4) 5 Normal Inversion 5 Normal Eversion (S1) 5 Normal PT-OP-Q Treatments Start: 06/01/20 07:21 Freq: Status: Active Protocol: Document 08/03/20 09:47 MB (Rec: 08/03/20 10:29 MB [id number]) Manual Therapy Treatment Other Other Manual Treatments Pt in right side lying and pillow support under left knee : STM vastus lateralis anterior and posterior parts, STM over rectus femoris and scar. Pt supine: gentle patellar mobs and less movement distally. PT ed pt not to palpate swollen area on lateral knee. Pt reports popping in the joint with flexion and extension PT-OP-T Assessment and Plan Start: 06/01/20 07:21 Freq: Status: Active Protocol: Document 08/03/20 09:47 MB (Rec: 08/03/20 10:29 MB [id number]) Physical Therapy Assessment Rehab Potential Rehabilitation Potential Good Evaluation Complexity Number of Personal Factors/Comorbidities 1-2 Number of Body Systems Impaired 1-2 Clinical Presentation at Evaluation Evolving Impairments Impairments Activity Tolerance,Balance, Edema,Functional Activities, Functional Mobility,Gait, Integument,Pain,Posture,ROM, Sensation,Soft Tissue Mobility ,Strength,Transfers Other Impairments Pt reports B LE to feet decreased sensation that he feels is d/t neuropathy. He reports numbness around healed left TKR scar. His LLE edema is trace this date. Goals 8 Mcfp Goal (LTG) Pt will perform at least 12 reps sit to stand without UE support in 30 sec to improve functional transfers by 2020. 07/31/20: Pt performs 5 reps without UE support today, he favors the left knee. LTG Duration 8 weeks 7 Supervisor [employer] Goal (LTG) Pt will gait train at least 1200 feet in 6 minutes without AD to improve community ambulation by 09/28/2020. 07/31/20: Pt gait trains 958 feet in 6 minutes with RW today and he reports 3/10 lateral anterior left knee pain LTG Duration 8 weeks Six Mcfp Goal (LTG) Pt will deny falls for three months to decrease risk of injury by 09/28/20. 07/31/20: Pt denies falls since starting PT. LTG Duration 8 weeks 5 Supervisor [employer] Goal (LTG) Pt will perform reciprocal gait on stairs for 5 steps with 1 rail to allow normal home entry by 09/28/2020. 07/31/20: Pt progresses towards stairs today, performs 4 steps with two rails x2, step to step and then reciprocal stepping with two rails. LTG Duration 8 weeks Four Impairment Progress note score 31/80, 61. 25% impairment Supervisor [employer] Goal (LTG) Pt will present with an improved LE functional index score to reflect no more than 30% impairment to improve functional mobility by 2020. 07/31/20: LEF score reflects 61. 25% impairment, much better than 90% impairment which is what he had immediately post- op LTG Duration 8 weeks Three Mcfp Goal (LTG) Pt will present with improved left knee AROM to 0-125 deg to improve functional transfers by 09/28/2020. 07/31/20: Left knee AROM 8-119 deg in supine, much improved since progress note after surgery LTG Duration 8 weeks Two Mcfp Goal (LTG) Pt will present with improved B hip flexion, abduction, adduction, and left knee flexion, extension and ankle inversion and eversion to 5/5 to improve functional mobility by 09/28/2020. 07/31/20: Right hip flexion 4/5, Right hip adduction and abduction 5/5, left hip flexion 5/5, left hip adduction 4/5 and left hip abduction 5/5, left knee flexion and extension 4/5, left ankle eversion and inversion 5/5. LTG Duration 8 weeks One Super[employer] Goal (LTG) Pt will perform HEP with I including LE flexibility, strengthening, gait and balance exercises to improve function by 09/28/20. 07/31/20: Pt is performing the following HEP exercises: mini squat, standing hamstring curl , large march with UE support all standing exercises, HS, sitting HS, hamstring stretch (sitting), Keo stretch and hamstring stretch in hook lying, STM with rolling pin vastus lateralis and SLR LTG Duration 8 weeks Assessment Summary Assessment Pt reports ongoing pinching, more after last treatment which was not manual but did include MMT. His complaints are similar to after first surgery, though not as severe and anterolateral and not posterior near the fibula. Con 't to monitor and pt has called surgeon office and PT has sent notes about this. Con 't PT. Physical Therapy Plan Frequency and Duration Frequency of Treatment 2x/Week Duration of Treatment 8 weeks Plan of Care Start Date 07/31/20 Plan of Care End Date 09/28/20 Therapeutic Interventions Therapeutic Interventions Balance Training,Canalithic Repositioning,Gait Training, Home Exercise Program,Joint Mobilizations,Manual Therapy, Neuromuscular Re-education, Patient/Caregiver Education, Self-Care/Home Management, Sensory Integration,Soft Tissue Mobilization,Taping, Therapeutic Activities, Therapeutic Exercises Modalities Cold Pack/Ice Massage,Electric Stimulation,Hot Packs, Ultrasound Next Visit Focus/Plan Next Note Type Treatment Note Next Visit Plan Consider Counterstrain and KT. Weight shifting in standing and calf stretch. Progress range and strengthening exercises, manual work
--- NOTE | 2020-08-07 10:35 | PT.OTN ---
Current Diagnoses Unilateral primary osteoarthritis, left knee (08/07/20) Other tear of medial meniscus, current injury, left knee, initial encounter (08/07/20) Presence of left artificial knee joint (08/07/20) Physical Therapy Treatment Note PT-OP-A Visit Information Start: 06/01/20 07:21 Freq: Status: Active Protocol: Document 08/07/20 09:45 SP (Rec: 08/07/20 11:58 SP [id number]) Out-Patient Physical Therapy Visit Information Visit Information Visit Type Treatment Note Visit Note Workers Comp/L&I, cleared to continue by front office Auth: 05/04 units remaining. Visit Start Time 09:45 Visit Stop Time 10:35 Total Visit Minutes 50 Visit Number 10 Number of ASSISTANT UNIT FORESTER Visits 1 PT-OP-B Current Condition Start: 06/01/20 07:21 Freq: Status: Active Protocol: Document 06/01/20 08:57 MB (Rec: 06/01/20 09:32 MB [id number]) Current Condition History of Current Condition Onset Date August 2018 Current Complaints Left knee pain and right hip pain History of Current Condition In March 2018, a crate fell over him at work and pinned him up against a motor home. His trunk went forward and his left leg hyperextended. He underwent a meniscal surgery in early 2018. He con't to have pain. He received PT and did not get better. He finally underwent left TKR 05/14/2019 and had immediate pain post- op. He participated with PT and did not make significant improvements in pain, gait and range. PT sent pt back to surgeon and it was determined that there was a mechanical problem with prosthesis, on the lateral side. Pt's pain and clicking had consistently been at the lateral posterior left knee. The plan was for pt to transition to aquatic therapy while waiting for possible surgery the end of 2019 when the pool closed d/t COVID. He is currently scheduled for a revision on 06/12/2020. Pt con't with antalgic gait, favoring the left knee and he has new onset of right hip pain for 6 months after altered gait. He has a history of right THR. Left knee pain gets up to 5-6/10. He has not been walking with walker. He has not been icing or wearing thigh high compression. He has been performing heel slides. He has not been able to work on [employer] d/t his condition. Pt lives in a RV and has 5 steps to enter with left rail. He is currently driving. PMH: smoking, arthritis, HTN. Pt has had some falls and he fell down steps this summer. He is okay. Prior Treatments and Tests L TKR 05/14/2019, post-op PT, reconsult with orthopedic surgeon and deemed appropriate for another TKR end of 2019 Treatment Goals Patient/Caregiver Goals To decrease pain, improve range of motion and gait and get back to work. PT-OP-C Subjective Start: 06/01/20 07:21 Freq: Status: Active Protocol: Document 08/07/20 09:45 SP (Rec: 08/07/20 11:58 SP [id number]) OP-PT Subjective Patient Comments Patient Comments Pt reported still swelling in L knee but not as bad today. PT-OP-G Mobility & Gait Start: 06/01/20 07:21 Freq: Status: Active Protocol: Document 06/01/20 08:57 MB (Rec: 06/01/20 15:10 MB [id number]) OP Gait Assessment Comments Gait Comments Wide MAYNOR, decreased step- length and foot clearance, limited step-length, greater on the left with decreased left knee flexion and extension, right hip hike and decreased right hip flexion and extension. Stiff walking posture and increased lateral sway with gait. Pt states that he has not wanted to use cane or walker and so he does not bring in AD for assessment. PT-OP-K Range of Motion Start: 06/01/20 07:21 Freq: Status: Active Protocol: Document 06/01/20 08:57 MB (Rec: 06/01/20 15:33 MB [id number]) Knee Goniometric Range of Motion Knee Left Knee ROM WFL No Patient Position Supine Comments L knee AROM in hook lying is 6 -123 deg Right Knee ROM WFL Yes Patient Position Supine Comments R knee AROM in hook lying is 0 -125 deg Ankle and Foot Goniometric Range of Motion Ankle and Foot ROM Limitations Comments Left ankle inversion is reduced compared to the right PT-OP-M Strength Start: 06/01/20 07:21 Freq: Status: Active Protocol: Document 06/01/20 08:57 MB (Rec: 06/01/20 15:33 MB [id number]) Hip Strength Hip Manual Muscle Testing Left Flexion (L2) 4 Good Abduction 5 Normal Adduction 4 Good Right Flexion (L2) 5 Normal Abduction 4 Good Adduction 5 Normal Knee Strength Knee Manual Muscle Testing Left Flexion (S2) 3- Fair- Extension (L3) 4 Good Comments Pt reports 8/10 pain left posterior knee with left knee flexion MMT Right Flexion (S2) 5 Normal Extension (L3) 5 Normal Ankle/Foot Strength Ankle and Foot Manual Muscle Testing Left Dorsiflexion (L4) 5 Normal Inversion 3 Fair Eversion (S1) 4 Good Comments Pt reports increased left knee pain with inversion and eversion MMT Right Dorsiflexion (L4) 5 Normal Inversion 5 Normal Eversion (S1) 5 Normal PT-OP-Q Treatments Start: 06/01/20 07:21 Freq: Status: Active Protocol: Document 08/07/20 09:45 SP (Rec: 08/07/20 11:58 SP [id number]) Cardio Equipment Bicycle (Upright) Duration (Minutes) 8 Resistance 8 Seat Position 9 Gym Equipment Shuttle Recovery bilateral squat Details knee flexion w/red kickball between knees Resistance 50# Shuttle Recovery Platform Stable Reps/Time 2x15 Therapeutic Exercises Sitting Exercises Sit to stand without UE support Comments 6 reps in 30 sec today and pt favors left LE Standing Exercises Hamstring curl, bar support Side bilateral Resistance AROM Reps/Minutes x8 reps Comments cued upright posture w/hip ext and knees parallel Mini squat with bar Reps/Minutes x8 Comments cued hold bar posterior chain glut facilitation heel toe rocking Standing Exercise Name heel/ toe raises Side left Reps/Minutes 2x10 Comments with cuing for L knee not hyperextension TKE Side left Equipment Used level 1 band Reps/Minutes 2x15 Comments with B UE support Gait Training Gait Activity Gait with walker Description in front mirror Device Used FWW Level of Assistance S Surface stable Distance/Duration 20 ft laps x2, lap around gym area Treatment Focus upright plum alignment not lean wt shift, knee flexion/ ext Comments cues to improve posture using mirror with improvement, elevated FWW 1 knotch due to leaning over posture to meet FWW- better. Manual Therapy Treatment Soft Tissue Mobilization STM left gastroc soleus Comments cross friction pt with tenderness near medial fibular head and pes ancerine hamstring Body Location L distal hamstrings, proximal calves Mobilization Type Cross-Friction,Strumming Intensity/Depth Moderate Body Position Hooklying Comments manual - discussed instrument but not used today. Uses rolling stick at home. quads Body Location quads, IT band, around scar Mobilization Type Other Intensity/Depth Moderate Body Position Supine Comments manual retrograde strokes, cross friction PT-OP-T Assessment and Plan Start: 06/01/20 07:21 Freq: Status: Active Protocol: Document 08/07/20 09:45 SP (Rec: 08/07/20 11:58 SP [id number]) Physical Therapy Assessment Goals 8 Prison Goal (LTG) Pt will perform at least 12 reps sit to stand without UE support in 30 sec to improve functional transfers by 2020. 07/31/20: Pt performs 5 reps without UE support today, he favors the left knee. LTG Duration 8 weeks 7 Prison Goal (LTG) Pt will gait train at least 1200 feet in 6 minutes without AD to improve community ambulation by 09/28/2020. 07/31/20: Pt gait trains 958 feet in 6 minutes with RW today and he reports 3/10 lateral anterior left knee pain LTG Duration 8 weeks Six Functional Director Goal (LTG) Pt will deny falls for three months to decrease risk of injury by 09/28/20. 07/31/20: Pt denies falls since starting PT. LTG Duration 8 weeks 5 Functional Director Goal (LTG) Pt will perform reciprocal gait on stairs for 5 steps with 1 rail to allow normal home entry by 09/28/2020. 07/31/20: Pt progresses towards stairs today, performs 4 steps with two rails x2, step to step and then reciprocal stepping with two rails. LTG Duration 8 weeks Four Impairment Progress note score 31/80, 61. 25% impairment Prison Goal (LTG) Pt will present with an improved LE functional index score to reflect no more than 30% impairment to improve functional mobility by 2020. 07/31/20: LEF score reflects 61. 25% impairment, much better than 90% impairment which is what he had immediately post- op LTG Duration 8 weeks Three Prison Goal (LTG) Pt will present with improved left knee AROM to 0-125 deg to improve functional transfers by 09/28/2020. 07/31/20: Left knee AROM 8-119 deg in supine, much improved since progress note after surgery LTG Duration 8 weeks Two Functional Director Goal (LTG) Pt will present with improved B hip flexion, abduction, adduction, and left knee flexion, extension and ankle inversion and eversion to 5/5 to improve functional mobility by 09/28/2020. 07/31/20: Right hip flexion 4/5, Right hip adduction and abduction 5/5, left hip flexion 5/5, left hip adduction 4/5 and left hip abduction 5/5, left knee flexion and extension 4/5, left ankle eversion and inversion 5/5. LTG Duration 8 weeks One Prison Goal (LTG) Pt will perform HEP with I including LE flexibility, strengthening, gait and balance exercises to improve function by 09/28/20. 07/31/20: Pt is performing the following HEP exercises: mini squat, standing hamstring curl , large march with UE support all standing exercises, HS, sitting HS, hamstring stretch (sitting), Keo stretch and hamstring stretch in hook lying, STM with rolling pin vastus lateralis and SLR LTG Duration 8 weeks Assessment Summary Assessment Tx focused on hs and quad facilitation during gait with tall upright posture and controlled ROM LLE. Tolerated low resistance shuttle recovery with cuing for posterior chain 10*- 90 * range B knees w/ kickball between knee to facilitate VMO and noted decrease lateral knee discomfort recruitment with proper knee alignment. Pt improve qualith gait leaving, decreased lateral wt shift. Physical Therapy Plan Frequency and Duration Frequency of Treatment 2x/Week Duration of Treatment 8 weeks Plan of Care Start Date 07/31/20 Plan of Care End Date 09/28/20 Therapeutic Interventions Therapeutic Interventions Balance Training,Canalithic Repositioning,Gait Training, Home Exercise Program,Joint Mobilizations,Manual Therapy, Neuromuscular Re-education, Patient/Caregiver Education, Self-Care/Home Management, Sensory Integration,Soft Tissue Mobilization,Taping, Therapeutic Activities, Therapeutic Exercises Modalities Cold Pack/Ice Massage,Electric Stimulation,Hot Packs, Ultrasound Next Visit Focus/Plan Next Note Type Treatment Note Next Visit Plan Assess ther ex, manual and gait last tx. Continue per PT POC: Consider Counterstrain and KT. Weight shifting in standing and calf stretch. Progress range and strengthening exercises, manual work
--- NOTE | 2020-08-10 10:33 | PT.OTN ---
Current Diagnoses Unilateral primary osteoarthritis, left knee (08/10/20) Other tear of medial meniscus, current injury, left knee, initial encounter (08/10/20) Presence of left artificial knee joint (08/10/20) Physical Therapy Treatment Note PT-OP-A Visit Information Start: 06/01/20 07:21 Freq: Status: Active Protocol: Document 08/10/20 09:48 SP (Rec: 08/10/20 12:08 SP [id number]) Out-Patient Physical Therapy Visit Information Visit Information Visit Type Treatment Note Visit Note Workers Comp/L&I, cleared to continue by front office Auth: 04/03 units remaining. Visit Start Time 09:48 Visit Stop Time 10:33 Total Visit Minutes 42 Visit Number 11 Number of MOVEMENT ASSEMBLY FINAL INSPECTOR Visits 2 PT-OP-B Current Condition Start: 06/01/20 07:21 Freq: Status: Active Protocol: Document 06/01/20 08:57 MB (Rec: 06/01/20 09:32 MB [id number]) Current Condition History of Current Condition Onset Date August 2018 Current Complaints Left knee pain and right hip pain History of Current Condition In March 2018, a crate fell over him at work and pinned him up against a motor home. His trunk went forward and his left leg hyperextended. He underwent a meniscal surgery in early 2018. He con't to have pain. He received PT and did not get better. He finally underwent left TKR 05/14/2019 and had immediate pain post- op. He participated with PT and did not make significant improvements in pain, gait and range. PT sent pt back to surgeon and it was determined that there was a mechanical problem with prosthesis, on the lateral side. Pt's pain and clicking had consistently been at the lateral posterior left knee. The plan was for pt to transition to aquatic therapy while waiting for possible surgery the end of 2019 when the pool closed d/t COVID. He is currently scheduled for a revision on 06/12/2020. Pt con't with antalgic gait, favoring the left knee and he has new onset of right hip pain for 6 months after altered gait. He has a history of right THR. Left knee pain gets up to 5-6/10. He has not been walking with walker. He has not been icing or wearing thigh high compression. He has been performing heel slides. He has not been able to work on [employer] d/t his condition. Pt lives in a RV and has 5 steps to enter with left rail. He is currently driving. PMH: smoking, arthritis, HTN. Pt has had some falls and he fell down steps this summer. He is okay. Prior Treatments and Tests L TKR 05/14/2019, post-op PT, reconsult with orthopedic surgeon and deemed appropriate for another TKR end of 2019 Treatment Goals Patient/Caregiver Goals To decrease pain, improve range of motion and gait and get back to work. PT-OP-C Subjective Start: 06/01/20 07:21 Freq: Status: Active Protocol: Document 08/10/20 09:48 SP (Rec: 08/10/20 12:08 SP [id number]) OP-PT Subjective Patient Comments Patient Comments Pt stated was pretty sore for 1.5 days after last tx. If it weren't for the pinching in lateral posterior L knee would feel alot better but don't think there is much anyone can do about that. PT-OP-G Mobility & Gait Start: 06/01/20 07:21 Freq: Status: Active Protocol: Document 06/01/20 08:57 MB (Rec: 06/01/20 15:10 MB [id number]) OP Gait Assessment Comments Gait Comments Wide MAYNOR, decreased step- length and foot clearance, limited step-length, greater on the left with decreased left knee flexion and extension, right hip hike and decreased right hip flexion and extension. Stiff walking posture and increased lateral sway with gait. Pt states that he has not wanted to use cane or walker and so he does not bring in AD for assessment. PT-OP-K Range of Motion Start: 06/01/20 07:21 Freq: Status: Active Protocol: Document 06/01/20 08:57 MB (Rec: 06/01/20 15:33 MB [id number]) Knee Goniometric Range of Motion Knee Left Knee ROM WFL No Patient Position Supine Comments L knee AROM in hook lying is 6 -123 deg Right Knee ROM WFL Yes Patient Position Supine Comments R knee AROM in hook lying is 0 -125 deg Ankle and Foot Goniometric Range of Motion Ankle and Foot ROM Limitations Comments Left ankle inversion is reduced compared to the right PT-OP-M Strength Start: 12/10/20 07:21 Freq: Status: Active Protocol: Document 06/01/20 08:57 MB (Rec: 06/01/20 15:33 MB [id number]) Hip Strength Hip Manual Muscle Testing Left Flexion (L2) 4 Good Abduction 5 Normal Adduction 4 Good Right Flexion (L2) 5 Normal Abduction 4 Good Adduction 5 Normal Knee Strength Knee Manual Muscle Testing Left Flexion (S2) 3- Fair- Extension (L3) 4 Good Comments Pt reports 8/10 pain left posterior knee with left knee flexion MMT Right Flexion (S2) 5 Normal Extension (L3) 5 Normal Ankle/Foot Strength Ankle and Foot Manual Muscle Testing Left Dorsiflexion (L4) 5 Normal Inversion 3 Fair Eversion (S1) 4 Good Comments Pt reports increased left knee pain with inversion and eversion MMT Right Dorsiflexion (L4) 5 Normal Inversion 5 Normal Eversion (S1) 5 Normal PT-OP-Q Treatments Start: 06/01/20 07:21 Freq: Status: Active Protocol: Document 08/10/20 09:48 SP (Rec: 08/10/20 12:08 SP [id number]) Cardio Equipment Recumbent Bicycle Duration (Minutes) 7 Resistance 0 Seat Position 11 Therapeutic Exercises Supine Exercises HS Comments Performed AROM HS today, range 11-109* today quad sets Supine Exercise Name foot propped up on 1/2 foam roll Side left Equipment Used 1/2 foam roll Reps/Minutes 10x5 and quick flicks x10 Prone Exercises HS curl w/ strap Prone Exercise Name assessed but not tolerated Reps/Minutes x5 Comments AAROM- pinching/pressure lateral L knee so stopped Gait Training Gait Activity Gait training with SPC in RUE Device Used SPC Level of Assistance S Surface stable Distance/Duration 20 ft x 4 laps Treatment Focus normal gait and phase quality Comments Cane in right hand, step- through gait and heel toe cues . With increased trials and gait in front mirror. Manual Therapy Treatment Soft Tissue Mobilization STM left gastroc soleus Comments cross friction pt with tenderness near medial fibular head and pes ancerine hamstring Body Location L distal hamstrings, proximal calves Mobilization Type Cross-Friction,Strumming Intensity/Depth Moderate Body Position Hooklying Comments manual - discussed instrument but not used today. Uses rolling stick at home. quads Body Location quads, IT band, around scar Mobilization Type Cross-Friction,Instrument Assisted,Strumming Intensity/Depth Moderate Body Position Supine Comments manual retrograde strokes, cross friction PT-OP-T Assessment and Plan Start: 06/01/20 07:21 Freq: Status: Active Protocol: Document 08/10/20 09:48 SP (Rec: 08/10/20 12:08 SP [id number]) Physical Therapy Assessment Goals 8 Tax Appraiser Goal (LTG) Pt will perform at least 12 reps sit to stand without UE support in 30 sec to improve functional transfers by 2020. 07/31/20: Pt performs 5 reps without UE support today, he favors the left knee. LTG Duration 8 weeks 7 Tax Appraiser Goal (LTG) Pt will gait train at least 1200 feet in 6 minutes without AD to improve community ambulation by 09/28/2020. 07/31/20: Pt gait trains 958 feet in 6 minutes with RW today and he reports 3/10 lateral anterior left knee pain LTG Duration 8 weeks Six Tax Appraiser Goal (LTG) Pt will deny falls for three months to decrease risk of injury by 09/28/20. 07/31/20: Pt denies falls since starting PT. LTG Duration 8 weeks 5 Tax Appraiser Goal (LTG) Pt will perform reciprocal gait on stairs for 5 steps with 1 rail to allow normal home entry by 09/28/2020. 07/31/20: Pt progresses towards stairs today, performs 4 steps with two rails x2, step to step and then reciprocal stepping with two rails. LTG Duration 8 weeks Four Impairment Progress note score 31/80, 61. 25% impairment Tax Appraiser Goal (LTG) Pt will present with an improved LE functional index score to reflect no more than 30% impairment to improve functional mobility by 2020. 07/31/20: LEF score reflects 61. 25% impairment, much better than 90% impairment which is what he had immediately post- op LTG Duration 8 weeks Three Care Home Goal (LTG) Pt will present with improved left knee AROM to 0-125 deg to improve functional transfers by 09/28/2020. 08/10/20: Left knee AROM 4-124 deg in supine post manual. LTG Duration 8 weeks Two Care Home Goal (LTG) Pt will present with improved B hip flexion, abduction, adduction, and left knee flexion, extension and ankle inversion and eversion to 5/5 to improve functional mobility by 09/28/2020. 07/31/20: Right hip flexion 4/5, Right hip adduction and abduction 5/5, left hip flexion 5/5, left hip adduction 4/5 and left hip abduction 5/5, left knee flexion and extension 4/5, left ankle eversion and inversion 5/5. LTG Duration 8 weeks One Care Home Goal (LTG) Pt will perform HEP with I including LE flexibility, strengthening, gait and balance exercises to improve function by 09/28/20. 07/31/20: Pt is performing the following HEP exercises: mini squat, standing hamstring curl , large march with UE support all standing exercises, HS, sitting HS, hamstring stretch (sitting), Keo stretch and hamstring stretch in hook lying, STM with rolling pin vastus lateralis and SLR LTG Duration 8 weeks Assessment Summary Assessment Gained 4 deg extension, 5 degrees flexion since last measured 07/31/20. Tx focused on decreased tightness in lateral HS, Distal ITB, quad and ROM on initiated upright bike today with rocking. Physical Therapy Plan Frequency and Duration Frequency of Treatment 2x/Week Duration of Treatment 8 weeks Plan of Care Start Date 07/31/20 Plan of Care End Date 09/28/20 Therapeutic Interventions Therapeutic Interventions Balance Training,Canalithic Repositioning,Gait Training, Home Exercise Program,Joint Mobilizations,Manual Therapy, Neuromuscular Re-education, Patient/Caregiver Education, Self-Care/Home Management, Sensory Integration,Soft Tissue Mobilization,Taping, Therapeutic Activities, Therapeutic Exercises Modalities Cold Pack/Ice Massage,Electric Stimulation,Hot Packs, Ultrasound Next Visit Focus/Plan Next Note Type Treatment Note Next Visit Plan Assess ther ex, manual and gait last tx. Continue per PT POC: Consider Counterstrain and KT. Weight shifting in standing and calf stretch. Progress range and strengthening exercises, manual work
--- NOTE | 2020-08-14 10:31 | PT.OTN ---
Current Diagnoses Unilateral primary osteoarthritis, left knee (08/14/20) Other tear of medial meniscus, current injury, left knee, initial encounter (08/14/20) Presence of left artificial knee joint (08/14/20) Physical Therapy Treatment Note PT-OP-A Visit Information Start: 06/01/20 07:21 Freq: Status: Active Protocol: Document 08/14/20 09:47 MB (Rec: 08/14/20 10:31 MB [id number]) Out-Patient Physical Therapy Visit Information Visit Information Visit Type Treatment Note Visit Note Workers Comp/L&I Visit Start Time 09:47 Visit Stop Time 10:30 Total Visit Minutes 43 Visit Number 12 Number of PILOT CAN ROUTER Visits 0 PT-OP-B Current Condition Start: 06/01/20 07:21 Freq: Status: Active Protocol: Document 06/01/20 08:57 MB (Rec: 06/01/20 09:32 MB [id number]) Current Condition History of Current Condition Onset Date August 2018 Current Complaints Left knee pain and right hip pain History of Current Condition In March 2018, a crate fell over him at work and pinned him up against a motor home. His trunk went forward and his left leg hyperextended. He underwent a meniscal surgery in early 2018. He con't to have pain. He received PT and did not get better. He finally underwent left TKR 05/14/2019 and had immediate pain post- op. He participated with PT and did not make significant improvements in pain, gait and range. PT sent pt back to surgeon and it was determined that there was a mechanical problem with prosthesis, on the lateral side. Pt's pain and clicking had consistently been at the lateral posterior left knee. The plan was for pt to transition to aquatic therapy while waiting for possible surgery the end of 2019 when the pool closed d/t COVID. He is currently scheduled for a revision on 06/12/2020. Pt con't with antalgic gait, favoring the left knee and he has new onset of right hip pain for 6 months after altered gait. He has a history of right THR. Left knee pain gets up to 5-6/10. He has not been walking with walker. He has not been icing or wearing thigh high compression. He has been performing heel slides. He has not been able to work on [employer] d/t his condition. Pt lives in a RV and has 5 steps to enter with left rail. He is currently driving. PMH: smoking, arthritis, HTN. Pt has had some falls and he fell down steps this summer. He is okay. Prior Treatments and Tests L TKR 05/14/2019, post-op PT, reconsult with orthopedic surgeon and deemed appropriate for another TKR end of 2019 Treatment Goals Patient/Caregiver Goals To decrease pain, improve range of motion and gait and get back to work. PT-OP-C Subjective Start: 06/01/20 07:21 Freq: Status: Active Protocol: Document 08/14/20 09:47 MB (Rec: 08/14/20 10:31 MB [id number]) OP-PT Subjective Patient Comments Patient Comments It's sore. Pt states that he is sore where the therapist was rubbing the tendons with the reflex hammer. He was using a spoon at home to do it himself. He wonders if his left quad will get better. Pt states that his left leg was shorter after left THR and he thinks that his right leg feels longer now. PT-OP-G Mobility & Gait Start: 06/01/20 07:21 Freq: Status: Active Protocol: Document 06/01/20 08:57 MB (Rec: 06/01/20 15:10 MB [id number]) OP Gait Assessment Comments Gait Comments Wide MAYNOR, decreased step- length and foot clearance, limited step-length, greater on the left with decreased left knee flexion and extension, right hip hike and decreased right hip flexion and extension. Stiff walking posture and increased lateral sway with gait. Pt states that he has not wanted to use cane or walker and so he does not bring in AD for assessment. PT-OP-K Range of Motion Start: 06/01/20 07:21 Freq: Status: Active Protocol: Document 06/01/20 08:57 MB (Rec: 06/01/20 15:33 MB [id number]) Knee Goniometric Range of Motion Knee Left Knee ROM WFL No Patient Position Supine Comments L knee AROM in hook lying is 6 -123 deg Right Knee ROM WFL Yes Patient Position Supine Comments R knee AROM in hook lying is 0 -125 deg Ankle and Foot Goniometric Range of Motion Ankle and Foot ROM Limitations Comments Left ankle inversion is reduced compared to the right PT-OP-M Strength Start: 06/01/20 07:21 Freq: Status: Active Protocol: Document 06/01/20 08:57 MB (Rec: 06/01/20 15:33 MB [id number]) Hip Strength Hip Manual Muscle Testing Left Flexion (L2) 4 Good Abduction 5 Normal Adduction 4 Good Right Flexion (L2) 5 Normal Abduction 4 Good Adduction 5 Normal Knee Strength Knee Manual Muscle Testing Left Flexion (S2) 3- Fair- Extension (L3) 4 Good Comments Pt reports 8/10 pain left posterior knee with left knee flexion MMT Right Flexion (S2) 5 Normal Extension (L3) 5 Normal Ankle/Foot Strength Ankle and Foot Manual Muscle Testing Left Dorsiflexion (L4) 5 Normal Inversion 3 Fair Eversion (S1) 4 Good Comments Pt reports increased left knee pain with inversion and eversion MMT Right Dorsiflexion (L4) 5 Normal Inversion 5 Normal Eversion (S1) 5 Normal PT-OP-Q Treatments Start: 06/01/20 07:21 Freq: Status: Active Protocol: Document 08/14/20 09:47 MB (Rec: 08/14/20 10:31 MB [id number]) Cardio Equipment Bicycle (Upright) Duration (Minutes) 10 Resistance 10 Seat Position 9 Therapeutic Exercises Supine Exercises SLR with QS and toes up to start Side left Comments 5 reps slowly and cues for form 3 Supine Exercise Name Keo stretch Side bilateral Comments 30 sec hold 2 Supine Exercise Name Hamstring stretch with AP Side bilateral Comments 30 sec hold, 20 pumps Sitting Exercises Rolling pin STM Comments Performed today and pt to con' t at home Sitting hamstring stretch Side bilateral Comments 30 sec hold Manual Therapy Treatment Other Other Manual Treatments STM left quads, hamstrings, TFL, posterior knee with pt in right side lying Black KT left knee, c strip under patella, one 1 I strip medial knee and 2 I strips lateral knee for support PT-OP-T Assessment and Plan Start: 06/01/20 07:21 Freq: Status: Active Protocol: Document 08/14/20 09:47 MB (Rec: 08/14/20 10:31 MB [id number]) Physical Therapy Assessment Goals 8 Custodial Goal (LTG) Pt will perform at least 12 reps sit to stand without UE support in 30 sec to improve functional transfers by 2020. 07/31/20: Pt performs 5 reps without UE support today, he favors the left knee. LTG Duration 8 weeks 7 Custodial Goal (LTG) Pt will gait train at least 1200 feet in 6 minutes without AD to improve community ambulation by 09/28/2020. 07/31/20: Pt gait trains 958 feet in 6 minutes with RW today and he reports 3/10 lateral anterior left knee pain LTG Duration 8 weeks Six Custodial Goal (LTG) Pt will deny falls for three months to decrease risk of injury by 09/28/20. 07/31/20: Pt denies falls since starting PT. LTG Duration 8 weeks 5 Custodial Goal (LTG) Pt will perform reciprocal gait on stairs for 5 steps with 1 rail to allow normal home entry by 09/28/2020. 07/31/20: Pt progresses towards stairs today, performs 4 steps with two rails x2, step to step and then reciprocal stepping with two rails. LTG Duration 8 weeks Four Impairment Progress note score 31/80, 61. 25% impairment Custodial Goal (LTG) Pt will present with an improved LE functional index score to reflect no more than 30% impairment to improve functional mobility by 2020. 07/31/20: LEF score reflects 61. 25% impairment, much better than 90% impairment which is what he had immediately post- op LTG Duration 8 weeks Three Administrative Support Specialist Goal (LTG) Pt will present with improved left knee AROM to 0-125 deg to improve functional transfers by 09/28/2020. 08/10/20: Left knee AROM 4-124 deg in supine post manual. LTG Duration 8 weeks Two Administrative Support Specialist Goal (LTG) Pt will present with improved B hip flexion, abduction, adduction, and left knee flexion, extension and ankle inversion and eversion to 5/5 to improve functional mobility by 09/28/2020. 07/31/20: Right hip flexion 4/5, Right hip adduction and abduction 5/5, left hip flexion 5/5, left hip adduction 4/5 and left hip abduction 5/5, left knee flexion and extension 4/5, left ankle eversion and inversion 5/5. LTG Duration 8 weeks One Administrative Support Specialist Goal (LTG) Pt will perform HEP with I including LE flexibility, strengthening, gait and balance exercises to improve function by 09/28/20. 07/31/20: Pt is performing the following HEP exercises: mini squat, standing hamstring curl , large march with UE support all standing exercises, HS, sitting HS, hamstring stretch (sitting), Keo stretch and hamstring stretch in hook lying, STM with rolling pin vastus lateralis and SLR LTG Duration 8 weeks Assessment Summary Assessment Ed pt to back off touching his lateral left leg and no self- massage to the painful area. Taping today to support the area and to cue pt not to touch it. Con't progression including hip abductor/ER strengthening in hook lying next treatment and pelvic realignment exercises. Physical Therapy Plan Frequency and Duration Frequency of Treatment 2x/Week Duration of Treatment 8 weeks Plan of Care Start Date 07/31/20 Plan of Care End Date 09/28/20 Therapeutic Interventions Therapeutic Interventions Balance Training,Canalithic Repositioning,Gait Training, Home Exercise Program,Joint Mobilizations,Manual Therapy, Neuromuscular Re-education, Patient/Caregiver Education, Self-Care/Home Management, Sensory Integration,Soft Tissue Mobilization,Taping, Therapeutic Activities, Therapeutic Exercises Modalities Cold Pack/Ice Massage,Electric Stimulation,Hot Packs, Ultrasound Next Visit Focus/Plan Next Note Type Treatment Note Next Visit Plan Progress hook lying clam with band and LAQ with band, further quad and abductor and hip extensor strengthening ( consider bridge with clanicolasa, ed in core first), PNF manually assisted in the future, consider pelvic realignment exercises to help with functional leg length changes
--- NOTE | 2020-08-17 11:09 | PT.OTN ---
Current Diagnoses Unilateral primary osteoarthritis, left knee (08/17/20) Other tear of medial meniscus, current injury, left knee, initial encounter (08/17/20) Presence of left artificial knee joint (08/17/20) Physical Therapy Treatment Note PT-OP-A Visit Information Start: 06/01/20 07:21 Freq: Status: Active Protocol: Document 08/17/20 09:48 MB (Rec: 08/17/20 10:54 MB [id number]) Out-Patient Physical Therapy Visit Information Visit Information Visit Type Treatment Note Visit Note Workers Comp/L&I Visit Start Time 09:48 Visit Stop Time 10:48 Total Visit Minutes 60 Visit Number 13 PT-OP-B Current Condition Start: 06/01/20 07:21 Freq: Status: Active Protocol: Document 06/01/20 08:57 MB (Rec: 06/01/20 09:32 MB [id number]) Current Condition History of Current Condition Onset Date August 2018 Current Complaints Left knee pain and right hip pain History of Current Condition In March 2018, a crate fell over him at work and pinned him up against a motor home. His trunk went forward and his left leg hyperextended. He underwent a meniscal surgery in early 2018. He con't to have pain. He received PT and did not get better. He finally underwent left TKR 05/14/2019 and had immediate pain post- op. He participated with PT and did not make significant improvements in pain, gait and range. PT sent pt back to surgeon and it was determined that there was a mechanical problem with prosthesis, on the lateral side. Pt's pain and clicking had consistently been at the lateral posterior left knee. The plan was for pt to transition to aquatic therapy while waiting for possible surgery the end of 2019 when the pool closed d/t COVID. He is currently scheduled for a revision on 06/12/2020. Pt con't with antalgic gait, favoring the left knee and he has new onset of right hip pain for 6 months after altered gait. He has a history of right THR. Left knee pain gets up to 5-6/10. He has not been walking with walker. He has not been icing or wearing thigh high compression. He has been performing heel slides. 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 Pt lives in a RV and has 5 steps to enter with left rail. He is currently driving. PMH: smoking, arthritis, HTN. Pt has had some falls and he fell down steps this summer. He is okay. Prior Treatments and Tests L TKR 05/14/2019, post-op PT, reconsult with orthopedic surgeon and deemed appropriate for another TKR end of 2019 Treatment Goals Patient/Caregiver Goals To decrease pain, improve range of motion and gait and get back to work. PT-OP-C Subjective Start: 06/01/20 07:21 Freq: Status: Active Protocol: Document 08/17/20 09:48 MB (Rec: 08/17/20 10:54 MB [id number]) OP-PT Subjective Patient Comments Patient Comments Pt states that he returned to see Dr. Lawrence. He did say that his left leg is a little longer. He asks about a lift for right shoe. Pt states that the doctor states that he did not replace patella. He has his own patella. PT-OP-G Mobility & Gait Start: 06/01/20 07:21 Freq: Status: Active Protocol: Document 06/01/20 08:57 MB (Rec: 06/01/20 15:10 MB [id number]) OP Gait Assessment Comments Gait Comments Wide MAYNOR, decreased step- length and foot clearance, limited step-length, greater on the left with decreased left knee flexion and extension, right hip hike and decreased right hip flexion and extension. Stiff walking posture and increased lateral sway with gait. Pt states that he has not wanted to use cane or walker and so he does not bring in AD for assessment. PT-OP-K Range of Motion Start: 06/01/20 07:21 Freq: Status: Active Protocol: Document 06/01/20 08:57 MB (Rec: 06/01/20 15:33 MB [id number]) Knee Goniometric Range of Motion Knee Left Knee ROM WFL No Patient Position Supine Comments L knee AROM in hook lying is 6 -123 deg Right Knee ROM WFL Yes Patient Position Supine Comments R knee AROM in hook lying is 0 -125 deg Ankle and Foot Goniometric Range of Motion Ankle and Foot ROM Limitations Comments Left ankle inversion is reduced compared to the right PT-OP-M Strength Start: 06/01/20 07:21 Freq: Status: Active Protocol: Document 06/01/20 08:57 MB (Rec: 06/01/20 15:33 MB [id number]) Hip Strength Hip Manual Muscle Testing Left Flexion (L2) 4 Good Abduction 5 Normal Adduction 4 Good Right Flexion (L2) 5 Normal Abduction 4 Good Adduction 5 Normal Knee Strength Knee Manual Muscle Testing Left Flexion (S2) 3- Fair- Extension (L3) 4 Good Comments Pt reports 8/10 pain left posterior knee with left knee flexion MMT Right Flexion (S2) 5 Normal Extension (L3) 5 Normal Ankle/Foot Strength Ankle and Foot Manual Muscle Testing Left Dorsiflexion (L4) 5 Normal Inversion 3 Fair Eversion (S1) 4 Good Comments Pt reports increased left knee pain with inversion and eversion MMT Right Dorsiflexion (L4) 5 Normal Inversion 5 Normal Eversion (S1) 5 Normal PT-OP-Q Treatments Start: 06/01/20 07:21 Freq: Status: Active Protocol: Document 08/17/20 09:48 MB (Rec: 08/17/20 10:54 MB [id number]) Cardio Equipment Bicycle (Upright) Duration (Minutes) 10 Resistance 10 Seat Position 9 Therapeutic Exercises Supine Exercises 1 Supine Exercise Name Pelvic realignment exercises Side bilateral Comments 5 reps, 3 sec hold Standing Exercises Weight shifting Equipment Used Rail in front for feet even, rail at side when staggered Reps/Minutes 5 rocks in 3 positions: feet even, right foot front, right foot back Comments Standing feet even then staggered, move hips Gait Training Gait Activity Gait training with SPC in RUE Comments Multiple trials (grossly 20) 75', cane RUE and shoes: pt states that is feels abnormal to keep left foot in. He tends to functionally shorten his left leg with ER and presents with decreased push off and increased swing of left leg. In socks, gait is slower and stiffer, similar pattern. With 07/08 cork, gait is mildly improved, pt looking in big mirror and cued to work on left toes forward and toe push off. With 07/08 , gait is pretty similar, walking while looking in the mirror and PT cues pt to move hips and pelvis a bit more. PT teaches pt pelvic realignment exercises and then staggered standing pelvic movement and his gait in front of the mirror is marked better afterwards. He tends to move trunk right and left and lean on cane on the right and so tried without cane but gait is not better, will progress as able PT-OP-T Assessment and Plan Start: 06/01/20 07:21 Freq: Status: Active Protocol: Document 08/17/20 09:48 MB (Rec: 08/17/20 10:54 MB [id number]) Physical Therapy Assessment Goals 8 Correction Goal (LTG) Pt will perform at least 12 reps sit to stand without UE support in 30 sec to improve functional transfers by 2020. 07/31/20: Pt performs 5 reps without UE support today, he favors the left knee. LTG Duration 8 weeks 7 Quality Manager Goal (LTG) Pt will gait train at least 1200 feet in 6 minutes without AD to improve community ambulation by 09/28/2020. 07/31/20: Pt gait trains 958 feet in 6 minutes with RW today and he reports 3/10 lateral anterior left knee pain LTG Duration 8 weeks Six Correction Goal (LTG) Pt will deny falls for three months to decrease risk of injury by 09/28/20. 07/31/20: Pt denies falls since starting PT. LTG Duration 8 weeks 5 Quality Manager Goal (LTG) Pt will perform reciprocal gait on stairs for 5 steps with 1 rail to allow normal home entry by 09/28/2020. 07/31/20: Pt progresses towards stairs today, performs 4 steps with two rails x2, step to step and then reciprocal stepping with two rails. LTG Duration 8 weeks Four Impairment Progress note score 31/80, 61. 25% impairment Correction Goal (LTG) Pt will present with an improved LE functional index score to reflect no more than 30% impairment to improve functional mobility by 2020. 07/31/20: LEF score reflects 61. 25% impairment, much better than 90% impairment which is what he had immediately post- op LTG Duration 8 weeks Three Correction Goal (LTG) Pt will present with improved left knee AROM to 0-125 deg to improve functional transfers by 09/28/2020. 08/10/20: Left knee AROM 4-124 deg in supine post manual. LTG Duration 8 weeks Two Quality Manager Goal (LTG) Pt will present with improved B hip flexion, abduction, adduction, and left knee flexion, extension and ankle inversion and eversion to 5/5 to improve functional mobility by 09/28/2020. 07/31/20: Right hip flexion 4/5, Right hip adduction and abduction 5/5, left hip flexion 5/5, left hip adduction 4/5 and left hip abduction 5/5, left knee flexion and extension 4/5, left ankle eversion and inversion 5/5. LTG Duration 8 weeks One Correction Goal (LTG) Pt will perform HEP with I including LE flexibility, strengthening, gait and balance exercises to improve function by 09/28/20. 08/17/20: Pt is performing the following HEP exercises: mini squat, standing hamstring curl , large march with UE support all standing exercises, HS, sitting HS, hamstring stretch (sitting), Keo stretch and hamstring stretch in hook lying, STM with rolling pin vastus lateralis and SLR, added standing weight shift and pelvic rocking, pelvic realignment exercises LTG Duration 8 weeks Assessment Summary Assessment Initiated low shoe lift today, 07/08 cork and provided another to add height as needed. Pt would like to practice his gait with these added cork for helping functional lift of right leg. Added pelvic realignment exercises today. His gait is most improved after standing rocking and weight shifting side to side and then staggered stance front and back altering feet and manual and VCs for loosening pelvis from trunk. This is challenging for pt. His right hip is a little sore after all the gait changes, con't to monitor. Progress today. Physical Therapy Plan Frequency and Duration Frequency of Treatment 2x/Week Duration of Treatment 8 weeks Plan of Care Start Date 07/31/20 Plan of Care End Date 09/28/20 Therapeutic Interventions Therapeutic Interventions Balance Training,Canalithic Repositioning,Gait Training, Home Exercise Program,Joint Mobilizations,Manual Therapy, Neuromuscular Re-education, Patient/Caregiver Education, Self-Care/Home Management, Sensory Integration,Soft Tissue Mobilization,Taping, Therapeutic Activities, Therapeutic Exercises Modalities Cold Pack/Ice Massage,Electric Stimulation,Hot Packs, Ultrasound Next Visit Focus/Plan Next Note Type Treatment Note Next Visit Plan Standing weight shifting rocking with pelvic movement. Progress hook lying clam with band and LAQ with band, further quad and abductor and hip extensor strengthening ( consider bridge with clam, ed in core first), PNF manually assisted in the future.
--- NOTE | 2020-08-22 09:02 | PT.OTN ---
Current Diagnoses Unilateral primary osteoarthritis, left knee (08/22/20) Other tear of medial meniscus, current injury, left knee, initial encounter (08/22/20) Presence of left artificial knee joint (08/22/20) Physical Therapy Treatment Note PT-OP-A Visit Information Start: 06/01/20 07:21 Freq: Status: Active Protocol: Document 08/22/20 08:21 SP (Rec: 08/22/20 11:55 SP [id number]) Out-Patient Physical Therapy Visit Information Visit Information Visit Type Treatment Note Visit Note Workers Comp/L&I Visit Start Time 08:21 Visit Stop Time 09:02 Total Visit Minutes 41 Visit Number 14 Number of ANNUAL GIVING OFFICER Visits 1 PT-OP-B Current Condition Start: 06/01/20 07:21 Freq: Status: Active Protocol: Document 06/01/20 08:57 MB (Rec: 06/01/20 09:32 MB [id number]) Current Condition History of Current Condition Onset Date August 2018 Current Complaints Left knee pain and right hip pain History of Current Condition In March 2018, a crate fell over him at work and pinned him up against a motor home. His trunk went forward and his left leg hyperextended. He underwent a meniscal surgery in early 2018. He con't to have pain. He received PT and did not get better. He finally underwent left TKR 05/14/2019 and had immediate pain post- op. He participated with PT and did not make significant improvements in pain, gait and range. PT sent pt back to surgeon and it was determined that there was a mechanical problem with prosthesis, on the lateral side. Pt's pain and clicking had consistently been at the lateral posterior left knee. The plan was for pt to transition to aquatic therapy while waiting for possible surgery the end of 2019 when the pool closed d/t COVID. He is currently scheduled for a revision on 06/12/2020. Pt con't with antalgic gait, favoring the left knee and he has new onset of right hip pain for 6 months after altered gait. He has a history of right THR. Left knee pain gets up to 5-6/10. He has not been walking with walker. He has not been icing or wearing thigh high compression. He has been performing heel slides. He has not been able to work on [employer] d/t his condition. Pt lives in a RV and has 5 steps to enter with left rail. He is currently driving. PMH: smoking, arthritis, HTN. Pt has had some falls and he fell down steps this summer. He is okay. Prior Treatments and Tests L TKR 05/14/2019, post-op PT, reconsult with orthopedic surgeon and deemed appropriate for another TKR end of 2019 Treatment Goals Patient/Caregiver Goals To decrease pain, improve range of motion and gait and get back to work. PT-OP-C Subjective Start: 06/01/20 07:21 Freq: Status: Active Protocol: Document 08/22/20 08:21 SP (Rec: 08/22/20 11:55 SP [id number]) OP-PT Subjective Patient Comments Patient Comments Pt stated is using SPC in L UE now with antalgic gait. Still having pain over lateral L knee and get clicking/ popping better since recent surgery but still there . Pt stated thinks the cork lift in shoe was helpful for his R hip but thinks needs little higher and will go out and get an insert . PT-OP-G Mobility & Gait Start: 06/01/20 07:21 Freq: Status: Active Protocol: Document 06/01/20 08:57 MB (Rec: 06/01/20 15:10 MB [id number]) OP Gait Assessment Comments Gait Comments Wide MAYNOR, decreased step- length and foot clearance, limited step-length, greater on the left with decreased left knee flexion and extension, right hip hike and decreased right hip flexion and extension. Stiff walking posture and increased lateral sway with gait. Pt states that he has not wanted to use cane or walker and so he does not bring in AD for assessment. PT-OP-K Range of Motion Start: 06/01/20 07:21 Freq: Status: Active Protocol: Document 06/01/20 08:57 MB (Rec: 06/01/20 15:33 MB [id number]) Knee Goniometric Range of Motion Knee Left Knee ROM WFL No Patient Position Supine Comments L knee AROM in hook lying is 6 -123 deg Right Knee ROM WFL Yes Patient Position Supine Comments R knee AROM in hook lying is 0 -125 deg Ankle and Foot Goniometric Range of Motion Ankle and Foot ROM Limitations Comments Left ankle inversion is reduced compared to the right PT-OP-M Strength Start: 06/01/20 07:21 Freq: Status: Active Protocol: Document 06/01/20 08:57 MB (Rec: 06/01/20 15:33 MB [id number]) Hip Strength Hip Manual Muscle Testing Left Flexion (L2) 4 Good Abduction 5 Normal Adduction 4 Good Right Flexion (L2) 5 Normal Abduction 4 Good Adduction 5 Normal Knee Strength Knee Manual Muscle Testing Left Flexion (S2) 3- Fair- Extension (L3) 4 Good Comments Pt reports 8/10 pain left posterior knee with left knee flexion MMT Right Flexion (S2) 5 Normal Extension (L3) 5 Normal Ankle/Foot Strength Ankle and Foot Manual Muscle Testing Left Dorsiflexion (L4) 5 Normal Inversion 3 Fair Eversion (S1) 4 Good Comments Pt reports increased left knee pain with inversion and eversion MMT Right Dorsiflexion (L4) 5 Normal Inversion 5 Normal Eversion (S1) 5 Normal PT-OP-Q Treatments Start: 06/01/20 07:21 Freq: Status: Active Protocol: Document 08/22/20 08:21 SP (Rec: 08/22/20 11:55 SP [id number]) Cardio Equipment Bicycle (Upright) Duration (Minutes) 10 Resistance 10 Seat Position 9 Therapeutic Exercises Supine Exercises SLR with QS and toes up to start Side left Comments 5x2 sets reps slowly to allow quad knee ext and recovery from tiring no lag 3 Supine Exercise Name Keo stretch Side bilateral Equipment Used w/ strap Comments 30 sec hold 2 Supine Exercise Name Hamstring stretch with AP Side bilateral Comments 30 sec hold, 20 pumps and w/ strap doesn't feel gets a stretch 1 Supine Exercise Name Pelvic realignment exercises Side bilateral Comments 5 reps, 3 sec hold Sidelying Exercises L hip adduction Sidelying Exercise Name R leg crossed over L for support then lift left jamel range Side left Reps/Minutes x5 Comments cued trunk alignment stacked, Standing Exercises hip adduction TB Standing Exercise Name R>L Equipment Used chair for support Reps/Minutes x10 each LE Comments cued upright posture w/end range ext then hip stab stationary LE, add opp Weight shifting Standing Exercise Name did not perform, review next tx Equipment Used Rail in front for feet even, rail at side when staggered Reps/Minutes 5 rocks in 3 positions: feet even, right foot front, right foot back Comments Standing feet even then staggered, move hips Hamstring curl, bar support Side bilateral Resistance AROM Reps/Minutes x8 reps Comments cued upright posture w/hip ext and knees parallel Mini squat with bar Reps/Minutes x8 Comments cued hold bar posterior chain glut facilitation Large march with UE support Comments 10 reps, alternating Crab walking with level 1 band Comments 6 reps of [address] Calf stretching standing and MWM with toes up Comments Gastroc and soleus stretches today PT-OP-T Assessment and Plan Start: 06/01/20 07:21 Freq: Status: Active Protocol: Document 08/22/20 08:21 SP (Rec: 08/22/20 11:55 SP [id number]) Physical Therapy Assessment Goals 8 Ribbon Lapper Tender Goal (LTG) Pt will perform at least 12 reps sit to stand without UE support in 30 sec to improve functional transfers by 2020. 07/31/20: Pt performs 5 reps without UE support today, he favors the left knee. LTG Duration 8 weeks 7 Halfway Goal (LTG) Pt will gait train at least 1200 feet in 6 minutes without AD to improve community ambulation by 09/28/2020. 07/31/20: Pt gait trains 958 feet in 6 minutes with RW today and he reports 3/10 lateral anterior left knee pain LTG Duration 8 weeks Six Halfway Goal (LTG) Pt will deny falls for three months to decrease risk of injury by 09/28/20. 07/31/20: Pt denies falls since starting PT. LTG Duration 8 weeks 5 Ribbon Lapper Tender Goal (LTG) Pt will perform reciprocal gait on stairs for 5 steps with 1 rail to allow normal home entry by 09/28/2020. 07/31/20: Pt progresses towards stairs today, performs 4 steps with two rails x2, step to step and then reciprocal stepping with two rails. LTG Duration 8 weeks Four Impairment Progress note score 31/80, 61. 25% impairment Halfway Goal (LTG) Pt will present with an improved LE functional index score to reflect no more than 30% impairment to improve functional mobility by 2020. 07/31/20: LEF score reflects 61. 25% impairment, much better than 90% impairment which is what he had immediately post- op LTG Duration 8 weeks Three Halfway Goal (LTG) Pt will present with improved left knee AROM to 0-125 deg to improve functional transfers by 09/28/2020. 08/10/20: Left knee AROM 4-124 deg in supine post manual. LTG Duration 8 weeks Two Halfway Goal (LTG) Pt will present with improved B hip flexion, abduction, adduction, and left knee flexion, extension and ankle inversion and eversion to 5/5 to improve functional mobility by 09/28/2020. 07/31/20: Right hip flexion 4/5, Right hip adduction and abduction 5/5, left hip flexion 5/5, left hip adduction 4/5 and left hip abduction 5/5, left knee flexion and extension 4/5, left ankle eversion and inversion 5/5. LTG Duration 8 weeks One Halfway Goal (LTG) Pt will perform HEP with I including LE flexibility, strengthening, gait and balance exercises to improve function by 09/28/20. 08/22/20: Pt is performing the following HEP exercises: mini squat, standing hamstring curl , large march with UE support all standing exercises, hamstring stretch (sitting), Keo stretch and hamstring stretch in hook lying, STM with rolling pin vastus lateralis and SLR, added standing weight shift and pelvic rocking, pelvic realignment exercises, hip adduction sidelying AROM and standing w/ TB. LTG Duration 8 weeks Assessment Summary Assessment Pt improved in decrease lag during SLR post cuing for quad facilitation. Initiated hip adduction on L side and standing L hip adduction w/ resistance with good feedback resulsts post patient's comments of discomfort of lateral L knee and weakness in L adductor. No adverse affects to tx, cued trunk and hip alignment with good carry over. Recheck proper form next tx. Physical Therapy Plan Frequency and Duration Frequency of Treatment 2x/Week Duration of Treatment 8 weeks Plan of Care Start Date 07/31/20 Plan of Care End Date 09/28/20 Therapeutic Interventions Therapeutic Interventions Balance Training,Canalithic Repositioning,Gait Training, Home Exercise Program,Joint Mobilizations,Manual Therapy, Neuromuscular Re-education, Patient/Caregiver Education, Self-Care/Home Management, Sensory Integration,Soft Tissue Mobilization,Taping, Therapeutic Activities, Therapeutic Exercises Modalities Cold Pack/Ice Massage,Electric Stimulation,Hot Packs, Ultrasound Next Visit Focus/Plan Next Note Type Treatment Note Next Visit Plan Assess reponse to HEp reveiw and added hip adduction. Next tx reassess: hip add side and standing then Standing weight shifting rocking with pelvic movement. Continue per PT POC: Progress hook lying clam with band and LAQ with band, further quad and abductor and hip extensor strengthening (consider bridge with clam, ed in core first), PNF manually assisted in the future.
--- NOTE | 2020-08-28 08:55 | PT.OTN ---
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 His trunk went forward and his left leg hyperextended. He underwent a meniscal surgery in early 2018. He con't to have pain. He received PT and did not get better. He finally underwent left TKR 05/14/2019 and had immediate pain post- op. He participated with PT and did not make significant improvements in pain, gait and range. PT sent pt back to surgeon and it was determined that there was a mechanical problem with prosthesis, on the lateral side. Pt's pain and clicking had consistently been at the lateral posterior left knee. The plan was for pt to transition to aquatic therapy while waiting for possible surgery the end of 2019 when the pool closed d/t COVID. He is currently scheduled for a revision on 06/12/2020. Pt con't with antalgic gait, favoring the left knee and he has new onset of right hip pain for 6 months after altered gait. He has a history of right THR. Left knee pain gets up to 5-6/10. He has not been walking with walker. He has not been icing or wearing thigh high compression. He has been performing heel slides. He has not been able to work on [employer] d/t his condition. Pt lives in a RV and has 5 steps to enter with left rail. He is currently driving. PMH: smoking, arthritis, HTN. Pt has had some falls and he fell down steps this summer. He is okay. Prior Treatments and Tests L TKR 05/14/2019, post-op PT, reconsult with orthopedic surgeon and deemed appropriate for another TKR end of 2019 Treatment Goals Patient/Caregiver Goals To decrease pain, improve range of motion and gait and get back to work. PT-OP-C Subjective Start: 06/01/20 07:21 Freq: Status: Active Protocol: Document 08/28/20 08:10 MB (Rec: 08/28/20 08:55 MB [id number]) OP-PT Subjective Patient Comments Patient Comments I don't think that pinching and pain is going to go away. Pt states that [place] the end of the month and will be there for the summer. PT-OP-G Mobility & Gait Start: 06/01/20 07:21 Freq: Status: Active Protocol: Document 06/01/20 08:57 MB (Rec: 06/01/20 15:10 MB [id number]) OP Gait Assessment Comments Gait Comments Wide MAYNOR, decreased step- length and foot clearance, limited step-length, greater on the left with decreased left knee flexion and extension, right hip hike and decreased right hip flexion and extension. Stiff walking posture and increased lateral sway with gait. Pt states that he has not wanted to use cane or walker and so he does not bring in AD for assessment. PT-OP-K Range of Motion Start: 06/01/20 07:21 Freq: Status: Active Protocol: Document 06/01/20 08:57 MB (Rec: 06/01/20 15:33 MB [id number]) Knee Goniometric Range of Motion Knee Left Knee ROM WFL No Patient Position Supine Comments L knee AROM in hook lying is 6 -123 deg Right Knee ROM WFL Yes Patient Position Supine Comments R knee AROM in hook lying is 0 -125 deg Ankle and Foot Goniometric Range of Motion Ankle and Foot ROM Limitations Comments Left ankle inversion is reduced compared to the right PT-OP-M Strength Start: 06/01/20 07:21 Freq: Status: Active Protocol: Document 06/01/20 08:57 MB (Rec: 06/01/20 15:33 MB [id number]) Hip Strength Hip Manual Muscle Testing Left Flexion (L2) 4 Good Abduction 5 Normal Adduction 4 Good Right Flexion (L2) 5 Normal Abduction 4 Good Adduction 5 Normal Knee Strength Knee Manual Muscle Testing Left Flexion (S2) 3- Fair- Extension (L3) 4 Good Comments Pt reports 8/10 pain left posterior knee with left knee flexion MMT Right Flexion (S2) 5 Normal Extension (L3) 5 Normal Ankle/Foot Strength Ankle and Foot Manual Muscle Testing Left Dorsiflexion (L4) 5 Normal Inversion 3 Fair Eversion (S1) 4 Good Comments Pt reports increased left knee pain with inversion and eversion MMT Right Dorsiflexion (L4) 5 Normal Inversion 5 Normal Eversion (S1) 5 Normal PT-OP-Q Treatments Start: 06/01/20 07:21 Freq: Status: Active Protocol: Document 08/28/20 08:10 MB (Rec: 08/28/20 08:55 MB [id number]) Cardio Equipment Bicycle (Upright) Duration (Minutes) 10 Resistance 11 Seat Position 9 Therapeutic Exercises Supine Exercises 3 Supine Exercise Name Keo stretch Side bilateral Comments Cues to bend opposite leg, tip pelvis, slide heel forward and back Sidelying Exercises L hip adduction Comments Pt cannot perform well d/t body mass 1 Comments Pt demonstrates side lying hip abduction Standing Exercises hip adduction TB Side bilateral Resistance Level 2 band Comments 10 reps, cues to slow down and for form Crab walking with level 1 band Side bilateral Comments 6 steps x4 reps right and left Gait Training Gait Activity Gait training with SPC in RUE Comments No lift in right shoe today, right cane, multiple trials 100', 50'x6 with practice on pelvic movement and weight shift, left toe in and knee flexion. Pt has trouble improving gait form today. Practice weight shift with hip extension swing today to loosen pelvis and less carryover today. PT-OP-T Assessment and Plan Start: 06/01/20 07:21 Freq: Status: Active Protocol: Document 08/28/20 08:10 MB (Rec: 08/28/20 08:55 MB [id number]) Physical Therapy Assessment Goals 8 Poultry Feed Supervisor Goal (LTG) Pt will perform at least 12 reps sit to stand without UE support in 30 sec to improve functional transfers by 2020. 07/31/20: Pt performs 5 reps without UE support today, he favors the left knee. LTG Duration 8 weeks 7 Poultry Feed Supervisor Goal (LTG) Pt will gait train at least 1200 feet in 6 minutes without AD to improve community ambulation by 09/28/2020. 07/31/20: Pt gait trains 958 feet in 6 minutes with RW today and he reports 3/10 lateral anterior left knee pain LTG Duration 8 weeks Six Mcc Goal (LTG) Pt will deny falls for three months to decrease risk of injury by 09/28/20. 07/31/20: Pt denies falls since starting PT. LTG Duration 8 weeks 5 Poultry Feed Supervisor Goal (LTG) Pt will perform reciprocal gait on stairs for 5 steps with 1 rail to allow normal home entry by 09/28/2020. 07/31/20: Pt progresses towards stairs today, performs 4 steps with two rails x2, step to step and then reciprocal stepping with two rails. LTG Duration 8 weeks Four Impairment Progress note score 31/80, 61. 25% impairment Poultry Feed Supervisor Goal (LTG) Pt will present with an improved LE functional index score to reflect no more than 30% impairment to improve functional mobility by 2020. 07/31/20: LEF score reflects 61. 25% impairment, much better than 90% impairment which is what he had immediately post- op LTG Duration 8 weeks Three Poultry Feed Supervisor Goal (LTG) Pt will present with improved left knee AROM to 0-125 deg to improve functional transfers by 09/28/2020. 08/10/20: Left knee AROM 4-124 deg in supine post manual. LTG Duration 8 weeks Two Poultry Feed Supervisor Goal (LTG) Pt will present with improved B hip flexion, abduction, adduction, and left knee flexion, extension and ankle inversion and eversion to 5/5 to improve functional mobility by 09/28/2020. 07/31/20: Right hip flexion 4/5, Right hip adduction and abduction 5/5, left hip flexion 5/5, left hip adduction 4/5 and left hip abduction 5/5, left knee flexion and extension 4/5, left ankle eversion and inversion 5/5. LTG Duration 8 weeks One Mcc Goal (LTG) Pt will perform HEP with I including LE flexibility, strengthening, gait and balance exercises to improve function by 09/28/20. 08/28/20: Pt is performing the following HEP exercises: mini squat, standing hamstring curl , large march with UE support all standing exercises, hamstring stretch (sitting), Keo stretch and hamstring stretch in hook lying, STM with rolling pin vastus lateralis and SLR, added standing weight shift and pelvic rocking, pelvic realignment exercises, hip adduction, standing w/ TB. LTG Duration 8 weeks Assessment Summary Assessment Pt con't with palpable popping with active flexion and extension of left knee at the lateral side of his knee. He has trouble improving gait pattern today. No lift in right shoe and PT puts paper tape over left knee scar to see if it helps pain and fascial tension. Undetermined today. Consider hook lying clam, PNF next treatment date. Physical Therapy Plan Frequency and Duration Frequency of Treatment 2x/Week Duration of Treatment 8 weeks Plan of Care Start Date 07/31/20 Plan of Care End Date 09/28/20 Therapeutic Interventions Therapeutic Interventions Balance Training,Canalithic Repositioning,Gait Training, Home Exercise Program,Joint Mobilizations,Manual Therapy, Neuromuscular Re-education, Patient/Caregiver Education, Self-Care/Home Management, Sensory Integration,Soft Tissue Mobilization,Taping, Therapeutic Activities, Therapeutic Exercises Modalities Cold Pack/Ice Massage,Electric Stimulation,Hot Packs, Ultrasound Next Visit Focus/Plan Next Note Type Treatment Note Next Visit Plan Progress hook lying clam with band and LAQ with band, further quad and abductor and hip extensor strengthening ( consider bridge with clam, ed in core first), PNF manually assisted in the future.
--- NOTE | 2020-09-01 09:00 | PT.OTN ---
Current Diagnoses Unilateral primary osteoarthritis, left knee (09/01/20) Other tear of medial meniscus, current injury, left knee, initial encounter (09/01/20) Presence of left artificial knee joint (09/01/20) Physical Therapy Treatment Note PT-OP-A Visit Information Start: 06/01/20 07:21 Freq: Status: Active Protocol: Document 09/01/20 08:15 MB (Rec: 09/01/20 08:57 MB [id number]) Out-Patient Physical Therapy Visit Information Visit Information Visit Type Treatment Note Visit Note Workers Comp/L&I Visit Start Time 08:15 Visit Stop Time 09:00 Total Visit Minutes 45 Visit Number 16 PT-OP-B Current Condition Start: 06/01/20 07:21 Freq: Status: Active Protocol: Document 06/01/20 08:57 MB (Rec: 06/01/20 09:32 MB [id number]) Current Condition History of Current Condition Onset Date August 2018 Current Complaints Left knee pain and right hip pain History of Current Condition In March 2018, a crate fell over him at work and pinned him up against a motor home. His trunk went forward and his left leg hyperextended. He underwent a meniscal surgery in early 2018. He con't to have pain. He received PT and did not get better. He finally underwent left TKR 05/14/2019 and had immediate pain post- op. He participated with PT and did not make significant improvements in pain, gait and range. PT sent pt back to surgeon and it was determined that there was a mechanical problem with prosthesis, on the lateral side. Pt's pain and clicking had consistently been at the lateral posterior left knee. The plan was for pt to transition to aquatic therapy while waiting for possible surgery the end of 2019 when the pool closed d/t COVID. He is currently scheduled for a revision on 06/12/2020. Pt con't with antalgic gait, favoring the left knee and he has new onset of right hip pain for 6 months after altered gait. He has a history of right THR. Left knee pain gets up to 5-6/10. He has not been walking with walker. He has not been icing or wearing thigh high compression. He has been performing heel slides. 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 Pt lives in a RV and has 5 steps to enter with left rail. He is currently driving. PMH: smoking, arthritis, HTN. Pt has had some falls and he fell down steps this summer. He is okay. Prior Treatments and Tests L TKR 05/14/2019, post-op PT, reconsult with orthopedic surgeon and deemed appropriate for another TKR end of 2019 Treatment Goals Patient/Caregiver Goals To decrease pain, improve range of motion and gait and get back to work. PT-OP-C Subjective Start: 06/01/20 07:21 Freq: Status: Active Protocol: Document 09/01/20 08:15 MB (Rec: 09/01/20 08:57 MB [id number]) OP-PT Subjective Patient Comments Patient Comments Pt states, I think it's about what it's going to be when PT asks pt about how his pain is doing. PT-OP-G Mobility & Gait Start: 06/01/20 07:21 Freq: Status: Active Protocol: Document 06/01/20 08:57 MB (Rec: 06/01/20 15:10 MB [id number]) OP Gait Assessment Comments Gait Comments Wide MAYNOR, decreased step- length and foot clearance, limited step-length, greater on the left with decreased left knee flexion and extension, right hip hike and decreased right hip flexion and extension. Stiff walking posture and increased lateral sway with gait. Pt states that he has not wanted to use cane or walker and so he does not bring in AD for assessment. PT-OP-K Range of Motion Start: 06/01/20 07:21 Freq: Status: Active Protocol: Document 06/01/20 08:57 MB (Rec: 06/01/20 15:33 MB [id number]) Knee Goniometric Range of Motion Knee Left Knee ROM WFL No Patient Position Supine Comments L knee AROM in hook lying is 6 -123 deg Right Knee ROM WFL Yes Patient Position Supine Comments R knee AROM in hook lying is 0 -125 deg Ankle and Foot Goniometric Range of Motion Ankle and Foot ROM Limitations Comments Left ankle inversion is reduced compared to the right PT-OP-M Strength Start: 06/01/20 07:21 Freq: Status: Active Protocol: Document 06/01/20 08:57 MB (Rec: 06/01/20 15:33 MB [id number]) Hip Strength Hip Manual Muscle Testing Left Flexion (L2) 4 Good Abduction 5 Normal Adduction 4 Good Right Flexion (L2) 5 Normal Abduction 4 Good Adduction 5 Normal Knee Strength Knee Manual Muscle Testing Left Flexion (S2) 3- Fair- Extension (L3) 4 Good Comments Pt reports 8/10 pain left posterior knee with left knee flexion MMT Right Flexion (S2) 5 Normal Extension (L3) 5 Normal Ankle/Foot Strength Ankle and Foot Manual Muscle Testing Left Dorsiflexion (L4) 5 Normal Inversion 3 Fair Eversion (S1) 4 Good Comments Pt reports increased left knee pain with inversion and eversion MMT Right Dorsiflexion (L4) 5 Normal Inversion 5 Normal Eversion (S1) 5 Normal PT-OP-Q Treatments Start: 06/01/20 07:21 Freq: Status: Active Protocol: Document 09/01/20 08:15 MB (Rec: 09/01/20 08:57 MB [id number]) Cardio Equipment Bicycle (Upright) Duration (Minutes) 10 Resistance 12 Seat Position 9 Therapeutic Exercises Supine Exercises Hook lying clam Side bilateral Comments Level 1, 2 and 3 bands, 15 reps all; spine flat, core engaged Gait Training Gait Activity Gait training with SPC in RUE Comments Multiple gait trials. 1/8 inch cork lift and cane in right UE: pt's gait is a little better. Without cane, antalgic gait con't, // bars with B hand slide, gait improved. Tried leaning on table, pt has trouble wtih weight shift and hip extension and did con't to try to work on this for pelvic movement apart from upper body Manual Therapy Treatment Other Other Manual Treatments STM distal left vastus lateralis with pt in side lying PT-OP-T Assessment and Plan Start: 06/01/20 07:21 Freq: Status: Active Protocol: Document 09/01/20 08:15 MB (Rec: 09/01/20 08:57 MB [id number]) Physical Therapy Assessment Goals 8 Halfway Goal (LTG) Pt will perform at least 12 reps sit to stand without UE support in 30 sec to improve functional transfers by 2020. 07/31/20: Pt performs 5 reps without UE support today, he favors the left knee. LTG Duration 8 weeks 7 Halfway Goal (LTG) Pt will gait train at least 1200 feet in 6 minutes without AD to improve community ambulation by 09/28/2020. 07/31/20: Pt gait trains 958 feet in 6 minutes with RW today and he reports 3/10 lateral anterior left knee pain LTG Duration 8 weeks Six Teacher Of The Hearing Impaired Goal (LTG) Pt will deny falls for three months to decrease risk of injury by 09/28/20. 07/31/20: Pt denies falls since starting PT. LTG Duration 8 weeks 5 Halfway Goal (LTG) Pt will perform reciprocal gait on stairs for 5 steps with 1 rail to allow normal home entry by 09/28/2020. 07/31/20: Pt progresses towards stairs today, performs 4 steps with two rails x2, step to step and then reciprocal stepping with two rails. LTG Duration 8 weeks Four Impairment Progress note score 31/80, 61. 25% impairment Halfway Goal (LTG) Pt will present with an improved LE functional index score to reflect no more than 30% impairment to improve functional mobility by 2020. 07/31/20: LEF score reflects 61. 25% impairment, much better than 90% impairment which is what he had immediately post- op LTG Duration 8 weeks Three Halfway Goal (LTG) Pt will present with improved left knee AROM to 0-125 deg to improve functional transfers by 09/28/2020. 08/10/20: Left knee AROM 4-124 deg in supine post manual. LTG Duration 8 weeks Two Halfway Goal (LTG) Pt will present with improved B hip flexion, abduction, adduction, and left knee flexion, extension and ankle inversion and eversion to 5/5 to improve functional mobility by 09/28/2020. 07/31/20: Right hip flexion 4/5, Right hip adduction and abduction 5/5, left hip flexion 5/5, left hip adduction 4/5 and left hip abduction 5/5, left knee flexion and extension 4/5, left ankle eversion and inversion 5/5. LTG Duration 8 weeks One Teacher Of The Hearing Impaired Goal (LTG) Pt will perform HEP with I including LE flexibility, strengthening, gait and balance exercises to improve function by 09/28/20. 08/28/20: Pt is performing the following HEP exercises: mini squat, standing hamstring curl , large march with UE support all standing exercises, hamstring stretch (sitting), Keo stretch and hamstring stretch in hook lying, STM with rolling pin vastus lateralis and SLR, added standing weight shift and pelvic rocking, pelvic realignment exercises, hip adduction, standing w/ TB. LTG Duration 8 weeks Assessment Summary Assessment Con't gait training today with lift, cane, // bars and no AD and pt con't with gait changes. Con't to progress. Physical Therapy Plan Frequency and Duration Frequency of Treatment 2x/Week Duration of Treatment 8 weeks Plan of Care Start Date 07/31/20 Plan of Care End Date 09/28/20 Therapeutic Interventions Therapeutic Interventions Balance Training,Canalithic Repositioning,Gait Training, Home Exercise Program,Joint Mobilizations,Manual Therapy, Neuromuscular Re-education, Patient/Caregiver Education, Self-Care/Home Management, Sensory Integration,Soft Tissue Mobilization,Taping, Therapeutic Activities, Therapeutic Exercises Modalities Cold Pack/Ice Massage,Electric Stimulation,Hot Packs, Ultrasound Next Visit Focus/Plan Next Note Type Treatment Note Next Visit Plan Progress hook lying mini bridge with band and LAQ with band, further quad and abductor and hip extensor strengthening, PNF manually assisted in the future.
--- NOTE | 2020-09-05 11:20 | PT.OTN ---
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 His trunk went forward and his left leg hyperextended. He underwent a meniscal surgery in early 2018. He con't to have pain. He received PT and did not get better. He finally underwent left TKR 05/14/2019 and had immediate pain post- op. He participated with PT and did not make significant improvements in pain, gait and range. PT sent pt back to surgeon and it was determined that there was a mechanical problem with prosthesis, on the lateral side. Pt's pain and clicking had consistently been at the lateral posterior left knee. The plan was for pt to transition to aquatic therapy while waiting for possible surgery the end of 2019 when the pool closed d/t COVID. He is currently scheduled for a revision on 06/12/2020. Pt con't with antalgic gait, favoring the left knee and he has new onset of right hip pain for 6 months after altered gait. He has a history of right THR. Left knee pain gets up to 5-6/10. He has not been walking with walker. He has not been icing or wearing thigh high compression. He has been performing heel slides. He has not been able to work on [employer] d/t his condition. Pt lives in a RV and has 5 steps to enter with left rail. He is currently driving. PMH: smoking, arthritis, HTN. Pt has had some falls and he fell down steps this summer. He is okay. Prior Treatments and Tests L TKR 05/14/2019, post-op PT, reconsult with orthopedic surgeon and deemed appropriate for another TKR end of 2019 Treatment Goals Patient/Caregiver Goals To decrease pain, improve range of motion and gait and get back to work. PT-OP-C Subjective Start: 06/01/20 07:21 Freq: Status: Active Protocol: Document 09/05/20 10:31 SP (Rec: 09/05/20 11:43 SP [id number]) OP-PT Subjective Patient Comments Patient Comments Pt stated the lift in shoes seems to help with relief of R hip hip pain. Pt requested info on dry needling from PT to assess if a modality to help with tightness and click/ snapping continues to experience lateral L knee/ thigh. PT-OP-G Mobility & Gait Start: 06/01/20 07:21 Freq: Status: Active Protocol: Document 06/01/20 08:57 MB (Rec: 06/01/20 15:10 MB [id number]) OP Gait Assessment Comments Gait Comments Wide MAYNOR, decreased step- length and foot clearance, limited step-length, greater on the left with decreased left knee flexion and extension, right hip hike and decreased right hip flexion and extension. Stiff walking posture and increased lateral sway with gait. Pt states that he has not wanted to use cane or walker and so he does not bring in AD for assessment. PT-OP-K Range of Motion Start: 06/01/20 07:21 Freq: Status: Active Protocol: Document 06/01/20 08:57 MB (Rec: 06/01/20 15:33 MB [id number]) Knee Goniometric Range of Motion Knee Left Knee ROM WFL No Patient Position Supine Comments L knee AROM in hook lying is 6 -123 deg Right Knee ROM WFL Yes Patient Position Supine Comments R knee AROM in hook lying is 0 -125 deg Ankle and Foot Goniometric Range of Motion Ankle and Foot ROM Limitations Comments Left ankle inversion is reduced compared to the right PT-OP-M Strength Start: 06/01/20 07:21 Freq: Status: Active Protocol: Document 06/01/20 08:57 MB (Rec: 06/01/20 15:33 MB [id number]) Hip Strength Hip Manual Muscle Testing Left Flexion (L2) 4 Good Abduction 5 Normal Adduction 4 Good Right Flexion (L2) 5 Normal Abduction 4 Good Adduction 5 Normal Knee Strength Knee Manual Muscle Testing Left Flexion (S2) 3- Fair- Extension (L3) 4 Good Comments Pt reports 8/10 pain left posterior knee with left knee flexion MMT Right Flexion (S2) 5 Normal Extension (L3) 5 Normal Ankle/Foot Strength Ankle and Foot Manual Muscle Testing Left Dorsiflexion (L4) 5 Normal Inversion 3 Fair Eversion (S1) 4 Good Comments Pt reports increased left knee pain with inversion and eversion MMT Right Dorsiflexion (L4) 5 Normal Inversion 5 Normal Eversion (S1) 5 Normal PT-OP-Q Treatments Start: 06/01/20 07:21 Freq: Status: Active Protocol: Document 09/05/20 10:31 SP (Rec: 09/05/20 11:43 SP [id number]) Cardio Equipment Bicycle (Upright) Duration (Minutes) 8 Resistance 12 Seat Position 9 Other limited time due to another appt to leave promptly Gym Equipment Shuttle Recovery single squat Details cued knee alignment with toes Resistance 37# Shuttle Recovery Platform Stable Reps/Time x10 each LE bilateral squat Details knee flexion w/red kickball between knees Resistance 50# Shuttle Recovery Platform Stable Reps/Time 2x15 Therapeutic Exercises Supine Exercises Hook lying clam Supine Exercise Name bridge w /hip abd Side bilateral Resistance AROM 2x210, TB #1 2x10 Reps/Minutes 2x10 Comments cued core engaged, heel posterior chain facilitation Standing Exercises Hamstring curl, bar support Side left Resistance AROM Reps/Minutes 2x8 reps Comments cued upright posture w/hip ext and knees parallel Gait Training Gait Activity Gait training with SPC in RUE Description f/b/side stepping Device Used SPC> no AD Level of Assistance CGA Surface stable Distance/Duration 10 ft multiple lapls in front mirror Treatment Focus level pelvis gait phases w/ posterior chain/ hip abd stability w/ trunk ali Comments Multiple gait trials. 1/8 inch cork lift with > without cane in right UE: gait improved with cuing soft L knee, heel strike to toe ankle ROM, tall hip ext awarness wt shift over LLE during midstand RLE advancement, L knee flexion and ankle PF/ heel lift then swing phase w/ DF ankle ROM. Cued toe heel back and side stepping w/ same hip ext/wt shift over LLE and slow RLE mobilization- improved decrease trunk lateral lean recruitment noted . Manual Therapy Treatment Soft Tissue Mobilization quads Body Location quads, IT band, around scar Mobilization Type Strumming,Sustained Pressure, Other Intensity/Depth Moderate Body Position Sidelying Comments sustained pressure/gripping ITB/vastus lat/connective tissue with MWM knee extension / flexion small range (pillows between BLE), skin roll as well knee> hip PT-OP-T Assessment and Plan Start: 06/01/20 07:21 Freq: Status: Active Protocol: Document 09/05/20 10:31 SP (Rec: 09/05/20 11:43 SP [id number]) Physical Therapy Assessment Goals 8 Bleach Chlorinator Goal (LTG) Pt will perform at least 12 reps sit to stand without UE support in 30 sec to improve functional transfers by 2020. 07/31/20: Pt performs 5 reps without UE support today, he favors the left knee. LTG Duration 8 weeks 7 Correction Goal (LTG) Pt will gait train at least 1200 feet in 6 minutes without AD to improve community ambulation by 09/28/2020. 07/31/20: Pt gait trains 958 feet in 6 minutes with RW today and he reports 3/10 lateral anterior left knee pain LTG Duration 8 weeks Six Correction Goal (LTG) Pt will deny falls for three months to decrease risk of injury by 09/28/20. 07/31/20: Pt denies falls since starting PT. LTG Duration 8 weeks 5 Correction Goal (LTG) Pt will perform reciprocal gait on stairs for 5 steps with 1 rail to allow normal home entry by 09/28/2020. 07/31/20: Pt progresses towards stairs today, performs 4 steps with two rails x2, step to step and then reciprocal stepping with two rails. LTG Duration 8 weeks Four Impairment Progress note score 31/80, 61. 25% impairment Bleach Chlorinator Goal (LTG) Pt will present with an improved LE functional index score to reflect no more than 30% impairment to improve functional mobility by 2020. 07/31/20: LEF score reflects 61. 25% impairment, much better than 90% impairment which is what he had immediately post- op LTG Duration 8 weeks Three Correction Goal (LTG) Pt will present with improved left knee AROM to 0-125 deg to improve functional transfers by 09/28/2020. 08/10/20: Left knee AROM 4-124 deg in supine post manual. LTG Duration 8 weeks Two Bleach Chlorinator Goal (LTG) Pt will present with improved B hip flexion, abduction, adduction, and left knee flexion, extension and ankle inversion and eversion to 5/5 to improve functional mobility by 09/28/2020. 07/31/20: Right hip flexion 4/5, Right hip adduction and abduction 5/5, left hip flexion 5/5, left hip adduction 4/5 and left hip abduction 5/5, left knee flexion and extension 4/5, left ankle eversion and inversion 5/5. LTG Duration 8 weeks One Bleach Chlorinator Goal (LTG) Pt will perform HEP with I including LE flexibility, strengthening, gait and balance exercises to improve function by 09/28/20. 09/05/20: Pt is performing the following HEP exercises: mini squat, standing hamstring curl , large march with UE support all standing exercises, hamstring stretch (sitting), Keo stretch and hamstring stretch in hook lying, STM with rolling pin vastus lateralis and SLR, added standing weight shift and pelvic rocking, pelvic realignment exercises, hip adduction, standing w/ TB, gait f/b/side stepping focus gait phases and alignment. LTG Duration 8 weeks Assessment Summary Assessment Pt tolerated tx well, improved with gait phases end of tx no AD post cuing and mirror self assist tall posture, level pelvis and L knee soft knee during midstance with awareness. Provided hand out with cues for to assist with carryover cuing and performance. PT provided dry needling info by end of tx. Physical Therapy Plan Frequency and Duration Frequency of Treatment 2x/Week Duration of Treatment 8 weeks Plan of Care Start Date 07/31/20 Plan of Care End Date 09/28/20 Therapeutic Interventions Therapeutic Interventions Balance Training,Canalithic Repositioning,Gait Training, Home Exercise Program,Joint Mobilizations,Manual Therapy, Neuromuscular Re-education, Patient/Caregiver Education, Self-Care/Home Management, Sensory Integration,Soft Tissue Mobilization,Taping, Therapeutic Activities, Therapeutic Exercises Modalities Cold Pack/Ice Massage,Electric Stimulation,Hot Packs, Ultrasound Next Visit Focus/Plan Next Note Type Treatment Note Next Visit Plan Assess Progressed w/ added quad and abductor and hip extensor strengthening bridge and hip abd TB last tx, Continue per PT POC: ROM, gait phases gait, manual as needed for tightness, PNF manually assisted in the future.
--- NOTE | 2020-09-08 09:00 | PT.OTN ---
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 His trunk went forward and his left leg hyperextended. He underwent a meniscal surgery in early 2018. He con't to have pain. He received PT and did not get better. He finally underwent left TKR 05/14/2019 and had immediate pain post- op. He participated with PT and did not make significant improvements in pain, gait and range. PT sent pt back to surgeon and it was determined that there was a mechanical problem with prosthesis, on the lateral side. Pt's pain and clicking had consistently been at the lateral posterior left knee. The plan was for pt to transition to aquatic therapy while waiting for possible surgery the end of 2019 when the pool closed d/t COVID. He is currently scheduled for a revision on 06/12/2020. Pt con't with antalgic gait, favoring the left knee and he has new onset of right hip pain for 6 months after altered gait. He has a history of right THR. Left knee pain gets up to 5-6/10. He has not been walking with walker. He has not been icing or wearing thigh high compression. He has been performing heel slides. He has not been able to work on [employer] d/t his condition. Pt lives in a RV and has 5 steps to enter with left rail. He is currently driving. PMH: smoking, arthritis, HTN. Pt has had some falls and he fell down steps this summer. He is okay. Prior Treatments and Tests L TKR 05/14/2019, post-op PT, reconsult with orthopedic surgeon and deemed appropriate for another TKR end of 2019 Treatment Goals Patient/Caregiver Goals To decrease pain, improve range of motion and gait and get back to work. PT-OP-C Subjective Start: 06/01/20 07:21 Freq: Status: Active Protocol: Document 09/08/20 08:21 SP (Rec: 09/08/20 11:34 SP [id number]) OP-PT Subjective Patient Comments Patient Comments Pt stated L knee tends to be more stiff with the cold, still little sore after last tx but want the manual and ROM activity to break up the tightness and gain movement. Demonstrated stiffness getting out of the chair. PT-OP-G Mobility & Gait Start: 06/01/20 07:21 Freq: Status: Active Protocol: Document 06/01/20 08:57 MB (Rec: 06/01/20 15:10 MB [id number]) OP Gait Assessment Comments Gait Comments Wide MAYNOR, decreased step- length and foot clearance, limited step-length, greater on the left with decreased left knee flexion and extension, right hip hike and decreased right hip flexion and extension. Stiff walking posture and increased lateral sway with gait. Pt states that he has not wanted to use cane or walker and so he does not bring in AD for assessment. PT-OP-K Range of Motion Start: 06/01/20 07:21 Freq: Status: Active Protocol: Document 09/08/20 08:21 SP (Rec: 09/08/20 11:34 SP [id number]) Knee Goniometric Range of Motion Knee Left Knee ROM WFL No Patient Position Supine Comments L knee AROM in hook lying is 6 -123 deg PT-OP-M Strength Start: 06/01/20 07:21 Freq: Status: Active Protocol: Document 06/01/20 08:57 MB (Rec: 06/01/20 15:33 MB [id number]) Hip Strength Hip Manual Muscle Testing Left Flexion (L2) 4 Good Abduction 5 Normal Adduction 4 Good Right Flexion (L2) 5 Normal Abduction 4 Good Adduction 5 Normal Knee Strength Knee Manual Muscle Testing Left Flexion (S2) 3- Fair- Extension (L3) 4 Good Comments Pt reports 8/10 pain left posterior knee with left knee flexion MMT Right Flexion (S2) 5 Normal Extension (L3) 5 Normal Ankle/Foot Strength Ankle and Foot Manual Muscle Testing Left Dorsiflexion (L4) 5 Normal Inversion 3 Fair Eversion (S1) 4 Good Comments Pt reports increased left knee pain with inversion and eversion MMT Right Dorsiflexion (L4) 5 Normal Inversion 5 Normal Eversion (S1) 5 Normal PT-OP-Q Treatments Start: 06/01/20 07:21 Freq: Status: Active Protocol: Document 09/08/20 08:21 SP (Rec: 09/08/20 11:34 SP [id number]) Cardio Equipment Recumbent Bicycle Duration (Minutes) 8 Resistance 13 Seat Position 9 Gym Equipment Shuttle Recovery single squat Details cued knee alignment with toes Resistance 37# Shuttle Recovery Platform Stable Reps/Time x15 each LLE bilateral squat Details knee flexion w/red kickball between knees Resistance 62# Shuttle Recovery Platform Stable Reps/Time 2x15 Shuttle Balance red Details WBOS, NBOS, stagger Comments 1. wt shift 2. stationary w/ head turns -cued for BLE even wt WB distribution. Sport Cord green Exercise Details f/b/side stepping over 3 hurdles Cord/Resistance green Reps/Duration 3-5 laps each direction Comments focused hip, quad, HS facilitation during stance postioning LLE> RLE Therapeutic Exercises Standing Exercises Hamstring curl, bar support Side left Resistance 5# leg wt Reps/Minutes 2x8 reps Comments cued upright posture w/hip ext and knees parallel Gait Training Gait Activity Gait training with SPC in RUE Description f/b/side stepping Device Used no AD Level of Assistance CGA Surface stable Distance/Duration 10 ft multiple lapls in front mirror Treatment Focus level pelvis gait phases w/ posterior chain/ hip abd stability w/ trunk ali Comments ait improved with cuing soft L knee, heel strike to toe ankle ROM, tall hip ext awarness wt shift over LLE during midstand RLE advancement, L knee flexion and ankle PF/ heel lift then swing phase w/ DF ankle ROM. Cued toe heel back and side stepping w/ same hip ext/wt shift over LLE and slow RLE mobilization- improved decrease trunk lateral lean recruitment noted. PT-OP-T Assessment and Plan Start: 06/01/20 07:21 Freq: Status: Active Protocol: Document 09/08/20 08:21 SP (Rec: 09/08/20 11:34 SP [id number]) Physical Therapy Assessment Goals 8 Load Dropper Goal (LTG) Pt will perform at least 12 reps sit to stand without UE support in 30 sec to improve functional transfers by 2020. 07/31/20: Pt performs 5 reps without UE support today, he favors the left knee. LTG Duration 8 weeks 7 Load Dropper Goal (LTG) Pt will gait train at least 1200 feet in 6 minutes without AD to improve community ambulation by 09/28/2020. 07/31/20: Pt gait trains 958 feet in 6 minutes with RW today and he reports 3/10 lateral anterior left knee pain LTG Duration 8 weeks Six Shelter Goal (LTG) Pt will deny falls for three months to decrease risk of injury by 09/28/20. 07/31/20: Pt denies falls since starting PT. LTG Duration 8 weeks 5 Shelter Goal (LTG) Pt will perform reciprocal gait on stairs for 5 steps with 1 rail to allow normal home entry by 09/28/2020. 07/31/20: Pt progresses towards stairs today, performs 4 steps with two rails x2, step to step and then reciprocal stepping with two rails. LTG Duration 8 weeks Four Impairment Progress note score 31/80, 61. 25% impairment Shelter Goal (LTG) Pt will present with an improved LE functional index score to reflect no more than 30% impairment to improve functional mobility by 2020. 07/31/20: LEF score reflects 61. 25% impairment, much better than 90% impairment which is what he had immediately post- op LTG Duration 8 weeks Three Shelter Goal (LTG) Pt will present with improved left knee AROM to 0-125 deg to improve functional transfers by 09/28/2020. 08/10/20: Left knee AROM 4-124 deg in supine post manual. 09/08/20: L knee AROM in supine post ther ex and manual. LTG Duration 8 weeks Two Load Dropper Goal (LTG) Pt will present with improved B hip flexion, abduction, adduction, and left knee flexion, extension and ankle inversion and eversion to 5/5 to improve functional mobility by 09/28/2020. 07/31/20: Right hip flexion 4/5, Right hip adduction and abduction 5/5, left hip flexion 5/5, left hip adduction 4/5 and left hip abduction 5/5, left knee flexion and extension 4/5, left ankle eversion and inversion 5/5. LTG Duration 8 weeks One Load Dropper Goal (LTG) Pt will perform HEP with I including LE flexibility, strengthening, gait and balance exercises to improve function by 09/28/20. 09/05/20: Pt is performing the following HEP exercises: mini squat, standing hamstring curl , large march with UE support all standing exercises, hamstring stretch (sitting), Keo stretch and hamstring stretch in hook lying, STM with rolling pin vastus lateralis and SLR, added standing weight shift and pelvic rocking, pelvic realignment exercises, hip adduction, standing w/ TB, gait f/b/side stepping focus gait phases and alignment. LTG Duration 8 weeks Assessment Summary Assessment Tx focused on ROM and L knee stabilization during dynamic mobility. Pt required cuing for awareness of soft knee on LLE for HS facilitation and even BLE wt distribution during many of the standing activities. Pt continued to demonstrate antalgic gait and locking out L knee during gait but little improvement from when arrived. Physical Therapy Plan Frequency and Duration Frequency of Treatment 2x/Week Duration of Treatment 8 weeks Plan of Care Start Date 07/31/20 Plan of Care End Date 09/28/20 Therapeutic Interventions Therapeutic Interventions Balance Training,Canalithic Repositioning,Gait Training, Home Exercise Program,Joint Mobilizations,Manual Therapy, Neuromuscular Re-education, Patient/Caregiver Education, Self-Care/Home Management, Sensory Integration,Soft Tissue Mobilization,Taping, Therapeutic Activities, Therapeutic Exercises Modalities Cold Pack/Ice Massage,Electric Stimulation,Hot Packs, Ultrasound Next Visit Focus/Plan Next Note Type Treatment Note Next Visit Plan Assess response to progressed ROM and functional strengthening last tx: shuttle rec, balance, sport cord. Continue per PT POC: ROM, gait phases gait, manual as needed for tightness, PNF manually assisted in the future.
--- NOTE | 2020-09-13 09:01 | PT.OTN ---
Current Diagnoses Unilateral primary osteoarthritis, left knee (09/13/20) Other tear of medial meniscus, current injury, left knee, initial encounter (09/13/20) Presence of left artificial knee joint (09/13/20) Physical Therapy Treatment Note PT-OP-A Visit Information Start: 06/01/20 07:21 Freq: Status: Active Protocol: Document 09/13/20 08:15 MB (Rec: 09/13/20 08:38 MB [id number]) Out-Patient Physical Therapy Visit Information Visit Information Visit Type Treatment Note Visit Note Works Comp/L&I Visit Start Time 08:15 Visit Stop Time 09:00 Total Visit Minutes 45 Visit Number 19 PT-OP-B Current Condition Start: 06/01/20 07:21 Freq: Status: Active Protocol: Document 06/01/20 08:57 MB (Rec: 06/01/20 09:32 MB [id number]) Current Condition History of Current Condition Onset Date August 2018 Current Complaints Left knee pain and right hip pain History of Current Condition In March 2018, a crate fell over him at work and pinned him up against a motor home. His trunk went forward and his left leg hyperextended. He underwent a meniscal surgery in early 2018. He con't to have pain. He received PT and did not get better. He finally underwent left TKR 05/14/2019 and had immediate pain post- op. He participated with PT and did not make significant improvements in pain, gait and range. PT sent pt back to surgeon and it was determined that there was a mechanical problem with prosthesis, on the lateral side. Pt's pain and clicking had consistently been at the lateral posterior left knee. The plan was for pt to transition to aquatic therapy while waiting for possible surgery the end of 2019 when the pool closed d/t COVID. He is currently scheduled for a revision on 06/12/2020. Pt con't with antalgic gait, favoring the left knee and he has new onset of right hip pain for 6 months after altered gait. He has a history of right THR. Left knee pain gets up to 5-6/10. He has not been walking with walker. He has not been icing or wearing thigh high compression. He has been performing heel slides. 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 Pt lives in a RV and has 5 steps to enter with left rail. He is currently driving. PMH: smoking, arthritis, HTN. Pt has had some falls and he fell down steps this summer. He is okay. Prior Treatments and Tests L TKR 05/14/2019, post-op PT, reconsult with orthopedic surgeon and deemed appropriate for another TKR end of 2019 Treatment Goals Patient/Caregiver Goals To decrease pain, improve range of motion and gait and get back to work. PT-OP-C Subjective Start: 06/01/20 07:21 Freq: Status: Active Protocol: Document 09/13/20 08:15 MB (Rec: 09/13/20 08:38 MB [id number]) OP-PT Subjective Patient Comments Patient Comments Pt states that he is thinking about getting dry needled in [place]. He follows up with doctor following up with his case today. He is walking without AD. PT-OP-G Mobility & Gait Start: 06/01/20 07:21 Freq: Status: Active Protocol: Document 06/01/20 08:57 MB (Rec: 06/01/20 15:10 MB [id number]) OP Gait Assessment Comments Gait Comments Wide MAYNOR, decreased step- length and foot clearance, limited step-length, greater on the left with decreased left knee flexion and extension, right hip hike and decreased right hip flexion and extension. Stiff walking posture and increased lateral sway with gait. Pt states that he has not wanted to use cane or walker and so he does not bring in AD for assessment. PT-OP-K Range of Motion Start: 06/01/20 07:21 Freq: Status: Active Protocol: Document 09/08/20 08:21 SP (Rec: 09/08/20 11:34 SP [id number]) Knee Goniometric Range of Motion Knee Left Knee ROM WFL No Patient Position Supine Comments L knee AROM in hook lying is 6 -123 deg PT-OP-M Strength Start: 06/01/20 07:21 Freq: Status: Active Protocol: Document 06/01/20 08:57 MB (Rec: 06/01/20 15:33 MB [id number]) Hip Strength Hip Manual Muscle Testing Left Flexion (L2) 4 Good Abduction 5 Normal Adduction 4 Good Right Flexion (L2) 5 Normal Abduction 4 Good Adduction 5 Normal Knee Strength Knee Manual Muscle Testing Left Flexion (S2) 3- Fair- Extension (L3) 4 Good Comments Pt reports 8/10 pain left posterior knee with left knee flexion MMT Right Flexion (S2) 5 Normal Extension (L3) 5 Normal Ankle/Foot Strength Ankle and Foot Manual Muscle Testing Left Dorsiflexion (L4) 5 Normal Inversion 3 Fair Eversion (S1) 4 Good Comments Pt reports increased left knee pain with inversion and eversion MMT Right Dorsiflexion (L4) 5 Normal Inversion 5 Normal Eversion (S1) 5 Normal PT-OP-Q Treatments Start: 06/01/20 07:21 Freq: Status: Active Protocol: Document 09/13/20 08:15 MB (Rec: 09/13/20 08:38 MB [id number]) Cardio Equipment Recumbent Bicycle Duration (Minutes) 10 Resistance 13 Seat Position 9 Gym Equipment Shuttle Recovery bilateral squat Resistance 75# Shuttle Recovery Platform Stable Reps/Time 30 reps, cues to slow Manual Therapy Treatment Other Other Manual Treatments Pt supine: MWM Left knee with pt performing active knee flexion and extension and abd/ add isometrics and PT providing trigger point pressure on vastus lateralis, rectus femoris, lateral hamstring, patellar lift and patellar tendon STM PT-OP-T Assessment and Plan Start: 06/01/20 07:21 Freq: Status: Active Protocol: Document 09/13/20 08:15 MB (Rec: 09/13/20 08:38 MB [id number]) Physical Therapy Assessment Goals 8 Transport Company Manager Goal (LTG) Pt will perform at least 12 reps sit to stand without UE support in 30 sec to improve functional transfers by 2020. 07/31/20: Pt performs 5 reps without UE support today, he favors the left knee. LTG Duration 8 weeks 7 [facility] Goal (LTG) Pt will gait train at least 1200 feet in 6 minutes without AD to improve community ambulation by 09/28/2020. 07/31/20: Pt gait trains 958 feet in 6 minutes with RW today and he reports 3/10 lateral anterior left knee pain LTG Duration 8 weeks Six Transport Company Manager Goal (LTG) Pt will deny falls for three months to decrease risk of injury by 09/28/20. 07/31/20: Pt denies falls since starting PT. LTG Duration 8 weeks 5 Transport Company Manager Goal (LTG) Pt will perform reciprocal gait on stairs for 5 steps with 1 rail to allow normal home entry by 09/28/2020. 07/31/20: Pt progresses towards stairs today, performs 4 steps with two rails x2, step to step and then reciprocal stepping with two rails. LTG Duration 8 weeks Four Impairment Progress note score 31/80, 61. 25% impairment Transport Company Manager Goal (LTG) Pt will present with an improved LE functional index score to reflect no more than 30% impairment to improve functional mobility by 2020. 07/31/20: LEF score reflects 61. 25% impairment, much better than 90% impairment which is what he had immediately post- op LTG Duration 8 weeks Three [facility] Goal (LTG) Pt will present with improved left knee AROM to 0-125 deg to improve functional transfers by 09/28/2020. 08/10/20: Left knee AROM 4-124 deg in supine post manual. 09/08/20: L knee AROM in supine post ther ex and manual. LTG Duration 8 weeks Two Transport Company Manager Goal (LTG) Pt will present with improved B hip flexion, abduction, adduction, and left knee flexion, extension and ankle inversion and eversion to 5/5 to improve functional mobility by 09/28/2020. 07/31/20: Right hip flexion 4/5, Right hip adduction and abduction 5/5, left hip flexion 5/5, left hip adduction 4/5 and left hip abduction 5/5, left knee flexion and extension 4/5, left ankle eversion and inversion 5/5. LTG Duration 8 weeks One [facility] Goal (LTG) Pt will perform HEP with I including LE flexibility, strengthening, gait and balance exercises to improve function by 09/28/20. 09/05/20: Pt is performing the following HEP exercises: mini squat, standing hamstring curl , large march with UE support all standing exercises, hamstring stretch (sitting), Keo stretch and hamstring stretch in hook lying, STM with rolling pin vastus lateralis and SLR, added standing weight shift and pelvic rocking, pelvic realignment exercises, hip adduction, standing w/ TB, gait f/b/side stepping focus gait phases and alignment. LTG Duration 8 weeks Assessment Summary Assessment Pt is thinking about getting dry needled to help with scar tension left knee and PT is in agreement. He would have to get needled in another state such as [place] or [place]. PT asks pt to ask surgeon about it today when he sees him. He con't with increased pinching sensation lateral left knee and his gait is antalgic. Con' t efforts. Physical Therapy Plan Frequency and Duration Frequency of Treatment 2x/Week Duration of Treatment 8 weeks Plan of Care Start Date 07/31/20 Plan of Care End Date 09/28/20 Therapeutic Interventions Therapeutic Interventions Balance Training,Canalithic Repositioning,Gait Training, Home Exercise Program,Joint Mobilizations,Manual Therapy, Neuromuscular Re-education, Patient/Caregiver Education, Self-Care/Home Management, Sensory Integration,Soft Tissue Mobilization,Taping, Therapeutic Activities, Therapeutic Exercises Modalities Cold Pack/Ice Massage,Electric Stimulation,Hot Packs, Ultrasound Next Visit Focus/Plan Next Note Type Treatment Note Next Visit Plan Continue per PT POC: ROM, gait phases gait, manual as needed for tightness, PNF manually assisted in the future.
--- NOTE | 2020-09-15 09:04 | PT.OTN ---
Current Diagnoses Unilateral primary osteoarthritis, left knee (09/15/20) Other tear of medial meniscus, current injury, left knee, initial encounter (09/15/20) Presence of left artificial knee joint (09/15/20) Physical Therapy Treatment Note PT-OP-A Visit Information Start: 06/01/20 07:21 Freq: Status: Active Protocol: Document 09/15/20 08:15 SP (Rec: 09/15/20 12:00 SP [id number]) Out-Patient Physical Therapy Visit Information Visit Information Visit Type Treatment Note Visit Note Works Comp/L&I PN due by 09/28/20. 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 His trunk went forward and his left leg hyperextended. He underwent a meniscal surgery in early 2018. He con't to have pain. He received PT and did not get better. He finally underwent left TKR 05/14/2019 and had immediate pain post- op. He participated with PT and did not make significant improvements in pain, gait and range. PT sent pt back to surgeon and it was determined that there was a mechanical problem with prosthesis, on the lateral side. Pt's pain and clicking had consistently been at the lateral posterior left knee. The plan was for pt to transition to aquatic therapy while waiting for possible surgery the end of 2019 when the pool closed d/t COVID. He is currently scheduled for a revision on 06/12/2020. Pt con't with antalgic gait, favoring the left knee and he has new onset of right hip pain for 6 months after altered gait. He has a history of right THR. Left knee pain gets up to 5-6/10. He has not been walking with walker. He has not been icing or wearing thigh high compression. He has been performing heel slides. 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 Pt lives in a RV and has 5 steps to enter with left rail. He is currently driving. PMH: smoking, arthritis, HTN. Pt has had some falls and he fell down steps this summer. He is okay. Prior Treatments and Tests L TKR 05/14/2019, post-op PT, reconsult with orthopedic surgeon and deemed appropriate for another TKR end of 2019 Treatment Goals Patient/Caregiver Goals To decrease pain, improve range of motion and gait and get back to work. PT-OP-C Subjective Start: 06/01/20 07:21 Freq: Status: Active Protocol: Document 09/15/20 08:15 SP (Rec: 09/15/20 12:00 SP [id number]) OP-PT Subjective Patient Comments Patient Comments Pt stated saw physician last Fri and noted L knee is as stable as thought would be. Pt stated L knee sore today, has been preparing to move up to the [place] for the summer. PT-OP-G Mobility & Gait Start: 06/01/20 07:21 Freq: Status: Active Protocol: Document 06/01/20 08:57 MB (Rec: 06/01/20 15:10 MB [id number]) OP Gait Assessment Comments Gait Comments Wide MAYNOR, decreased step- length and foot clearance, limited step-length, greater on the left with decreased left knee flexion and extension, right hip hike and decreased right hip flexion and extension. Stiff walking posture and increased lateral sway with gait. Pt states that he has not wanted to use cane or walker and so he does not bring in AD for assessment. PT-OP-K Range of Motion Start: 06/01/20 07:21 Freq: Status: Active Protocol: Document 09/08/20 08:21 SP (Rec: 09/08/20 11:34 SP [id number]) Knee Goniometric Range of Motion Knee Left Knee ROM WFL No Patient Position Supine Comments L knee AROM in hook lying is 6 -123 deg PT-OP-M Strength Start: 06/01/20 07:21 Freq: Status: Active Protocol: Document 06/01/20 08:57 MB (Rec: 06/01/20 15:33 MB [id number]) Hip Strength Hip Manual Muscle Testing Left Flexion (L2) 4 Good Abduction 5 Normal Adduction 4 Good Right Flexion (L2) 5 Normal Abduction 4 Good Adduction 5 Normal Knee Strength Knee Manual Muscle Testing Left Flexion (S2) 3- Fair- Extension (L3) 4 Good Comments Pt reports 8/10 pain left posterior knee with left knee flexion MMT Right Flexion (S2) 5 Normal Extension (L3) 5 Normal Ankle/Foot Strength Ankle and Foot Manual Muscle Testing Left Dorsiflexion (L4) 5 Normal Inversion 3 Fair Eversion (S1) 4 Good Comments Pt reports increased left knee pain with inversion and eversion MMT Right Dorsiflexion (L4) 5 Normal Inversion 5 Normal Eversion (S1) 5 Normal PT-OP-Q Treatments Start: 06/01/20 07:21 Freq: Status: Active Protocol: Document 09/15/20 08:15 SP (Rec: 09/15/20 12:00 SP [id number]) Cardio Equipment Bicycle (Upright) Duration (Minutes) 8 Resistance 13 Seat Position 9 Gym Equipment Shuttle Recovery single squat Details cued knee alignment with toes Resistance 50# Shuttle Recovery Platform Stable Reps/Time x15 LLE bilateral squat Resistance 75# Shuttle Recovery Platform Stable Reps/Time 30 reps, cues to slow Therapeutic Exercises Supine Exercises glut bridge Reps/Minutes 5 sec hold x10 Comments pain free- good glut, quad and HS facilitation CKC Hook lying clam Supine Exercise Name bridge w /hip abd Side bilateral Resistance TB #1 2x10 Reps/Minutes 2x10 Comments cued core engaged, heel posterior chain facilitation Standing Exercises TKE Standing Exercise Name assessed lateral/ medial TKE but distal lat HS recruit irritation (fwd only Side left Equipment Used level 1 band Reps/Minutes 2x15 Comments contact chair 1 UE, cued keep heel down just knee range Manual Therapy Treatment Soft Tissue Mobilization hamstring Body Location L distal hamstrings, proximal calves Mobilization Type Cross-Friction,Strumming, Sustained Pressure,Other Intensity/Depth Moderate Body Position Prone Comments cross friction, sustained pressure w/ knee flexion: LLE vastus lateralis, distal ITB Taping Kinesiotaping Body Location gastroc>mid HS (1 to split strip) Treatment Focus support knee flexion during heel toe/ midstance Type of Tape Kinesio Tape Skin Inspection normal, intact PT-OP-T Assessment and Plan Start: 06/01/20 07:21 Freq: Status: Active Protocol: Document 09/15/20 08:15 SP (Rec: 09/15/20 12:00 SP [id number]) Physical Therapy Assessment Goals 8 Longterm Goal (LTG) Pt will perform at least 12 reps sit to stand without UE support in 30 sec to improve functional transfers by 2020. 07/31/20: Pt performs 5 reps without UE support today, he favors the left knee. LTG Duration 8 weeks 7 Longterm Goal (LTG) Pt will gait train at least 1200 feet in 6 minutes without AD to improve community ambulation by 09/28/2020. 07/31/20: Pt gait trains 958 feet in 6 minutes with RW today and he reports 3/10 lateral anterior left knee pain LTG Duration 8 weeks Six Financial Compliance Manager Goal (LTG) Pt will deny falls for three months to decrease risk of injury by 09/28/20. 07/31/20: Pt denies falls since starting PT. LTG Duration 8 weeks 5 Financial Compliance Manager Goal (LTG) Pt will perform reciprocal gait on stairs for 5 steps with 1 rail to allow normal home entry by 09/28/2020. 07/31/20: Pt progresses towards stairs today, performs 4 steps with two rails x2, step to step and then reciprocal stepping with two rails. LTG Duration 8 weeks Four Impairment Progress note score 31/80, 61. 25% impairment Longterm Goal (LTG) Pt will present with an improved LE functional index score to reflect no more than 30% impairment to improve functional mobility by 2020. 07/31/20: LEF score reflects 61. 25% impairment, much better than 90% impairment which is what he had immediately post- op LTG Duration 8 weeks Three Longterm Goal (LTG) Pt will present with improved left knee AROM to 0-125 deg to improve functional transfers by 09/28/2020. 08/10/20: Left knee AROM 4-124 deg in supine post manual. 09/08/20: L knee AROM in supine post ther ex and manual. LTG Duration 8 weeks Two Longterm Goal (LTG) Pt will present with improved B hip flexion, abduction, adduction, and left knee flexion, extension and ankle inversion and eversion to 5/5 to improve functional mobility by 09/28/2020. 07/31/20: Right hip flexion 4/5, Right hip adduction and abduction 5/5, left hip flexion 5/5, left hip adduction 4/5 and left hip abduction 5/5, left knee flexion and extension 4/5, left ankle eversion and inversion 5/5. LTG Duration 8 weeks One Financial Compliance Manager Goal (LTG) Pt will perform HEP with I including LE flexibility, strengthening, gait and balance exercises to improve function by 09/28/20. 09/05/20: Pt is performing the following HEP exercises: mini squat, standing hamstring curl , large march with UE support all standing exercises, hamstring stretch (sitting), Keo stretch and hamstring stretch in hook lying, STM with rolling pin vastus lateralis and SLR, added standing weight shift and pelvic rocking, pelvic realignment exercises, hip adduction, standing w/ TB, gait f/b/side stepping focus gait phases and alignment. LTG Duration 8 weeks Assessment Summary Assessment Tx focused on manual and HS facilitation to improve stability with noted distal HS irritation recruitment, improved supine bridge and hooklying clam shell than standing (unable do step downs or med/ lateral anchoring TB TKE due to pain and lack of strength). Initiated K taping to facilitate HS during gait for assist with decrease hyyperextension. Pt aware to remove K tape if irritation or not helpful. Physical Therapy Plan Frequency and Duration Frequency of Treatment 2x/Week Duration of Treatment 8 weeks Plan of Care Start Date 07/31/20 Plan of Care End Date 09/28/20 Therapeutic Interventions Therapeutic Interventions Balance Training,Canalithic Repositioning,Gait Training, Home Exercise Program,Joint Mobilizations,Manual Therapy, Neuromuscular Re-education, Patient/Caregiver Education, Self-Care/Home Management, Sensory Integration,Soft Tissue Mobilization,Taping, Therapeutic Activities, Therapeutic Exercises Modalities Cold Pack/Ice Massage,Electric Stimulation,Hot Packs, Ultrasound Next Visit Focus/Plan Next Note Type Treatment Note Next Visit Plan Continue per PT POC: ROM, gait phases gait, manual as needed for tightness, PNF manually assisted in the future.
--- NOTE | 2020-09-18 09:00 | PT.OTN ---
Current Diagnoses Unilateral primary osteoarthritis, left knee (09/18/20) Other tear of medial meniscus, current injury, left knee, initial encounter (09/18/20) Presence of left artificial knee joint (09/18/20) Physical Therapy Treatment Note PT-OP-A Visit Information Start: 06/01/20 07:21 Freq: Status: Active Protocol: Document 09/18/20 08:17 SP (Rec: 09/18/20 11:11 SP [id number]) Out-Patient Physical Therapy Visit Information Visit Information Visit Type Treatment Note Visit Note Works Comp/L&I PN due by 09/28/20. Visit Start Time 08:16 Visit Stop Time 09:00 Total Visit Minutes 44 Visit Number 21 Number of ORDER CALLER Visits 2 PT-OP-B Current Condition Start: 06/01/20 07:21 Freq: Status: Active Protocol: Document 06/01/20 08:57 MB (Rec: 06/01/20 09:32 MB [id number]) Current Condition History of Current Condition Onset Date August 2018 Current Complaints Left knee pain and right hip pain History of Current Condition In March 2018, a crate fell over him at work and pinned him up against a motor home. His trunk went forward and his left leg hyperextended. He underwent a meniscal surgery in early 2018. He con't to have pain. He received PT and did not get better. He finally underwent left TKR 05/14/2019 and had immediate pain post- op. He participated with PT and did not make significant improvements in pain, gait and range. PT sent pt back to surgeon and it was determined that there was a mechanical problem with prosthesis, on the lateral side. Pt's pain and clicking had consistently been at the lateral posterior left knee. The plan was for pt to transition to aquatic therapy while waiting for possible surgery the end of 2019 when the pool closed d/t COVID. He is currently scheduled for a revision on 06/12/2020. Pt con't with antalgic gait, favoring the left knee and he has new onset of right hip pain for 6 months after altered gait. He has a history of right THR. Left knee pain gets up to 5-6/10. He has not been walking with walker. He has not been icing or wearing thigh high compression. He has been performing heel slides. 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 Pt lives in a RV and has 5 steps to enter with left rail. He is currently driving. PMH: smoking, arthritis, HTN. Pt has had some falls and he fell down steps this summer. He is okay. Prior Treatments and Tests L TKR 05/14/2019, post-op PT, reconsult with orthopedic surgeon and deemed appropriate for another TKR end of 2019 Treatment Goals Patient/Caregiver Goals To decrease pain, improve range of motion and gait and get back to work. PT-OP-C Subjective Start: 06/01/20 07:21 Freq: Status: Active Protocol: Document 09/18/20 08:17 SP (Rec: 09/18/20 11:11 SP [id number]) OP-PT Subjective Patient Comments Patient Comments Pt reported L knee is pretty stiff today, did swell up alot over the weekend but alot less today, over did it getting walking and lifting [place] the [place]/summer season. Lateral lean and continued L knee locking out coming to standing and during midstance phase. Pt repeatedly commented during tx I am not sure how to stop locking out knee and if will ever change. I am doing my exercises. PT-OP-G Mobility & Gait Start: 06/01/20 07:21 Freq: Status: Active Protocol: Document 06/01/20 08:57 MB (Rec: 06/01/20 15:10 MB [id number]) OP Gait Assessment Comments Gait Comments Wide MAYNOR, decreased step- length and foot clearance, limited step-length, greater on the left with decreased left knee flexion and extension, right hip hike and decreased right hip flexion and extension. Stiff walking posture and increased lateral sway with gait. Pt states that he has not wanted to use cane or walker and so he does not bring in AD for assessment. PT-OP-K Range of Motion Start: 06/01/20 07:21 Freq: Status: Active Protocol: Document 09/08/20 08:21 SP (Rec: 09/08/20 11:34 SP [id number]) Knee Goniometric Range of Motion Knee Left Knee ROM WFL No Patient Position Supine Comments L knee AROM in hook lying is 6 -123 deg PT-OP-M Strength Start: 06/01/20 07:21 Freq: Status: Active Protocol: Document 06/01/20 08:57 MB (Rec: 06/01/20 15:33 MB [id number]) Hip Strength Hip Manual Muscle Testing Left Flexion (L2) 4 Good Abduction 5 Normal Adduction 4 Good Right Flexion (L2) 5 Normal Abduction 4 Good Adduction 5 Normal Knee Strength Knee Manual Muscle Testing Left Flexion (S2) 3- Fair- Extension (L3) 4 Good Comments Pt reports 8/10 pain left posterior knee with left knee flexion MMT Right Flexion (S2) 5 Normal Extension (L3) 5 Normal Ankle/Foot Strength Ankle and Foot Manual Muscle Testing Left Dorsiflexion (L4) 5 Normal Inversion 3 Fair Eversion (S1) 4 Good Comments Pt reports increased left knee pain with inversion and eversion MMT Right Dorsiflexion (L4) 5 Normal Inversion 5 Normal Eversion (S1) 5 Normal PT-OP-Q Treatments Start: 06/01/20 07:21 Freq: Status: Active Protocol: Document 09/18/20 08:17 SP (Rec: 09/18/20 11:11 SP [id number]) Cardio Equipment Bicycle (Upright) Duration (Minutes) 10 Resistance 14 Seat Position 9 Gym Equipment Shuttle Recovery single squat Details cued knee alignment with toes Resistance 50# Shuttle Recovery Platform Stable Reps/Time 3 sec hold (in soft knee ext) x15 LLE bilateral squat Details cued pause in soft knee ext Resistance 87# Shuttle Recovery Platform Stable Reps/Time 30 reps, cues to slow eccentric direction Therapeutic Exercises Supine Exercises SLR with QS and toes up to start Supine Exercise Name w/ hip ER for adductor facilitation Side left Resistance AROM Reps/Minutes x15 Comments cued awareness of knee extension each rep Sidelying Exercises L hip adduction Sidelying Exercise Name Reviewed Side left Reps/Minutes 3 sec hold 3x10 (exhaustion) Comments cued awareness of knee extensison Sitting Exercises Single stance sliders Sitting Exercise Name focus stabilization of L soft knee Side bilateral Equipment Used counter contact as needed for safety Reps/Minutes 2x5 (12, 3, 6 o'clock) Comments cued slow small range Sit to stand without UE support Equipment Used from shuttle press bench 23.5 Comments 7 reps in 30 sec today, decrease favor LLe w mirror self corrections Standing Exercises hip adduction TB Side bilateral Resistance Level 2 band Equipment Used chair contact for balance support Comments 10 reps, cues to slow down and for form Gait Training Gait Activity Gait assessment Description forward/backward gait Device Used 0 Level of Assistance S Surface stable Distance/Duration 20 ft laps Treatment Focus gait phases, L soft knee stabilization Comments improved with awareness. PT-OP-T Assessment and Plan Start: 06/01/20 07:21 Freq: Status: Active Protocol: Document 09/18/20 08:17 SP (Rec: 09/18/20 11:11 SP [id number]) Physical Therapy Assessment Goals 8 Half-Way Goal (LTG) Pt will perform at least 12 reps sit to stand without UE support in 30 sec to improve functional transfers by 2020. 07/31/20: Pt performs 5 reps without UE support today, he favors the left knee. 09/18/20: completed 7 reps in 30 sec from 23 height shuttle recovery surface with no UE support. LTG Duration 8 weeks 7 Teacher Emotionally Impaired Goal (LTG) Pt will gait train at least 1200 feet in 6 minutes without AD to improve community ambulation by 09/28/2020. 07/31/20: Pt gait trains 958 feet in 6 minutes with RW today and he reports 3/10 lateral anterior left knee pain LTG Duration 8 weeks Six Teacher Emotionally Impaired Goal (LTG) Pt will deny falls for three months to decrease risk of injury by 09/28/20. 07/31/20: Pt denies falls since starting PT. LTG Duration 8 weeks 5 Teacher Emotionally Impaired Goal (LTG) Pt will perform reciprocal gait on stairs for 5 steps with 1 rail to allow normal home entry by 09/28/2020. 07/31/20: Pt progresses towards stairs today, performs 4 steps with two rails x2, step to step and then reciprocal stepping with two rails. LTG Duration 8 weeks Four Impairment Progress note score 31/80, 61. 25% impairment Teacher Emotionally Impaired Goal (LTG) Pt will present with an improved LE functional index score to reflect no more than 30% impairment to improve functional mobility by 2020. 07/31/20: LEF score reflects 61. 25% impairment, much better than 90% impairment which is what he had immediately post- op LTG Duration 8 weeks Three Half-Way Goal (LTG) Pt will present with improved left knee AROM to 0-125 deg to improve functional transfers by 09/28/2020. 08/10/20: Left knee AROM 4-124 deg in supine post manual. 09/18/20: L knee AROM 1-128 deg in supine. LTG Duration 8 weeks Two Teacher Emotionally Impaired Goal (LTG) Pt will present with improved B hip flexion, abduction, adduction, and left knee flexion, extension and ankle inversion and eversion to 5/5 to improve functional mobility by 09/28/2020. 07/31/20: Right hip flexion 4/5, Right hip adduction and abduction 5/5, left hip flexion 5/5, left hip adduction 4/5 and left hip abduction 5/5, left knee flexion and extension 4/5, left ankle eversion and inversion 5/5. LTG Duration 8 weeks One Half-Way Goal (LTG) Pt will perform HEP with I including LE flexibility, strengthening, gait and balance exercises to improve function by 09/28/20. 09/05/20: Pt is performing the following HEP exercises: mini squat, standing hamstring curl , large march with UE support all standing exercises, hamstring stretch (sitting), Keo stretch and hamstring stretch in hook lying, STM with rolling pin vastus lateralis and SLR, added standing weight shift and pelvic rocking, pelvic realignment exercises, hip adduction, standing w/ TB, gait f/b/side stepping focus gait phases and alignment, hip adduction more beneficial sidelying than standing. LTG Duration 8 weeks Assessment Summary Assessment Tx focused on LLE quad, HS, adductor facilitation to assist stabilize knee and education of awareness during gait for tall posture wt shift over LLE with soft knee to allow functional strengthening with improvements normalizing gait leaving. Pt had good tiring L hip adductor and superior patella of quad responses during ex today. Physical Therapy Plan Frequency and Duration Frequency of Treatment 2x/Week Duration of Treatment 8 weeks Plan of Care Start Date 07/31/20 Plan of Care End Date 09/28/20 Therapeutic Interventions Therapeutic Interventions Balance Training,Canalithic Repositioning,Gait Training, Home Exercise Program,Joint Mobilizations,Manual Therapy, Neuromuscular Re-education, Patient/Caregiver Education, Self-Care/Home Management, Sensory Integration,Soft Tissue Mobilization,Taping, Therapeutic Activities, Therapeutic Exercises Modalities Cold Pack/Ice Massage,Electric Stimulation,Hot Packs, Ultrasound Next Visit Focus/Plan Next Note Type Treatment Note Next Visit Plan Assess response to L LE stabilization w/quad, HS, adductor facilitation. Continue per PT POC: ROM, gait phases gait, manual as needed for tightness, PNF manually assisted in the future.
--- NOTE | 2020-09-20 08:29 | PT-OP ANOTE ---
Pt does not show to appointment and this is unlike him. Pt's twin brother suddenly in [place] yesterday. He is on the road to [place] and forgot to cancel his appointment. He would like to cancel Friday the 's appointment as well.
--- NOTE | 2020-09-28 10:46 | PT-OP ANOTE ---
Pt DNS for today's appt, left a message regarding and asking if wanted to reschedule with his primary PT to reassess goals and complete DC, was the plan for today with [facility]IST and PT to DC. Await his returned call
--- NOTE | 2020-09-28 11:28 | PT-OP ANOTE ---
Pt did not show for today's appt to reassess goals due to POC expiring on 09/28/20 and PT to write up PN and update POC dates. Pt does have 6 more appt's scheduled. I left another message stating his next appt is 10/02 with Diana PT. Will see him then unless calls to cancel.
--- NOTE | 2020-10-02 12:15 | PT.OPPOC ---
Physical, Occupational & Speech Therapy At [facility] Current Diagnoses Unilateral primary osteoarthritis, left knee (10/02/20) Other tear of medial meniscus, current injury, left knee, initial encounter (10/02/20) Presence of left artificial knee joint (10/02/20) Visit Care Team Role Provider Type Mohsen Blanco MD Family Provider Physician Primary Care Provider Specialty: Internal Medicine Address: [address] [place] [address], [id number] Email: [email or web address] Davin Gonsalez MD Attending Provider Physician Referring Provider Specialty: Orthopedic Surgery Address: [address] [place] [address], [id number] Email: [email or web address] Plan Of Care PT-OP-T Assessment and Plan Start: 06/01/20 07:21 Freq: Status: Active Protocol: Document 10/02/20 09:47 MB (Rec: 10/02/20 10:28 MB [id number]) Physical Therapy Assessment Goals 8 Postpartum Nurse Goal (LTG) Pt will perform at least 12 reps sit to stand without UE support in 30 sec to improve functional transfers by 2020. 10/02/20: Pt performs 6 reps sit to diesel inspector 30 sec without UE support LTG Duration Partially Met 7 Prison Goal (LTG) Pt will gait train at least 1200 feet in 6 minutes without AD to improve community ambulation by 09/28/2020. 10/02/20: Pt gait trains 875 feet in 6 minutes with reports of right hip and left knee soreness. His gait is antalgic with decreased step-length, foot clearance, wide MAYNOR and increased lateral sway and decreased arm swing LTG Duration Not met Six Postpartum Nurse Goal (LTG) Pt will deny falls for three months to decrease risk of injury by 09/28/20. 07/31/20: Pt denies falls since starting PT. LTG Duration Met 5 Postpartum Nurse Goal (LTG) Pt will perform reciprocal gait on stairs for 5 steps with 1 rail to allow normal home entry by 09/28/2020. 10/02/20: Pt performs with step -to gait and 1 rail LTG Duration Not met Four Impairment Progress note score 31/80, 61. 25% impairment Prison Goal (LTG) Pt will present with an improved LE functional index score to reflect no more than 30% impairment to improve functional mobility by 2020. 10/02/20: Pt presents with LEF score reflecting 62.5% impairment which not improved since last reassessment LTG Duration Partially met Three Prison Goal (LTG) Pt will present with improved left knee AROM to 0-125 deg to improve functional transfers by 09/28/2020. 10/02/20: Left knee AROM in supine: 3-126 deg LTG Duration Partially met Two Prison Goal (LTG) Pt will present with improved B hip flexion, abduction, adduction, and left knee flexion, extension and ankle inversion and eversion to 5/5 to improve functional mobility by 09/28/2020. 10/02/20: Left hip flexion, abduction, adduction, left knee flexion and extension, left ankle inversion and eversion all 5/5. LTG Duration Met One Prison Goal (LTG) Pt will perform HEP with I including LE flexibility, strengthening, gait and balance exercises to improve function by 09/28/20. 10/02/20: Pt is performing sit to stands and hip strengthening at home LTG Duration Met Assessment Summary Assessment Pt has met HEP, no falls and strength goals since starting PT. He has progressed towards ROM, LEF score and sit to stand goals. He has not progressed towards gait distance and reciprocal stepping on stairs goals. His presentation has been complicated by surgical changes, two knee surgeries and he also had a cardiopulmonary issue during his last surgery. Most recently, his brother suddenly and he had to drive out of state and miss at least two PT appointments. PT and pt feel that pt has maximized PT potential and he is ready to d/c PT. Pt will start getting in the pool at his summer home community this summer. He is following up with the surgeon about getting dry needling in [place]. This PT does feel that he would benefit from dry needling to assist with myofascial restrictions around his lateral knee, TFL and vastus lateralis. Will d/c PT. Physical Therapy Plan Frequency and Duration Frequency of Treatment 1x/Week Duration of Treatment 1 day Plan of Care Start Date 10/02/20 Plan of Care End Date 10/02/20 Therapeutic Interventions Therapeutic Interventions Balance Training,Canalithic Repositioning,Gait Training, Home Exercise Program,Joint Mobilizations,Manual Therapy, Neuromuscular Re-education, Patient/Caregiver Education, Self-Care/Home Management, Sensory Integration,Soft Tissue Mobilization,Taping, Therapeutic Activities, Therapeutic Exercises Modalities Cold Pack/Ice Massage,Electric Stimulation,Hot Packs, Ultrasound Plan of Care Dates Plan of Care Start Date 10/02/20 Plan of Care End Date 10/02/20 Electronically Signed by: Diana Diallo, PT 10/03/20 0713 Please Sign and Return: I have reviewed this Plan of Care and certify that the skilled therapy services above are required to meet the patient?s needs. Physician Signature Date Printed Name and Credentials Clinical Instructor Signature Printed Name and Credentials
--- NOTE | 2020-10-02 12:30 | PT.OTN ---
Current Diagnoses Unilateral primary osteoarthritis, left knee (10/02/20) Other tear of medial meniscus, current injury, left knee, initial encounter (10/02/20) Presence of left artificial knee joint (10/02/20) Physical Therapy Treatment Note PT-OP-A Visit Information Start: 06/01/20 07:21 Freq: Status: Active Protocol: Document 10/02/20 09:47 MB (Rec: 10/02/20 10:28 MB [id number]) Out-Patient Physical Therapy Visit Information Visit Information Visit Type Treatment Note Visit Note Workers Comp/L&I Visit Start Time 09:47 Visit Stop Time 10:25 Total Visit Minutes 38 Visit Number 22 Number of PARLIAMENTARY ARCHIVIST Visits 0 PT-OP-B Current Condition Start: 06/01/20 07:21 Freq: Status: Active Protocol: Document 06/01/20 08:57 MB (Rec: 06/01/20 09:32 MB [id number]) Current Condition History of Current Condition Onset Date August 2018 Current Complaints Left knee pain and right hip pain History of Current Condition In March 2018, a crate fell over him at work and pinned him up against a motor home. His trunk went forward and his left leg hyperextended. He underwent a meniscal surgery in early 2018. He con't to have pain. He received PT and did not get better. He finally underwent left TKR 05/14/2019 and had immediate pain post- op. He participated with PT and did not make significant improvements in pain, gait and range. PT sent pt back to surgeon and it was determined that there was a mechanical problem with prosthesis, on the lateral side. Pt's pain and clicking had consistently been at the lateral posterior left knee. The plan was for pt to transition to aquatic therapy while waiting for possible surgery the end of 2019 when the pool closed d/t COVID. He is currently scheduled for a revision on 06/12/2020. Pt con't with antalgic gait, favoring the left knee and he has new onset of right hip pain for 6 months after altered gait. He has a history of right THR. Left knee pain gets up to 5-6/10. He has not been walking with walker. He has not been icing or wearing thigh high compression. He has been performing heel slides. He has not been able to work on [employer] d/t his condition. Pt lives in a RV and has 5 steps to enter with left rail. He is currently driving. PMH: smoking, arthritis, HTN. Pt has had some falls and he fell down steps this summer. He is okay. Prior Treatments and Tests L TKR 05/14/2019, post-op PT, reconsult with orthopedic surgeon and deemed appropriate for another TKR end of 2019 Treatment Goals Patient/Caregiver Goals To decrease pain, improve range of motion and gait and get back to work. PT-OP-C Subjective Start: 06/01/20 07:21 Freq: Status: Active Protocol: Document 10/02/20 09:47 MB (Rec: 10/02/20 10:28 MB [id number]) OP-PT Subjective Patient Comments Patient Comments Pt just back from [place] on Friday after taking care of his brother's estate after his sudden . Pt states thate he saw the surgeon before he left for [place] and he was told that he could have had a larger component put in. He does not feel that he is progressing anymore with PT and is ready for d/c. PT-OP-G Mobility & Gait Start: 06/01/20 07:21 Freq: Status: Active Protocol: Document 06/01/20 08:57 MB (Rec: 06/01/20 15:10 MB [id number]) OP Gait Assessment Comments Gait Comments Wide MAYNOR, decreased step- length and foot clearance, limited step-length, greater on the left with decreased left knee flexion and extension, right hip hike and decreased right hip flexion and extension. Stiff walking posture and increased lateral sway with gait. Pt states that he has not wanted to use cane or walker and so he does not bring in AD for assessment. PT-OP-K Range of Motion Start: 06/01/20 07:21 Freq: Status: Active Protocol: Document 09/08/20 08:21 SP (Rec: 09/08/20 11:34 SP [id number]) Knee Goniometric Range of Motion Knee Left Knee ROM WFL No Patient Position Supine Comments L knee AROM in hook lying is 6 -123 deg PT-OP-M Strength Start: 06/01/20 07:21 Freq: Status: Active Protocol: Document 06/01/20 08:57 MB (Rec: 06/01/20 15:33 MB [id number]) Hip Strength Hip Manual Muscle Testing Left Flexion (L2) 4 Good Abduction 5 Normal Adduction 4 Good Right Flexion (L2) 5 Normal Abduction 4 Good Adduction 5 Normal Knee Strength Knee Manual Muscle Testing Left Flexion (S2) 3- Fair- Extension (L3) 4 Good Comments Pt reports 8/10 pain left posterior knee with left knee flexion MMT Right Flexion (S2) 5 Normal Extension (L3) 5 Normal Ankle/Foot Strength Ankle and Foot Manual Muscle Testing Left Dorsiflexion (L4) 5 Normal Inversion 3 Fair Eversion (S1) 4 Good Comments Pt reports increased left knee pain with inversion and eversion MMT Right Dorsiflexion (L4) 5 Normal Inversion 5 Normal Eversion (S1) 5 Normal PT-OP-Q Treatments Start: 06/01/20 07:21 Freq: Status: Active Protocol: Document 10/02/20 09:47 MB (Rec: 10/02/20 10:28 MB [id number]) Cardio Equipment Bicycle (Upright) Duration (Minutes) 11 Resistance 9 Seat Position 9 Therapeutic Exercises Sitting Exercises Sit to stand without UE support Comments 6 reps in 30 sec today Other Exercises Verbally reviewed pt's exercises that he is performing at home Comments Performed this today Gait Training Gait Activity [id number] Comments Performed today and see comments under gait goal. Gait throughout treatment several times with similar gait pattern recorded under gait goal today. Self-Care/Home Management Treatment Education Other Education Follow-up with doctor about dry needling in [place], con't with gait exercises, consider asking doctor for order to medical record assistant regarding his reports of leg length difference, benefits of getting in the pool PT-OP-T Assessment and Plan Start: 06/01/20 07:21 Freq: Status: Active Protocol: Document 10/02/20 09:47 MB (Rec: 10/02/20 10:28 MB [id number]) Physical Therapy Assessment Goals 8 Grain Processor Goal (LTG) Pt will perform at least 12 reps sit to stand without UE support in 30 sec to improve functional transfers by 2020. 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 10/02/20: Pt gait trains 875 feet in 6 minutes with reports of right hip and left knee soreness. His gait is antalgic with decreased step-length, foot clearance, wide MAYNOR and increased lateral sway and decreased arm swing LTG Duration Not met Six Grain Processor Goal (LTG) Pt will deny falls for three months to decrease risk of injury by 09/28/20. 07/31/20: Pt denies falls since starting PT. LTG Duration Met 5 Mcc Goal (LTG) Pt will perform reciprocal gait on stairs for 5 steps with 1 rail to allow normal home entry by 09/28/2020. 10/02/20: Pt performs with step -to gait and 1 rail LTG Duration Not met Four Impairment Progress note score 31/80, 61. 25% impairment Mcc Goal (LTG) Pt will present with an improved LE functional index score to reflect no more than 30% impairment to improve functional mobility by 2020. 10/02/20: Pt presents with LEF score reflecting 62.5% impairment which not improved since last reassessment LTG Duration Partially met Three Mcc Goal (LTG) Pt will present with improved left knee AROM to 0-125 deg to improve functional transfers by 09/28/2020. 10/02/20: Left knee AROM in supine: 3-126 deg LTG Duration Partially met Two Grain Processor Goal (LTG) Pt will present with improved B hip flexion, abduction, adduction, and left knee flexion, extension and ankle inversion and eversion to 5/5 to improve functional mobility by 09/28/2020. 10/02/20: Left hip flexion, abduction, adduction, left knee flexion and extension, left ankle inversion and eversion all 5/5. LTG Duration Met One Grain Processor Goal (LTG) Pt will perform HEP with I including LE flexibility, strengthening, gait and balance exercises to improve function by 09/28/20. 10/02/20: Pt is performing sit to stands and hip strengthening at home LTG Duration Met Assessment Summary Assessment Pt has met HEP, no falls and strength goals since starting PT. He has progressed towards ROM, LEF score and sit to stand goals. He has not progressed towards gait distance and reciprocal stepping on stairs goals. His presentation has been complicated by surgical changes, two knee surgeries and he also had a cardiopulmonary issue during his last surgery. Most recently, his brother suddenly and he had to drive out of state and miss at least two PT appointments. PT and pt feel that pt has maximized PT potential and he is ready to d/c PT. Pt will start getting in the pool at his summer home community this summer. He is following up with the surgeon about getting dry needling in [place]. This PT does feel that he would benefit from dry needling to assist with myofascial restrictions around his lateral knee, TFL and vastus lateralis. Will d/c PT. Physical Therapy Plan Frequency and Duration Frequency of Treatment 1x/Week Duration of Treatment 1 day Plan of Care Start Date 10/02/20 Plan of Care End Date 10/02/20 Therapeutic Interventions Therapeutic Interventions Balance Training,Canalithic Repositioning,Gait Training, Home Exercise Program,Joint Mobilizations,Manual Therapy, Neuromuscular Re-education, Patient/Caregiver Education, Self-Care/Home Management, Sensory Integration,Soft Tissue Mobilization,Taping, Therapeutic Activities, Therapeutic Exercises Modalities Cold Pack/Ice Massage,Electric Stimulation,Hot Packs, Ultrasound
== END 2020-10-03 08:39 | disposition home or self-care (01) ==
LOC: PHYS 09:45
PROVIDERS: Family Provider Internal Medicine; PCP Internal Medicine; Referring Provider Orthopaedic Surgery; Visit Provider Orthopaedic Surgery
DX: Z96.652 Presence of left artificial knee joint (principal); M17.12 Unilateral primary osteoarthritis, left knee; S83.242A Other tear of medial meniscus, current injury, left knee, initial encounter
CPT/HCPCS: 97110; 97112; 97116; 97140; 97161; 97535

== ENCOUNTER → 2020-11-23 13:46 | Outpatient (CLI) | payer OTHER, SELFPAY ==
[2020-07-05 06:49] VITALS: BMI 36.4
[2020-11-23 18:33] LABS: BUN Creatinine Ratio 17.6 (6-22); Blood Urea Nitrogen 18 mg/dL (9-20); Calcium 9.1 mg/dL (8.4-10.2); Carbon Dioxide 33 mmol/L (22-32); Chloride 97 mmol/L (98-107); Estimated Glomerular Filt Rate > 60.0 mL/min (>60); Glucose 81 mg/dL (70-100); HEMOLYSIS < 15 (0-50); Potassium 3.7 mmol/L (3.4-5.1); Sodium 139 mmol/L (137-145)
== END ==
PROVIDERS: Family Provider Internal Medicine; PCP Internal Medicine; Referring Provider Internal Medicine; Visit Provider Internal Medicine
DX: I10 Essential (primary) hypertension (principal)
CPT/HCPCS: 36415; 80048

== ENCOUNTER → 2021-08-31 07:46 | Outpatient (CLI) | payer OTHER, SELFPAY ==
[2020-07-05 06:49] VITALS: BMI 36.4
--- NOTE | 2021-08-31 | DI.ECHO.S_ITS ---
[place] [facility]---------+ [facility] +---------+ : : [address] : : : : [id number] : : : : Phone: [phone]---------+ Echocardiogram Report + + :Name: JASWANT LEE Study Date: 08/31/2021 Height: 28 in : :[facility] ReadingLocation: Weight: 650 lb : : Gender: Male BSA: 1.8 m2 : :: 1960 Age: 61 yrs BP: 172/70 mmHg: :Reason For Study: SOB, EDEMA : : Performed By: Nitesh Moss : :Referring: CHEO WALSH W : + + Interpretation Summary The left ventricle is normal in size. The ejection fraction is estimated to be 60-65%. The right ventricle is mildly dilated. Right ventricular systolic function is at the lower limits of normal. No significant valvular pathology seen. Pulmonary artery systolic pressure could not be assessed. Previously it was about 45 mmHg including right atrial pressure about 8 mmHg. The IVC is dilated (diameter is greater than 2.1 cm) yet it collapses greater than 50% with a sniff. This suggests a right atrial pressure of 8 mm Hg. No significant change from the previous study. The ascending aorta is moderately enlarged. 4.5 cm in diameter. Previously 4.3 cm in diameter. Procedure: A two-dimensional transthoracic echocardiogram with color flow and Doppler was performed. The study quality was technically adequate. Comparison is made with the echocardiogram of 07/09/20. The patient was in normal sinus rhythm during the exam. Left Ventricle: The left ventricle is normal in size. There is normal left ventricular wall thickness. There is no thrombus. The ejection fraction is estimated to be 60-65%. There are no focal wall motion abnormalities. MV E/A: 0.88 Med Peak E' Ladarius: 3.9 cm/sec E/E' med: 17.0. Right Ventricle: The right ventricle is mildly dilated. Right ventricular systolic function is at the lower limits of normal. Atria: The left atrium is moderately dilated. There has been no significant change since the previous study. The right atrium is moderately dilated. The right atrium has significantly increased in size since the prior echo exam. There is no Doppler evidence for an atrial septal defect. Mitral Valve: There is mild mitral annular calcification. There is trace mitral regurgitation. Aortic Valve: The aortic valve is trileaflet. The aortic valve opens well. There is no aortic valve stenosis. No aortic regurgitation is present. Tricuspid Valve: The tricuspid valve is normal. Pulmonary artery pressures cannot be estimated because of the lack of a measurable TR jet velocity but the IVC suggests a CVP of around 3 mmHg. There is trace tricuspid regurgitation. Pulmonic Valve: The pulmonic valve is not well seen, but is grossly normal. There is trace pulmonic regurgitation. Great Vessels: The aortic root is mildly dilated. The ascending aorta is moderately enlarged. The pulmonary artery is normal size. The IVC is dilated (diameter is greater than 2.1 cm) yet it collapses greater than 50% with a sniff. This suggests a right atrial pressure of 8 mm Hg. Pericardium/ Pleura There is a small loculated effusion adjacent the right atrium noted subcostally. There is no pleural effusion. MMode/2D Measurements & Calculations LVIDd: 5.7 cm LVOT diam: 2.3 cm LVIDs: 3.7 cm Ao root diam: 4.1 cm FS: 34.7 % asc Aorta Diam: 4.5 cm EPSS: 0.73 cm Ao Arch Diam (Prox Trans): 3.2 cm IVSd: 0.97 cm LVPWd: 1.0 cm LV lin. diameter/BSA (cm/m^2): 3.2 LV sys. diameter/BSA (cm/m^2): 2.1 LA A2 area: 28.2 cm2 RA long axis: 5.9 cm LA A4 area: 23.0 cm2 RA area: 24.6 cm2 LA length (vol): 7.0 cm RA vol: 86.4 ml LA vol: 79.3 ml RA : 48.8 ml/m2 LA vol index: 44.8 ml/m2 IVC diam: 3.1 cm RVD1 (basal): 4.6 cm RVD2 (mid): 4.8 cm TAPSE: 2.6 cm Doppler Measurements & Calculations Ao V2 max: 164.2 cm/sec LVOT Max Ladarius: 128.9 cm/sec Ao V2 mean: 135.8 cm/sec LV V1 max P.6 mmHg Ao max P.8 mmHg LV V1 VTI: 29.9 cm Ao mean P.6 mmHg MICHELLE(I,D): 3.6 cm2 Ao V2 VTI: 35.7 cm MICHELLE(V,D): 3.4 cm2 sev ratio: 0.84 MICHELLE indexed to BSA (cm^2/m^2): 2.0 MV E max ladarius: 65.7 cm/sec PA V2 max: 126.7 cm/sec MV A max ladarius: 74.8 cm/sec PA V2 mean: 84.0 cm/sec MV E/A: 0.88 PA mean P.1 mmHg Med Peak E' Ladarius: 3.9 cm/sec PA pr(Accel): 41.3 mmHg E/E' med: 17.0 Lat Peak E' Ladarius: 8.3 cm/sec E/E' lat: 7.9 E/e' average: 12.5 MV dec time: 0.27 sec SV(LVOT): 128.4 ml Reading Physician:05:13 PM
--- NOTE | 2021-08-31 07:55 | DI.CT.S_ITS ---
PROCEDURE: CT CHEST WO CON INDICATIONS: Shortness of breath TECHNIQUE: Noncontrast 5 mm thick sections acquired from the pulmonary apices to the posterior costophrenic angles. 1 mm lung window, 5 mm thick coronal and sagittal and 7 mm axial MIP reformats were then acquired. For radiation dose reduction, the following was used: automated exposure control, adjustment of mA and/or kV according to patient size. COMPARISON: [facility], CT, CT ANGIO CHEST, 07/08/2020, 8:42. FINDINGS: Image quality: Excellent. Lungs and pleura: No acute air space opacities. Occasional subpleural calcified nodules. No ground-glass opacities. No pleural effusions or pneumothorax. Central and peripheral airways are patent and normal in caliber. No bronchial wall thickening or bronchiectasis. Mediastinum: Heart size is normal. No pericardial effusion. Trace pericardial thickening. There are mildly prominent paratracheal/Haritha carinal lymph nodes, similar compared to the prior study, but no bulky adenopathy and no perihilar adenopathy. Thoracic aorta and central pulmonary arteries are normal in size. Esophagus is normal in caliber. No hiatal hernia. Bones and chest wall: No suspicious bony lesions. No vertebral body compression fractures. No axillary or supraclavicular adenopathy by size criteria. Thyroid gland is partially absent . Abdomen: Visualized upper abdominal solid organs and bowel loops appear normal in the absence of contrast. IMPRESSION: 1. Lungs are relatively clear aside from occasional calcified granulomas. 2. Stable borderline mediastinal adenopathy, presumably reactive and unchanged compared to over year ago. Dictated by: Herlinda Hart M.D. on 08/31/2021 at 13:17 Approved by: Herlinda Hart M.D. on 08/31/2021 at 13:24
== END ==
PROVIDERS: Family Provider Internal Medicine; PCP Internal Medicine; Referring Provider Internal Medicine; Visit Provider Internal Medicine
DX: I77.810 Thoracic aortic ectasia (principal); I77.89 Other specified disorders of arteries and arterioles; R06.02 Shortness of breath; R60.0 Localized edema
CPT/HCPCS: 71250; 93306

== ENCOUNTER → 2022-06-12 10:27 | Outpatient (CLI) | payer OTHER, SELFPAY ==
[2021-12-04 15:01] VITALS: BMI 36.4
--- NOTE | 2022-06-12 | DI.RAD.S_ITS ---
PROCEDURE: XR SHOULDER LT MIN 2V INDICATIONS: Pain in left shoulder TECHNIQUE: 3 views of the shoulder were acquired. COMPARISON: [facility], CR, XR SHOULDER RT MIN 2V, 08/09/2018, 11:51. CR, XR CHEST 2V, 07/07/2020, 9:53. FINDINGS: Bones: No fractures or dislocations. No suspicious bony lesions. Visualized ribs appear intact. Moderate acromioclavicular and mild glenohumeral joint space narrowing with periarticular osteophyte formation. Soft tissues: No suspicious soft tissue calcifications. IMPRESSION: 1. Moderate acromioclavicular and mild glenohumeral joint degeneration. Dictated by: Juan Francisco Salazar [facility] Interpreted: Vickie Brown MD on 06/12/2022 at 10:59 Transcribed by: GOVIND on 06/12/2022 at 11:00 Approved by: Vickie Brown M.D. on 06/12/2022 at 12:34
== END ==
PROVIDERS: Family Provider Internal Medicine; PCP Internal Medicine; Referring Provider Internal Medicine; Visit Provider Internal Medicine
DX: M25.512 Pain in left shoulder (principal); G89.29 Other chronic pain; M19.012 Primary osteoarthritis, left shoulder
CPT/HCPCS: 73030